=== PATIENT | male | born 1955 | race Hispanic/Latino ===

== ENCOUNTER 2017-09-19 13:52 | Inpatient (IN) | payer BC ==
[2017-09-19 13:52] VITALS: BMI 40.0
--- NOTE | 2017-09-19 14:37 | RAD ---
PROCEDURE: CHEST RADIOGRAPH, 1 VIEW HISTORY: SOB COMPARISON: Chest radiograph dated 10/16/2013. FINDINGS: LUNGS: Clear. PLEURA: No pneumothorax or pleural fluid seen. CARDIOVASCULAR: Normal. OSSEOUS STRUCTURES: Unchanged. VISUALIZED UPPER ABDOMEN: Normal. OTHER FINDINGS: None. IMPRESSION: No active disease.
--- NOTE | 2017-09-19 14:50 | C.PDOC ---
History Of Present Illness 62-year-old male, PMHx includes renal insufficiency, is brought to the emergency department by family with complaints of weakness. Patient was advised by PMD to prepare for dialysis, one year ago but did not follow up. Patient has no knowledge of his renal function, but over the past few months he has been progressively worsening. Patient has loss of appetite, and has only been drinking liquids. Today, patient was found sitting on steps of home, unable to walk without assistance. Additionally, patient has been experiencing several episodes of watery/non-bloody diarrhea over the past few days. He also notes left flank pain, and chest pain with shortness of breath while walking. No other complaints at this time. Time Seen by Provider: 09/19/17 14:06 Chief Complaint (Nursing): Weakness/Neurological Deficit History Per: Patient, Family Onset/Duration Of Symptoms: Days Current Symptoms Are (Timing): Worse Past Medical History Reviewed: Historical Data, Nursing Documentation, Vital Signs Vital Signs: Last Vital Signs Temp 97.7 F 09/19/17 14:40 Pulse 90 09/19/17 14:40 Resp 20 09/19/17 14:40 BP 124/88 09/19/17 14:40 Pulse Ox 99 09/19/17 14:40 - Medical History PMH: Arthritis (hands), HTN, Hypothyroidism, Kidney Stones, Peripheral Edema, End Stage Renal Disease, Chronic Kidney Disease (not on dialysis) Family History: States: No Known Family Hx - Social History Hx Alcohol Use: No Hx Substance Use: No Review Of Systems Constitutional: Positive for: Weakness. Negative for: Fever, Chills Cardiovascular: Positive for: Chest Pain Respiratory: Positive for: SOB with Excertion Gastrointestinal: Positive for: Diarrhea. Negative for: Nausea, Vomiting Musculoskeletal: Positive for: Back Pain Neurological: Negative for: Headache, Dizziness Physical Exam - Physical Exam Appears: Non-toxic, No Acute Distress, Unkempt (sitting in liquid stool) Skin: Warm, Dry, No Rash Head: Normacephalic Eye(s): bilateral: PERRL Nose: Normal Oral Mucosa: Moist Neck: Normal ROM Cardiovascular: Rhythm Regular, No Murmur Respiratory: Normal Breath Sounds, No Accessory Muscle Use Gastrointestinal/Abdominal: Soft, No Tenderness, Distention Extremity: Normal ROM, No Deformity, No Swelling Neurological/Psych: Oriented x3, Normal Speech, Other (No focal deficit) ED Course And Treatment - Laboratory Results Result Diagrams: 09/19/17 14:51 09/19/17 14:51 Lab Interpretation: Abnormal (BUN 107, Cr 8.5, HCO3 11, K+ 4.0) - Radiology CXR: Viewed By Me CXR Interpretation: Yes: No Acute Disease Reevaluation Time: 15:45 Reassessment Condition: Unchanged - Physician Consult Information Time Consulting Physician Contacted: 15:45 Physician Contacted: Jana Stein Outcome Of Conversation: Patient to be admitted for acute renal failure requiring dialysis. Dr Tellez consulted. Disposition - Disposition Disposition: HOSPITALIZED Disposition Time: 15:46 Condition: FAIR - POA Present On Arrival: None - Clinical Impression Clinical Impression: Acute renal failure - Scribe Statement The provider has reviewed the documentation as recorded by the Scribe (Sintia Leong) All medical record entries made by the Scribe were at my direction and personally dictated by me. I have reviewed the chart and agree that the record accurately reflects my personal performance of the history, physical exam, medical decision making, and the department course for this patient. I have also personally directed, reviewed, and agree with the discharge instructions and disposition.
[2017-09-19 15:00] LABS: BASO % 0.3 % (0.0-2.0); EOS % 0.1 % (0.0-4.0); LYMPH # 0.4 K/uL (1.0-4.3); MEAN CORPUSCULAR HEMOGLOBIN 29.6 pg (27.0-31.0); MEAN CORPUSCULAR HGB CONC 34.1 g/dL (33.0-37.0); MONO # 0.3 K/uL (0.0-0.8); MONO % 7.1 % (0.0-10.0); NEUT # 3.5 K/uL (1.8-7.0); NEUT % 83.5 % (50.0-75.0); NRBC % 0.5 % (0.0-2.0); PLATELET COUNT 228 K/uL (130-400); RBC 4.05 Mil/uL (4.40-5.90); RED CELL DISTRIBUTION WIDTH 15.2 % (11.5-14.5); WHITE BLOOD COUNT 4.1 K/uL (4.8-10.8)
[2017-09-19 15:02] LABS: MEAN CELL VOLUME 86.9 fL (80.0-94.0)
[2017-09-19 15:19] LABS: BASOPHIL 4 % (0-2); LYMPHOCYTE 3 % (20-40); MONOCYTE 7 % (0-10); NEUTROPHIL 86 % (50-75); PLATELET ESTIMATE NORMAL (NORMAL); TOTAL CELLS COUNTED 100
[2017-09-19 15:20] LABS: ANISOCYTOSIS SLIGHT; BURR CELLS SLIGHT; POIKILOCYTOSIS SLIGHT
[2017-09-19 15:21] LABS: MICROCYTOSIS SLIGHT; OVALOCYTES SLIGHT
[2017-09-19 15:35] LABS: ALB/GLOB RATIO 0.9 (1.0-2.1); ALBUMIN 3.2 g/dL (3.5-5.0); CALCIUM 7.9 mg/dl (8.6-10.4)
[2017-09-19] MEDS ORDERED: Sodium Chloride 0.9% 1,000 ML IV ONE (16:00)
[2017-09-19] MEDS ORDERED: Sodium Chloride 0.9% 1,000 ML ONE (16:06)
--- NOTE | 2017-09-19 19:02 | CP.PCM.HP ---
Past Patient History - Infectious Disease Hx of Infectious Diseases: None - Past Medical History & Family History Past Medical History?: Yes - Past Social History Smoking Status: Never Smoked - CARDIAC Hx Hypertension: Yes Hx Peripheral Edema: Yes - PULMONARY Other/Comment: sob upon exertion - HEENT Hx HEENT Problems: Yes - RENAL Hx Chronic Kidney Disease: Yes (not on dialysis) Hx Kidney Stones: Yes - ENDOCRINE/METABOLIC Hx Hypothyroidism: Yes - HEMATOLOGICAL/ONCOLOGICAL Hx Blood Disorders: Yes Hx Gum Bleeding: Yes - MUSCULOSKELETAL/RHEUMATOLOGICAL Hx Arthritis: Yes (hands) - GASTROINTESTINAL Hx Gastrointestinal Disorders: Yes Hx Gastroesophageal Reflux: Yes Hx Ulcer: Yes (gastric) - PSYCHIATRIC Hx Substance Use: No - SURGICAL HISTORY Hx Surgeries: Yes Other/Comment: exc benign tumor tight knee 1969 - ANESTHESIA Hx Anesthesia: Yes Hx Anesthesia Reactions: No Hx Malignant Hyperthermia: No Meds Allergies/Adverse Reactions: Allergies Allergy/AdvReac Type Severity Reaction Status Date / Time No Known Allergies Allergy Verified 10/16/13 09:00 Physical Exam - Constitutional Appears: Well - Head Exam Head Exam: ATRAUMATIC, NORMAL INSPECTION, NORMOCEPHALIC - Eye Exam Eye Exam: EOMI, Normal appearance, PERRL Pupil Exam: NORMAL ACCOMODATION, PERRL - ENT Exam ENT Exam: Mucous Membranes Moist, Normal Exam - Neck Exam Neck exam: Positive for: Normal Inspection - Respiratory Exam Respiratory Exam: Decreased Breath Sounds - Cardiovascular Exam Cardiovascular Exam: REGULAR RHYTHM, +S1, +S2 - GI/Abdominal Exam GI & Abdominal Exam: Diminished Bowel Sounds, Soft - Rectal Exam Rectal Exam: Deferred Results - Vital Signs Recent Vital Signs: Last Vital Signs Temp 97.2 F L 09/19/17 18:12 Pulse 87 09/19/17 18:12 Resp 20 09/19/17 18:12 BP 145/91 H 09/19/17 18:12 Pulse Ox 98 09/19/17 18:12 - Labs Result Diagrams: 09/19/17 14:51 09/19/17 14:51 Labs: Laboratory Results - last 24 hr 09/19/17 09/19/17 14:51 14:51 WBC 4.1 L RBC 4.05 L Hgb 12.0 D Hct 35.2 MCV 86.9 D MCH 29.6 MCHC 34.1 RDW 15.2 H Plt Count 228 MPV 8.0 Neut % (Auto) 83.5 H Lymph % (Auto) 9.0 L [place] % (Auto) 7.1 Eos % (Auto) 0.1 Baso % (Auto) 0.3 Neut # (Auto) 3.5 Lymph # (Auto) 0.4 L [place] # (Auto) 0.3 Eos # (Auto) 0.0 Baso # (Auto) 0.0 Neutrophils % (Manual) 86 H Lymphocytes % (Manual) 3 L Monocytes % (Manual) 7 Basophils % (Manual) 4 H Platelet Estimate Normal Poikilocytosis (manual Slight Anisocytosis (manual) Slight Microcytosis (manual) Slight Macrocytosis (manual) Slight Ovalocytes Slight [place] Cells Slight Sodium 135 Potassium 4.0 Chloride 103 Carbon Dioxide 11 L* D Anion Gap 25 H BUN 107 H* D Creatinine 8.5 H* Est GFR ( Amer) 8 Est GFR (Non-Af Amer) 6 Random Glucose 129 H Calcium 7.9 L Magnesium 1.3 L Total Bilirubin 0.9 AST 35 ALT 25 Alkaline Phosphatase 84 Total Protein 6.8 Albumin 3.2 L Globulin 3.6 Albumin/Globulin Ratio 0.9 L
[2017-09-19] MEDS ORDERED: Albuterol-Ipratrop 3 mg / 0.5 (3 ml) UD INH PRN (19:48)
[2017-09-20] MEDS: Levothyroxine 25 MCG TAB PO SCH (06:18)
[2017-09-20 07:37] LABS: BASO % 0.6 % (0.0-2.0); EOS % 0.2 % (0.0-4.0); HEMOGLOBIN 10.9 g/dL (12.0-18.0); LYMPH # 0.6 K/uL (1.0-4.3); LYMPH % 14.3 % (20.0-40.0); MEAN CELL VOLUME 86.2 fL (80.0-94.0); MEAN CORPUSCULAR HEMOGLOBIN 29.8 pg (27.0-31.0); MEAN CORPUSCULAR HGB CONC 34.5 g/dL (33.0-37.0); MEAN PLATELET VOLUME 8.1 fL (7.2-11.7); MONO # 0.3 K/uL (0.0-0.8); MONO % 7.3 % (0.0-10.0); NEUT # 3.1 K/uL (1.8-7.0); NEUT % 77.6 % (50.0-75.0); NRBC % 0.1 % (0.0-2.0); RBC 3.67 Mil/uL (4.40-5.90); RED CELL DISTRIBUTION WIDTH 15.2 % (11.5-14.5)
[2017-09-20 08:15] LABS: CALCIUM 7.4 mg/dl (8.6-10.4)
--- NOTE | 2017-09-20 10:29 | CP.PCM.CON ---
History of Present Illness - History of Present Illness History of Present Illness: 62-year-old male, PMHx includes renal insufficiency, is brought to the emergency department by family with complaints of weakness. Patient was advised by PMD to prepare for dialysis, one year ago but did not follow up. Patient has no knowledge of his renal function, but over the past few months he has been progressively worsening. Patient has loss of appetite, and has only been drinking liquids. Today, patient was found sitting on steps of home, unable to walk without assistance. Additionally, patient has been experiencing several episodes of watery/non-bloody diarrhea over the past few days. He also notes left flank pain, and chest pain with shortness of breath while walking. No other complaints at this time. PMH: CKD 5 HTN SECONDARY HYPERPARATHYROIDISM ATROPHIC LEFT? KIDNEY HYPOTHROIDISM PSH: FATTY TUMOR RESECTION KNEE ON RIGHT Review of Systems - Constitutional Constitutional: Fatigue, Lethargy, Weight Loss, Weakness - EENT Eyes: Blurred Vision Ears: absent: As Per HPI, Decreased Hearing, Ear Discharge, Ear Pain, Tinnitus, Abnormal Hearing, Disequilibrium, Dizziness, Other Nose/Mouth/Throat: absent: As Per HPI, Epistaxis, Nasal Congestion, Nasal Discharge, Nasal Obstruction, Nasal Trauma, Nose Pain, Post Nasal Drip, Sinus Pain, Sinus Pressure, Bleeding Gums, Change in Voice, Dental Pain, Dry Mouth, Dysphagia, Halitosis, Hoarsness, Lip Swelling, Mouth Lesions, Mouth Pain, Odynophagia, Sore Throat, Throat Swelling, Tongue Swelling, Facial Pain, Neck Pain, Neck Mass, Other - Cardiovascular Cardiovascular: Dyspnea on Exertion, Lightheadedness - Respiratory Respiratory: Cough, Dyspnea on Exertion - Gastrointestinal Gastrointestinal: Diarrhea, Nausea - Genitourinary Genitourinary: Dysuria, Voiding Freq/Small Amts - Musculoskeletal Musculoskeletal: Muscle Cramps, Muscle Weakness, Myalgias - Neurological Neurological: Weakness Past Patient History - Infectious Disease Hx of Infectious Diseases: None - Past Medical History & Family History Past Medical History?: Yes Past Family History: Reviewed and not pertinent - Past Social History Smoking Status: Never Smoked Chewing Tobacco Use: No Cigar Use: No Alcohol: Occasional Home Situation {Lives}: With Family Domestic Violence: Negative - CARDIAC Hx Hypertension: Yes Hx Peripheral Edema: Yes - PULMONARY Other/Comment: sob upon exertion - HEENT Hx HEENT Problems: Yes - RENAL Hx Chronic Kidney Disease: Yes (not on dialysis) Hx Kidney Stones: Yes - ENDOCRINE/METABOLIC Hx Hypothyroidism: Yes - HEMATOLOGICAL/ONCOLOGICAL Hx Blood Disorders: Yes Hx Gum Bleeding: Yes - MUSCULOSKELETAL/RHEUMATOLOGICAL Hx Falls: Yes (Last fall 3 months ago) - GASTROINTESTINAL Hx Gastrointestinal Disorders: Yes Hx Gastroesophageal Reflux: Yes Hx Ulcer: Yes (gastric) - PSYCHIATRIC Hx Substance Use: No - SURGICAL HISTORY Hx Surgeries: Yes Other/Comment: exc benign tumor tight knee 1970 - ANESTHESIA Hx Anesthesia: Yes Hx Anesthesia Reactions: No Hx Malignant Hyperthermia: No Meds Allergies/Adverse Reactions: Allergies Allergy/AdvReac Type Severity Reaction Status Date / Time No Known Allergies Allergy Verified 10/16/13 09:00 - Medications Medications: Current Medications Albuterol/Ipratropium (Duoneb 3 Mg/0.5 Mg (3 Ml) Ud) 3 ml INH RQ6 PRN PRN Reason: Wheezing Calcitriol (Rocaltrol) 0.25 mcg PO DAILY [facility] Last Admin: 09/20/17 10:22 Dose: 0.25 mcg Furosemide (Lasix) 40 mg PO DAILY [facility] Last Admin: 09/20/17 10:22 Dose: 40 mg Heparin Sodium (Porcine) (Heparin) 5,000 units SC Q12 [facility] Last Admin: 09/20/17 10:26 Dose: Not Given Levothyroxine Sodium (Synthroid) 25 mcg PO DAILY@0630 [facility] Last Admin: 09/20/17 06:18 Dose: 25 mcg Sodium Bicarbonate (Sodium Bicarbonate Tab) 650 mg PO Q6 [facility] Last Admin: 09/20/17 06:18 Dose: 650 mg Physical Exam - Constitutional Appears: Non-toxic, Chronically Ill - Head Exam Head Exam: ATRAUMATIC, NORMAL INSPECTION - Eye Exam Eye Exam: EOMI, Normal appearance - Neck Exam Neck exam: Positive for: Normal Inspection. Negative for: Tenderness - Respiratory Exam Respiratory Exam: Clear to Auscultation Bilateral, NORMAL BREATHING PATTERN - Cardiovascular Exam Cardiovascular Exam: REGULAR RHYTHM, +S1 - GI/Abdominal Exam GI & Abdominal Exam: Distended, Soft, Tenderness - Extremities Exam Extremities exam: Positive for: normal inspection, tenderness - Neurological Exam Neurological exam: Alert, CN II-XII Intact - Skin Skin Exam: Dry, Warm Results - Vital Signs Recent Vital Signs: Last Vital Signs Temp 97.2 F L 09/20/17 07:10 Pulse 87 09/20/17 07:10 Resp 18 09/20/17 07:10 BP 117/83 09/20/17 10:22 Pulse Ox 96 09/20/17 07:10 - Labs Result Diagrams: 09/20/17 07:15 09/20/17 07:15 Labs: Laboratory Results - last 24 hr 09/19/17 09/19/17 09/20/17 14:51 14:51 07:15 WBC 4.1 L 4.0 L RBC 4.05 L 3.67 L Hgb 12.0 D 10.9 L Hct 35.2 31.6 L MCV 86.9 D 86.2 MCH 29.6 29.8 MCHC 34.1 34.5 RDW 15.2 H 15.2 H Plt Count 228 196 MPV 8.0 8.1 Neut % (Auto) 83.5 H 77.6 H Lymph % (Auto) 9.0 L 14.3 L [place] % (Auto) 7.1 7.3 Eos % (Auto) 0.1 0.2 Baso % (Auto) 0.3 0.6 Neut # (Auto) 3.5 3.1 Lymph # (Auto) 0.4 L 0.6 L [place] # (Auto) 0.3 0.3 Eos # (Auto) 0.0 0.0 Baso # (Auto) 0.0 0.0 Neutrophils % (Manual) 86 H Lymphocytes % (Manual) 3 L Monocytes % (Manual) 7 Basophils % (Manual) 4 H Platelet Estimate Normal Poikilocytosis (manual Slight Anisocytosis (manual) Slight Microcytosis (manual) Slight Macrocytosis (manual) Slight Ovalocytes Slight [place] Cells Slight Sodium 135 Potassium 4.0 Chloride 103 Carbon Dioxide 11 L* D Anion Gap 25 H BUN 107 H* D Creatinine 8.5 H* Est GFR ( Amer) 8 Est GFR (Non-Af Amer) 6 Random Glucose 129 H Calcium 7.9 L Magnesium 1.3 L Total Bilirubin 0.9 AST 35 ALT 25 Alkaline Phosphatase 84 Total Protein 6.8 Albumin 3.2 L Globulin 3.6 Albumin/Globulin Ratio 0.9 L 09/20/17 07:15 WBC RBC Hgb Hct MCV MCH MCHC RDW Plt Count MPV Neut % (Auto) Lymph % (Auto) [place] % (Auto) Eos % (Auto) Baso % (Auto) Neut # (Auto) Lymph # (Auto) [place] # (Auto) Eos # (Auto) Baso # (Auto) Neutrophils % (Manual) Lymphocytes % (Manual) Monocytes % (Manual) Basophils % (Manual) Platelet Estimate Poikilocytosis (manual Anisocytosis (manual) Microcytosis (manual) Macrocytosis (manual) Ovalocytes [place] Cells Sodium 133 Potassium 3.6 Chloride 103 Carbon Dioxide 12 L Anion Gap 22 H BUN 110 H* Creatinine 8.5 H* Est GFR ( Amer) 8 Est GFR (Non-Af Amer) 6 Random Glucose 80 Calcium 7.4 L Magnesium Total Bilirubin AST ALT Alkaline Phosphatase Total Protein Albumin Globulin Albumin/Globulin Ratio Assessment & Plan (1) CKD (chronic kidney disease) stage 5, GFR less than 15 ml/min Status: Acute (2) CKD stage 5 secondary to hypertension Status: Acute (3) Secondary hyperparathyroidism Status: Acute (4) Hypothyroidism Status: Acute (5) Uremia Status: Acute - Assessment and Plan (Free Text) Plan: Will need dialysis Await permcath Renal serologies Monitor BP
--- NOTE | 2017-09-20 10:33 | CP.PCM.CON ---
History of Present Illness - History of Present Illness History of Present Illness: Vascular surgery consult for Dr. Sumi Severino, PGY-1 Pt S & E at bedside. 62M w/PMH sig for ESRD consulted for dialysis access. Per nephrology- pt has been referred to vascular before, without follow up. Pt reports b/l LE weakness , decreased appetite, feels thirsty, dry heaves, cough, wt loss. Denies anuria , CP, SOB, changes in bowel or bladder habits, other complaints. PMH: HTN, ESRD, hypothyroidism, nephrolithiasis, arthritis, peripheral edema, recurrent hyponatremia, hard of hearing PSH: R knee tumor excision - benign All: NDKA SH: Admits to 6-8 beers daily, last drink 3 wks ago, denies tobacco or illicit drug use Nephro: Geoff Past Patient History - Infectious Disease Hx of Infectious Diseases: None - Past Medical History & Family History Past Medical History?: Yes Past Family History: Reviewed and not pertinent - Past Social History Smoking Status: Never Smoked Chewing Tobacco Use: No Cigar Use: No - CARDIAC Hx Hypertension: Yes Hx Peripheral Edema: Yes - PULMONARY Other/Comment: sob upon exertion - HEENT Hx HEENT Problems: Yes - RENAL Hx Chronic Kidney Disease: Yes (not on dialysis) Hx Kidney Stones: Yes - ENDOCRINE/METABOLIC Hx Hypothyroidism: Yes - HEMATOLOGICAL/ONCOLOGICAL Hx Blood Disorders: Yes Hx Gum Bleeding: Yes - MUSCULOSKELETAL/RHEUMATOLOGICAL Hx Falls: Yes (Last fall 3 months ago) - GASTROINTESTINAL Hx Gastrointestinal Disorders: Yes Hx Gastroesophageal Reflux: Yes Hx Ulcer: Yes (gastric) - PSYCHIATRIC Hx Substance Use: No - SURGICAL HISTORY Hx Surgeries: Yes Other/Comment: exc benign tumor tight knee 1970 - ANESTHESIA Hx Anesthesia: Yes Hx Anesthesia Reactions: No Hx Malignant Hyperthermia: No Meds Allergies/Adverse Reactions: Allergies Allergy/AdvReac Type Severity Reaction Status Date / Time No Known Allergies Allergy Verified 10/16/13 09:00 - Medications Medications: Current Medications Albuterol/Ipratropium (Duoneb 3 Mg/0.5 Mg (3 Ml) Ud) 3 ml INH RQ6 PRN PRN Reason: Wheezing Calcitriol (Rocaltrol) 0.25 mcg PO DAILY [facility] Last Admin: 09/20/17 10:22 Dose: 0.25 mcg Furosemide (Lasix) 40 mg PO DAILY [facility] Last Admin: 09/20/17 10:22 Dose: 40 mg Heparin Sodium (Porcine) (Heparin) 5,000 units SC Q12 [facility] Last Admin: 09/20/17 10:26 Dose: Not Given Levothyroxine Sodium (Synthroid) 25 mcg PO DAILY@0630 [facility] Last Admin: 09/20/17 06:18 Dose: 25 mcg Sodium Bicarbonate (Sodium Bicarbonate Tab) 650 mg PO Q6 [facility] Last Admin: 09/20/17 06:18 Dose: 650 mg Results - Vital Signs Recent Vital Signs: Last Vital Signs Temp 97.2 F L 09/20/17 07:10 Pulse 87 09/20/17 07:10 Resp 18 09/20/17 07:10 BP 117/83 09/20/17 10:22 Pulse Ox 96 09/20/17 07:10 - Labs Result Diagrams: 09/20/17 07:15 09/20/17 07:15 Labs: Laboratory Results - last 24 hr 09/19/17 09/19/17 09/20/17 14:51 14:51 07:15 WBC 4.1 L 4.0 L RBC 4.05 L 3.67 L Hgb 12.0 D 10.9 L Hct 35.2 31.6 L MCV 86.9 D 86.2 MCH 29.6 29.8 MCHC 34.1 34.5 RDW 15.2 H 15.2 H Plt Count 228 196 MPV 8.0 8.1 Neut % (Auto) 83.5 H 77.6 H Lymph % (Auto) 9.0 L 14.3 L [place] % (Auto) 7.1 7.3 Eos % (Auto) 0.1 0.2 Baso % (Auto) 0.3 0.6 Neut # (Auto) 3.5 3.1 Lymph # (Auto) 0.4 L 0.6 L [place] # (Auto) 0.3 0.3 Eos # (Auto) 0.0 0.0 Baso # (Auto) 0.0 0.0 Neutrophils % (Manual) 86 H Lymphocytes % (Manual) 3 L Monocytes % (Manual) 7 Basophils % (Manual) 4 H Platelet Estimate Normal Poikilocytosis (manual Slight Anisocytosis (manual) Slight Microcytosis (manual) Slight Macrocytosis (manual) Slight Ovalocytes Slight [place] Cells Slight Sodium 135 Potassium 4.0 Chloride 103 Carbon Dioxide 11 L* D Anion Gap 25 H BUN 107 H* D Creatinine 8.5 H* Est GFR ( Amer) 8 Est GFR (Non-Af Amer) 6 Random Glucose 129 H Calcium 7.9 L Magnesium 1.3 L Total Bilirubin 0.9 AST 35 ALT 25 Alkaline Phosphatase 84 Total Protein 6.8 Albumin 3.2 L Globulin 3.6 Albumin/Globulin Ratio 0.9 L 09/20/17 07:15 WBC RBC Hgb Hct MCV MCH MCHC RDW Plt Count MPV Neut % (Auto) Lymph % (Auto) [place] % (Auto) Eos % (Auto) Baso % (Auto) Neut # (Auto) Lymph # (Auto) [place] # (Auto) Eos # (Auto) Baso # (Auto) Neutrophils % (Manual) Lymphocytes % (Manual) Monocytes % (Manual) Basophils % (Manual) Platelet Estimate Poikilocytosis (manual Anisocytosis (manual) Microcytosis (manual) Macrocytosis (manual) Ovalocytes [place] Cells Sodium 133 Potassium 3.6 Chloride 103 Carbon Dioxide 12 L Anion Gap 22 H BUN 110 H* Creatinine 8.5 H* Est GFR ( Amer) 8 Est GFR (Non-Af Amer) 6 Random Glucose 80 Calcium 7.4 L Magnesium Total Bilirubin AST ALT Alkaline Phosphatase Total Protein Albumin Globulin Albumin/Globulin Ratio Assessment & Plan - Assessment and Plan (Free Text) Assessment: 62M w/PMH sig for ESRD requiring HD Plan: Plan for OR later today HD to follow per nephrology NPO LUE arm precautions FU Vein mapping Further mgmt as per primary and nephrology Will BURTON attending [place], PGY-1 - Date & Time Date: 09/20/17 Time: 10:33
[2017-09-20] MEDS: Magnesium Oxide 400 mg Tab UD PO SCH ×2 (11:36→17:57)
[2017-09-20] MEDS ORDERED: Lidocaine Hydrochloride 20 ML INJ ONE (13:31)
[2017-09-20] MEDS ORDERED: ceFAZolin 1 gm in NS 0 GM/0 ML BAG IVPB ONE (13:31)
[2017-09-20] MEDS ORDERED: HEPARIN-NS 5,000 UNITS/500 ML 5,000 UNIT/500 ML BAG IV ONE (13:31)
[2017-09-20] MEDS ORDERED: ceFAZolin 1 gm in NS 1 GM/100 ML BAG IVPB ONE (13:32)
[2017-09-20] MEDS ORDERED: Midazolam 2 MG/2 ML VIAL ONE (13:38)
[2017-09-20] MEDS ORDERED: Propofol 10 mg/ml Inj (20 ML) ONE (13:38)
[2017-09-20] MEDS ORDERED: Lactated Ringer's 1,000 ML IV ONE (13:50)
[2017-09-20 14:24] LABS: INR 1.4
[2017-09-20 14:26] LABS: PROTHROMBIN TIME 15.4 SECONDS (9.7-12.2)
--- NOTE | 2017-09-20 14:33 | CP.PCM.CON ---
Past Patient History - Infectious Disease Hx of Infectious Diseases: None - Past Medical History & Family History Past Medical History?: Yes Past Family History: Reviewed and not pertinent - Past Social History Smoking Status: Never Smoked Chewing Tobacco Use: No Cigar Use: No Alcohol: Occasional Home Situation {Lives}: With Family Domestic Violence: Negative - CARDIAC Hx Hypertension: Yes Hx Peripheral Edema: Yes - PULMONARY Other/Comment: sob upon exertion - HEENT Hx HEENT Problems: Yes - RENAL Hx Chronic Kidney Disease: Yes (not on dialysis) Hx Kidney Stones: Yes - ENDOCRINE/METABOLIC Hx Hypothyroidism: Yes - HEMATOLOGICAL/ONCOLOGICAL Hx Blood Disorders: Yes Hx Gum Bleeding: Yes - MUSCULOSKELETAL/RHEUMATOLOGICAL Hx Falls: Yes (Last fall 3 months ago) - GASTROINTESTINAL Hx Gastrointestinal Disorders: Yes Hx Gastroesophageal Reflux: Yes Hx Ulcer: Yes (gastric) - PSYCHIATRIC Hx Substance Use: No - SURGICAL HISTORY Hx Surgeries: Yes Other/Comment: exc benign tumor tight knee 1970 - ANESTHESIA Hx Anesthesia: Yes Hx Anesthesia Reactions: No Hx Malignant Hyperthermia: No Meds Allergies/Adverse Reactions: Allergies Allergy/AdvReac Type Severity Reaction Status Date / Time No Known Allergies Allergy Verified 10/16/13 09:00 - Medications Medications: Current Medications Albuterol/Ipratropium (Duoneb 3 Mg/0.5 Mg (3 Ml) Ud) 3 ml INH RQ6 PRN PRN Reason: Wheezing Calcitriol (Rocaltrol) 0.25 mcg PO DAILY [facility] Last Admin: 09/20/17 10:22 Dose: 0.25 mcg Heparin Sodium (Porcine) (Heparin) 5,000 units SC Q12 [facility] Last Admin: 09/20/17 10:26 Dose: Not Given Levothyroxine Sodium (Synthroid) 25 mcg PO DAILY@0630 [facility] Last Admin: 09/20/17 06:18 Dose: 25 mcg Magnesium Oxide (Mag-Ox) 400 mg PO BID [facility] Stop: 09/21/17 12:00 Last Admin: 09/20/17 11:36 Dose: 400 mg Sodium Bicarbonate (Sodium Bicarbonate Tab) 650 mg PO Q6 [facility] Last Admin: 09/20/17 11:37 Dose: 650 mg Results - Vital Signs Recent Vital Signs: Last Vital Signs Temp 97.2 F L 09/20/17 07:10 Pulse 85 09/20/17 13:05 Resp 18 09/20/17 07:10 BP 117/83 04/12/18 10:22 Pulse Ox 96 09/20/17 07:10 - Labs Result Diagrams: 09/20/17 07:15 09/20/17 07:15 Labs: Laboratory Results - last 24 hr 09/19/17 09/19/17 09/20/17 14:51 14:51 07:15 WBC 4.1 L 4.0 L RBC 4.05 L 3.67 L Hgb 12.0 D 10.9 L Hct 35.2 31.6 L MCV 86.9 D 86.2 MCH 29.6 29.8 MCHC 34.1 34.5 RDW 15.2 H 15.2 H Plt Count 228 196 MPV 8.0 8.1 Neut % (Auto) 83.5 H 77.6 H Lymph % (Auto) 9.0 L 14.3 L [place] % (Auto) 7.1 7.3 Eos % (Auto) 0.1 0.2 Baso % (Auto) 0.3 0.6 Neut # (Auto) 3.5 3.1 Lymph # (Auto) 0.4 L 0.6 L [place] # (Auto) 0.3 0.3 Eos # (Auto) 0.0 0.0 Baso # (Auto) 0.0 0.0 Neutrophils % (Manual) 86 H Lymphocytes % (Manual) 3 L Monocytes % (Manual) 7 Basophils % (Manual) 4 H Platelet Estimate Normal Poikilocytosis (manual Slight Anisocytosis (manual) Slight Microcytosis (manual) Slight Macrocytosis (manual) Slight Ovalocytes Slight [place] Cells Slight PT INR APTT Sodium 135 Potassium 4.0 Chloride 103 Carbon Dioxide 11 L* D Anion Gap 25 H BUN 107 H* D Creatinine 8.5 H* Est GFR ( Amer) 8 Est GFR (Non-Af Amer) 6 Random Glucose 129 H Calcium 7.9 L Magnesium 1.3 L Total Bilirubin 0.9 AST 35 ALT 25 Alkaline Phosphatase 84 Total Protein 6.8 Albumin 3.2 L Globulin 3.6 Albumin/Globulin Ratio 0.9 L 09/20/17 09/20/17 07:15 14:06 WBC RBC Hgb Hct MCV MCH MCHC RDW Plt Count MPV Neut % (Auto) Lymph % (Auto) [place] % (Auto) Eos % (Auto) Baso % (Auto) Neut # (Auto) Lymph # (Auto) [place] # (Auto) Eos # (Auto) Baso # (Auto) Neutrophils % (Manual) Lymphocytes % (Manual) Monocytes % (Manual) Basophils % (Manual) Platelet Estimate Poikilocytosis (manual Anisocytosis (manual) Microcytosis (manual) Macrocytosis (manual) Ovalocytes [place] Cells PT 15.4 H INR 1.4 APTT 33 Sodium 133 Potassium 3.6 Chloride 103 Carbon Dioxide 12 L Anion Gap 22 H BUN 110 H* Creatinine 8.5 H* Est GFR ( Amer) 8 Est GFR (Non-Af Amer) 6 Random Glucose 80 Calcium 7.4 L Magnesium Total Bilirubin AST ALT Alkaline Phosphatase Total Protein Albumin Globulin Albumin/Globulin Ratio
[2017-09-20] MEDS ORDERED: Sodium Chloride 0.9% 500 ML IV ONE (14:34)
--- NOTE | 2017-09-20 14:42 | PCM.SURG1 ---
Surgeon's Initial Post Op Note - Surgeon's Notes Surgeon: Gold Houser MD Watch And Clock Repairer: Cassy Severino PGY-1, Yon Hernandez MS-3 Pre-Operative Diagnosis: End Stage Renal Disease Requiring Dialysis Operative Findings: See Op report Post-Operative Diagnosis: End Stage Renal Disease Requiring Dialysis Operation Performed: Right IJ Permacath Placement Specimen/Specimens Removed: none Estimated Blood Loss: EBL {In ML}: 5 Blood Products Given: N/A Drains Used: No Drains Date of Surgery/Procedure: 09/20/17 Time of Surgery/Procedure: 14:42
[2017-09-20 15:20] LABS: HEPATITIS B SURFACE AG Negative (NEGATIVE)
[2017-09-20 15:25] LABS: HEPATITIS B CORE AB NEGATIVE (NEGATIVE)
--- NOTE | 2017-09-20 16:07 | RAD ---
HISTORY: permacath eval in pacu COMPARISON: Portable chest 09/19/2017. FINDINGS: LUNGS: Trace remains rotated toward the right. An interval right center venous dialysis catheters in place by an apparent right internal jugular approach with the tips turning at the right atrium. No definite interval infiltrate bilaterally. PLEURA: No significant pleural effusion identified, no pneumothorax apparent. CARDIOVASCULAR: Normal. OSSEOUS STRUCTURES: No significant abnormalities. VISUALIZED UPPER ABDOMEN: Normal. OTHER FINDINGS: None. IMPRESSION: Interval right center venous catheter deployment as discussed above. No pneumothorax. Examination is otherwise stable in the interval with no acute infiltrate pleural effusion or pulmonary vascular derangement identified grossly.
[2017-09-20 16:16] LABS: HEPATITIS C ANTIBODY NEGATIVE (NEGATIVE)
--- NOTE | 2017-09-20 16:56 | RAD ---
PROCEDURE: HISTORY: As Above COMPARISON: TECHNIQUE: Total fluoroscopic time utilized during the procedure: 7.4 seconds. Total dose 1.42 mGy cm squared FINDINGS: Submitted images from the current procedure: 3 Please refer to the physician's notes performing the procedure. IMPRESSION: Less than 1 hour fluoroscopic time utilized during performance of the procedure
--- NOTE | 2017-09-20 18:38 | CP.PCM.PN ---
Subjective - Date & Time of Evaluation Date of Evaluation: 09/20/17 Time of Evaluation: 10:40 - Subjective Subjective: clinically same Objective - Vital Signs/Intake and Output Vital Signs (last 24 hours): Temp Pulse Resp BP Pulse Ox 97.2 F L 76 20 124/81 95 09/20/17 16:30 09/20/17 18:17 09/20/17 18:17 09/20/17 18:30 09/20/17 16:30 Intake and Output: 09/20/17 09/20/17 06:59 18:59 Intake Total 320 100 Output Total 200 Balance 120 100 - Medications Medications: Current Medications Albuterol/Ipratropium (Duoneb 3 Mg/0.5 Mg (3 Ml) Ud) 3 ml INH RQ6 PRN PRN Reason: Wheezing Calcitriol (Rocaltrol) 0.25 mcg PO DAILY [facility] Last Admin: 09/20/17 10:22 Dose: 0.25 mcg Heparin Sodium (Porcine) (Heparin) 5,000 units SC Q12 [facility] Last Admin: 09/20/17 10:26 Dose: Not Given Levothyroxine Sodium (Synthroid) 25 mcg PO DAILY@0630 [facility] Last Admin: 09/20/17 06:18 Dose: 25 mcg Magnesium Oxide (Mag-Ox) 400 mg PO BID [facility] Stop: 09/21/17 12:00 Last Admin: 09/20/17 17:57 Dose: Not Given Sodium Bicarbonate (Sodium Bicarbonate Tab) 650 mg PO Q6 [facility] Last Admin: 09/20/17 17:58 Dose: Not Given - Labs Labs: 09/20/17 07:15 09/20/17 07:15 PT 15.4 SECONDS (9.7-12.2) H 09/20/17 14:06 INR 1.4 09/20/17 14:06 APTT 33 SECONDS (21-34) 09/20/17 14:06 - Constitutional Appears: Well - Head Exam Head Exam: ATRAUMATIC, NORMAL INSPECTION, NORMOCEPHALIC - Eye Exam Eye Exam: EOMI, Normal appearance, PERRL Pupil Exam: NORMAL ACCOMODATION, PERRL - ENT Exam ENT Exam: Mucous Membranes Moist, Normal Exam - Neck Exam Neck Exam: Full ROM, Normal Inspection. absent: Lymphadenopathy - Respiratory Exam Respiratory Exam: Decreased Breath Sounds - Cardiovascular Exam Cardiovascular Exam: REGULAR RHYTHM, +S1, +S2 - GI/Abdominal Exam GI & Abdominal Exam: Soft, Diminished Bowel Sounds - Rectal Exam Rectal Exam: Deferred
--- NOTE | 2017-09-21 00:36 | OP ---
PROCEDURE DATE: 09/20/2017 PREOPERATIVE DIAGNOSIS: Renal failure. POSTOPERATIVE DIAGNOSIS: Renal failure. PROCEDURE CARRIED OUT: Placement of PermCath, right jugular vein with C-arm fluoroscopy, ultrasound-guided puncture and micropuncture technique. SURGEON: Gold Houser MD BACK SEAM STITCHER: Dr. Rueda. ANESTHESIOLOGIST: Mr. Gibbs. INDICATIONS: A 62-year-old man with renal insufficiency, presented on an emergency basis requiring placement of PermCath. OPERATIVE FINDINGS: Catheter was inserted uneventfully via jugular vein. DESCRIPTION OF PROCEDURE: Using ultrasound guidance and micropuncture technique, the right jugular vein was cannulated. Under fluoroscope control, a guidewire was advanced centrally. A sheath dilator was passed over, this was exchanged for an 0.035 wire. Sheath dilator passed again. Catheter was then positioned in appropriate location, flushed with heparinized saline with good return in both directions. It was secured to the skin with sutures and dressing applied. It was originated on the right chest wall, went to the jugular vein, terminated in the superior vena cava. Blood loss in this procedure was approximately 10 mL. The operation carried out was PermCath, right jugular vein with C-arm fluoroscopy, ultrasound-guided puncture and micropuncture technique. Ultrasound images of the neck showed that the vein was approximately 14 mm in diameter with normal compressibility and no evidence of intraluminal thrombosis. Gold Houser Jr., MD
[2017-09-21] MEDS: Levothyroxine 25 MCG TAB PO SCH (06:17)
[2017-09-21] MEDS: Magnesium Oxide 400 mg Tab UD PO SCH (09:55)
--- NOTE | 2017-09-21 11:03 | CP.PCM.PN ---
Subjective - Date & Time of Evaluation Date of Evaluation: 09/21/17 Time of Evaluation: 10:58 - Subjective Subjective: PGY-1 surgery progress note for Dr Houser. No acute events noted overnight. Patient was seen resting comfortably in bed. Complained of cough and general weakness otherwise denied chest pain, abdominal pain, fever, chills Objective - Vital Signs/Intake and Output Vital Signs (last 24 hours): Temp Pulse Resp BP Pulse Ox 97.6 F 83 20 123/83 97 09/21/17 07:00 09/21/17 08:00 09/21/17 07:00 09/21/17 07:00 09/21/17 07:00 - Medications Medications: Current Medications Albuterol/Ipratropium (Duoneb 3 Mg/0.5 Mg (3 Ml) Ud) 3 ml INH RQ6 PRN PRN Reason: Wheezing Calcitriol (Rocaltrol) 0.25 mcg PO DAILY [facility] Last Admin: 09/21/17 09:55 Dose: 0.25 mcg Heparin Sodium (Porcine) (Heparin) 5,000 units SC Q12 [facility] Last Admin: 09/20/17 10:26 Dose: Not Given Levothyroxine Sodium (Synthroid) 25 mcg PO DAILY@0630 [facility] Last Admin: 09/21/17 06:17 Dose: 25 mcg Magnesium Oxide (Mag-Ox) 400 mg PO BID [facility] Stop: 09/21/17 12:00 Last Admin: 09/21/17 09:55 Dose: 400 mg Ondansetron HCl (Zofran Inj) 4 mg IVP Q6 PRN PRN Reason: Nausea/Vomiting Last Admin: 09/21/17 08:36 Dose: 4 mg Sodium Bicarbonate (Sodium Bicarbonate Tab) 650 mg PO Q6 [facility] Last Admin: 09/21/17 06:17 Dose: 650 mg - Labs Labs: 09/20/17 07:15 09/20/17 07:15 PT 15.4 SECONDS (9.7-12.2) H 09/20/17 14:06 INR 1.4 09/20/17 14:06 APTT 33 SECONDS (21-34) 09/20/17 14:06 - Additional Findings Additional findings: - Constitutional Appears: Non-toxic, Chronically Ill - Head Exam Head Exam: ATRAUMATIC, NORMAL INSPECTION - Eye Exam Eye Exam: EOMI, Normal appearance - Neck Exam Neck exam: Positive for: Normal Inspection. Negative for: Tenderness W/ RT JUGULAR PERMACATH INTACT DRESSING DRY - Respiratory Exam Respiratory Exam: Clear to Auscultation Bilateral, NORMAL BREATHING PATTERN - Cardiovascular Exam Cardiovascular Exam: REGULAR RHYTHM, +S1 - GI/Abdominal Exam GI & Abdominal Exam: Distended, Soft, Tenderness - Extremities Exam Extremities exam: Positive for: normal inspection, tenderness - Neurological Exam Neurological exam: Alert, CN II-XII Intact - Skin Skin Exam: Dry, Warm Assessment and Plan - Assessment and Plan (Free Text) Assessment: 62M w/PMH sig for ESRD requiring HD with Right IJ Permacath Placement POD #1 Plan: HD to follow per nephrology Renal diet LUE arm precautions FU Vein mapping Further mgmt as per primary and nephrology Will DW attending
--- NOTE | 2017-09-21 12:54 | CP.PCM.PN ---
Subjective - Date & Time of Evaluation Date of Evaluation: 09/21/17 Time of Evaluation: 12:51 - Subjective Subjective: s/p first dialysis 09/20 feels better right IJ permcath in place less dyspnea, no CPs, no n,v,fever, chills Objective - Vital Signs/Intake and Output Vital Signs (last 24 hours): Temp Pulse Resp BP Pulse Ox 97.6 F 83 20 123/83 97 09/21/17 07:00 09/21/17 12:36 09/21/17 07:00 09/21/17 07:00 09/21/17 07:00 - Medications Medications: Current Medications Albuterol/Ipratropium (Duoneb 3 Mg/0.5 Mg (3 Ml) Ud) 3 ml INH RQ6 PRN PRN Reason: Wheezing Calcitriol (Rocaltrol) 0.25 mcg PO DAILY [facility] Last Admin: 09/21/17 09:55 Dose: 0.25 mcg Heparin Sodium (Porcine) (Heparin) 5,000 units SC Q12 [facility] Last Admin: 09/20/17 10:26 Dose: Not Given Levothyroxine Sodium (Synthroid) 25 mcg PO DAILY@0630 [facility] Last Admin: 09/21/17 06:17 Dose: 25 mcg Ondansetron HCl (Zofran Inj) 4 mg IVP Q6 PRN PRN Reason: Nausea/Vomiting Last Admin: 09/21/17 08:36 Dose: 4 mg Sodium Bicarbonate (Sodium Bicarbonate Tab) 650 mg PO Q6 [facility] Last Admin: 09/21/17 12:04 Dose: 650 mg - Labs Labs: 09/20/17 07:15 09/20/17 07:15 PT 15.4 SECONDS (9.7-12.2) H 09/20/17 14:06 INR 1.4 09/20/17 14:06 APTT 33 SECONDS (21-34) 09/20/17 14:06 - Constitutional Appears: No Acute Distress, Chronically Ill - Head Exam Head Exam: ATRAUMATIC, NORMAL INSPECTION - Eye Exam Eye Exam: EOMI, Normal appearance - Neck Exam Neck Exam: Normal Inspection. absent: Tenderness - Respiratory Exam Respiratory Exam: Clear to Ausculation Bilateral, NORMAL BREATHING PATTERN - Cardiovascular Exam Cardiovascular Exam: REGULAR RHYTHM, +S1 - GI/Abdominal Exam GI & Abdominal Exam: Soft. absent: Tenderness - Extremities Exam Extremities Exam: Normal Inspection, Tenderness - Neurological Exam Neurological Exam: Awake, CN II-XII Intact - Skin Skin Exam: Dry, Warm Assessment and Plan (1) CKD (chronic kidney disease) stage 5, GFR less than 15 ml/min Status: Acute (2) CKD stage 5 secondary to hypertension Status: Acute (3) Secondary hyperparathyroidism Status: Acute (4) Hypothyroidism Status: Acute (5) Uremia Status: Acute - Assessment and Plan (Free Text) Plan: dialysis TTS increase calcitriol, add phoslo av access next week HD placement
--- NOTE | 2017-09-21 15:29 | CP.PCM.PN ---
Subjective - Date & Time of Evaluation Date of Evaluation: 09/21/17 Time of Evaluation: 15:29 Objective - Vital Signs/Intake and Output Vital Signs (last 24 hours): Temp Pulse Resp BP Pulse Ox 97.6 F 83 20 123/83 97 09/21/17 07:00 09/21/17 12:36 09/21/17 07:00 09/21/17 07:00 09/21/17 07:00 Intake and Output: 09/21/17 09/21/17 06:59 18:59 Intake Total 600 Balance 600 - Medications Medications: Current Medications Albuterol/Ipratropium (Duoneb 3 Mg/0.5 Mg (3 Ml) Ud) 3 ml INH RQ6 PRN PRN Reason: Wheezing Calcitriol (Rocaltrol) 0.5 mcg PO DAILY [facility] Calcium Acetate (Phoslo) 667 mg PO TID [facility] Last Admin: 09/21/17 14:04 Dose: 667 mg Heparin Sodium (Porcine) (Heparin) 5,000 units SC Q12 [facility] Last Admin: 09/20/17 10:26 Dose: Not Given Levothyroxine Sodium (Synthroid) 25 mcg PO DAILY@0630 [facility] Last Admin: 09/21/17 06:17 Dose: 25 mcg Magnesium Oxide (Mag-Ox) 400 mg PO DAILY [facility] Stop: 09/24/17 04:00 Ondansetron HCl (Zofran Inj) 4 mg IVP Q6 PRN PRN Reason: Nausea/Vomiting Last Admin: 09/21/17 08:36 Dose: 4 mg Sodium Bicarbonate (Sodium Bicarbonate Tab) 650 mg PO DAILY [facility] - Labs Labs: 09/20/17 07:15 09/20/17 07:15 PT 15.4 SECONDS (9.7-12.2) H 09/20/17 14:06 INR 1.4 09/20/17 14:06 APTT 33 SECONDS (21-34) 09/20/17 14:06
--- NOTE | 2017-09-21 16:28 | CP.PCM.PN ---
Subjective - Date & Time of Evaluation Date of Evaluation: 09/21/17 Time of Evaluation: 10:40 - Subjective Subjective: clinically same Objective - Vital Signs/Intake and Output Vital Signs (last 24 hours): Temp Pulse Resp BP Pulse Ox 98.5 F 69 20 110/72 98 09/21/17 15:35 09/21/17 15:35 09/21/17 15:35 09/21/17 15:35 09/21/17 15:35 Intake and Output: 09/21/17 09/21/17 06:59 18:59 Intake Total 600 Balance 600 - Medications Medications: Current Medications Albuterol/Ipratropium (Duoneb 3 Mg/0.5 Mg (3 Ml) Ud) 3 ml INH RQ6 PRN PRN Reason: Wheezing Calcitriol (Rocaltrol) 0.5 mcg PO DAILY [facility] Calcium Acetate (Phoslo) 667 mg PO TID [facility] Last Admin: 09/21/17 14:04 Dose: 667 mg Heparin Sodium (Porcine) (Heparin) 5,000 units SC Q12 [facility] Last Admin: 09/20/17 10:26 Dose: Not Given Levothyroxine Sodium (Synthroid) 25 mcg PO DAILY@0630 [facility] Last Admin: 09/21/17 06:17 Dose: 25 mcg Magnesium Oxide (Mag-Ox) 400 mg PO DAILY [facility] Stop: 09/24/17 04:00 Ondansetron HCl (Zofran Inj) 4 mg IVP Q6 PRN PRN Reason: Nausea/Vomiting Last Admin: 09/21/17 08:36 Dose: 4 mg Sodium Bicarbonate (Sodium Bicarbonate Tab) 650 mg PO DAILY [facility] - Labs Labs: 09/20/17 07:15 09/20/17 07:15 PT 15.4 SECONDS (9.7-12.2) H 09/20/17 14:06 INR 1.4 09/20/17 14:06 APTT 33 SECONDS (21-34) 09/20/17 14:06 - Constitutional Appears: Well - Head Exam Head Exam: ATRAUMATIC, NORMAL INSPECTION, NORMOCEPHALIC - Eye Exam Eye Exam: EOMI, Normal appearance, PERRL Pupil Exam: NORMAL ACCOMODATION, PERRL - ENT Exam ENT Exam: Mucous Membranes Moist, Normal Exam - Neck Exam Neck Exam: Full ROM, Normal Inspection. absent: Lymphadenopathy - Respiratory Exam Respiratory Exam: Decreased Breath Sounds - Cardiovascular Exam Cardiovascular Exam: REGULAR RHYTHM, +S1, +S2 - GI/Abdominal Exam GI & Abdominal Exam: Soft, Diminished Bowel Sounds - Rectal Exam Rectal Exam: Deferred
[2017-09-22] MEDS: Levothyroxine 25 MCG TAB PO SCH (06:14)
[2017-09-22 08:13] LABS: CALCIUM 7.2 mg/dl (8.6-10.4)
--- NOTE | 2017-09-22 10:01 | CP.PCM.PN ---
Subjective - Date & Time of Evaluation Date of Evaluation: 09/22/17 Time of Evaluation: 09:59 - Subjective Subjective: seen in dialysis no SOB or chest pain complaints of rash over abdomen - started yesterday burning with rash ROS- as per HPI, other than that 10 point ROS negative Objective - Vital Signs/Intake and Output Vital Signs (last 24 hours): Temp Pulse Resp BP Pulse Ox 97.6 F 88 20 114/73 96 09/22/17 07:15 09/22/17 07:15 09/22/17 07:15 09/22/17 07:15 09/22/17 07:15 Intake and Output: 09/22/17 09/22/17 06:59 18:59 Intake Total 120 Balance 120 - Medications Medications: Current Medications Albuterol/Ipratropium (Duoneb 3 Mg/0.5 Mg (3 Ml) Ud) 3 ml INH RQ6 PRN PRN Reason: Wheezing Calcitriol (Rocaltrol) 0.5 mcg PO DAILY [facility] Calcium Acetate (Phoslo) 667 mg PO TID [facility] Last Admin: 09/21/17 18:19 Dose: 667 mg Heparin Sodium (Porcine) (Heparin) 5,000 units SC Q12 [facility] Last Admin: 09/20/17 10:26 Dose: Not Given Levothyroxine Sodium (Synthroid) 25 mcg PO DAILY@0630 [facility] Last Admin: 09/22/17 06:14 Dose: 25 mcg Magnesium Oxide (Mag-Ox) 400 mg PO DAILY [facility] Stop: 09/24/17 04:00 Ondansetron HCl (Zofran Inj) 4 mg IVP Q6 PRN PRN Reason: Nausea/Vomiting Last Admin: 09/21/17 08:36 Dose: 4 mg Sodium Bicarbonate (Sodium Bicarbonate Tab) 650 mg PO DAILY [facility] - Labs Labs: 09/20/17 07:15 09/22/17 07:16 PT 15.4 SECONDS (9.7-12.2) H 09/20/17 14:06 INR 1.4 09/20/17 14:06 APTT 33 SECONDS (21-34) 09/20/17 14:06 - Constitutional Appears: No Acute Distress, Chronically Ill - Head Exam Head Exam: ATRAUMATIC, NORMOCEPHALIC - Eye Exam Eye Exam: EOMI, PERRL - ENT Exam ENT Exam: Mucous Membranes Moist - Neck Exam Neck Exam: absent: Lymphadenopathy - Respiratory Exam Respiratory Exam: Clear to Ausculation Bilateral. absent: Rhonchi, Wheezes - Cardiovascular Exam Cardiovascular Exam: REGULAR RHYTHM, +S1, +S2 - GI/Abdominal Exam GI & Abdominal Exam: Distended, Soft. absent: Tenderness, Diminished Bowel Sounds Additional comments: macular rash milady umblical area and RLQ - Extremities Exam Extremities Exam: Pedal Edema. absent: Joint Swelling - Neurological Exam Neurological Exam: Alert, Awake, Oriented x3 - Psychiatric Exam Psychiatric exam: Normal Affect, Normal Mood - Skin Skin Exam: Dry, Intact Assessment and Plan (1) ESRD (end stage renal disease) on dialysis Status: Acute (2) Hypothyroidism Status: Acute (3) Secondary hyperparathyroidism Status: Acute (4) Uremia Status: Acute (5) Shortness of breath Status: Acute - Assessment and Plan (Free Text) Plan: HD today for fistula next week rash- ? etiology local steroid cream stop po bicarbonate
[2017-09-22 11:19] LABS: HEMOGLOBIN 9.5 g/dL (12.0-18.0); MEAN CELL VOLUME 85.8 fL (80.0-94.0); MEAN CORPUSCULAR HEMOGLOBIN 29.5 pg (27.0-31.0); MEAN CORPUSCULAR HGB CONC 34.4 g/dL (33.0-37.0); MEAN PLATELET VOLUME 8.6 fL (7.2-11.7); RBC 3.21 Mil/uL (4.40-5.90); RED CELL DISTRIBUTION WIDTH 14.9 % (11.5-14.5); WHITE BLOOD COUNT 5.1 K/uL (4.8-10.8)
--- NOTE | 2017-09-22 12:28 | CP.PCM.PN ---
Subjective - Date & Time of Evaluation Date of Evaluation: 09/22/17 Time of Evaluation: 10:00 - Subjective Subjective: clinically same Objective - Vital Signs/Intake and Output Vital Signs (last 24 hours): Temp Pulse Resp BP Pulse Ox 97.5 F L 70 16 129/87 100 09/22/17 12:25 09/22/17 09:25 09/22/17 12:25 09/22/17 12:25 09/22/17 12:25 Intake and Output: 09/22/17 09/22/17 06:59 18:59 Intake Total 120 Balance 120 - Medications Medications: Current Medications Albuterol/Ipratropium (Duoneb 3 Mg/0.5 Mg (3 Ml) Ud) 3 ml INH RQ6 PRN PRN Reason: Wheezing Calcitriol (Rocaltrol) 0.5 mcg PO DAILY [facility] Calcium Acetate (Phoslo) 667 mg PO TID [facility] Last Admin: 09/21/17 18:19 Dose: 667 mg Heparin Sodium (Porcine) (Heparin) 5,000 units SC Q12 [facility] Last Admin: 09/20/17 10:26 Dose: Not Given Levothyroxine Sodium (Synthroid) 25 mcg PO DAILY@0630 [facility] Last Admin: 09/22/17 06:14 Dose: 25 mcg Magnesium Oxide (Mag-Ox) 400 mg PO DAILY [facility] Stop: 09/24/17 04:00 Ondansetron HCl (Zofran Inj) 4 mg IVP Q6 PRN PRN Reason: Nausea/Vomiting Last Admin: 09/21/17 08:36 Dose: 4 mg - Labs Labs: 09/22/17 11:15 09/22/17 07:16 PT 15.4 SECONDS (9.7-12.2) H 09/20/17 14:06 INR 1.4 09/20/17 14:06 APTT 33 SECONDS (21-34) 09/20/17 14:06 - Constitutional Appears: Well - Head Exam Head Exam: ATRAUMATIC, NORMAL INSPECTION, NORMOCEPHALIC - Eye Exam Eye Exam: EOMI, Normal appearance, PERRL Pupil Exam: NORMAL ACCOMODATION, PERRL - ENT Exam ENT Exam: Mucous Membranes Moist, Normal Exam - Neck Exam Neck Exam: Full ROM, Normal Inspection. absent: Lymphadenopathy - Respiratory Exam Respiratory Exam: Decreased Breath Sounds - Cardiovascular Exam Cardiovascular Exam: REGULAR RHYTHM, +S1, +S2 - GI/Abdominal Exam GI & Abdominal Exam: Soft, Diminished Bowel Sounds - Rectal Exam Rectal Exam: Deferred
[2017-09-22] MEDS ORDERED: Potassium Chloride 20 mEq ER Tab PO ONE (13:41)
[2017-09-22] MEDS: Magnesium Oxide 400 mg Tab UD PO SCH (14:35)
[2017-09-22] MEDS: DiphenhydrAMINE 50 mg/ml Inj IVP SCH (22:04)
[2017-09-23] MEDS: Levothyroxine 25 MCG TAB PO SCH (05:46)
[2017-09-23] MEDS: DiphenhydrAMINE 50 mg/ml Inj IVP SCH ×3 (05:48→21:17)
--- NOTE | 2017-09-23 06:23 | CP.PCM.CON ---
History of Present Illness - History of Present Illness History of Present Illness: Reason For consultation: Pre Op cardiac risk assessment HPI: 62M w/PMH sig for ESRD consulted for dialysis access. Per nephrology- pt has been referred to vascular before, without follow up. Pt reports b/l LE weakness, decreased appetite, feels thirsty, dry heaves, cough, wt loss. Denies anuria, CP, SOB, changes in bowel or bladder habits, other complaints. PMH: HTN, ESRD, hypothyroidism, nephrolithiasis, arthritis, peripheral edema, recurrent hyponatremia, hard of hearing PSH: R knee tumor excision - benign All: NDKA SH: Admits to 6-8 beers daily, last drink 3 wks ago, denies tobacco or illicit drug use Nephro: Geoff Review Of Systems Constitutional: Positive for: Weakness. Negative for: Fever, Chills Cardiovascular: Positive for: Chest Pain Respiratory: Positive for: SOB with Excertion Gastrointestinal: Positive for: Diarrhea. Negative for: Nausea, Vomiting Musculoskeletal: Positive for: Back Pain Neurological: Negative for: Headache, Dizziness Physical Exam - Physical Exam Appears: Non-toxic, No Acute Distress, Unkempt (sitting in liquid stool) Skin: Warm, Dry, No Rash Head: Normacephalic Eye(s): bilateral: PERRL Nose: Normal Oral Mucosa: Moist Neck: Normal ROM Cardiovascular: Rhythm Regular, No Murmur Respiratory: Normal Breath Sounds, No Accessory Muscle Use Gastrointestinal/Abdominal: Soft, No Tenderness, Distention Extremity: Normal ROM, No Deformity, No Swelling Neurological/Psych: Oriented x3, Normal Speech, Other (No focal deficit) Past Patient History - Infectious Disease Hx of Infectious Diseases: None - Past Medical History & Family History Past Medical History?: Yes Past Family History: Reviewed and not pertinent - Past Social History Smoking Status: Never Smoked Chewing Tobacco Use: No Cigar Use: No - CARDIAC Hx Hypertension: Yes Hx Peripheral Edema: Yes - PULMONARY Other/Comment: sob upon exertion - HEENT Hx HEENT Problems: Yes - RENAL Hx Chronic Kidney Disease: Yes (not on dialysis) Hx Kidney Stones: Yes - ENDOCRINE/METABOLIC Hx Hypothyroidism: Yes - HEMATOLOGICAL/ONCOLOGICAL Hx Blood Disorders: Yes Hx Gum Bleeding: Yes - MUSCULOSKELETAL/RHEUMATOLOGICAL Hx Falls: Yes (Last fall 3 months ago) - GASTROINTESTINAL Hx Gastrointestinal Disorders: Yes Hx Gastroesophageal Reflux: Yes Hx Ulcer: Yes (gastric) - PSYCHIATRIC Hx Substance Use: No - SURGICAL HISTORY Hx Surgeries: Yes Other/Comment: exc benign tumor tight knee 1970 - ANESTHESIA Hx Anesthesia: Yes Hx Anesthesia Reactions: No Hx Malignant Hyperthermia: No Meds Allergies/Adverse Reactions: Allergies Allergy/AdvReac Type Severity Reaction Status Date / Time No Known Allergies Allergy Verified 10/16/13 09:00 - Medications Medications: Current Medications Albuterol/Ipratropium (Duoneb 3 Mg/0.5 Mg (3 Ml) Ud) 3 ml INH RQ6 PRN PRN Reason: Wheezing Calcitriol (Rocaltrol) 0.5 mcg PO DAILY [facility] Last Admin: 09/22/17 14:36 Dose: 0.5 mcg Calcium Acetate (Phoslo) 667 mg PO TID [facility] Last Admin: 09/22/17 18:04 Dose: 667 mg Diphenhydramine HCl (Benadryl) 25 mg IVP Q8 [facility] Last Admin: 09/23/17 05:48 Dose: Not Given Heparin Sodium (Porcine) (Heparin) 5,000 units SC Q12 [facility] Last Admin: 09/20/17 10:26 Dose: Not Given Levothyroxine Sodium (Synthroid) 25 mcg PO DAILY@0630 [facility] Last Admin: 09/23/17 05:46 Dose: 25 mcg Magnesium Oxide (Mag-Ox) 400 mg PO DAILY [facility] Stop: 09/24/17 04:00 Last Admin: 09/22/17 14:35 Dose: 400 mg Ondansetron HCl (Zofran Inj) 4 mg IVP Q6 PRN PRN Reason: Nausea/Vomiting Last Admin: 09/21/17 08:36 Dose: 4 mg Results - Vital Signs Recent Vital Signs: Last Vital Signs Temp 98.1 F 09/22/17 23:40 Pulse 90 09/23/17 05:11 Resp 20 09/22/17 23:40 BP 104/66 09/23/17 04:00 Pulse Ox 97 09/22/17 23:40 - Labs Result Diagrams: 09/22/17 11:15 09/22/17 07:16 Labs: Laboratory Results - last 24 hr 09/22/17 09/22/17 07:16 11:15 WBC 5.1 RBC 3.21 L Hgb 9.5 L Hct 27.5 L MCV 85.8 MCH 29.5 MCHC 34.4 RDW 14.9 H Plt Count 147 MPV 8.6 Sodium 133 Potassium 3.2 L Chloride 101 Carbon Dioxide 16 L Anion Gap 20 BUN 76 H Creatinine 6.2 H Est GFR ( Amer) 11 Est GFR (Non-Af Amer) 9 Random Glucose 84 Calcium 7.2 L Assessment & Plan - Assessment and Plan (Free Text) Assessment: 62 M with hx of HTN, CRF on HD and ascites for pre op cardiac risk assessment for Fistula ?Paraxysmal A Fib Check ECHO Stress test Full anicoagulation after the surgery
--- NOTE | 2017-09-23 08:01 | CP.PCM.PN ---
Subjective - Date & Time of Evaluation Date of Evaluation: 09/23/17 Time of Evaluation: 07:58 - Subjective Subjective: Vascular Surgery - Dr. Houser Pt S&E. NAEO. Pt has complaints of mild abdominal pain but states this is unchanged. He is aware of plan for [facility] [place] tomorrow with Dr. Houser. Objective - Vital Signs/Intake and Output Vital Signs (last 24 hours): Temp Pulse Resp BP Pulse Ox 98.1 F 90 20 104/66 97 09/22/17 23:40 09/23/17 05:11 09/22/17 23:40 09/23/17 04:00 09/22/17 23:40 Intake and Output: 09/23/17 09/23/17 06:59 18:59 Intake Total 320 Balance 320 - Medications Medications: Current Medications Albuterol/Ipratropium (Duoneb 3 Mg/0.5 Mg (3 Ml) Ud) 3 ml INH RQ6 PRN PRN Reason: Wheezing Calcitriol (Rocaltrol) 0.5 mcg PO DAILY [facility] Last Admin: 09/22/17 14:36 Dose: 0.5 mcg Calcium Acetate (Phoslo) 667 mg PO TID [facility] Last Admin: 09/22/17 18:04 Dose: 667 mg Diphenhydramine HCl (Benadryl) 25 mg IVP Q8 [facility] Last Admin: 09/23/17 05:48 Dose: Not Given Heparin Sodium (Porcine) (Heparin) 5,000 units SC Q12 [facility] Last Admin: 09/20/17 10:26 Dose: Not Given Levothyroxine Sodium (Synthroid) 25 mcg PO DAILY@0630 [facility] Last Admin: 09/23/17 05:46 Dose: 25 mcg Magnesium Oxide (Mag-Ox) 400 mg PO DAILY [facility] Stop: 09/24/17 04:00 Last Admin: 09/22/17 14:35 Dose: 400 mg Ondansetron HCl (Zofran Inj) 4 mg IVP Q6 PRN PRN Reason: Nausea/Vomiting Last Admin: 09/21/17 08:36 Dose: 4 mg - Labs Labs: 09/22/17 11:15 09/22/17 07:16 PT 15.4 SECONDS (9.7-12.2) H 09/20/17 14:06 INR 1.4 09/20/17 14:06 APTT 33 SECONDS (21-34) 09/20/17 14:06 - Constitutional Appears: No Acute Distress - Head Exam Head Exam: ATRAUMATIC, NORMAL INSPECTION, NORMOCEPHALIC - Eye Exam Eye Exam: Normal appearance - Respiratory Exam Respiratory Exam: NORMAL BREATHING PATTERN. absent: Respiratory Distress - GI/Abdominal Exam GI & Abdominal Exam: Distended, Soft. absent: Guarding, Tenderness - Extremities Exam Additional comments: LUE precautions RUE Permacath - Neurological Exam Neurological Exam: Alert, Oriented x3 - Skin Skin Exam: Dry, Intact Assessment and Plan - Assessment and Plan (Free Text) Assessment: 62M w/ ESRD requiring HD with Right IJ Permacath, for AVF tomorrow Plan: -Plan for Surgery tomorrow for LUE AVF -LUE arm precautions -FU Vein mapping -F/U Cardiac Clearance which was requested yesterday by primary team -NPO after midnight jaya Houser
[2017-09-23] MEDS: Magnesium Oxide 400 mg Tab UD PO SCH (09:40)
--- NOTE | 2017-09-23 16:16 | CP.PCM.CON ---
<Nicole Killian - Last Filed: 09/23/17 16:31> History of Present Illness - History of Present Illness History of Present Illness: GI Fellow PGY4 Consult Note This is a 62-year-old male with pmhx of HTN, ESRD, hypothyroidism, nephrolithiasis, arthritis, peripheral edema, recurrent hyponatremia, hard of hearing presenting to the emergency department by family with complaints of generalized weakness. Pt has been having progressive renal insufficiency over that past few years now requiring HD and is s/p RIJ permacath and plan for AVF by vascular surgery. Gastroenterology was consulted for ascites and noted irregular liver/cirrhosis on [facility] 07/2017. Pt denies any hx of hepatitis or cirrhosis. He does have a hx of alcohol abuse and drinks 6 cans of beer daily for 30+ years, quit 2 weeks ago. Denies any admission in the past for paracentesis, confusion or jaundice. No prior EGD/Colonoscopy, no GI bleed hx. Pt is scheduled for AVF tomorrow. ROS: A 12pt ROS was negative except as above PMH: HTN, ESRD, hypothyroidism, nephrolithiasis, arthritis, peripheral edema, recurrent hyponatremia, hard of hearing PSH: R knee tumor excision - benign SHx: Hx of drinking 6 cans of beer daily for 30+ years, quit 2 weeks ago, hx of cocaine snorting in his teens FHx: denies liver or colon cancer Past Patient History - Infectious Disease Hx of Infectious Diseases: None - Past Medical History & Family History Past Medical History?: Yes Past Family History: Reviewed and not pertinent - Past Social History Smoking Status: Never Smoked Chewing Tobacco Use: No Cigar Use: No - CARDIAC Hx Hypertension: Yes Hx Peripheral Edema: Yes - PULMONARY Other/Comment: sob upon exertion - HEENT Hx HEENT Problems: Yes - RENAL Hx Chronic Kidney Disease: Yes (not on dialysis) Hx Kidney Stones: Yes - ENDOCRINE/METABOLIC Hx Hypothyroidism: Yes - HEMATOLOGICAL/ONCOLOGICAL Hx Blood Disorders: Yes Hx Gum Bleeding: Yes - MUSCULOSKELETAL/RHEUMATOLOGICAL Hx Falls: Yes (Last fall 3 months ago) - GASTROINTESTINAL Hx Gastrointestinal Disorders: Yes Hx Gastroesophageal Reflux: Yes Hx Ulcer: Yes (gastric) - PSYCHIATRIC Hx Substance Use: No - SURGICAL HISTORY Hx Surgeries: Yes Other/Comment: exc benign tumor tight knee 1970 - ANESTHESIA Hx Anesthesia: Yes Hx Anesthesia Reactions: No Hx Malignant Hyperthermia: No Meds Allergies/Adverse Reactions: Allergies Allergy/AdvReac Type Severity Reaction Status Date / Time No Known Allergies Allergy Verified 10/16/13 09:00 - Medications Medications: Current Medications Albuterol/Ipratropium (Duoneb 3 Mg/0.5 Mg (3 Ml) Ud) 3 ml INH RQ6 PRN PRN Reason: Wheezing Calcitriol (Rocaltrol) 0.5 mcg PO DAILY [facility] Last Admin: 09/23/17 09:40 Dose: 0.5 mcg Calcium Acetate (Phoslo) 667 mg PO TID [facility] Last Admin: 09/23/17 13:56 Dose: 667 mg Diphenhydramine HCl (Benadryl) 25 mg IVP Q8 [facility] Last Admin: 09/23/17 13:59 Dose: Not Given Heparin Sodium (Porcine) (Heparin) 5,000 units SC Q12 [facility] Last Admin: 09/20/17 10:26 Dose: Not Given Levothyroxine Sodium (Synthroid) 25 mcg PO DAILY@0630 [facility] Last Admin: 09/23/17 05:46 Dose: 25 mcg Magnesium Oxide (Mag-Ox) 400 mg PO DAILY [facility] Stop: 09/24/17 04:00 Last Admin: 09/23/17 09:40 Dose: 400 mg Ondansetron HCl (Zofran Inj) 4 mg IVP Q6 PRN PRN Reason: Nausea/Vomiting Last Admin: 09/21/17 08:36 Dose: 4 mg Physical Exam - Constitutional Appears: Non-toxic, No Acute Distress, Cachectic, Chronically Ill - Head Exam Head Exam: ATRAUMATIC, NORMAL INSPECTION, NORMOCEPHALIC - Eye Exam Eye Exam: EOMI, Normal appearance, PERRL Pupil Exam: PERRL - ENT Exam ENT Exam: Mucous Membranes Moist, Normal Exam - Neck Exam Neck exam: Positive for: Normal Inspection - Respiratory Exam Respiratory Exam: Decreased Breath Sounds, NORMAL BREATHING PATTERN - Cardiovascular Exam Cardiovascular Exam: Irregular Rhythm, +S1, +S2 - GI/Abdominal Exam GI & Abdominal Exam: Distended, Normal Bowel Sounds. absent: Firm, Guarding, Tenderness Additional comments: ascites, +gas - Rectal Exam Rectal Exam: Deferred - Extremities Exam Extremities exam: Positive for: full ROM, normal inspection - Back Exam Back exam: NORMAL INSPECTION - Neurological Exam Neurological exam: Alert, Oriented x3 - Psychiatric Exam Psychiatric exam: Normal Affect, Normal Mood Results - Vital Signs Recent Vital Signs: Last Vital Signs Temp 98.4 F 09/23/17 08:03 Pulse 114 H 09/23/17 08:03 Resp 20 09/23/17 08:03 BP 97/65 L 09/23/17 08:03 Pulse Ox 98 09/23/17 08:03 - Labs Result Diagrams: 09/22/17 11:15 09/22/17 07:16 Labs: Laboratory Results - last 24 hr 09/23/17 07:32 Blood Type O POSITIVE Antibody Screen Negative Assessment & Plan - Assessment and Plan (Free Text) Assessment: This is a 56yF presenting with back and abdominal pain and distention. 1. Ascites 2. Hx of etoh abuse 3. r/o Cirrhosis 4. ESRD Plan: -Continue supportive care with pain control and anti-emetics -Avoid narcotics with possible cirrhosis -Abd US 07/2017 with possible cirrhosis will order CT A/P w/o contrast -Hepatitis panel negative will order autoimmune serologies -Will order diagnostic and therapeutic paracentesis, peritoneal fluid studies ordered to r/o SBP -Plan for AVF per Surgery -ESRD, HD per nephro -Pt will need outpt EGD/Colonoscopy as an outpt -Will continue to follow closely <Chiki Barajas - Last Filed: 09/23/17 16:47> Meds - Medications Medications: Current Medications Albuterol/Ipratropium (Duoneb 3 Mg/0.5 Mg (3 Ml) Ud) 3 ml INH RQ6 PRN PRN Reason: Wheezing Calcitriol (Rocaltrol) 0.5 mcg PO DAILY [facility] Last Admin: 09/23/17 09:40 Dose: 0.5 mcg Calcium Acetate (Phoslo) 667 mg PO TID [facility] Last Admin: 09/23/17 13:56 Dose: 667 mg Diphenhydramine HCl (Benadryl) 25 mg IVP Q8 [facility] Last Admin: 09/23/17 13:59 Dose: Not Given Heparin Sodium (Porcine) (Heparin) 5,000 units SC Q12 [facility] Last Admin: 09/20/17 10:26 Dose: Not Given Levothyroxine Sodium (Synthroid) 25 mcg PO DAILY@0630 [facility] Last Admin: 09/23/17 05:46 Dose: 25 mcg Magnesium Oxide (Mag-Ox) 400 mg PO DAILY [facility] Stop: 09/24/17 04:00 Last Admin: 09/23/17 09:40 Dose: 400 mg Ondansetron HCl (Zofran Inj) 4 mg IVP Q6 PRN PRN Reason: Nausea/Vomiting Last Admin: 09/21/17 08:36 Dose: 4 mg Results - Vital Signs Recent Vital Signs: Last Vital Signs Temp 98.4 F 09/23/17 08:03 Pulse 114 H 09/23/17 08:03 Resp 20 09/23/17 08:03 BP 97/65 L 09/23/17 08:03 Pulse Ox 98 09/23/17 08:03 - Labs Result Diagrams: 09/22/17 11:15 09/22/17 07:16 Labs: Laboratory Results - last 24 hr 09/23/17 07:32 Blood Type O POSITIVE Antibody Screen Negative Attending/Attestation - Attestation I have personally seen and examined this patient.: Yes I have fully participated in the care of the patient.: Yes I have reviewed all pertinent clinical information: Yes Notes (Text): 09/23/17 16:39 This is a 56 year old F presenting with back and abdominal pain and distention due to ascites with history of alcohol abuse till 2 weeks ago and heroin abuse. No abdominal CT imaging and no biochemical evidence of portal hypertension. Needs CT abdomen and HD and ascitic fluid tap with fluid studies for albumin and total protein to calculate SAAG and know origin of fluid. Low salt diet. Supportive care. Hepatitis panel negative will order autoimmune serologies. He will need outpt EGD/Colonoscopy as an outpatient. Will continue to follow closely
--- NOTE | 2017-09-23 16:34 | CP.PCM.PN ---
Subjective - Date & Time of Evaluation Date of Evaluation: 09/23/17 Time of Evaluation: 09:20 - Subjective Subjective: clinically same Objective - Vital Signs/Intake and Output Vital Signs (last 24 hours): Temp Pulse Resp BP Pulse Ox 98.4 F 114 H 20 97/65 L 98 09/23/17 08:03 09/23/17 08:03 09/23/17 08:03 09/23/17 08:03 09/23/17 08:03 Intake and Output: 09/23/17 09/23/17 06:59 18:59 Intake Total 320 Balance 320 - Medications Medications: Current Medications Albuterol/Ipratropium (Duoneb 3 Mg/0.5 Mg (3 Ml) Ud) 3 ml INH RQ6 PRN PRN Reason: Wheezing Calcitriol (Rocaltrol) 0.5 mcg PO DAILY [facility] Last Admin: 09/23/17 09:40 Dose: 0.5 mcg Calcium Acetate (Phoslo) 667 mg PO TID [facility] Last Admin: 09/23/17 13:56 Dose: 667 mg Diphenhydramine HCl (Benadryl) 25 mg IVP Q8 [facility] Last Admin: 09/23/17 13:59 Dose: Not Given Heparin Sodium (Porcine) (Heparin) 5,000 units SC Q12 [facility] Last Admin: 09/20/17 10:26 Dose: Not Given Levothyroxine Sodium (Synthroid) 25 mcg PO DAILY@0630 [facility] Last Admin: 09/23/17 05:46 Dose: 25 mcg Magnesium Oxide (Mag-Ox) 400 mg PO DAILY [facility] Stop: 09/24/17 04:00 Last Admin: 09/23/17 09:40 Dose: 400 mg Ondansetron HCl (Zofran Inj) 4 mg IVP Q6 PRN PRN Reason: Nausea/Vomiting Last Admin: 09/21/17 08:36 Dose: 4 mg - Labs Labs: 09/22/17 11:15 09/22/17 07:16 PT 15.4 SECONDS (9.7-12.2) H 09/20/17 14:06 INR 1.4 09/20/17 14:06 APTT 33 SECONDS (21-34) 09/20/17 14:06 - Constitutional Appears: Well - Head Exam Head Exam: ATRAUMATIC, NORMAL INSPECTION, NORMOCEPHALIC - Eye Exam Eye Exam: EOMI, Normal appearance, PERRL Pupil Exam: NORMAL ACCOMODATION, PERRL - ENT Exam ENT Exam: Mucous Membranes Moist, Normal Exam - Neck Exam Neck Exam: Full ROM, Normal Inspection. absent: Lymphadenopathy - Respiratory Exam Respiratory Exam: Decreased Breath Sounds - Cardiovascular Exam Cardiovascular Exam: REGULAR RHYTHM, +S1, +S2 - GI/Abdominal Exam GI & Abdominal Exam: Soft, Diminished Bowel Sounds - Rectal Exam Rectal Exam: Deferred
--- NOTE | 2017-09-23 18:09 | CT ---
PROCEDURE: CT Abdomen and Pelvis without intravenous contrast HISTORY: r/o cirrhosis COMPARISON: Comparison is made to the previous ultrasound of the abdomen dated 07/17/2017 TECHNIQUE: Axial and reformatted coronal and sagittal CT images of the abdomen and pelvis were obtained without IV or oral contrast administration.. Contrast Dose: 0 IV contrast Radiation dose: Total exam DLP = Total exam DLP = 1284.64 mGy-cm. This CT exam was performed using one or more of the following dose reduction techniques: Automated exposure control, adjustment of the mA and/or kV according to patient size, and/or use of iterative reconstruction technique. FINDINGS: LOWER THORAX: There are subcentimeter calcified nodule at the lung bases likely represent calcified granuloma. The heart is mildly enlarged. No evidence of pleural effusion or pericardial effusion. LIVER: Cirrhotic manifestation of the liver is noted. The assessment for liver lesion is limited without IV contrast administration. GALLBLADDER AND BILE DUCTS: The gallbladder is contracted. No evidence of acute cholecystitis. PANCREAS: The pancreas is small in size. The main pancreatic duct is not dilated. SPLEEN: The spleen is mildly enlarged measures 13.1 centimeter in the longitudinal diameter ADRENALS: No evidence of mass lesion at the adrenal glands. KIDNEYS AND URETERS: The left kidney is small in size. There are foci of calcification in both kidneys likely represent vascular calcification. Mild dilate a gomez of the right kidney collecting system is noted. VASCULATURE: Foci of atherosclerotic calcification noted. . No aortic aneurysm. BOWEL: Unremarkable. No obstruction. No gross mural thickening. Few scattered colonic diverticulosis noted without evidence of diverticulitis. APPENDIX: There is no evidence of appendicitis. PERITONEUM: There is moderate to large amount of ascites in the abdomen and pelvis. No evidence of free air. LYMPH NODES: No evidence of retroperitoneal lymphadenopathy. BLADDER: The urinary bladder is partially distended. REPRODUCTIVE: Unremarkable. BONES: There are moderate compression deformity at L3 and L5. Mild compression deformity is also noted as L4 and L1. Mild compression deformity also noted at S1. There is a severe narrowing of the disc space at T12-L1. Moderate degenerative changes are noted. There is also mild to moderate compression deformity at T5 vertebral body. OTHER FINDINGS: None. IMPRESSION: Cirrhotic manifestation of the liver noted. If clinically warranted further assessment by ultrasound or MRI may be obtained. Moderate to large ascites. Mild splenomegaly. Small size left kidney likely nonfunctioning. Atherosclerotic calcification. Diffuse osteopenia. Multiple compression deformity in the thoracic and lumbar spine more prominent at L3 and L5.
[2017-09-23 20:28] LABS: IRON < 10 ug/dL (49-181)
[2017-09-23 20:31] LABS: IMMUNOGLOBULIN A 340.4 mg/dL (70.0-400.0); IMMUNOGLOBULIN M 85.2 mg/dL (40.0-230.0)
[2017-09-23 20:35] LABS: TOTAL IRON BINDING CAPACITY 155 ug/dL (250-450)
--- NOTE | 2017-09-23 21:13 | CARD ---
APPROVED REPORT EKG Measurement Heart [id number] <Conclusion> Sinus rhythm with premature supraventricular complexes Left axis deviation Pulmonary disease pattern Inferior infarct, age undetermined Abnormal ECG
--- NOTE | 2017-09-23 22:46 | CP.PCM.PN ---
Subjective - Date & Time of Evaluation Date of Evaluation: 09/23/17 Time of Evaluation: 11:10 - Subjective Subjective: Patient seen and evaluated For stress test and ECHO for pre Op cardiac risk assessment Review Of Systems Constitutional: Positive for: Weakness. Negative for: Fever, Chills Cardiovascular: Positive for: Chest Pain Respiratory: Positive for: SOB with Excertion Gastrointestinal: Positive for: Diarrhea. Negative for: Nausea, Vomiting Musculoskeletal: Positive for: Back Pain Neurological: Negative for: Headache, Dizziness Physical Exam - Physical Exam Appears: Non-toxic, No Acute Distress, Unkempt (sitting in liquid stool) Skin: Warm, Dry, No Rash Head: Normacephalic Eye(s): bilateral: PERRL Nose: Normal Oral Mucosa: Moist Neck: Normal ROM Cardiovascular: Rhythm Regular, No Murmur Respiratory: Normal Breath Sounds, No Accessory Muscle Use Gastrointestinal/Abdominal: Soft, No Tenderness, Distention Extremity: Normal ROM, No Deformity, No Swelling Neurological/Psych: Oriented x3, Normal Speech, Other (No focal deficit) Objective - Vital Signs/Intake and Output Vital Signs (last 24 hours): Temp Pulse Resp BP Pulse Ox 98.6 F 100 H 20 137/83 97 09/23/17 15:00 09/23/17 16:12 09/23/17 15:00 09/23/17 15:00 09/23/17 15:00 - Medications Medications: Current Medications Albuterol/Ipratropium (Duoneb 3 Mg/0.5 Mg (3 Ml) Ud) 3 ml INH RQ6 PRN PRN Reason: Wheezing Calcitriol (Rocaltrol) 0.5 mcg PO DAILY [facility] Last Admin: 09/23/17 09:40 Dose: 0.5 mcg Calcium Acetate (Phoslo) 667 mg PO TID [facility] Last Admin: 09/23/17 17:43 Dose: 667 mg Diphenhydramine HCl (Benadryl) 25 mg IVP Q8 [facility] Last Admin: 09/23/17 21:17 Dose: Not Given Heparin Sodium (Porcine) (Heparin) 5,000 units SC Q12 [facility] Last Admin: 09/20/17 10:26 Dose: Not Given Levothyroxine Sodium (Synthroid) 25 mcg PO DAILY@0630 [facility] Last Admin: 09/23/17 05:46 Dose: 25 mcg Magnesium Oxide (Mag-Ox) 400 mg PO DAILY [facility] Stop: 09/24/17 04:00 Last Admin: 09/23/17 09:40 Dose: 400 mg Ondansetron HCl (Zofran Inj) 4 mg IVP Q6 PRN PRN Reason: Nausea/Vomiting Last Admin: 09/21/17 08:36 Dose: 4 mg - Labs Labs: 09/22/17 11:15 09/22/17 07:16 PT 15.4 SECONDS (9.7-12.2) H 09/20/17 14:06 INR 1.4 09/20/17 14:06 APTT 33 SECONDS (21-34) 09/20/17 14:06 Assessment and Plan - Assessment and Plan (Free Text) Assessment: 62 M with hx of HTN, CRF on HD and ascites for pre op cardiac risk assessment for Fistula ?Paraxysmal A Fib Check ECHO Stress test Full anicoagulation after the surgery
[2017-09-24] MEDS: Levothyroxine 25 MCG TAB PO SCH (06:07)
--- NOTE | 2017-09-24 09:43 | CP.PCM.PN ---
Addendum entered and electronically signed by Caio Najera DO 09/24/17 18:10: Normal stress test Moderate Cardiac risk for AVF formation Original Note: <Caio Najera - Last Filed: 09/24/17 18:10> Subjective - Date & Time of Evaluation Date of Evaluation: 09/24/17 Time of Evaluation: 09:36 - Subjective Subjective: PGY-[address] Duran's cardiology service: Pt seen and examined at bedside. Nursing reports no acute events overnight. Pt NPO for stress test/ECHO this AM. Denies acute chest pain, but admits "belly is large and uncomfortable." Objective - Vital Signs/Intake and Output Vital Signs (last 24 hours): Temp Pulse Resp BP Pulse Ox 97.4 F L 95 H 18 127/84 98 09/24/17 07:15 09/24/17 07:15 09/24/17 07:15 09/24/17 07:15 09/24/17 07:15 Intake and Output: 09/24/17 09/24/17 06:59 18:59 Intake Total 320 Balance 320 - Medications Medications: Current Medications Albuterol/Ipratropium (Duoneb 3 Mg/0.5 Mg (3 Ml) Ud) 3 ml INH RQ6 PRN PRN Reason: Wheezing Calcitriol (Rocaltrol) 0.5 mcg PO DAILY [facility] Last Admin: 09/23/17 09:40 Dose: 0.5 mcg Calcium Acetate (Phoslo) 667 mg PO TID [facility] Last Admin: 09/23/17 17:43 Dose: 667 mg Heparin Sodium (Porcine) (Heparin) 5,000 units SC Q12 [facility] Last Admin: 09/20/17 10:26 Dose: Not Given Hydrocortisone (Cortizone 0.5% Cream) 1 applic TOP BID [facility] Levothyroxine Sodium (Synthroid) 25 mcg PO DAILY@0630 [facility] Last Admin: 09/24/17 06:07 Dose: 25 mcg Ondansetron HCl (Zofran Inj) 4 mg IVP Q6 PRN PRN Reason: Nausea/Vomiting Last Admin: 09/21/17 08:36 Dose: 4 mg - Labs Labs: 09/22/17 11:15 09/22/17 07:16 PT 15.4 SECONDS (9.7-12.2) H 09/20/17 14:06 INR 1.4 09/20/17 14:06 APTT 33 SECONDS (21-34) 09/20/17 14:06 - Additional Findings Additional findings: Constitutional Appears: No Acute Distress - Head Exam Head Exam: ATRAUMATIC, NORMAL INSPECTION, NORMOCEPHALIC - Eye Exam Eye Exam: Normal appearance - Respiratory Exam Respiratory Exam: NORMAL BREATHING PATTERN. absent: Respiratory Distress - GI/Abdominal Exam GI & Abdominal Exam: Distended, Soft. absent: Guarding, Tenderness - Ascites; fluid wave - Extremities Exam Additional comments: RUE Permacath - Neurological Exam Neurological Exam: Alert, Oriented x3 - Skin Skin Exam: Dry, Intact Assessment and Plan - Assessment and Plan (Free Text) Plan: Pre op cardiac risk assessment for AVF f/u ECHO/stress test this AM EKG: NSR w PVCs, Left axis deviation Hx HTN Well controlled No anti-HTN meds necessary at this time ESRD Dr. Tellez's group on board For AVF formation Caio Najera PGY-2 d/w Dr. Duran <Bin Duran - Last Filed: 09/24/17 22:14> Objective - Vital Signs/Intake and Output Vital Signs (last 24 hours): Temp Pulse Resp BP Pulse Ox 97.6 F 96 H 18 145/89 99 09/24/17 15:17 09/24/17 15:17 09/24/17 15:17 09/24/17 15:17 09/24/17 15:17 - Medications Medications: Current Medications Calcitriol (Rocaltrol) 0.5 mcg PO DAILY [facility] Last Admin: 09/24/17 11:10 Dose: Not Given Calcium Acetate (Phoslo) 667 mg PO TID [facility] Last Admin: 09/24/17 17:14 Dose: 667 mg Epoetin Naeem (Procrit) 4,000 unit IV MWF [facility] Heparin Sodium (Porcine) (Heparin) 5,000 units SC Q12 [facility] Last Admin: 09/20/17 10:26 Dose: Not Given Hydrocortisone (Cortizone 0.5% Cream) 1 applic TOP BID [facility] Last Admin: 09/24/17 18:07 Dose: Not Given Levothyroxine Sodium (Synthroid) 25 mcg PO DAILY@0630 [facility] Last Admin: 09/24/17 06:07 Dose: 25 mcg Ondansetron HCl (Zofran Inj) 4 mg IVP Q6 PRN PRN Reason: Nausea/Vomiting Last Admin: 09/21/17 08:36 Dose: 4 mg - Labs Labs: 09/22/17 11:15 09/22/17 07:16 PT 15.4 SECONDS (9.7-12.2) H 09/20/17 14:06 INR 1.4 09/20/17 14:06 APTT 33 SECONDS (21-34) 09/20/17 14:06 Assessment and Plan - Assessment and Plan (Free Text) Plan: Patient seen and evaluated personally by de Plan of care d/w the medical screener and as documented Patient cleared for AVF surgery with moderate cardiac risk
[2017-09-24 11:03] LABS: BODY FLUID TYPE PERITONEAL/ASCITES
--- NOTE | 2017-09-24 11:45 | PCM.SURG1 ---
Surgeon's Initial Post Op Note - Surgeon's Notes Surgeon: Felipe Szymanski MD Casing Material Weigher: NONE Type of Anesthesia: Local Pre-Operative Diagnosis: Ascites Operative Findings: US showed a large amount of ascites Post-Operative Diagnosis: Ascites Operation Performed: US guided paracentesis Specimen/Specimens Removed: 6 liters of straw colored fluid Estimated Blood Loss: EBL {In ML}: 0 Blood Products Given: N/A Drains Used: No Drains Post-Op Condition: Fair Date of Surgery/Procedure: 09/24/17 Time of Surgery/Procedure: 11:40
[2017-09-24 11:57] LABS: BF GROSS APPEARANCE SL CLOUDY (CLEAR); BODY FLUID TOTAL COUNT 100 (0-0)
[2017-09-24 11:58] LABS: BODY FLUID MONO/MACROPHAGE 3 % (0-0)
--- NOTE | 2017-09-24 13:24 | CP.PCM.PN ---
Subjective - Date & Time of Evaluation Date of Evaluation: 09/24/17 Time of Evaluation: 13:21 - Subjective Subjective: s/p paracentesis- 6L has cirrhosis on imaging stable dialysis 09/22 eating better no more n, v, diarrhea, SOB Objective - Vital Signs/Intake and Output Vital Signs (last 24 hours): Temp Pulse Resp BP Pulse Ox 97.4 F L 95 H 18 127/84 98 09/24/17 07:15 09/24/17 07:15 09/24/17 07:15 09/24/17 07:15 09/24/17 07:15 Intake and Output: 09/24/17 09/24/17 06:59 18:59 Intake Total 320 Balance 320 - Medications Medications: Current Medications Albuterol/Ipratropium (Duoneb 3 Mg/0.5 Mg (3 Ml) Ud) 3 ml INH RQ6 PRN PRN Reason: Wheezing Calcitriol (Rocaltrol) 0.5 mcg PO DAILY [facility] Last Admin: 09/24/17 11:10 Dose: Not Given Calcium Acetate (Phoslo) 667 mg PO TID [facility] Last Admin: 09/24/17 13:15 Dose: 667 mg Heparin Sodium (Porcine) (Heparin) 5,000 units SC Q12 [facility] Last Admin: 09/20/17 10:26 Dose: Not Given Hydrocortisone (Cortizone 0.5% Cream) 1 applic TOP BID [facility] Last Admin: 09/24/17 11:10 Dose: Not Given Levothyroxine Sodium (Synthroid) 25 mcg PO DAILY@0630 [facility] Last Admin: 09/24/17 06:07 Dose: 25 mcg Ondansetron HCl (Zofran Inj) 4 mg IVP Q6 PRN PRN Reason: Nausea/Vomiting Last Admin: 09/21/17 08:36 Dose: 4 mg - Labs Labs: 09/22/17 11:15 09/22/17 07:16 PT 15.4 SECONDS (9.7-12.2) H 09/20/17 14:06 INR 1.4 09/20/17 14:06 APTT 33 SECONDS (21-34) 09/20/17 14:06 - Constitutional Appears: No Acute Distress, Chronically Ill - Head Exam Head Exam: ATRAUMATIC, NORMAL INSPECTION - Eye Exam Eye Exam: EOMI, Normal appearance - Neck Exam Neck Exam: Normal Inspection. absent: Tenderness - Respiratory Exam Respiratory Exam: Clear to Ausculation Bilateral, NORMAL BREATHING PATTERN - Cardiovascular Exam Cardiovascular Exam: REGULAR RHYTHM, +S1 - GI/Abdominal Exam GI & Abdominal Exam: Soft. absent: Tenderness - Extremities Exam Extremities Exam: Normal Inspection. absent: Tenderness - Neurological Exam Neurological Exam: Awake, CN II-XII Intact - Skin Skin Exam: Dry, Warm Assessment and Plan (1) CKD (chronic kidney disease) stage 5, GFR less than 15 ml/min Status: Acute (2) CKD stage 5 secondary to hypertension Status: Acute (3) Secondary hyperparathyroidism Status: Acute (4) Hypothyroidism Status: Acute (5) Uremia Status: Acute (6) Cirrhosis Status: Acute (7) ESRD (end stage renal disease) on dialysis Status: Acute - Assessment and Plan (Free Text) Plan: dialysis in AM then MWF needs av access add EPO
--- NOTE | 2017-09-24 14:27 | CP.PCM.PN ---
<MeloniebaltazarrozValdo - Last Filed: 09/24/17 14:24> Subjective - Date & Time of Evaluation Date of Evaluation: 09/24/17 Time of Evaluation: 06:45 - Subjective Subjective: PGY5 GI Fellow Progress Note Patient seen and examined bedside this morning. The patient admits to some abdominal soreness but otherwise has no complaints. He is a bit anxious about paracentesis which is planned for today. No events overnight. 12 system ROS performed and negative except where stated. Objective - Vital Signs/Intake and Output Vital Signs (last 24 hours): Temp Pulse Resp BP Pulse Ox 97.4 F L 95 H 18 127/84 98 09/24/17 07:15 09/24/17 07:15 09/24/17 07:15 09/24/17 07:15 09/24/17 07:15 Intake and Output: 09/24/17 09/24/17 06:59 18:59 Intake Total 320 Balance 320 - Medications Medications: Current Medications Albuterol/Ipratropium (Duoneb 3 Mg/0.5 Mg (3 Ml) Ud) 3 ml INH RQ6 PRN PRN Reason: Wheezing Calcitriol (Rocaltrol) 0.5 mcg PO DAILY [facility] Last Admin: 09/24/17 11:10 Dose: Not Given Calcium Acetate (Phoslo) 667 mg PO TID [facility] Last Admin: 09/24/17 13:15 Dose: 667 mg Epoetin Naeem (Procrit) 4,000 unit IV MWF [facility] Heparin Sodium (Porcine) (Heparin) 5,000 units SC Q12 [facility] Last Admin: 09/20/17 10:26 Dose: Not Given Hydrocortisone (Cortizone 0.5% Cream) 1 applic TOP BID [facility] Last Admin: 09/24/17 11:10 Dose: Not Given Levothyroxine Sodium (Synthroid) 25 mcg PO DAILY@0630 [facility] Last Admin: 09/24/17 06:07 Dose: 25 mcg Ondansetron HCl (Zofran Inj) 4 mg IVP Q6 PRN PRN Reason: Nausea/Vomiting Last Admin: 09/21/17 08:36 Dose: 4 mg - Labs Labs: 09/22/17 11:15 09/22/17 07:16 PT 15.4 SECONDS (9.7-12.2) H 04/12/18 14:06 INR 1.4 09/20/17 14:06 APTT 33 SECONDS (21-34) 09/20/17 14:06 - Constitutional Appears: No Acute Distress, Chronically Ill - Eye Exam Eye Exam: EOMI, PERRL - ENT Exam ENT Exam: Mucous Membranes Moist Additional comments: decreased hearing acuity - Respiratory Exam Respiratory Exam: Clear to Ausculation Bilateral. absent: Rales, Rhonchi, Wheezes - Cardiovascular Exam Cardiovascular Exam: RRR, +S1, +S2 - GI/Abdominal Exam GI & Abdominal Exam: Distended, Soft, Tenderness (RLQ), Normal Bowel Sounds. absent: Firm, Guarding, Rigid, Organomegaly - Extremities Exam Additional comments: 1+ B/L LE edema - Neurological Exam Neurological Exam: Alert, Awake, Oriented x3 - Psychiatric Exam Psychiatric exam: Normal Affect, Normal Mood - Skin Skin Exam: Dry, Warm Assessment and Plan - Assessment and Plan (Free Text) Assessment: Patient is a 56yo male with PMHx significant for decompensated cirrhosis, EtOH abuse, ESRD on HD, HTN, hypothyroidism, nephrolithiasis, osteoarthritis who presented with abdominal pain and distention -Decompensated EtOH cirrhosis with ascites -Large volume ascites -EtOH abuse -ESRD on HD Plan: -CT w/o contrast reviewed -S/P LVP with 6L removed -Awaiting ascitic fluid studies -Cell count is NOT consistent with SBP as only 6% neutrophil predominance noted -Replace albumin at 6g/L removed - 3 bottles of 25% albumin IV Q1H -Hepatitis serologies unremarkable -Autoimmune markers pending -EtOH cessation - patient states he will not stop drinking -Daily MELD labs (CBC, CMP, INR) -Pt will need outpt EGD/Colonoscopy as an outpt *MELD-Na: ~26; need updated labs <Chiki Barajas - Last Filed: 09/24/17 18:21> Objective - Vital Signs/Intake and Output Vital Signs (last 24 hours): Temp Pulse Resp BP Pulse Ox 97.6 F 96 H 18 145/89 99 09/24/17 15:17 09/24/17 15:17 09/24/17 15:17 09/24/17 15:17 09/24/17 15:17 Intake and Output: 09/24/17 09/24/17 06:59 18:59 Intake Total 320 Balance 320 - Medications Medications: Current Medications Albuterol/Ipratropium (Duoneb 3 Mg/0.5 Mg (3 Ml) Ud) 3 ml INH RQ6 PRN PRN Reason: Wheezing Calcitriol (Rocaltrol) 0.5 mcg PO DAILY [facility] Last Admin: 09/24/17 11:10 Dose: Not Given Calcium Acetate (Phoslo) 667 mg PO TID [facility] Last Admin: 09/24/17 17:14 Dose: 667 mg Epoetin Naeem (Procrit) 4,000 unit IV MWF [facility] Heparin Sodium (Porcine) (Heparin) 5,000 units SC Q12 [facility] Last Admin: 09/20/17 10:26 Dose: Not Given Hydrocortisone (Cortizone 0.5% Cream) 1 applic TOP BID [facility] Last Admin: 09/24/17 18:07 Dose: Not Given Levothyroxine Sodium (Synthroid) 25 mcg PO DAILY@0630 [facility] Last Admin: 09/24/17 06:07 Dose: 25 mcg Ondansetron HCl (Zofran Inj) 4 mg IVP Q6 PRN PRN Reason: Nausea/Vomiting Last Admin: 09/21/17 08:36 Dose: 4 mg - Labs Labs: 09/22/17 11:15 09/22/17 07:16 PT 15.4 SECONDS (9.7-12.2) H 09/20/17 14:06 INR 1.4 09/20/17 14:06 APTT 33 SECONDS (21-34) 09/20/17 14:06 Attending/Attestation - Attestation I have personally seen and examined this patient.: Yes I have fully participated in the care of the patient.: Yes I have reviewed all pertinent clinical information, including history, physical exam and plan: Yes Notes (Text): 09/24/17 18:20 This is a 56 year old F presenting with back and abdominal pain and distention due to ascites with history of alcohol abuse till 2 weeks ago and heroin abuse. No abdominal CT imaging and no biochemical evidence of portal hypertension. Needs CT abdomen and HD and ascitic fluid tap with fluid studies for albumin and total protein to calculate SAAG and know origin of fluid. Low salt diet. Supportive care. Hepatitis panel negative will order autoimmune serologies. He will need outpt EGD/Colonoscopy as an outpatient. Will continue to follow closely
[2017-09-24] MEDS ORDERED: Albumin Human 25% (12.5 gm/50 ml) IV SCH (14:30)
--- NOTE | 2017-09-24 14:35 | CP.PCM.PN ---
Subjective - Date & Time of Evaluation Date of Evaluation: 09/24/17 Time of Evaluation: 06:40 - Subjective Subjective: Vascular surgery progress note for Dr. Sumi Severino, PGY-1 Pt S & E at bedside. Pt reports RLQ ab pain s/p paracentesis. No other complaints at this time. Denies N & V, F & C. Objective - Vital Signs/Intake and Output Vital Signs (last 24 hours): Temp Pulse Resp BP Pulse Ox 97.4 F L 95 H 18 127/84 98 09/24/17 07:15 09/24/17 07:15 09/24/17 07:15 09/24/17 07:15 09/24/17 07:15 Intake and Output: 09/24/17 09/24/17 06:59 18:59 Intake Total 320 Balance 320 - Medications Medications: Current Medications Albumin Human (Albumin Human 25% (12.5 Gm/50 Ml)) 12.5 gm IV Q1H [facility] Stop: 09/24/17 16:31 Albuterol/Ipratropium (Duoneb 3 Mg/0.5 Mg (3 Ml) Ud) 3 ml INH RQ6 PRN PRN Reason: Wheezing Calcitriol (Rocaltrol) 0.5 mcg PO DAILY [facility] Last Admin: 09/24/17 11:10 Dose: Not Given Calcium Acetate (Phoslo) 667 mg PO TID [facility] Last Admin: 09/24/17 13:15 Dose: 667 mg Epoetin Naeem (Procrit) 4,000 unit IV MWF [facility] Heparin Sodium (Porcine) (Heparin) 5,000 units SC Q12 [facility] Last Admin: 09/20/17 10:26 Dose: Not Given Hydrocortisone (Cortizone 0.5% Cream) 1 applic TOP BID [facility] Last Admin: 09/24/17 11:10 Dose: Not Given Levothyroxine Sodium (Synthroid) 25 mcg PO DAILY@0630 [facility] Last Admin: 09/24/17 06:07 Dose: 25 mcg Ondansetron HCl (Zofran Inj) 4 mg IVP Q6 PRN PRN Reason: Nausea/Vomiting Last Admin: 09/21/17 08:36 Dose: 4 mg - Labs Labs: 09/22/17 11:15 09/22/17 07:16 PT 15.4 SECONDS (9.7-12.2) H 04/12/18 14:06 INR 1.4 09/20/17 14:06 APTT 33 SECONDS (21-34) 09/20/17 14:06 - Constitutional Appears: Non-toxic, No Acute Distress - Head Exam Head Exam: ATRAUMATIC, NORMAL INSPECTION, NORMOCEPHALIC - Eye Exam Eye Exam: EOMI, Normal appearance - ENT Exam ENT Exam: Mucous Membranes Moist, Normal Exam - Neck Exam Neck Exam: Full ROM, Normal Inspection - Respiratory Exam Respiratory Exam: NORMAL BREATHING PATTERN. absent: Chest Wall Tenderness - Cardiovascular Exam Cardiovascular Exam: REGULAR RHYTHM, +S1, +S2 - GI/Abdominal Exam GI & Abdominal Exam: Soft, Tenderness (over RLQ paracentesis site) - Extremities Exam Extremities Exam: absent: Pedal Edema - Neurological Exam Neurological Exam: Alert, Awake, Oriented x3. absent: CN II-XII Intact (hard of hearing) - Psychiatric Exam Psychiatric exam: Normal Affect, Normal Mood - Skin Skin Exam: Dry, Intact, Warm. absent: Normal Color (slight ecchymosis over RLQ) Assessment and Plan - Assessment and Plan (Free Text) Assessment: 62M w/ESRD requiring HD POD#4 s/p RIJ permacath placement, for AVF creation Plan: Plan for AVF creation when cleared by cardio LUE arm precautions FU vein mapping Further mgmt as per primay team and specialists Will BURTON attending [place], PGY-1
[2017-09-24] MEDS: Albumin Human 25% (12.5 gm/50 ml) IV SCH ×3 (16:15→19:15)
--- NOTE | 2017-09-24 17:18 | CARD ---
APPROVED REPORT Protocol: PHARMACOLOGICAL STRESS Test Type: LEXISCAN Test Indications: PRE OP Medications: LIST SCAN Medical History: ACUTE RENAL FAILURE, PRE OP HTN,CKD Target HR: 156 bpm Resting ECG: NSR W/ LOW VOLTAGE W/ NS ST T CHANGES Resting Heart Rate: 104 bpm Resting Blood Pressure: 130/80mmHg submaximum (85%): 133 bpm TEST SUMMARY [id number]. INFUSIONDOSE 100:[id number]/.0. [id number]/60.0. PROCEDURE Pharmacologic stress testing was performed using 0.4mg per 5ml of regadenoson given intravenously over 7-10 seconds. Reversal agent aminophyline 125 mg, given intravenously for Chest Pain. POST EXERCISE Reason for Termination: Protocol Completed Target HR: No Max HR: 102 bpm 73% of Maximum Predicted HR: 156 bpm Exercise duration: 00:30 min:sec, 0 Stage Exercise capacity: 1.0METs Max Blood Pressure: 130/80mmHg Blood Pressure response to exercise: normal resting BP - appropriate response Heart Rate response to exercise: appropriate Chest Pain: No, none Angina index: 0 Arrhythmia: Yes, APB'S ST Change: No, none Deviation: 0 mm INTERPRETATION Stress EKG Conclusion: NEGATIVE LEXISCAN STRESS TEST NORMAL BP RESPONSE TO LEXISCAN NUCLEAR STUDIES TO BE READ SEPARATELY EXAM: Myocardial Perfusion STRESS/REST Imaging Protocol The imaging protocol used to acquire images was Stress Tc-99m/rest Tc-99m 1 day Rest Spect myocardial perfusion imaging was performed in supine position 45 minutes following the injection of 32.0 mCi of Tc-99 Myoview. Gated Stress Spect was performed 45 minutes after intravenous 13.0 mCi Tc-99 Myoview injection. The images were gated to evaluate regional wall motion and calculate ventricular ejection fraction.Images were reconstructed using backfilter projection method in short horizontal and verticle long axis. Spect slices were generated. RESTING DATA EDV45.14yfUE5.30L/min ESV9.00mlMyocardial Mass89.00g Av. Heart Rate92.00bpm EF80.00% STRESS DATA EDV33.07gwQU3.90L/min ESV6.00mlMyocardial Mass79.00g EF82.00% Regional WT score at stress:1.00 Regional WM score at stress:0.00 Summed WT score at stress:19.00 Av. Heart Tful867.00bpmSummed WM score at stress:0.00 LV Perf. Quant 17 Seg. SSS3.00 17 Seg. SRS9.00 17 Seg. SDS1.00 Stress Defect Extent (% LAD)0.00Rest Defect Extent (% LAD)8.80Rev. Defect Extent (% LAD)0.00 Stress Defect Extent (% LCX)10.00Rest Defect Extent (% LCX)0.00Rev. Defect Extent (% LCX)0.00 Stress Defect Extent (% RCA)3.30Rest Defect Extent (% RCA)28.90Rev. Defect Extent (% RCA)0.00 Stress Defect Extent (% JEN)4.30Rest Defect Extent (% JEN)13.70Rev. Defect Extent (% JEN)0.00 Other Information Quality:Good IMPRESSION Normal Myocardial Perfusion exercise stress study Left Ventricle LV Function:Left ventricle systolic function is normal. The Ejection Fraction is >70%. Conclusion 1. Normal Lexiscan Nuclear stress dwayne. Normal EF.
--- NOTE | 2017-09-24 18:37 | CP.PCM.PN ---
Subjective - Date & Time of Evaluation Date of Evaluation: 09/24/17 Time of Evaluation: 08:30 - Subjective Subjective: clinically same Objective - Vital Signs/Intake and Output Vital Signs (last 24 hours): Temp Pulse Resp BP Pulse Ox 97.6 F 96 H 18 145/89 99 09/24/17 15:17 09/24/17 15:17 09/24/17 15:17 09/24/17 15:17 09/24/17 15:17 Intake and Output: 09/24/17 09/24/17 06:59 18:59 Intake Total 320 Balance 320 - Medications Medications: Current Medications Albuterol/Ipratropium (Duoneb 3 Mg/0.5 Mg (3 Ml) Ud) 3 ml INH RQ6 PRN PRN Reason: Wheezing Calcitriol (Rocaltrol) 0.5 mcg PO DAILY [facility] Last Admin: 09/24/17 11:10 Dose: Not Given Calcium Acetate (Phoslo) 667 mg PO TID [facility] Last Admin: 09/24/17 17:14 Dose: 667 mg Epoetin Naeem (Procrit) 4,000 unit IV MWF [facility] Heparin Sodium (Porcine) (Heparin) 5,000 units SC Q12 [facility] Last Admin: 09/20/17 10:26 Dose: Not Given Hydrocortisone (Cortizone 0.5% Cream) 1 applic TOP BID [facility] Last Admin: 09/24/17 18:07 Dose: Not Given Levothyroxine Sodium (Synthroid) 25 mcg PO DAILY@0630 [facility] Last Admin: 09/24/17 06:07 Dose: 25 mcg Ondansetron HCl (Zofran Inj) 4 mg IVP Q6 PRN PRN Reason: Nausea/Vomiting Last Admin: 09/21/17 08:36 Dose: 4 mg - Labs Labs: 09/22/17 11:15 09/22/17 07:16 PT 15.4 SECONDS (9.7-12.2) H 09/20/17 14:06 INR 1.4 09/20/17 14:06 APTT 33 SECONDS (21-34) 09/20/17 14:06
--- NOTE | 2017-09-24 22:40 | CARD ---
APPROVED REPORT EXAM: Two-dimensional and M-mode echocardiogram with Doppler and color Doppler. Other Information Quality : Technically LimitedRhythm : <Conclusion> Poor technically, due body habitus, not able to comment on LV function,, chambers or valves. No effusion
[2017-09-25 06:04] LABS: CERULOPLASMIN 28 mg/dL (18-36)
[2017-09-25] MEDS: Levothyroxine 25 MCG TAB PO SCH (06:21)
[2017-09-25 07:50] LABS: BASO % 0.3 % (0.0-2.0); EOS % 0.2 % (0.0-4.0); HEMOGLOBIN 10.7 g/dL (12.0-18.0); LYMPH # 0.5 K/uL (1.0-4.3); LYMPH % 6.7 % (20.0-40.0); MEAN CELL VOLUME 86.6 fL (80.0-94.0); MEAN CORPUSCULAR HEMOGLOBIN 29.4 pg (27.0-31.0); MEAN PLATELET VOLUME 7.9 fL (7.2-11.7); MONO # 0.3 K/uL (0.0-0.8); MONO % 4.6 % (0.0-10.0); NEUT # 5.9 K/uL (1.8-7.0); NEUT % 88.2 % (50.0-75.0); NRBC % 0.1 % (0.0-2.0); PLATELET COUNT 146 K/uL (130-400); RBC 3.62 Mil/uL (4.40-5.90); RED CELL DISTRIBUTION WIDTH 14.2 % (11.5-14.5); WHITE BLOOD COUNT 6.7 K/uL (4.8-10.8)
[2017-09-25 07:54] LABS: INR 1.4; PROTHROMBIN TIME 16.5 SECONDS (9.7-12.2)
[2017-09-25 08:17] LABS: ALB/GLOB RATIO 0.9 (1.0-2.1); ALBUMIN 2.7 g/dL (3.5-5.0); CALCIUM 7.7 mg/dl (8.6-10.4)
--- NOTE | 2017-09-25 08:49 | CP.PCM.PN ---
<Valdo Candelaria - Last Filed: 09/25/17 08:46> Subjective - Date & Time of Evaluation Date of Evaluation: 09/25/17 Time of Evaluation: 06:20 - Subjective Subjective: PGY5 GI Fellow Progress Note Patient seen and examined bedside this morning. Admits to improvement in abdominal discomfort and SOB with removal of 6L ascitic fluid yesterday. Some minor discomfort at paracentesis site. No events overnight. 12 system ROS performed and negative except where stated. Objective - Vital Signs/Intake and Output Vital Signs (last 24 hours): Temp Pulse Resp BP Pulse Ox 97.4 F L 98 H 18 113/75 98 09/25/17 07:10 09/25/17 07:10 09/25/17 07:10 09/25/17 07:10 09/25/17 07:10 Intake and Output: 09/25/17 09/25/17 06:59 18:59 Intake Total 560 Balance 560 - Medications Medications: Current Medications Calcitriol (Rocaltrol) 0.5 mcg PO DAILY [facility] Last Admin: 09/24/17 11:10 Dose: Not Given Calcium Acetate (Phoslo) 667 mg PO TID [facility] Last Admin: 09/24/17 17:14 Dose: 667 mg Epoetin Naeem (Procrit) 4,000 unit IV MWF [facility] Heparin Sodium (Porcine) (Heparin) 5,000 units SC Q12 [facility] Last Admin: 09/20/17 10:26 Dose: Not Given Hydrocortisone (Cortizone 0.5% Cream) 1 applic TOP BID [facility] Last Admin: 09/24/17 18:07 Dose: Not Given Levothyroxine Sodium (Synthroid) 25 mcg PO DAILY@0630 [facility] Last Admin: 09/25/17 06:21 Dose: 25 mcg Ondansetron HCl (Zofran Inj) 4 mg IVP Q6 PRN PRN Reason: Nausea/Vomiting Last Admin: 09/21/17 08:36 Dose: 4 mg - Labs Labs: 09/25/17 07:44 09/25/17 07:44 PT 16.5 SECONDS (9.7-12.2) H 09/25/17 07:44 INR 1.4 09/25/17 07:44 APTT 33 SECONDS (21-34) 09/20/17 14:06 - Constitutional Appears: No Acute Distress, Chronically Ill - Eye Exam Eye Exam: EOMI, PERRL - ENT Exam ENT Exam: Mucous Membranes Dry - Respiratory Exam Respiratory Exam: Decreased Breath Sounds. absent: Rales, Rhonchi, Wheezes - Cardiovascular Exam Cardiovascular Exam: RRR, +S1, +S2 - GI/Abdominal Exam GI & Abdominal Exam: Soft, Tenderness (at paracentesis puncture site), Normal Bowel Sounds. absent: Distended, Firm, Guarding, Rigid, Organomegaly - Extremities Exam Extremities Exam: Normal Inspection. absent: Pedal Edema - Neurological Exam Neurological Exam: Alert, Awake, Oriented x3 - Psychiatric Exam Psychiatric exam: Normal Affect, Normal Mood - Skin Skin Exam: Dry, Warm Assessment and Plan - Assessment and Plan (Free Text) Assessment: Patient is a 56yo male with PMHx significant for decompensated cirrhosis, EtOH abuse, ESRD on HD, HTN, hypothyroidism, nephrolithiasis, osteoarthritis who presented with abdominal pain and distention -Decompensated EtOH cirrhosis with ascites -Large volume ascites s/p LVP -EtOH abuse -ESRD on HD Plan: -S/P LVP with 6L removed yesterday -Consider addition of Lasix/Aldactone as patient still produces urine - discuss with nephrology -Encourage EtOH cessation however patient states he will continue drinking -Cell count is not c/w SBP -Awaiting ascitic fluid studies - albumin/total protein -Autoimmune markers pending -Daily MELD labs (CBC, CMP, INR) -Pt will need outpt EGD/Colonoscopy as an outpt *MELD-Na: 29 - patient not a liver transplant candidate as he has ongoing EtOH use <Fox Astorga - Last Filed: 09/25/17 09:06> Objective - Vital Signs/Intake and Output Vital Signs (last 24 hours): Temp Pulse Resp BP Pulse Ox 97.4 F L 98 H 18 113/75 98 09/25/17 07:10 09/25/17 07:10 09/25/17 07:10 09/25/17 07:10 09/25/17 07:10 Intake and Output: 09/25/17 09/25/17 06:59 18:59 Intake Total 560 Balance 560 - Medications Medications: Current Medications Calcitriol (Rocaltrol) 0.5 mcg PO DAILY [facility] Last Admin: 09/24/17 11:10 Dose: Not Given Calcium Acetate (Phoslo) 667 mg PO TID [facility] Last Admin: 09/24/17 17:14 Dose: 667 mg Epoetin Naeem (Procrit) 4,000 unit IV MWF [facility] Heparin Sodium (Porcine) (Heparin) 5,000 units SC Q12 [facility] Last Admin: 09/20/17 10:26 Dose: Not Given Hydrocortisone (Cortizone 0.5% Cream) 1 applic TOP BID [facility] Last Admin: 09/24/17 18:07 Dose: Not Given Levothyroxine Sodium (Synthroid) 25 mcg PO DAILY@0630 [facility] Last Admin: 09/25/17 06:21 Dose: 25 mcg Ondansetron HCl (Zofran Inj) 4 mg IVP Q6 PRN PRN Reason: Nausea/Vomiting Last Admin: 09/21/17 08:36 Dose: 4 mg - Labs Labs: 09/25/17 07:44 09/25/17 07:44 PT 16.5 SECONDS (9.7-12.2) H 09/25/17 07:44 INR 1.4 09/25/17 07:44 APTT 33 SECONDS (21-34) 09/20/17 14:06 Attending/Attestation - Attestation I have personally seen and examined this patient.: Yes I have fully participated in the care of the patient.: Yes I have reviewed all pertinent clinical information, including history, physical exam and plan: Yes Notes (Text): 09/25/17 09:02 I have seen and examined patient with GI fellow. No acute events overnight, he complains of mild abdominal discomfort at paracentesis site. He otherwise denies nausea, vomiting, fever/chills. Tolerating PO diet without difficulty. Review of vitals from today shows tachycardia. Decompensated ETOH cirrhosis ESRD on HD HTN Hypothyroidism Abdominal pain, ascites - s/p large volume paracentesis yesterday - Low sodium renal diet as tolerated - Would initiate diuretic therapy, patient makes urine despite dialysis management - Awaiting additional ascitic fluid studies - Continue to monitor LFTs, awaiting autoimmune studies - Patient counseled regarding importance of ETOH cessation given cirrhosis, though he adamantly refuses to change lifestyle. He understands risks of progression of disease and is willing to accept this. - Patient would benefit from elective outpatient EGD for variceal screening and age appropriate screening colonoscopy - No further planned GI intervention, will sign off case. Please reconsult as necessary, thank you.
[2017-09-25 10:41] LABS: BANDS 3 % (0-2); EOSINOPHIL 1 % (0-4); LYMPHOCYTE 5 % (20-40); MONOCYTE 4 % (0-10); NEUTROPHIL 87 % (50-75); OVALOCYTES SLIGHT; PLATELET ESTIMATE NORMAL (NORMAL); TOTAL CELLS COUNTED 100
--- NOTE | 2017-09-25 10:52 | CP.PCM.PN ---
Subjective - Date & Time of Evaluation Date of Evaluation: 09/25/17 Time of Evaluation: 06:30 - Subjective Subjective: Patient seen and examined at bedside this AM. No adverse events overnight. Objective - Vital Signs/Intake and Output Vital Signs (last 24 hours): Temp Pulse Resp BP Pulse Ox 97.6 F 97 H 18 106/69 100 09/25/17 09:50 09/25/17 10:35 09/25/17 09:50 09/25/17 10:35 09/25/17 09:50 Intake and Output: 09/25/17 09/25/17 06:59 18:59 Intake Total 560 Balance 560 - Medications Medications: Current Medications Calcitriol (Rocaltrol) 0.5 mcg PO DAILY [facility] Last Admin: 09/24/17 11:10 Dose: Not Given Calcium Acetate (Phoslo) 667 mg PO TID [facility] Last Admin: 09/24/17 17:14 Dose: 667 mg Epoetin Naeem (Procrit) 4,000 unit IV MWF [facility] Heparin Sodium (Porcine) (Heparin) 5,000 units SC Q12 [facility] Last Admin: 09/20/17 10:26 Dose: Not Given Hydrocortisone (Cortizone 0.5% Cream) 1 applic TOP BID [facility] Last Admin: 09/24/17 18:07 Dose: Not Given Levothyroxine Sodium (Synthroid) 25 mcg PO DAILY@0630 [facility] Last Admin: 09/25/17 06:21 Dose: 25 mcg Ondansetron HCl (Zofran Inj) 4 mg IVP Q6 PRN PRN Reason: Nausea/Vomiting Last Admin: 09/21/17 08:36 Dose: 4 mg - Labs Labs: 09/25/17 07:44 09/25/17 07:44 PT 16.5 SECONDS (9.7-12.2) H 09/25/17 07:44 INR 1.4 09/25/17 07:44 APTT 33 SECONDS (21-34) 09/20/17 14:06 - Constitutional Appears: Well, Non-toxic, No Acute Distress - Head Exam Head Exam: ATRAUMATIC, NORMOCEPHALIC - Eye Exam Eye Exam: Normal appearance. absent: Conjunctival injection, Scleral icterus - ENT Exam ENT Exam: Mucous Membranes Moist, Normal Oropharynx - Respiratory Exam Respiratory Exam: NORMAL BREATHING PATTERN. absent: Accessory Muscle Use, Respiratory Distress - Neurological Exam Neurological Exam: Alert, Awake, Oriented x3 - Psychiatric Exam Psychiatric exam: Normal Affect, Normal Mood - Skin Skin Exam: Dry, Intact, Normal Color, Warm Assessment and Plan - Assessment and Plan (Free Text) Assessment: 62M with ESRD with need for HD access Plan: -OR 09/26 for AVF -F/U vein mapping -Limb alert on the left arm -NPO after midnight -Medical management per primary Seen and discussed with DR. Corrina Le, PGY2
[2017-09-25] MEDS ORDERED: Albumin Human 25% (12.5 gm/50 ml) IV ONE (11:15)
--- NOTE | 2017-09-25 12:48 | CP.PCM.PN ---
Subjective - Date & Time of Evaluation Date of Evaluation: 09/25/17 Time of Evaluation: 12:47 - Subjective Subjective: seen and examined low bp pt refusing more than 2 hours hd cirrhosis / s/p paracentesis Objective - Vital Signs/Intake and Output Vital Signs (last 24 hours): Temp Pulse Resp BP Pulse Ox 97.6 F 95 H 20 130/80 100 09/25/17 09:50 09/25/17 12:20 09/25/17 12:20 09/25/17 12:20 09/25/17 12:20 Intake and Output: 09/25/17 09/25/17 06:59 18:59 Intake Total 560 Balance 560 - Medications Medications: Current Medications Calcitriol (Rocaltrol) 0.5 mcg PO DAILY [facility] Last Admin: 09/25/17 10:52 Dose: Not Given Calcium Acetate (Phoslo) 667 mg PO TID [facility] Last Admin: 09/25/17 10:52 Dose: Not Given Epoetin Naeem (Procrit) 4,000 unit IV MWF [facility] Ferric Sodium Gluconate Complex (Ferrlecit) 125 mg IVPB TTS [facility] Stop: 10/05/17 10:01 Heparin Sodium (Porcine) (Heparin) 5,000 units SC Q12 [facility] Last Admin: 09/20/17 10:26 Dose: Not Given Hydrocortisone (Cortizone 0.5% Cream) 1 applic TOP BID [facility] Last Admin: 09/25/17 10:51 Dose: Not Given Levothyroxine Sodium (Synthroid) 25 mcg PO DAILY@0630 [facility] Last Admin: 09/25/17 06:21 Dose: 25 mcg Ondansetron HCl (Zofran Inj) 4 mg IVP Q6 PRN PRN Reason: Nausea/Vomiting Last Admin: 09/21/17 08:36 Dose: 4 mg - Labs Labs: 09/25/17 07:44 09/25/17 07:44 PT 16.5 SECONDS (9.7-12.2) H 09/25/17 07:44 INR 1.4 09/25/17 07:44 APTT 33 SECONDS (21-34) 09/20/17 14:06 - Constitutional Appears: No Acute Distress, Older Than Stated Age, Cachectic, Chronically Ill - Head Exam Head Exam: NORMAL INSPECTION, NORMOCEPHALIC - Eye Exam Eye Exam: Normal appearance, Scleral icterus - ENT Exam ENT Exam: Mucous Membranes Moist, Normal Exam - Neck Exam Neck Exam: Full ROM, Normal Inspection - Respiratory Exam Respiratory Exam: Decreased Breath Sounds, NORMAL BREATHING PATTERN - Cardiovascular Exam Cardiovascular Exam: REGULAR RHYTHM, RRR - GI/Abdominal Exam GI & Abdominal Exam: Distended, Soft, Hypoactive Bowel Sounds - Extremities Exam Extremities Exam: Normal Inspection (rt chest permcath) - Neurological Exam Neurological Exam: Alert, Awake, Oriented x3 - Psychiatric Exam Psychiatric exam: Normal Affect, Normal Mood - Skin Skin Exam: Dry, Intact, Warm Assessment and Plan (1) Anemia Status: Acute (2) Cirrhosis Status: Acute (3) ESRD (end stage renal disease) on dialysis Status: Acute (4) Secondary hyperparathyroidism Status: Acute - Assessment and Plan (Free Text) Assessment: maintain hd tts add midodrine for bp support iv iron x 5 doses improving hgb needs av acess outpt placement
--- NOTE | 2017-09-25 17:09 | CP.PCM.PN ---
Subjective - Date & Time of Evaluation Date of Evaluation: 09/25/17 Time of Evaluation: 08:40 - Subjective Subjective: clinically same Objective - Vital Signs/Intake and Output Vital Signs (last 24 hours): Temp Pulse Resp BP Pulse Ox 98.0 F 98 H 20 107/79 96 09/25/17 15:00 09/25/17 16:00 09/25/17 15:00 09/25/17 15:00 09/25/17 15:00 Intake and Output: 09/25/17 09/25/17 06:59 18:59 Intake Total 560 240 Balance 560 240 - Medications Medications: Current Medications Calcitriol (Rocaltrol) 0.5 mcg PO DAILY [facility] Last Admin: 09/25/17 10:52 Dose: Not Given Calcium Acetate (Phoslo) 667 mg PO TID [facility] Last Admin: 09/25/17 13:28 Dose: 667 mg Epoetin Naeem (Procrit) 4,000 unit IV MWF [facility] Ferric Sodium Gluconate Complex (Ferrlecit) 125 mg IVPB TTS [facility] Stop: 10/05/17 10:01 Heparin Sodium (Porcine) (Heparin) 5,000 units SC Q12 [facility] Last Admin: 09/20/17 10:26 Dose: Not Given Hydrocortisone (Cortizone 0.5% Cream) 1 applic TOP BID [facility] Last Admin: 09/25/17 10:51 Dose: Not Given Levothyroxine Sodium (Synthroid) 25 mcg PO DAILY@0630 [facility] Last Admin: 09/25/17 06:21 Dose: 25 mcg Midodrine (Proamatine) 5 mg PO TID [facility] Ondansetron HCl (Zofran Inj) 4 mg IVP Q6 PRN PRN Reason: Nausea/Vomiting Last Admin: 09/21/17 08:36 Dose: 4 mg - Labs Labs: 09/25/17 07:44 09/25/17 07:44 PT 16.5 SECONDS (9.7-12.2) H 09/25/17 07:44 INR 1.4 09/25/17 07:44 APTT 33 SECONDS (21-34) 09/20/17 14:06 - Constitutional Appears: Well - Head Exam Head Exam: ATRAUMATIC, NORMAL INSPECTION, NORMOCEPHALIC - Eye Exam Eye Exam: EOMI, Normal appearance, PERRL Pupil Exam: NORMAL ACCOMODATION, PERRL - ENT Exam ENT Exam: Mucous Membranes Moist, Normal Exam - Neck Exam Neck Exam: Full ROM, Normal Inspection. absent: Lymphadenopathy - Respiratory Exam Respiratory Exam: Decreased Breath Sounds - Cardiovascular Exam Cardiovascular Exam: REGULAR RHYTHM, +S1, +S2 - GI/Abdominal Exam GI & Abdominal Exam: Soft, Diminished Bowel Sounds - Rectal Exam Rectal Exam: Deferred
[2017-09-26] MEDS: Levothyroxine 25 MCG TAB PO SCH (06:35)
[2017-09-26 07:30] LABS: BASO % 0.4 % (0.0-2.0); EOS % 0.3 % (0.0-4.0); HEMOGLOBIN 9.6 g/dL (12.0-18.0); LYMPH # 0.5 K/uL (1.0-4.3); LYMPH % 9.1 % (20.0-40.0); MEAN CELL VOLUME 86.5 fL (80.0-94.0); MEAN CORPUSCULAR HGB CONC 33.5 g/dL (33.0-37.0); MEAN PLATELET VOLUME 8.2 fL (7.2-11.7); MONO # 0.4 K/uL (0.0-0.8); MONO % 6.3 % (0.0-10.0); NEUT # 4.9 K/uL (1.8-7.0); NEUT % 83.9 % (50.0-75.0); PLATELET COUNT 139 K/uL (130-400); RED CELL DISTRIBUTION WIDTH 14.6 % (11.5-14.5); WHITE BLOOD COUNT 5.8 K/uL (4.8-10.8)
[2017-09-26 07:35] LABS: INR 1.4; PROTHROMBIN TIME 16.3 SECONDS (9.7-12.2)
[2017-09-26 07:50] LABS: ALB/GLOB RATIO 0.9 (1.0-2.1); ALBUMIN 2.5 g/dL (3.5-5.0); CALCIUM 7.4 mg/dl (8.6-10.4)
[2017-09-26 08:38] LABS: ANISOCYTOSIS SLIGHT; HYPOCHROMIC SLIGHT; LYMPHOCYTE 9 % (20-40); MONOCYTE 7 % (0-10); NEUTROPHIL 84 % (50-75); PLATELET ESTIMATE NORMAL (NORMAL); POIKILOCYTOSIS SLIGHT; TOTAL CELLS COUNTED 100
[2017-09-26 08:39] LABS: BURR CELLS SLIGHT; GIANT PLATELETS PRESENT; LARGE PLATELETS PRESENT; OVALOCYTES SLIGHT
[2017-09-26] MEDS ORDERED: EPOETIN ALFA 4,000 UNIT/ML ML Dialysis IV SCH (09:00)
[2017-09-26] MEDS ORDERED: Lidocaine Hydrochloride 0 ML INJ ONE (14:20)
[2017-09-26] MEDS ORDERED: HEPARIN-NS 5,000 UNITS/500 ML 5,000 UNIT/500 ML BAG IV ONE (14:20)
[2017-09-26] MEDS ORDERED: Propofol 10 mg/ml Inj (20 ML) ONE (14:35)
[2017-09-26] MEDS ORDERED: Succinylcholine Chloride 20 mg/ml Syr (5 ml) IV ONE (14:48)
[2017-09-26] MEDS ORDERED: Etomidate 20 mg/10ml Inj IV ONE (14:54)
--- NOTE | 2017-09-26 14:59 | VASCLAB ---
PROCEDURE: Upper Extremity Venous Duplex Exam HISTORY: Renal failure PRIORS: None. TECHNIQUE: Bilateral upper extremity, internal jugular, subclavian, axillary, brachial, ulnar, radial, basilic and upper cephalic veins were evaluated. Flow was assessed with color Doppler, compressibility, assessment of phasic flow and augmentation response. Report prepared by Maikol Vick, ABIGAIL, RVT FINDINGS: RIGHT: 1. Internal Jugular Vein: Compressibility - Fully compressible: Thrombus - None : Flow - Phasic 2. Subclavian Vein:Compressibility - Fully compressible: Thrombus - None : Flow - Phasic 3. Axillary Vein: Compressibility - Fully compressible: Thrombus - None 4. Brachial Vein: Compressibility - Fully compressible: Thrombus - None 5. Ulnar Vein:Compressibility - Fully compressible: Thrombus - None 6. Radial Vein:Compressibility - Fully compressible: Thrombus - None 7. Cephalic Vein: Compressibility - Fully compressible: thrombus - None 7.1. Upper Arm: Proximal Diameter: 0.35cm. Mid Diameter: 0.28cm. Distal Diameter: 0.32cm. Antecubital Fossa Diameter: 0.43cm. 7.2. Forearm: Proximal Diameter: 0.34cm. Mid Diameter:0.23cm. Distal Diameter: 0.16cm 8. Basilic Vein:Compressibility - Fully compressible: thrombus - None 8.1. Upper Arm:Proximal Diameter: 0.30cm. Mid Diameter: 0.23cm. Distal Diameter: 0.27cm. Antecubital Fossa Diameter: 0.35cm. 8.2. Forearm: Proximal Diameter: 0.18cm. Mid Diameter:0.18cm. Distal Diameter: 0.21cm. LEFT: 1. Internal Jugular Vein: Compressibility - Fully compressible: Thrombus - None : Flow - Phasic 2. Subclavian Vein:Compressibility - Fully compressible: Thrombus - None : Flow - Phasic 3. Axillary Vein: Compressibility - Fully compressible: Thrombus - None 4. Brachial Vein: Compressibility - Fully compressible: Thrombus - None 5. Ulnar Vein:Compressibility - Fully compressible: Thrombus - None 6. Radial Vein:Compressibility - Fully compressible: Thrombus - None 7. Cephalic Vein: Compressibility - Fully compressible: thrombus - None 7.1. Upper Arm: Proximal Diameter: 0.34cm. Mid Diameter: 0.29cm. Distal Diameter: 0.35cm. Antecubital Fossa Diameter: 0.43cm. 7.2. Forearm: Proximal Diameter: 0.25cm. Mid Diameter:0.20cm. Distal Diameter: 0.21cm 8. Basilic Vein:Compressibility - Fully compressible: thrombus - None 8.1. Upper Arm:Proximal Diameter: 0.37cm. Mid Diameter: 0.30cm. Distal Diameter: 0.33cm. Antecubital Fossa Diameter: 0.30cm. 8.2. Forearm: Proximal Diameter: 0.24cm. Mid Diameter:0.14cm. Distal Diameter: 0.15cm. OTHER FINDINGS: Right: None. Left: None. IMPRESSION: Right: Diameter measurements of the right cephalic vein is measured between 0.16 cm and 0.43 cm and basilic vein is measured between 0.18 cm and 0.35 cm. Left: Diameter measurements of the left cephalic vein is measured between 0.20 cm and 0.43 cm and basilic vein is measured between 0.14cm and 0.37cm.
[2017-09-26] MEDS: ceFAZolin 1 gm in NS 2 GM/200 ML BAG IVPB ONE ×2 (15:05→15:26)
--- NOTE | 2017-09-26 15:51 | US ---
Date of Procedure: 09/24/2017 PROCEDURE: Ultrasound-guided paracentesis, CPT 99872 Medications: 7 cc 1% Lidocaine HISTORY: Ascites, abdominal pain TECHNIQUE: Following informed consent , the patient was placed supine on the stretcher and the site was marked. A limited abdominal ultrasound was performed that showed a large amount of intra-abdominal fluid. Procedural time out was called and the Pt's abdomen was marked and prepped and draped in the usual sterile fashion. Ultrasound-guided large volume paracentesis performed. A total of 6 liters of straw colored fluid was removed without complication. IMPRESSION: Ultrasound-guided large volume paracentesis.
--- NOTE | 2017-09-26 16:23 | CP.PCM.PN ---
Subjective - Date & Time of Evaluation Date of Evaluation: 09/26/17 Time of Evaluation: 08:45 - Subjective Subjective: clinically same Objective - Vital Signs/Intake and Output Vital Signs (last 24 hours): Temp Pulse Resp BP Pulse Ox 98.0 F 88 18 110/75 97 09/26/17 07:05 09/26/17 08:00 09/26/17 07:05 09/26/17 07:05 09/26/17 07:05 Intake and Output: 09/26/17 09/26/17 06:59 18:59 Intake Total 370 320 Balance 370 320 - Medications Medications: Current Medications Calcitriol (Rocaltrol) 0.5 mcg PO DAILY [facility] Last Admin: 09/26/17 11:15 Dose: 0.5 mcg Calcium Acetate (Phoslo) 667 mg PO TID [facility] Last Admin: 09/26/17 11:15 Dose: Not Given Epoetin Naeem (Procrit) 4,000 unit IV MWF [facility] Ferric Sodium Gluconate Complex (Ferrlecit) 125 mg IVPB TTS [facility] Stop: 10/05/17 10:01 Heparin Sodium (Porcine) (Heparin) 5,000 units SC Q12 [facility] Last Admin: 09/20/17 10:26 Dose: Not Given Hydrocortisone (Cortizone 0.5% Cream) 1 applic TOP BID [facility] Last Admin: 09/26/17 11:15 Dose: 1 applic Levothyroxine Sodium (Synthroid) 25 mcg PO DAILY@0630 [facility] Last Admin: 09/26/17 06:35 Dose: 25 mcg Midodrine (Proamatine) 5 mg PO TID [facility] Last Admin: 09/26/17 13:36 Dose: 5 mg Ondansetron HCl (Zofran Inj) 4 mg IVP Q6 PRN PRN Reason: Nausea/Vomiting Last Admin: 09/21/17 08:36 Dose: 4 mg - Labs Labs: 09/26/17 07:16 09/26/17 07:16 PT 16.3 SECONDS (9.7-12.2) H 09/26/17 07:16 INR 1.4 09/26/17 07:16 APTT 35 SECONDS (21-34) H 09/26/17 07:16 - Constitutional Appears: Well - Head Exam Head Exam: ATRAUMATIC, NORMAL INSPECTION, NORMOCEPHALIC - Eye Exam Eye Exam: EOMI, Normal appearance, PERRL Pupil Exam: NORMAL ACCOMODATION, PERRL - ENT Exam ENT Exam: Mucous Membranes Moist, Normal Exam - Neck Exam Neck Exam: Full ROM, Normal Inspection. absent: Lymphadenopathy - Respiratory Exam Respiratory Exam: Decreased Breath Sounds - Cardiovascular Exam Cardiovascular Exam: REGULAR RHYTHM, +S1, +S2 - GI/Abdominal Exam GI & Abdominal Exam: Soft, Diminished Bowel Sounds - Rectal Exam Rectal Exam: Deferred
--- NOTE | 2017-09-26 16:45 | PCM.SURG1 ---
Surgeon's Initial Post Op Note - Surgeon's Notes Surgeon: Dr. Breaux Wood Window And Door Craftsman: Cassy Severino PGY-1, Lawrence Alcantar OMS-3 Pre-Operative Diagnosis: ESRD Requiring HD Operative Findings: SEE OP REPORT Post-Operative Diagnosis: ESRD Requiring HD Operation Performed: Brachio-brachial AVF Creation Specimen/Specimens Removed: NONE Estimated Blood Loss: EBL {In ML}: 25 Blood Products Given: N/A Drains Used: No Drains Post-Op Condition: Good Date of Surgery/Procedure: 09/26/17 Time of Surgery/Procedure: 16:44
[2017-09-26] MEDS ORDERED: Morphine 4 MG/ML VIAL IVP PRN (16:47)
--- NOTE | 2017-09-26 18:55 | CP.PCM.PN ---
Subjective - Date & Time of Evaluation Date of Evaluation: 09/26/17 Time of Evaluation: 18:55 Objective - Vital Signs/Intake and Output Vital Signs (last 24 hours): Temp Pulse Resp BP Pulse Ox 97.5 F L 89 20 101/69 98 09/26/17 18:45 09/26/17 18:45 09/26/17 18:45 09/26/17 18:45 09/26/17 18:45 Intake and Output: 09/26/17 09/26/17 06:59 18:59 Intake Total 370 670 Balance 370 670 - Medications Medications: Current Medications Acetaminophen (Tylenol 325mg Tab) 650 mg PO Q6 PRN PRN Reason: Pain, moderate (4-7) Calcitriol (Rocaltrol) 0.5 mcg PO DAILY [facility] Last Admin: 09/26/17 11:15 Dose: 0.5 mcg Calcium Acetate (Phoslo) 667 mg PO TID [facility] Last Admin: 09/26/17 18:38 Dose: 667 mg Epoetin Naeem (Procrit) 4,000 unit IV MWF [facility] Ferric Sodium Gluconate Complex (Ferrlecit) 125 mg IVPB TTS [facility] Stop: 10/05/17 10:01 Heparin Sodium (Porcine) (Heparin) 5,000 units SC Q12 [facility] Last Admin: 09/20/17 10:26 Dose: Not Given Hydrocortisone (Cortizone 0.5% Cream) 1 applic TOP BID [facility] Last Admin: 09/26/17 18:37 Dose: 1 applic Levothyroxine Sodium (Synthroid) 25 mcg PO DAILY@0630 [facility] Last Admin: 09/26/17 06:35 Dose: 25 mcg Midodrine (Proamatine) 5 mg PO TID [facility] Last Admin: 09/26/17 18:37 Dose: 5 mg Ondansetron HCl (Zofran Inj) 4 mg IVP Q6 PRN PRN Reason: Nausea/Vomiting Last Admin: 09/21/17 08:36 Dose: 4 mg - Labs Labs: 09/26/17 07:16 09/26/17 07:16 PT 16.3 SECONDS (9.7-12.2) H 09/26/17 07:16 INR 1.4 09/26/17 07:16 APTT 35 SECONDS (21-34) H 09/26/17 07:16
[2017-09-27 00:12] LABS: LDH PERITONEAL FLUID 107 U/L (<63)
[2017-09-27 03:00] LABS: AMYLASE PERITONEAL FLUID <10 U/L
--- NOTE | 2017-09-27 04:10 | OP ---
PROCEDURE DATE: 09/26/2017 PREOPERATIVE DIAGNOSIS: Renal failure. POSTOPERATIVE DIAGNOSIS: Renal failure. PROCEDURE CARRIED OUT: Brachio-brachial fistula, left elbow. SURGEON: Gold Houser MD LANGUAGE INSTRUCTOR: Dr. Severino. ANESTHESIOLOGIST: Mr. Wheeler. INDICATIONS: The patient is a 62-year-old man with renal insufficiency, who now requires dialysis, temporary dialysis by means of a catheter. OPERATING FINDINGS: The cephalic vein was of descent size, but from intravenous use. The basilic vein had segments. On the right lower arm, we also looked, and there was not a good vein to use. Because of this, we carried out brachio-brachial fistula with the expectation that some of the veins would mature and would provide better access in the future. The fistula was created using loupe magnification, heparin anticoagulation. At the end of the procedure, there were excellent Doppler signals at the wrist and there was good flow through the fistula. Wound was closed with subcuticular closure and 5-0 nylon sutures. Blood loss was 25 mL. Operation carried out, brachio-brachial fistula, left elbow. Gold Houser Jr., MD cc: Dr. Emil Tellez MD
[2017-09-27] MEDS: Levothyroxine 25 MCG TAB PO SCH (06:12)
[2017-09-27 07:32] LABS: BASO % 0.4 % (0.0-2.0); EOS % 0.5 % (0.0-4.0); HEMOGLOBIN 9.8 g/dL (12.0-18.0); LYMPH # 0.7 K/uL (1.0-4.3); LYMPH % 9.7 % (20.0-40.0); MEAN CELL VOLUME 86.3 fL (80.0-94.0); MEAN CORPUSCULAR HEMOGLOBIN 29.3 pg (27.0-31.0); MEAN PLATELET VOLUME 8.1 fL (7.2-11.7); MONO # 0.4 K/uL (0.0-0.8); MONO % 5.8 % (0.0-10.0); NEUT # 6.3 K/uL (1.8-7.0); NEUT % 83.6 % (50.0-75.0); NRBC % 0.1 % (0.0-2.0); PLATELET COUNT 145 K/uL (130-400); RBC 3.33 Mil/uL (4.40-5.90); RED CELL DISTRIBUTION WIDTH 14.5 % (11.5-14.5); WHITE BLOOD COUNT 7.5 K/uL (4.8-10.8)
[2017-09-27 07:33] LABS: INR 1.4; PROTHROMBIN TIME 15.6 SECONDS (9.7-12.2)
[2017-09-27 07:51] LABS: ALB/GLOB RATIO 0.8 (1.0-2.1); ALBUMIN 2.4 g/dL (3.5-5.0); CALCIUM 7.2 mg/dl (8.6-10.4)
[2017-09-27 08:43] LABS: BANDS 1 % (0-2); LYMPHOCYTE 10 % (20-40); MONOCYTE 5 % (0-10); NEUTROPHIL 83 % (50-75); PLATELET ESTIMATE NORMAL (NORMAL); REACTIVE LYMPHOCYTES 1 % (0-0); TOTAL CELLS COUNTED 100
[2017-09-27 08:44] LABS: ANISOCYTOSIS SLIGHT; HYPOCHROMIC SLIGHT; OVALOCYTES SLIGHT; POIKILOCYTOSIS SLIGHT
[2017-09-27] MEDS ORDERED: Albumin Human 25% (12.5 gm/50 ml) IV ONE (10:30)
--- NOTE | 2017-09-27 10:32 | CP.PCM.PN ---
Subjective - Date & Time of Evaluation Date of Evaluation: 09/27/17 Time of Evaluation: 10:30 - Subjective Subjective: seen and examined in hd refusing more than 2 hours, wants to get HD mwf only pt belligerent and refusing to answer further questions, ros couldnt be obtained Objective - Vital Signs/Intake and Output Vital Signs (last 24 hours): Temp Pulse Resp BP Pulse Ox 97.3 F L 95 H 20 84/56 L 95 09/27/17 09:15 09/27/17 09:15 09/27/17 09:15 09/27/17 09:50 09/27/17 07:15 Intake and Output: 09/27/17 09/27/17 06:59 18:59 Intake Total 300 Balance 300 - Medications Medications: Current Medications Acetaminophen (Tylenol 325mg Tab) 650 mg PO Q6 PRN PRN Reason: Pain, moderate (4-7) Albumin Human (Albumin Human 25% (12.5 Gm/50 Ml)) 12.5 gm IV ONCE ONE Stop: 09/27/17 10:31 Calcitriol (Rocaltrol) 0.5 mcg PO DAILY [facility] Last Admin: 09/26/17 11:15 Dose: 0.5 mcg Calcium Acetate (Phoslo) 667 mg PO TID [facility] Last Admin: 09/26/17 18:38 Dose: 667 mg Epoetin Naeem (Procrit) 4,000 unit IV MWF [facility] Ferric Sodium Gluconate Complex (Ferrlecit) 125 mg IVPB TTS [facility] Stop: 10/05/17 10:01 Heparin Sodium (Porcine) (Heparin) 5,000 units SC Q12 [facility] Last Admin: 09/20/17 10:26 Dose: Not Given Hydrocortisone (Cortizone 0.5% Cream) 1 applic TOP BID [facility] Last Admin: 09/26/17 18:37 Dose: 1 applic Levothyroxine Sodium (Synthroid) 25 mcg PO DAILY@0630 [facility] Last Admin: 09/27/17 06:12 Dose: 25 mcg Midodrine (Proamatine) 5 mg PO TID [facility] Last Admin: 09/27/17 10:27 Dose: 5 mg Ondansetron HCl (Zofran Inj) 4 mg IVP Q6 PRN PRN Reason: Nausea/Vomiting Last Admin: 09/21/17 08:36 Dose: 4 mg - Labs Labs: 09/27/17 07:08 09/27/17 07:08 PT 15.6 SECONDS (9.7-12.2) H 09/27/17 07:20 INR 1.4 09/27/17 07:20 APTT 35 SECONDS (21-34) H 09/26/17 07:16 - Constitutional Appears: No Acute Distress, Older Than Stated Age, Cachectic, Chronically Ill - Head Exam Head Exam: NORMAL INSPECTION - Eye Exam Eye Exam: Normal appearance, PERRL, Scleral icterus - ENT Exam ENT Exam: Mucous Membranes Moist, Normal Exam - Neck Exam Neck Exam: Full ROM, Normal Inspection - Respiratory Exam Respiratory Exam: Decreased Breath Sounds, NORMAL BREATHING PATTERN - Cardiovascular Exam Cardiovascular Exam: REGULAR RHYTHM, RRR - GI/Abdominal Exam GI & Abdominal Exam: Distended, Soft, Diminished Bowel Sounds - Extremities Exam Extremities Exam: Normal Inspection - Neurological Exam Neurological Exam: Alert, Awake, Oriented x3 - Psychiatric Exam Psychiatric exam: Agitated - Skin Skin Exam: Normal Color, Warm Assessment and Plan (1) Anemia Status: Acute (2) Cirrhosis Status: Acute (3) ESRD (end stage renal disease) on dialysis Status: Acute (4) Secondary hyperparathyroidism Status: Acute - Assessment and Plan (Free Text) Assessment: maintain hd await outpt hd placement magdalena iv iron midodrine and albumin for bp support poor prognosis
--- NOTE | 2017-09-27 10:36 | CP.PCM.PN ---
Subjective - Date & Time of Evaluation Date of Evaluation: 09/27/17 Time of Evaluation: 07:00 - Subjective Subjective: Vascular surgery progress note for Dr. Sumi Severino, PGY-1 Pt S & E at bedside. Pt c/o how many times he's being dialyzed, demanding to be on a MWF schedule. Denies N & V, F & C, numbness or tingling of hands/fingers, other complaints. Objective - Vital Signs/Intake and Output Vital Signs (last 24 hours): Temp Pulse Resp BP Pulse Ox 97.3 F L 95 H 20 84/56 L 95 09/27/17 09:15 09/27/17 09:15 09/27/17 09:15 09/27/17 09:50 09/27/17 07:15 Intake and Output: 09/27/17 09/27/17 06:59 18:59 Intake Total 300 Balance 300 - Medications Medications: Current Medications Acetaminophen (Tylenol 325mg Tab) 650 mg PO Q6 PRN PRN Reason: Pain, moderate (4-7) Calcitriol (Rocaltrol) 0.5 mcg PO DAILY [facility] Last Admin: 09/26/17 11:15 Dose: 0.5 mcg Calcium Acetate (Phoslo) 667 mg PO TID [facility] Last Admin: 09/26/17 18:38 Dose: 667 mg Epoetin Naeem (Procrit) 4,000 unit IV MWF [facility] Ferric Sodium Gluconate Complex (Ferrlecit) 125 mg IVPB TTS [facility] Stop: 10/05/17 10:01 Heparin Sodium (Porcine) (Heparin) 5,000 units SC Q12 [facility] Last Admin: 09/20/17 10:26 Dose: Not Given Hydrocortisone (Cortizone 0.5% Cream) 1 applic TOP BID [facility] Last Admin: 09/26/17 18:37 Dose: 1 applic Levothyroxine Sodium (Synthroid) 25 mcg PO DAILY@0630 [facility] Last Admin: 09/27/17 06:12 Dose: 25 mcg Midodrine (Proamatine) 5 mg PO TID [facility] Last Admin: 09/27/17 10:27 Dose: 5 mg Ondansetron HCl (Zofran Inj) 4 mg IVP Q6 PRN PRN Reason: Nausea/Vomiting Last Admin: 09/21/17 08:36 Dose: 4 mg - Labs Labs: 09/27/17 07:08 09/27/17 07:08 PT 15.6 SECONDS (9.7-12.2) H 09/27/17 07:20 INR 1.4 09/27/17 07:20 APTT 35 SECONDS (21-34) H 09/26/17 07:16 - Constitutional Appears: Non-toxic, No Acute Distress - Head Exam Head Exam: ATRAUMATIC, NORMAL INSPECTION, NORMOCEPHALIC - Eye Exam Eye Exam: EOMI, Normal appearance - ENT Exam ENT Exam: Mucous Membranes Moist, Normal Exam - Neck Exam Neck Exam: Full ROM, Normal Inspection - Respiratory Exam Respiratory Exam: NORMAL BREATHING PATTERN. absent: Chest Wall Tenderness Additional comments: RIJ permacath in place, dressing in place, dried sanguinous output at insertion site. No erythema or drainage - Cardiovascular Exam Cardiovascular Exam: REGULAR RHYTHM, +S1, +S2 - GI/Abdominal Exam GI & Abdominal Exam: Distended (positive fluid wave), Soft. absent: Firm, Guarding, Rigid, Tenderness - Extremities Exam Extremities Exam: Tenderness (slight, LUE over AVF site, dressing in place- clean/dry/intact) Additional comments: palpable LUE radial pulse - Neurological Exam Neurological Exam: Alert, Awake, CN II-XII Intact, Oriented x3 - Psychiatric Exam Psychiatric exam: Normal Affect, Normal Mood - Skin Skin Exam: Dry, Intact, Normal Color, Warm Assessment and Plan - Assessment and Plan (Free Text) Assessment: 62M POD#1 s/p brachio-brachial AVF creation Plan: Cont HD as per nephro via permacath Keep dressing in place Pain control PRN FU with Dr. Houser in 1-2 weeks Further mgmt as per primary and nephrology No further surgical intervention at this time DW attending [facility], PGY-1
[2017-09-27] MEDS: Ferric Sodium Gluconat Complex 62.5 mg/5 ml Vial IVPB SCH (11:59)
--- NOTE | 2017-09-27 16:39 | CP.PCM.PN ---
Subjective - Date & Time of Evaluation Date of Evaluation: 09/27/17 Time of Evaluation: 10:00 - Subjective Subjective: clinically same Objective - Vital Signs/Intake and Output Vital Signs (last 24 hours): Temp Pulse Resp BP Pulse Ox 97.5 F L 94 H 20 95/61 L 95 09/27/17 15:54 09/27/17 15:59 09/27/17 15:54 09/27/17 15:54 09/27/17 15:54 Intake and Output: 09/27/17 09/27/17 06:59 18:59 Intake Total 300 600 Balance 300 600 - Medications Medications: Current Medications Acetaminophen (Tylenol 325mg Tab) 650 mg PO Q6 PRN PRN Reason: Pain, moderate (4-7) Calcitriol (Rocaltrol) 0.5 mcg PO DAILY [facility] Last Admin: 09/27/17 13:37 Dose: 0.5 mcg Calcium Acetate (Phoslo) 667 mg PO TID [facility] Last Admin: 09/27/17 13:36 Dose: 667 mg Epoetin Naeem (Procrit) 4,000 unit IV MWF [facility] Ferric Sodium Gluconate Complex (Ferrlecit) 125 mg IVPB TTS [facility] Stop: 10/05/17 10:01 Last Admin: 09/27/17 11:59 Dose: 125 mg Heparin Sodium (Porcine) (Heparin) 5,000 units SC Q12 [facility] Last Admin: 09/20/17 10:26 Dose: Not Given Hydrocortisone (Cortizone 0.5% Cream) 1 applic TOP BID [facility] Last Admin: 09/27/17 13:37 Dose: 1 applic Levothyroxine Sodium (Synthroid) 25 mcg PO DAILY@0630 [facility] Last Admin: 09/27/17 06:12 Dose: 25 mcg Midodrine (Proamatine) 5 mg PO TID [facility] Last Admin: 09/27/17 13:35 Dose: 5 mg Ondansetron HCl (Zofran Inj) 4 mg IVP Q6 PRN PRN Reason: Nausea/Vomiting Last Admin: 09/21/17 08:36 Dose: 4 mg - Labs Labs: 09/27/17 07:08 09/27/17 07:08 PT 15.6 SECONDS (9.7-12.2) H 09/27/17 07:20 INR 1.4 04/19/18 07:20 APTT 35 SECONDS (21-34) H 09/26/17 07:16 - Constitutional Appears: Well - Head Exam Head Exam: ATRAUMATIC, NORMAL INSPECTION, NORMOCEPHALIC - Eye Exam Eye Exam: EOMI, Normal appearance, PERRL Pupil Exam: NORMAL ACCOMODATION, PERRL - ENT Exam ENT Exam: Mucous Membranes Moist, Normal Exam - Neck Exam Neck Exam: Full ROM, Normal Inspection. absent: Lymphadenopathy - Respiratory Exam Respiratory Exam: Decreased Breath Sounds - Cardiovascular Exam Cardiovascular Exam: REGULAR RHYTHM, +S1, +S2 - GI/Abdominal Exam GI & Abdominal Exam: Soft, Diminished Bowel Sounds - Rectal Exam Rectal Exam: Deferred
--- NOTE | 2017-09-27 19:39 | CP.PCM.PN ---
Subjective - Date & Time of Evaluation Date of Evaluation: 09/27/17 Time of Evaluation: 19:39 Objective - Vital Signs/Intake and Output Vital Signs (last 24 hours): Temp Pulse Resp BP Pulse Ox 97.5 F L 94 H 20 95/61 L 95 09/27/17 15:54 09/27/17 15:59 09/27/17 15:54 09/27/17 15:54 09/27/17 15:54 Intake and Output: 09/27/17 09/28/17 18:59 06:59 Intake Total 600 Balance 600 - Medications Medications: Current Medications Acetaminophen (Tylenol 325mg Tab) 650 mg PO Q6 PRN PRN Reason: Pain, moderate (4-7) Calcitriol (Rocaltrol) 0.5 mcg PO DAILY [facility] Last Admin: 09/27/17 13:37 Dose: 0.5 mcg Calcium Acetate (Phoslo) 667 mg PO TID [facility] Last Admin: 09/27/17 18:36 Dose: 667 mg Epoetin Naeem (Procrit) 4,000 unit IV MWF [facility] Ferric Sodium Gluconate Complex (Ferrlecit) 125 mg IVPB TTS [facility] Stop: 10/05/17 10:01 Last Admin: 09/27/17 11:59 Dose: 125 mg Heparin Sodium (Porcine) (Heparin) 5,000 units SC Q12 [facility] Last Admin: 09/20/17 10:26 Dose: Not Given Hydrocortisone (Cortizone 0.5% Cream) 1 applic TOP BID [facility] Last Admin: 09/27/17 18:37 Dose: 1 applic Levothyroxine Sodium (Synthroid) 25 mcg PO DAILY@0630 [facility] Last Admin: 09/27/17 06:12 Dose: 25 mcg Midodrine (Proamatine) 5 mg PO TID [facility] Last Admin: 09/27/17 18:35 Dose: 5 mg Ondansetron HCl (Zofran Inj) 4 mg IVP Q6 PRN PRN Reason: Nausea/Vomiting Last Admin: 09/21/17 08:36 Dose: 4 mg - Labs Labs: 09/27/17 07:08 09/27/17 07:08 PT 15.6 SECONDS (9.7-12.2) H 09/27/17 07:20 INR 1.4 09/27/17 07:20 APTT 35 SECONDS (21-34) H 09/26/17 07:16
[2017-09-28] MEDS: Levothyroxine 25 MCG TAB PO SCH (05:38)
[2017-09-28 07:17] LABS: BASO % 0.6 % (0.0-2.0); EOS % 0.3 % (0.0-4.0); HEMOGLOBIN 8.8 g/dL (12.0-18.0); LYMPH # 0.6 K/uL (1.0-4.3); MEAN CELL VOLUME 87.6 fL (80.0-94.0); MEAN CORPUSCULAR HEMOGLOBIN 29.1 pg (27.0-31.0); MEAN CORPUSCULAR HGB CONC 33.3 g/dL (33.0-37.0); MEAN PLATELET VOLUME 7.9 fL (7.2-11.7); MONO # 0.4 K/uL (0.0-0.8); MONO % 6.8 % (0.0-10.0); NEUT # 4.8 K/uL (1.8-7.0); NEUT % 82.3 % (50.0-75.0); RBC 3.03 Mil/uL (4.40-5.90); RED CELL DISTRIBUTION WIDTH 14.6 % (11.5-14.5); WHITE BLOOD COUNT 5.9 K/uL (4.8-10.8)
[2017-09-28 07:20] LABS: INR 1.5; PROTHROMBIN TIME 17.3 SECONDS (9.7-12.2)
[2017-09-28 07:39] LABS: ALB/GLOB RATIO 0.8 (1.0-2.1); ALBUMIN 2.2 g/dL (3.5-5.0); CALCIUM 7.1 mg/dl (8.6-10.4)
--- NOTE | 2017-09-28 10:21 | CP.PCM.PN ---
Subjective - Date & Time of Evaluation Date of Evaluation: 09/28/17 Time of Evaluation: 10:19 - Subjective Subjective: seen and examined pt upset about hd schedule being tts, wants mwf doesnt want to answer questions, ros couldnt be obtained no events labs noted Objective - Vital Signs/Intake and Output Vital Signs (last 24 hours): Temp Pulse Resp BP Pulse Ox 97.7 F 83 18 107/74 98 09/28/17 07:15 09/28/17 07:15 09/28/17 07:15 09/28/17 07:15 09/28/17 07:15 - Medications Medications: Current Medications Acetaminophen (Tylenol 325mg Tab) 650 mg PO Q6 PRN PRN Reason: Pain, moderate (4-7) Calcitriol (Rocaltrol) 0.5 mcg PO DAILY [facility] Last Admin: 09/27/17 13:37 Dose: 0.5 mcg Calcium Acetate (Phoslo) 667 mg PO TID [facility] Last Admin: 09/27/17 18:36 Dose: 667 mg Epoetin Naeem (Procrit) 4,000 unit IV MWF [facility] Ferric Sodium Gluconate Complex (Ferrlecit) 125 mg IVPB TTS [facility] Stop: 10/05/17 10:01 Last Admin: 09/27/17 11:59 Dose: 125 mg Heparin Sodium (Porcine) (Heparin) 5,000 units SC Q12 [facility] Last Admin: 09/20/17 10:26 Dose: Not Given Hydrocortisone (Cortizone 0.5% Cream) 1 applic TOP BID [facility] Last Admin: 09/27/17 18:37 Dose: 1 applic Levothyroxine Sodium (Synthroid) 25 mcg PO DAILY@0630 [facility] Last Admin: 09/28/17 05:38 Dose: 25 mcg Midodrine (Proamatine) 5 mg PO TID [facility] Last Admin: 09/27/17 18:35 Dose: 5 mg Ondansetron HCl (Zofran Inj) 4 mg IVP Q6 PRN PRN Reason: Nausea/Vomiting Last Admin: 09/21/17 08:36 Dose: 4 mg - Labs Labs: 09/28/17 06:59 09/28/17 06:59 PT 17.3 SECONDS (9.7-12.2) H 09/28/17 06:59 INR 1.5 09/28/17 06:59 APTT 35 SECONDS (21-34) H 09/26/17 07:16 - Constitutional Appears: No Acute Distress, Unkempt, Chronically Ill - Head Exam Head Exam: NORMAL INSPECTION - Eye Exam Eye Exam: Normal appearance, Scleral icterus Pupil Exam: PERRL - ENT Exam ENT Exam: Mucous Membranes Moist, Normal Exam - Neck Exam Neck Exam: Full ROM, Normal Inspection - Respiratory Exam Respiratory Exam: Decreased Breath Sounds (bases), NORMAL BREATHING PATTERN - Cardiovascular Exam Cardiovascular Exam: REGULAR RHYTHM, RRR - GI/Abdominal Exam GI & Abdominal Exam: Distended, Soft, Hypoactive Bowel Sounds - Extremities Exam Extremities Exam: Normal Inspection (lue avf w/ dressing), Pedal Edema - Neurological Exam Neurological Exam: Alert, Awake - Psychiatric Exam Psychiatric exam: Agitated - Skin Skin Exam: Dry, Intact Assessment and Plan (1) Anemia Status: Acute (2) Cirrhosis Status: Acute (3) ESRD (end stage renal disease) on dialysis Status: Acute (4) Secondary hyperparathyroidism Status: Acute - Assessment and Plan (Free Text) Assessment: maintain hd tts, outpt schedule is tts [facility] iv iron midodrine and albumin for bp support f/u w/ vascular for avf stable for dc from renal standpoint poor prognosis
--- NOTE | 2017-09-28 15:13 | CP.PCM.PN ---
Subjective - Date & Time of Evaluation Date of Evaluation: 09/28/17 Time of Evaluation: 15:13 Objective - Vital Signs/Intake and Output Vital Signs (last 24 hours): Temp Pulse Resp BP Pulse Ox 97.7 F 83 18 107/74 98 09/28/17 07:15 09/28/17 07:15 09/28/17 07:15 09/28/17 07:15 09/28/17 07:15 Intake and Output: 09/28/17 09/28/17 06:59 18:59 Intake Total 680 Balance 680 - Medications Medications: Current Medications Acetaminophen (Tylenol 325mg Tab) 650 mg PO Q6 PRN PRN Reason: Pain, moderate (4-7) Calcitriol (Rocaltrol) 0.5 mcg PO DAILY [facility] Last Admin: 09/28/17 10:19 Dose: 0.5 mcg Calcium Acetate (Phoslo) 667 mg PO TID [facility] Last Admin: 09/28/17 13:43 Dose: 667 mg Epoetin Naeem (Procrit) 4,000 unit IV MWF [facility] Ferric Sodium Gluconate Complex (Ferrlecit) 125 mg IVPB TTS [facility] Stop: 10/05/17 10:01 Last Admin: 09/27/17 11:59 Dose: 125 mg Heparin Sodium (Porcine) (Heparin) 5,000 units SC Q12 [facility] Last Admin: 09/20/17 10:26 Dose: Not Given Hydrocortisone (Cortizone 0.5% Cream) 1 applic TOP BID [facility] Last Admin: 09/28/17 10:21 Dose: 1 applic Levothyroxine Sodium (Synthroid) 25 mcg PO DAILY@0630 [facility] Last Admin: 09/28/17 05:38 Dose: 25 mcg Midodrine (Proamatine) 5 mg PO TID [facility] Last Admin: 09/28/17 13:38 Dose: 5 mg Ondansetron HCl (Zofran Inj) 4 mg IVP Q6 PRN PRN Reason: Nausea/Vomiting Last Admin: 09/21/17 08:36 Dose: 4 mg - Labs Labs: 09/28/17 06:59 09/28/17 06:59 PT 17.3 SECONDS (9.7-12.2) H 09/28/17 06:59 INR 1.5 09/28/17 06:59 APTT 35 SECONDS (21-34) H 09/26/17 07:16
--- NOTE | 2017-09-28 15:42 | CP.PCM.PN ---
Subjective - Date & Time of Evaluation Date of Evaluation: 09/28/17 Time of Evaluation: 11:20 - Subjective Subjective: clinically same Objective - Vital Signs/Intake and Output Vital Signs (last 24 hours): Temp Pulse Resp BP Pulse Ox 97.7 F 83 18 107/74 98 09/28/17 07:15 09/28/17 07:15 09/28/17 07:15 09/28/17 07:15 09/28/17 07:15 Intake and Output: 09/28/17 09/28/17 06:59 18:59 Intake Total 680 Balance 680 - Medications Medications: Current Medications Acetaminophen (Tylenol 325mg Tab) 650 mg PO Q6 PRN PRN Reason: Pain, moderate (4-7) Calcitriol (Rocaltrol) 0.5 mcg PO DAILY [facility] Last Admin: 09/28/17 10:19 Dose: 0.5 mcg Calcium Acetate (Phoslo) 667 mg PO TID [facility] Last Admin: 09/28/17 13:43 Dose: 667 mg Epoetin Naeem (Procrit) 4,000 unit IV MWF [facility] Ferric Sodium Gluconate Complex (Ferrlecit) 125 mg IVPB TTS [facility] Stop: 10/05/17 10:01 Last Admin: 09/27/17 11:59 Dose: 125 mg Heparin Sodium (Porcine) (Heparin) 5,000 units SC Q12 [facility] Last Admin: 09/20/17 10:26 Dose: Not Given Hydrocortisone (Cortizone 0.5% Cream) 1 applic TOP BID [facility] Last Admin: 09/28/17 10:21 Dose: 1 applic Levothyroxine Sodium (Synthroid) 25 mcg PO DAILY@0630 [facility] Last Admin: 09/28/17 05:38 Dose: 25 mcg Midodrine (Proamatine) 5 mg PO TID [facility] Last Admin: 09/28/17 13:38 Dose: 5 mg Ondansetron HCl (Zofran Inj) 4 mg IVP Q6 PRN PRN Reason: Nausea/Vomiting Last Admin: 09/21/17 08:36 Dose: 4 mg - Labs Labs: 09/28/17 06:59 09/28/17 06:59 PT 17.3 SECONDS (9.7-12.2) H 09/28/17 06:59 INR 1.5 09/28/17 06:59 APTT 35 SECONDS (21-34) H 09/26/17 07:16 - Constitutional Appears: Well - Head Exam Head Exam: ATRAUMATIC, NORMAL INSPECTION, NORMOCEPHALIC - Eye Exam Eye Exam: EOMI, Normal appearance, PERRL Pupil Exam: NORMAL ACCOMODATION, PERRL - ENT Exam ENT Exam: Mucous Membranes Moist, Normal Exam - Neck Exam Neck Exam: Full ROM, Normal Inspection. absent: Lymphadenopathy - Respiratory Exam Respiratory Exam: Decreased Breath Sounds - Cardiovascular Exam Cardiovascular Exam: REGULAR RHYTHM, +S1, +S2 - GI/Abdominal Exam GI & Abdominal Exam: Soft, Diminished Bowel Sounds - Rectal Exam Rectal Exam: Deferred
[2017-09-29] MEDS: Levothyroxine 25 MCG TAB PO SCH (06:16)
--- NOTE | 2017-09-29 09:00 | CP.PCM.PN ---
Subjective - Date & Time of Evaluation Date of Evaluation: 09/29/17 Time of Evaluation: 09:00 - Subjective Subjective: afebrile no recorded urine output awake alert comfortable ate some breakfast ROS No sob no chest pain or abdomenal pain states abd feels softer no nausea or or diarrhea Objective - Vital Signs/Intake and Output Vital Signs (last 24 hours): Temp Pulse Resp BP Pulse Ox 98.2 F 83 18 107/72 98 09/29/17 07:00 09/29/17 07:00 09/29/17 07:00 09/29/17 07:00 09/29/17 07:00 Intake and Output: 09/29/17 09/29/17 06:59 18:59 Intake Total 360 Balance 360 - Medications Medications: Current Medications Acetaminophen (Tylenol 325mg Tab) 650 mg PO Q6 PRN PRN Reason: Pain, moderate (4-7) Calcitriol (Rocaltrol) 0.5 mcg PO DAILY [facility] Last Admin: 09/28/17 10:19 Dose: 0.5 mcg Calcium Acetate (Phoslo) 667 mg PO TID [facility] Last Admin: 09/28/17 18:44 Dose: 667 mg Epoetin Naeem (Procrit) 4,000 unit IV MWF [facility] Ferric Sodium Gluconate Complex (Ferrlecit) 125 mg IVPB TTS [facility] Stop: 10/05/17 10:01 Last Admin: 09/27/17 11:59 Dose: 125 mg Heparin Sodium (Porcine) (Heparin) 5,000 units SC Q12 [facility] Last Admin: 09/20/17 10:26 Dose: Not Given Hydrocortisone (Cortizone 0.5% Cream) 1 applic TOP BID [facility] Last Admin: 09/28/17 18:44 Dose: 1 applic Levothyroxine Sodium (Synthroid) 25 mcg PO DAILY@0630 [facility] Last Admin: 09/29/17 06:16 Dose: 25 mcg Midodrine (Proamatine) 5 mg PO TID [facility] Last Admin: 09/28/17 18:44 Dose: 5 mg Ondansetron HCl (Zofran Inj) 4 mg IVP Q6 PRN PRN Reason: Nausea/Vomiting Last Admin: 09/21/17 08:36 Dose: 4 mg - Labs Labs: 09/28/17 06:59 09/28/17 06:59 PT 17.3 SECONDS (9.7-12.2) H 09/28/17 06:59 INR 1.5 09/28/17 06:59 APTT 35 SECONDS (21-34) H 09/26/17 07:16 - Constitutional Appears: No Acute Distress - Eye Exam Eye Exam: absent: Conjunctival injection - ENT Exam ENT Exam: Mucous Membranes Moist - Cardiovascular Exam Cardiovascular Exam: REGULAR RHYTHM - GI/Abdominal Exam GI & Abdominal Exam: Distended, Soft. absent: Tenderness - Extremities Exam Extremities Exam: Pedal Edema. absent: Calf Tenderness - Back Exam Back Exam: absent: CVA tenderness (L), CVA tenderness (R) - Neurological Exam Neurological Exam: Alert Assessment and Plan (1) Acute renal failure Status: Acute (2) CKD (chronic kidney disease) stage 5, GFR less than 15 ml/min Status: Acute (3) Uremia Status: Acute - Assessment and Plan (Free Text) Plan: schedule dialysis today
[2017-09-29] MEDS: EPOETIN ALFA 4,000 UNIT/ML ML Dialysis IV SCH (10:44)
[2017-09-29] MEDS: Ferric Sodium Gluconat Complex 62.5 mg/5 ml Vial IVPB SCH (10:45)
--- NOTE | 2017-09-29 15:16 | CP.PCM.PN ---
Subjective - Date & Time of Evaluation Date of Evaluation: 09/29/17 Time of Evaluation: 09:20 - Subjective Subjective: clinically same Objective - Vital Signs/Intake and Output Vital Signs (last 24 hours): Temp Pulse Resp BP Pulse Ox 97.6 F 86 18 103/68 95 09/29/17 10:14 09/29/17 14:17 09/29/17 10:14 09/29/17 14:17 09/29/17 14:17 Intake and Output: 09/29/17 09/29/17 06:59 18:59 Intake Total 360 540 Balance 360 540 - Medications Medications: Current Medications Acetaminophen (Tylenol 325mg Tab) 650 mg PO Q6 PRN PRN Reason: Pain, moderate (4-7) Calcitriol (Rocaltrol) 0.5 mcg PO DAILY [facility] Last Admin: 09/29/17 09:03 Dose: 0.5 mcg Calcium Acetate (Phoslo) 667 mg PO TID [facility] Last Admin: 09/29/17 14:12 Dose: 667 mg Epoetin Naeem (Procrit) 4,000 unit IV TTS [facility] Last Admin: 09/29/17 10:44 Dose: 4,000 unit Ferric Sodium Gluconate Complex (Ferrlecit) 125 mg IVPB TTS [facility] Stop: 10/05/17 10:01 Last Admin: 09/29/17 10:45 Dose: 125 mg Heparin Sodium (Porcine) (Heparin) 5,000 units SC Q12 [facility] Last Admin: 09/20/17 10:26 Dose: Not Given Hydrocortisone (Cortizone 0.5% Cream) 1 applic TOP BID [facility] Last Admin: 09/29/17 09:05 Dose: 1 applic Levothyroxine Sodium (Synthroid) 25 mcg PO DAILY@0630 [facility] Last Admin: 09/29/17 06:16 Dose: 25 mcg Midodrine (Proamatine) 5 mg PO TID [facility] Last Admin: 09/29/17 14:12 Dose: 5 mg Ondansetron HCl (Zofran Inj) 4 mg IVP Q6 PRN PRN Reason: Nausea/Vomiting Last Admin: 09/21/17 08:36 Dose: 4 mg - Labs Labs: 09/28/17 06:59 09/28/17 06:59 PT 17.3 SECONDS (9.7-12.2) H 09/28/17 06:59 INR 1.5 04/20/18 06:59 APTT 35 SECONDS (21-34) H 09/26/17 07:16
--- NOTE | 2017-09-29 19:17 | CP.PCM.PN ---
Subjective - Date & Time of Evaluation Date of Evaluation: 09/29/17 Time of Evaluation: 19:17 Objective - Vital Signs/Intake and Output Vital Signs (last 24 hours): Temp Pulse Resp BP Pulse Ox 97.2 F L 98 H 20 116/72 100 09/29/17 15:05 09/29/17 17:09 09/29/17 15:15 09/29/17 15:15 09/29/17 15:15 Intake and Output: 09/29/17 09/30/17 18:59 06:59 Intake Total 540 Balance 540 - Medications Medications: Current Medications Acetaminophen (Tylenol 325mg Tab) 650 mg PO Q6 PRN PRN Reason: Pain, moderate (4-7) Calcitriol (Rocaltrol) 0.5 mcg PO DAILY [facility] Last Admin: 09/29/17 09:03 Dose: 0.5 mcg Calcium Acetate (Phoslo) 667 mg PO TID [facility] Last Admin: 09/29/17 17:26 Dose: 667 mg Epoetin Naeem (Procrit) 4,000 unit IV TTS [facility] Last Admin: 09/29/17 10:44 Dose: 4,000 unit Ferric Sodium Gluconate Complex (Ferrlecit) 125 mg IVPB TTS [facility] Stop: 10/05/17 10:01 Last Admin: 09/29/17 10:45 Dose: 125 mg Heparin Sodium (Porcine) (Heparin) 5,000 units SC Q12 [facility] Last Admin: 09/20/17 10:26 Dose: Not Given Hydrocortisone (Cortizone 0.5% Cream) 1 applic TOP BID [facility] Last Admin: 09/29/17 17:26 Dose: 1 applic Levothyroxine Sodium (Synthroid) 25 mcg PO DAILY@0630 [facility] Last Admin: 09/29/17 06:16 Dose: 25 mcg Midodrine (Proamatine) 5 mg PO TID [facility] Last Admin: 09/29/17 17:25 Dose: 5 mg Ondansetron HCl (Zofran Inj) 4 mg IVP Q6 PRN PRN Reason: Nausea/Vomiting Last Admin: 09/21/17 08:36 Dose: 4 mg - Labs Labs: 09/28/17 06:59 09/28/17 06:59 PT 17.3 SECONDS (9.7-12.2) H 09/28/17 06:59 INR 1.5 09/28/17 06:59 APTT 35 SECONDS (21-34) H 09/26/17 07:16
[2017-09-30] MEDS: Levothyroxine 25 MCG TAB PO SCH (05:41)
--- NOTE | 2017-09-30 13:34 | CP.PCM.PN ---
Subjective - Date & Time of Evaluation Date of Evaluation: 09/30/17 Time of Evaluation: 13:34 Objective - Vital Signs/Intake and Output Vital Signs (last 24 hours): Temp Pulse Resp BP Pulse Ox 97.7 F 101 H 20 93/59 L 97 09/30/17 07:00 09/30/17 13:18 09/30/17 07:00 09/30/17 07:00 09/30/17 07:00 Intake and Output: 09/30/17 09/30/17 06:59 18:59 Intake Total 240 Balance 240 - Medications Medications: Current Medications Acetaminophen (Tylenol 325mg Tab) 650 mg PO Q6 PRN PRN Reason: Pain, moderate (4-7) Calcitriol (Rocaltrol) 0.5 mcg PO DAILY [facility] Last Admin: 09/30/17 10:16 Dose: 0.5 mcg Calcium Acetate (Phoslo) 667 mg PO TID [facility] Last Admin: 09/30/17 10:16 Dose: 667 mg Epoetin Naeem (Procrit) 4,000 unit IV TTS [facility] Last Admin: 09/29/17 10:44 Dose: 4,000 unit Ferric Sodium Gluconate Complex (Ferrlecit) 125 mg IVPB TTS [facility] Stop: 10/05/17 10:01 Last Admin: 09/29/17 10:45 Dose: 125 mg Heparin Sodium (Porcine) (Heparin) 5,000 units SC Q12 [facility] Last Admin: 09/20/17 10:26 Dose: Not Given Hydrocortisone (Cortizone 0.5% Cream) 1 applic TOP BID [facility] Last Admin: 09/30/17 10:19 Dose: 1 applic Levothyroxine Sodium (Synthroid) 25 mcg PO DAILY@0630 [facility] Last Admin: 09/30/17 05:41 Dose: 25 mcg Midodrine (Proamatine) 5 mg PO TID [facility] Last Admin: 09/30/17 10:16 Dose: 5 mg Ondansetron HCl (Zofran Inj) 4 mg IVP Q6 PRN PRN Reason: Nausea/Vomiting Last Admin: 09/21/17 08:36 Dose: 4 mg - Labs Labs: 09/28/17 06:59 09/28/17 06:59 PT 17.3 SECONDS (9.7-12.2) H 09/28/17 06:59 INR 1.5 09/28/17 06:59 APTT 35 SECONDS (21-34) H 09/26/17 07:16
--- NOTE | 2017-09-30 13:55 | CP.PCM.PN ---
Subjective - Date & Time of Evaluation Date of Evaluation: 09/30/17 Time of Evaluation: 10:00 - Subjective Subjective: clinically same Objective - Vital Signs/Intake and Output Vital Signs (last 24 hours): Temp Pulse Resp BP Pulse Ox 97.7 F 101 H 20 93/59 L 97 09/30/17 07:00 09/30/17 13:18 09/30/17 07:00 09/30/17 07:00 09/30/17 07:00 Intake and Output: 09/30/17 09/30/17 06:59 18:59 Intake Total 240 Balance 240 - Medications Medications: Current Medications Acetaminophen (Tylenol 325mg Tab) 650 mg PO Q6 PRN PRN Reason: Pain, moderate (4-7) Calcitriol (Rocaltrol) 0.5 mcg PO DAILY [facility] Last Admin: 09/30/17 10:16 Dose: 0.5 mcg Calcium Acetate (Phoslo) 667 mg PO TID [facility] Last Admin: 09/30/17 10:16 Dose: 667 mg Epoetin Naeem (Procrit) 4,000 unit IV TTS [facility] Last Admin: 09/29/17 10:44 Dose: 4,000 unit Ferric Sodium Gluconate Complex (Ferrlecit) 125 mg IVPB TTS [facility] Stop: 10/05/17 10:01 Last Admin: 09/29/17 10:45 Dose: 125 mg Heparin Sodium (Porcine) (Heparin) 5,000 units SC Q12 [facility] Last Admin: 09/20/17 10:26 Dose: Not Given Hydrocortisone (Cortizone 0.5% Cream) 1 applic TOP BID [facility] Last Admin: 09/30/17 10:19 Dose: 1 applic Levothyroxine Sodium (Synthroid) 25 mcg PO DAILY@0630 [facility] Last Admin: 09/30/17 05:41 Dose: 25 mcg Midodrine (Proamatine) 5 mg PO TID [facility] Last Admin: 09/30/17 10:16 Dose: 5 mg Ondansetron HCl (Zofran Inj) 4 mg IVP Q6 PRN PRN Reason: Nausea/Vomiting Last Admin: 09/21/17 08:36 Dose: 4 mg - Labs Labs: 09/28/17 06:59 09/28/17 06:59 PT 17.3 SECONDS (9.7-12.2) H 09/28/17 06:59 INR 1.5 04/20/18 06:59 APTT 35 SECONDS (21-34) H 09/26/17 07:16 - Constitutional Appears: Well - Head Exam Head Exam: ATRAUMATIC, NORMAL INSPECTION, NORMOCEPHALIC - Eye Exam Eye Exam: EOMI, Normal appearance, PERRL Pupil Exam: NORMAL ACCOMODATION, PERRL - ENT Exam ENT Exam: Mucous Membranes Moist, Normal Exam - Neck Exam Neck Exam: Full ROM, Normal Inspection. absent: Lymphadenopathy - Respiratory Exam Respiratory Exam: Decreased Breath Sounds - Cardiovascular Exam Cardiovascular Exam: REGULAR RHYTHM, +S1, +S2 - GI/Abdominal Exam GI & Abdominal Exam: Soft, Diminished Bowel Sounds - Rectal Exam Rectal Exam: Deferred
[2017-10-01] MEDS: Levothyroxine 25 MCG TAB PO SCH (06:15)
--- NOTE | 2017-10-01 11:12 | CP.PCM.PN ---
Subjective - Date & Time of Evaluation Date of Evaluation: 10/01/17 Time of Evaluation: 11:11 - Subjective Subjective: seen and examined comfortable no complaints no n/v/d/sob/dizziness/cp/rash/dysuria hematuria Objective - Vital Signs/Intake and Output Vital Signs (last 24 hours): Temp Pulse Resp BP Pulse Ox 97.6 F 92 H 18 90/61 L 98 10/01/17 07:15 10/01/17 07:15 10/01/17 07:15 10/01/17 07:15 10/01/17 07:15 - Medications Medications: Current Medications Acetaminophen (Tylenol 325mg Tab) 650 mg PO Q6 PRN PRN Reason: Pain, moderate (4-7) Calcitriol (Rocaltrol) 0.5 mcg PO DAILY [facility] Last Admin: 10/01/17 10:12 Dose: 0.5 mcg Calcium Acetate (Phoslo) 667 mg PO TID [facility] Last Admin: 10/01/17 10:12 Dose: 667 mg Epoetin Naeem (Procrit) 4,000 unit IV TTS [facility] Last Admin: 09/29/17 10:44 Dose: 4,000 unit Ferric Sodium Gluconate Complex (Ferrlecit) 125 mg IVPB TTS [facility] Stop: 10/05/17 10:01 Last Admin: 09/29/17 10:45 Dose: 125 mg Heparin Sodium (Porcine) (Heparin) 5,000 units SC Q12 [facility] Last Admin: 09/20/17 10:26 Dose: Not Given Hydrocortisone (Cortizone 0.5% Cream) 1 applic TOP BID [facility] Last Admin: 09/30/17 18:06 Dose: 1 applic Levothyroxine Sodium (Synthroid) 25 mcg PO DAILY@0630 [facility] Last Admin: 10/01/17 06:15 Dose: 25 mcg Midodrine (Proamatine) 5 mg PO TID [facility] Last Admin: 10/01/17 10:12 Dose: 5 mg Ondansetron HCl (Zofran Inj) 4 mg IVP Q6 PRN PRN Reason: Nausea/Vomiting Last Admin: 09/30/17 14:05 Dose: 4 mg - Labs Labs: 09/28/17 06:59 09/28/17 06:59 PT 17.3 SECONDS (9.7-12.2) H 09/28/17 06:59 INR 1.5 09/28/17 06:59 APTT 35 SECONDS (21-34) H 09/26/17 07:16 - Constitutional Appears: No Acute Distress, Older Than Stated Age, Cachectic, Chronically Ill - Head Exam Head Exam: NORMAL INSPECTION - Eye Exam Eye Exam: Normal appearance, PERRL Pupil Exam: PERRL - ENT Exam ENT Exam: Mucous Membranes Moist, Normal Exam - Neck Exam Neck Exam: Full ROM, Normal Inspection - Respiratory Exam Respiratory Exam: Clear to Ausculation Bilateral, NORMAL BREATHING PATTERN - Cardiovascular Exam Cardiovascular Exam: REGULAR RHYTHM, RRR - GI/Abdominal Exam GI & Abdominal Exam: Distended, Soft, Diminished Bowel Sounds - Extremities Exam Extremities Exam: Normal Inspection - Neurological Exam Neurological Exam: Alert, Awake - Psychiatric Exam Psychiatric exam: Agitated - Skin Skin Exam: Normal Color, Warm Assessment and Plan (1) Anemia Status: Acute (2) Cirrhosis Status: Acute (3) ESRD (end stage renal disease) on dialysis Status: Acute (4) Secondary hyperparathyroidism Status: Acute - Assessment and Plan (Free Text) Assessment: maintain hd tts, midodrine for bp support pt/ot rehab
--- NOTE | 2017-10-01 18:36 | CP.PCM.PN ---
Subjective - Date & Time of Evaluation Date of Evaluation: 10/01/17 Time of Evaluation: 18:36 Objective - Vital Signs/Intake and Output Vital Signs (last 24 hours): Temp Pulse Resp BP Pulse Ox 97.6 F 93 H 18 90/61 L 98 10/01/17 07:15 10/01/17 16:17 10/01/17 07:15 10/01/17 07:15 10/01/17 07:15 Intake and Output: 10/01/17 10/01/17 06:59 18:59 Intake Total 100 Balance 100 - Medications Medications: Current Medications Acetaminophen (Tylenol 325mg Tab) 650 mg PO Q6 PRN PRN Reason: Pain, moderate (4-7) Calcitriol (Rocaltrol) 0.5 mcg PO DAILY [facility] Last Admin: 10/01/17 10:12 Dose: 0.5 mcg Calcium Acetate (Phoslo) 667 mg PO TID [facility] Last Admin: 10/01/17 18:23 Dose: 667 mg Epoetin Naeem (Procrit) 4,000 unit IV TTS [facility] Last Admin: 09/29/17 10:44 Dose: 4,000 unit Ferric Sodium Gluconate Complex (Ferrlecit) 125 mg IVPB TTS [facility] Stop: 10/05/17 10:01 Last Admin: 09/29/17 10:45 Dose: 125 mg Heparin Sodium (Porcine) (Heparin) 5,000 units SC Q12 [facility] Last Admin: 09/20/17 10:26 Dose: Not Given Hydrocortisone (Cortizone 0.5% Cream) 1 applic TOP BID [facility] Last Admin: 10/01/17 18:24 Dose: 1 applic Levothyroxine Sodium (Synthroid) 25 mcg PO DAILY@0630 [facility] Last Admin: 10/01/17 06:15 Dose: 25 mcg Midodrine (Proamatine) 5 mg PO TID [facility] Last Admin: 10/01/17 18:23 Dose: 5 mg Ondansetron HCl (Zofran Inj) 4 mg IVP Q6 PRN PRN Reason: Nausea/Vomiting Last Admin: 09/30/17 14:05 Dose: 4 mg - Labs Labs: 09/28/17 06:59 09/28/17 06:59 PT 17.3 SECONDS (9.7-12.2) H 09/28/17 06:59 INR 1.5 09/28/17 06:59 APTT 35 SECONDS (21-34) H 09/26/17 07:16
--- NOTE | 2017-10-01 18:42 | CP.PCM.PN ---
Subjective - Date & Time of Evaluation Date of Evaluation: 10/01/17 Time of Evaluation: 09:20 - Subjective Subjective: clinically same Objective - Vital Signs/Intake and Output Vital Signs (last 24 hours): Temp Pulse Resp BP Pulse Ox 97.3 F L 91 H 20 94/64 L 98 10/01/17 18:00 10/01/17 18:00 10/01/17 18:00 10/01/17 18:00 10/01/17 18:00 Intake and Output: 10/01/17 10/01/17 06:59 18:59 Intake Total 100 Balance 100 - Medications Medications: Current Medications Acetaminophen (Tylenol 325mg Tab) 650 mg PO Q6 PRN PRN Reason: Pain, moderate (4-7) Calcitriol (Rocaltrol) 0.5 mcg PO DAILY [facility] Last Admin: 10/01/17 10:12 Dose: 0.5 mcg Calcium Acetate (Phoslo) 667 mg PO TID [facility] Last Admin: 10/01/17 18:23 Dose: 667 mg Epoetin Naeem (Procrit) 4,000 unit IV TTS [facility] Last Admin: 09/29/17 10:44 Dose: 4,000 unit Ferric Sodium Gluconate Complex (Ferrlecit) 125 mg IVPB TTS [facility] Stop: 10/05/17 10:01 Last Admin: 09/29/17 10:45 Dose: 125 mg Heparin Sodium (Porcine) (Heparin) 5,000 units SC Q12 [facility] Last Admin: 09/20/17 10:26 Dose: Not Given Hydrocortisone (Cortizone 0.5% Cream) 1 applic TOP BID [facility] Last Admin: 10/01/17 18:24 Dose: 1 applic Levothyroxine Sodium (Synthroid) 25 mcg PO DAILY@0630 [facility] Last Admin: 10/01/17 06:15 Dose: 25 mcg Midodrine (Proamatine) 5 mg PO TID [facility] Last Admin: 10/01/17 18:23 Dose: 5 mg Ondansetron HCl (Zofran Inj) 4 mg IVP Q6 PRN PRN Reason: Nausea/Vomiting Last Admin: 09/30/17 14:05 Dose: 4 mg - Labs Labs: 09/28/17 06:59 09/28/17 06:59 PT 17.3 SECONDS (9.7-12.2) H 09/28/17 06:59 INR 1.5 09/28/17 06:59 APTT 35 SECONDS (21-34) H 09/26/17 07:16 - Constitutional Appears: Well - Head Exam Head Exam: ATRAUMATIC, NORMAL INSPECTION, NORMOCEPHALIC - Eye Exam Eye Exam: EOMI, Normal appearance, PERRL Pupil Exam: NORMAL ACCOMODATION, PERRL - ENT Exam ENT Exam: Mucous Membranes Moist, Normal Exam - Neck Exam Neck Exam: Full ROM, Normal Inspection. absent: Lymphadenopathy - Respiratory Exam Respiratory Exam: Decreased Breath Sounds - Cardiovascular Exam Cardiovascular Exam: REGULAR RHYTHM, +S1, +S2 - GI/Abdominal Exam GI & Abdominal Exam: Soft, Diminished Bowel Sounds - Rectal Exam Rectal Exam: Deferred
--- NOTE | 2017-10-02 03:45 | CP.PCM.PN ---
Subjective - Date & Time of Evaluation Date of Evaluation: 10/02/17 Time of Evaluation: 03:43 - Subjective Subjective: Responding to page for 6 beats of sustained Vtach Patient is refusing examination at this time; it was explained that he could possibly from this irregular heart beat if not examined properly with proper lab tests "Just let me F&38ing sleep. Get out of my room" Patient is AN0x3, and is agitated grabbing at the nurse as she is trying to attach external defibrillator to patient Vital Signs: BP 75/45, HR 95, RR 16, O2 98% on RA Patient will not allow me to examine him further for PE patient is morbidly obese, extremely distended abdomen/panus taking up majority of bed multiple attempts made by myself and nurse to speak to patient about the acuity of his condition patient wishes to be left alone or he will "get up and fall on purpose" Will order KENDY and EKG will continue to monitor Objective - Vital Signs/Intake and Output Vital Signs (last 24 hours): Temp Pulse Resp BP Pulse Ox 98.0 F 111 H 20 164/76 H 95 10/01/17 23:40 10/01/17 23:40 10/01/17 23:40 10/01/17 23:40 10/01/17 23:40 Intake and Output: 10/01/17 10/02/17 18:59 06:59 Intake Total 100 Balance 100 - Medications Medications: Current Medications Acetaminophen (Tylenol 325mg Tab) 650 mg PO Q6 PRN PRN Reason: Pain, moderate (4-7) Calcitriol (Rocaltrol) 0.5 mcg PO DAILY [facility] Last Admin: 10/01/17 10:12 Dose: 0.5 mcg Calcium Acetate (Phoslo) 667 mg PO TID [facility] Last Admin: 10/01/17 18:23 Dose: 667 mg Epoetin Naeem (Procrit) 4,000 unit IV TTS [facility] Last Admin: 09/29/17 10:44 Dose: 4,000 unit Ferric Sodium Gluconate Complex (Ferrlecit) 125 mg IVPB TTS [facility] Stop: 10/05/17 10:01 Last Admin: 09/29/17 10:45 Dose: 125 mg Heparin Sodium (Porcine) (Heparin) 5,000 units SC Q12 [facility] Last Admin: 09/20/17 10:26 Dose: Not Given Hydrocortisone (Cortizone 0.5% Cream) 1 applic TOP BID [facility] Last Admin: 10/01/17 18:24 Dose: 1 applic Levothyroxine Sodium (Synthroid) 25 mcg PO DAILY@0630 [facility] Last Admin: 10/01/17 06:15 Dose: 25 mcg Midodrine (Proamatine) 5 mg PO TID [facility] Last Admin: 10/01/17 18:23 Dose: 5 mg Ondansetron HCl (Zofran Inj) 4 mg IVP Q6 PRN PRN Reason: Nausea/Vomiting Last Admin: 09/30/17 14:05 Dose: 4 mg - Labs Labs: 09/28/17 06:59 09/28/17 06:59 PT 17.3 SECONDS (9.7-12.2) H 09/28/17 06:59 INR 1.5 09/28/17 06:59 APTT 35 SECONDS (21-34) H 09/26/17 07:16
[2017-10-02 04:11] LABS: BASO # 0.1 K/uL (0.0-0.2); EOS % 0.4 % (0.0-4.0); HEMOGLOBIN 8.5 g/dL (12.0-18.0); LYMPH % 18.4 % (20.0-40.0); MEAN CELL VOLUME 87.1 fL (80.0-94.0); MEAN CORPUSCULAR HEMOGLOBIN 28.4 pg (27.0-31.0); MEAN CORPUSCULAR HGB CONC 32.6 g/dL (33.0-37.0); MONO # 0.4 K/uL (0.0-0.8); MONO % 6.8 % (0.0-10.0); NEUT # 4.2 K/uL (1.8-7.0); NEUT % 73.4 % (50.0-75.0); NRBC % 0.1 % (0.0-2.0); RED CELL DISTRIBUTION WIDTH 14.5 % (11.5-14.5); WHITE BLOOD COUNT 5.7 K/uL (4.8-10.8)
[2017-10-02] MEDS ORDERED: Sodium Chloride 0.9% 1,000 ML IV ONE (04:16)
[2017-10-02 04:20] LABS: INR 1.5
[2017-10-02 04:22] LABS: ALB/GLOB RATIO 0.8 (1.0-2.1); ALBUMIN 2.2 g/dL (3.5-5.0); CALCIUM 7.7 mg/dl (8.6-10.4)
[2017-10-02 04:34] LABS: CK-MB 1.16 ng/mL (0.0-3.38); TROPONIN I 0.058 ng/mL (0.00-0.120)
[2017-10-02] MEDS: Levothyroxine 25 MCG TAB PO SCH (05:35)
--- NOTE | 2017-10-02 10:08 | CP.PCM.PN ---
Subjective - Date & Time of Evaluation Date of Evaluation: 10/02/17 Time of Evaluation: 10:06 - Subjective Subjective: seen and examined on hd events noted, episode of v tach bp low in dialysis, chronic pt awake and alert. denies any cp/palpitations/dizziness/sob/cough/f/c/n/v/d still weak, cannot walk. wants to go home today Objective - Vital Signs/Intake and Output Vital Signs (last 24 hours): Temp Pulse Resp BP Pulse Ox 97.5 F L 89 20 84/49 L 99 10/02/17 09:25 10/02/17 09:40 10/02/17 09:25 10/02/17 09:40 10/02/17 07:15 Intake and Output: 10/02/17 10/02/17 06:59 18:59 Intake Total 1240 Balance 1240 - Medications Medications: Current Medications Acetaminophen (Tylenol 325mg Tab) 650 mg PO Q6 PRN PRN Reason: Pain, moderate (4-7) Calcitriol (Rocaltrol) 0.5 mcg PO DAILY [facility] Last Admin: 10/01/17 10:12 Dose: 0.5 mcg Calcium Acetate (Phoslo) 667 mg PO TID [facility] Last Admin: 10/01/17 18:23 Dose: 667 mg Epoetin Naeem (Procrit) 4,000 unit IV TTS [facility] Last Admin: 09/29/17 10:44 Dose: 4,000 unit Ferric Sodium Gluconate Complex (Ferrlecit) 125 mg IVPB TTS [facility] Stop: 10/05/17 10:01 Last Admin: 09/29/17 10:45 Dose: 125 mg Heparin Sodium (Porcine) (Heparin) 5,000 units SC Q12 [facility] Last Admin: 09/20/17 10:26 Dose: Not Given Hydrocortisone (Cortizone 0.5% Cream) 1 applic TOP BID [facility] Last Admin: 10/01/17 18:24 Dose: 1 applic Levothyroxine Sodium (Synthroid) 25 mcg PO DAILY@0630 [facility] Last Admin: 10/02/17 05:35 Dose: 25 mcg Midodrine (Proamatine) 5 mg PO TID [facility] Last Admin: 10/02/17 09:00 Dose: 5 mg Ondansetron HCl (Zofran Inj) 4 mg IVP Q6 PRN PRN Reason: Nausea/Vomiting Last Admin: 09/30/17 14:05 Dose: 4 mg - Labs Labs: 10/02/17 04:07 10/02/17 04:07 PT 17.0 SECONDS (9.7-12.2) H 10/02/17 04:07 INR 1.5 10/02/17 04:07 APTT 35 SECONDS (21-34) H 10/02/17 04:07 - Constitutional Appears: No Acute Distress, Unkempt, Older Than Stated Age, Chronically Ill - Head Exam Head Exam: NORMAL INSPECTION, NORMOCEPHALIC - Eye Exam Eye Exam: Normal appearance, PERRL - ENT Exam ENT Exam: Mucous Membranes Moist, Normal Exam - Neck Exam Neck Exam: Full ROM, Normal Inspection - Respiratory Exam Respiratory Exam: Clear to Ausculation Bilateral, NORMAL BREATHING PATTERN - Cardiovascular Exam Cardiovascular Exam: REGULAR RHYTHM, RRR - GI/Abdominal Exam GI & Abdominal Exam: Distended, Soft, Diminished Bowel Sounds - Extremities Exam Extremities Exam: Normal Inspection, Pedal Edema - Neurological Exam Neurological Exam: Alert, Awake, Oriented x3 - Psychiatric Exam Psychiatric exam: Normal Affect, Normal Mood - Skin Skin Exam: Dry, Warm Assessment and Plan (1) Anemia Status: Acute (2) Cirrhosis Status: Acute (3) ESRD (end stage renal disease) on dialysis Status: Acute (4) Secondary hyperparathyroidism Status: Acute - Assessment and Plan (Free Text) Assessment: maintain hd tts await rehab placement pt/ot
[2017-10-02] MEDS ORDERED: Albumin Human 25% (12.5 gm/50 ml) IV ONE (10:13)
[2017-10-02] MEDS: EPOETIN ALFA 4,000 UNIT/ML ML Dialysis IV SCH (10:32)
[2017-10-02] MEDS: Ferric Sodium Gluconat Complex 62.5 mg/5 ml Vial IVPB SCH (10:49)
--- NOTE | 2017-10-02 13:11 | CP.PCM.PN ---
Subjective - Date & Time of Evaluation Date of Evaluation: 10/02/17 Time of Evaluation: 09:00 - Subjective Subjective: clinically same Objective - Vital Signs/Intake and Output Vital Signs (last 24 hours): Temp Pulse Resp BP Pulse Ox 97.5 F L 92 H 20 93/56 L 99 10/02/17 09:25 10/02/17 12:30 10/02/17 12:30 10/02/17 12:30 10/02/17 07:15 Intake and Output: 10/02/17 10/02/17 06:59 18:59 Intake Total 1240 Balance 1240 - Medications Medications: Current Medications Acetaminophen (Tylenol 325mg Tab) 650 mg PO Q6 PRN PRN Reason: Pain, moderate (4-7) Calcitriol (Rocaltrol) 0.5 mcg PO DAILY [facility] Last Admin: 10/01/17 10:12 Dose: 0.5 mcg Calcium Acetate (Phoslo) 667 mg PO TID [facility] Last Admin: 10/02/17 09:30 Dose: Not Given Epoetin Naeem (Procrit) 4,000 unit IV TTS [facility] Last Admin: 10/02/17 10:32 Dose: 4,000 unit Ferric Sodium Gluconate Complex (Ferrlecit) 125 mg IVPB TTS [facility] Stop: 10/05/17 10:01 Last Admin: 10/02/17 10:49 Dose: 125 mg Heparin Sodium (Porcine) (Heparin) 5,000 units SC Q12 [facility] Last Admin: 09/20/17 10:26 Dose: Not Given Hydrocortisone (Cortizone 0.5% Cream) 1 applic TOP BID [facility] Last Admin: 10/01/17 18:24 Dose: 1 applic Levothyroxine Sodium (Synthroid) 25 mcg PO DAILY@0630 [facility] Last Admin: 10/02/17 05:35 Dose: 25 mcg Midodrine (Proamatine) 5 mg PO TID [facility] Last Admin: 10/02/17 09:00 Dose: 5 mg Ondansetron HCl (Zofran Inj) 4 mg IVP Q6 PRN PRN Reason: Nausea/Vomiting Last Admin: 09/30/17 14:05 Dose: 4 mg - Labs Labs: 10/02/17 04:07 10/02/17 04:07 PT 17.0 SECONDS (9.7-12.2) H 10/02/17 04:07 INR 1.5 10/02/17 04:07 APTT 35 SECONDS (21-34) H 10/02/17 04:07 - Constitutional Appears: Well - Head Exam Head Exam: ATRAUMATIC, NORMAL INSPECTION, NORMOCEPHALIC - Eye Exam Eye Exam: EOMI, Normal appearance, PERRL Pupil Exam: NORMAL ACCOMODATION, PERRL - ENT Exam ENT Exam: Mucous Membranes Moist, Normal Exam - Neck Exam Neck Exam: Full ROM, Normal Inspection. absent: Lymphadenopathy - Respiratory Exam Respiratory Exam: Decreased Breath Sounds - Cardiovascular Exam Cardiovascular Exam: REGULAR RHYTHM, +S1, +S2 - GI/Abdominal Exam GI & Abdominal Exam: Soft, Diminished Bowel Sounds - Rectal Exam Rectal Exam: Deferred
--- NOTE | 2017-10-02 20:27 | CP.PCM.PN ---
Subjective - Date & Time of Evaluation Date of Evaluation: 10/02/17 Time of Evaluation: 20:27 Objective - Vital Signs/Intake and Output Vital Signs (last 24 hours): Temp Pulse Resp BP Pulse Ox 97.9 F 90 20 94/64 L 98 10/02/17 15:00 10/02/17 16:00 10/02/17 15:00 10/02/17 15:00 10/02/17 15:00 - Medications Medications: Current Medications Acetaminophen (Tylenol 325mg Tab) 650 mg PO Q6 PRN PRN Reason: Pain, moderate (4-7) Calcitriol (Rocaltrol) 0.5 mcg PO DAILY [facility] Last Admin: 10/02/17 12:00 Dose: 0.5 mcg Calcium Acetate (Phoslo) 667 mg PO TID [facility] Last Admin: 10/02/17 18:11 Dose: 667 mg Epoetin Naeem (Procrit) 4,000 unit IV TTS [facility] Last Admin: 10/02/17 10:32 Dose: 4,000 unit Ferric Sodium Gluconate Complex (Ferrlecit) 125 mg IVPB TTS [facility] Stop: 10/05/17 10:01 Last Admin: 10/02/17 10:49 Dose: 125 mg Heparin Sodium (Porcine) (Heparin) 5,000 units SC Q12 [facility] Last Admin: 09/20/17 10:26 Dose: Not Given Hydrocortisone (Cortizone 0.5% Cream) 1 applic TOP BID [facility] Last Admin: 10/02/17 18:13 Dose: 1 applic Levothyroxine Sodium (Synthroid) 25 mcg PO DAILY@0630 [facility] Last Admin: 10/02/17 05:35 Dose: 25 mcg Midodrine (Proamatine) 5 mg PO TID [facility] Last Admin: 10/02/17 18:11 Dose: 5 mg Ondansetron HCl (Zofran Inj) 4 mg IVP Q6 PRN PRN Reason: Nausea/Vomiting Last Admin: 09/30/17 14:05 Dose: 4 mg - Labs Labs: 10/02/17 04:07 10/02/17 04:07 PT 17.0 SECONDS (9.7-12.2) H 10/02/17 04:07 INR 1.5 10/02/17 04:07 APTT 35 SECONDS (21-34) H 10/02/17 04:07
[2017-10-03] MEDS: Bacitracin Ointment 30 GM TUBE TOP SCH ×3 (03:34→17:23)
[2017-10-03] MEDS: Levothyroxine 25 MCG TAB PO SCH (06:42)
--- NOTE | 2017-10-03 10:59 | CP.PCM.PN ---
Subjective - Date & Time of Evaluation Date of Evaluation: 10/03/17 Time of Evaluation: 10:57 - Subjective Subjective: seen and examined no events s/p hd yesterday no f/c/sob/cp/n/v/d/dizziness/headache/dysuria chronic b/l leg weakness labs noted Objective - Vital Signs/Intake and Output Vital Signs (last 24 hours): Temp Pulse Resp BP Pulse Ox 97.4 F L 90 20 90/64 L 95 10/03/17 08:01 10/03/17 08:01 10/03/17 08:01 10/03/17 08:01 10/03/17 08:01 Intake and Output: 10/03/17 10/03/17 06:59 18:59 Intake Total 680 Output Total 0 Balance 680 - Medications Medications: Current Medications Acetaminophen (Tylenol 325mg Tab) 650 mg PO Q6 PRN PRN Reason: Pain, moderate (4-7) Bacitracin (Bacitracin) 1 gm TOP BID [facility] Last Admin: 10/03/17 10:38 Dose: Not Given Calcitriol (Rocaltrol) 0.5 mcg PO DAILY [facility] Last Admin: 10/03/17 10:41 Dose: 0.5 mcg Calcium Acetate (Phoslo) 667 mg PO TID [facility] Last Admin: 10/03/17 10:40 Dose: 667 mg Epoetin Naeem (Procrit) 4,000 unit IV TTS [facility] Last Admin: 10/02/17 10:32 Dose: 4,000 unit Ferric Sodium Gluconate Complex (Ferrlecit) 125 mg IVPB TTS [facility] Stop: 10/05/17 10:01 Last Admin: 10/02/17 10:49 Dose: 125 mg Heparin Sodium (Porcine) (Heparin) 5,000 units SC Q12 [facility] Last Admin: 09/20/17 10:26 Dose: Not Given Hydrocortisone (Cortizone 0.5% Cream) 1 applic TOP BID [facility] Last Admin: 10/03/17 10:40 Dose: 1 applic Levothyroxine Sodium (Synthroid) 25 mcg PO DAILY@0630 [facility] Last Admin: 10/03/17 06:42 Dose: 25 mcg Midodrine (Proamatine) 5 mg PO TID [facility] Last Admin: 10/03/17 10:40 Dose: 5 mg Ondansetron HCl (Zofran Inj) 4 mg IVP Q6 PRN PRN Reason: Nausea/Vomiting Last Admin: 09/30/17 14:05 Dose: 4 mg - Labs Labs: 10/02/17 04:07 10/02/17 04:07 PT 17.0 SECONDS (9.7-12.2) H 10/02/17 04:07 INR 1.5 10/02/17 04:07 APTT 35 SECONDS (21-34) H 10/02/17 04:07 - Constitutional Appears: No Acute Distress, Older Than Stated Age, Chronically Ill - Head Exam Head Exam: NORMAL INSPECTION, NORMOCEPHALIC - Eye Exam Eye Exam: Normal appearance Pupil Exam: PERRL - ENT Exam ENT Exam: Mucous Membranes Moist, Normal Exam - Neck Exam Neck Exam: Normal Inspection - Respiratory Exam Respiratory Exam: Decreased Breath Sounds, NORMAL BREATHING PATTERN - Cardiovascular Exam Cardiovascular Exam: REGULAR RHYTHM, RRR - GI/Abdominal Exam GI & Abdominal Exam: Distended, Soft, Hypoactive Bowel Sounds - Extremities Exam Extremities Exam: Normal Inspection - Neurological Exam Neurological Exam: Alert, Awake, Oriented x3 - Psychiatric Exam Psychiatric exam: Flat Affect - Skin Skin Exam: Dry, Warm Assessment and Plan (1) Anemia Status: Acute (2) Cirrhosis Status: Acute (3) ESRD (end stage renal disease) on dialysis Status: Acute (4) Secondary hyperparathyroidism Status: Acute - Assessment and Plan (Free Text) Assessment: maintain hd tts magdalena w/ hd midodrine check magnesium level. recommend liberalize potassium in diet.
[2017-10-03] MEDS ORDERED: Vancomycin 1 GM in Sodium Chloride 0.9% 200 ML IVPB SCH (14:00)
--- NOTE | 2017-10-03 17:22 | CP.PCM.PN ---
Subjective - Date & Time of Evaluation Date of Evaluation: 10/03/17 Time of Evaluation: 09:40 - Subjective Subjective: clinically same Objective - Vital Signs/Intake and Output Vital Signs (last 24 hours): Temp Pulse Resp BP Pulse Ox 98.1 F 87 20 107/72 98 10/03/17 15:00 10/03/17 15:00 10/03/17 15:00 10/03/17 15:00 10/03/17 15:00 Intake and Output: 10/03/17 10/03/17 06:59 18:59 Intake Total 680 250 Output Total 0 Balance 680 250 - Medications Medications: Current Medications Acetaminophen (Tylenol 325mg Tab) 650 mg PO Q6 PRN PRN Reason: Pain, moderate (4-7) Bacitracin (Bacitracin) 1 gm TOP BID [facility] Last Admin: 10/03/17 10:38 Dose: Not Given Calcitriol (Rocaltrol) 0.5 mcg PO DAILY [facility] Last Admin: 10/03/17 10:41 Dose: 0.5 mcg Calcium Acetate (Phoslo) 667 mg PO TID [facility] Last Admin: 10/03/17 17:17 Dose: 667 mg Epoetin Naeem (Procrit) 4,000 unit IV TTS [facility] Last Admin: 10/02/17 10:32 Dose: 4,000 unit Ferric Sodium Gluconate Complex (Ferrlecit) 125 mg IVPB TTS [facility] Stop: 10/05/17 10:01 Last Admin: 10/02/17 10:49 Dose: 125 mg Heparin Sodium (Porcine) (Heparin) 5,000 units SC Q12 [facility] Last Admin: 09/20/17 10:26 Dose: Not Given Hydrocortisone (Cortizone 0.5% Cream) 1 applic TOP BID [facility] Last Admin: 10/03/17 17:17 Dose: 1 applic Vancomycin/Sodium Chloride (Vancomycin 1 Gm/Ns 200 Ml) 1 gm in 200 mls @ 133.333 mls/hr IVPB TuThSa [facility] PRN Reason: Protocol Stop: 10/09/17 14:01 Levothyroxine Sodium (Synthroid) 25 mcg PO DAILY@0630 [facility] Last Admin: 10/03/17 06:42 Dose: 25 mcg Midodrine (Proamatine) 5 mg PO TID [facility] Last Admin: 10/03/17 17:17 Dose: 5 mg Ondansetron HCl (Zofran Inj) 4 mg IVP Q6 PRN PRN Reason: Nausea/Vomiting Last Admin: 10/03/17 13:32 Dose: 4 mg - Labs Labs: 10/02/17 04:07 10/02/17 04:07 PT 17.0 SECONDS (9.7-12.2) H 10/02/17 04:07 INR 1.5 10/02/17 04:07 APTT 35 SECONDS (21-34) H 10/02/17 04:07 - Constitutional Appears: Well - Head Exam Head Exam: ATRAUMATIC, NORMAL INSPECTION, NORMOCEPHALIC - Eye Exam Eye Exam: EOMI, Normal appearance, PERRL Pupil Exam: NORMAL ACCOMODATION, PERRL - ENT Exam ENT Exam: Mucous Membranes Moist, Normal Exam - Neck Exam Neck Exam: Full ROM, Normal Inspection. absent: Lymphadenopathy - Respiratory Exam Respiratory Exam: Decreased Breath Sounds - Cardiovascular Exam Cardiovascular Exam: REGULAR RHYTHM, +S1, +S2 - GI/Abdominal Exam GI & Abdominal Exam: Soft, Diminished Bowel Sounds - Rectal Exam Rectal Exam: Deferred
--- NOTE | 2017-10-03 17:52 | CP.PCM.PN ---
Subjective - Date & Time of Evaluation Date of Evaluation: 10/03/17 Time of Evaluation: 17:52 Objective - Vital Signs/Intake and Output Vital Signs (last 24 hours): Temp Pulse Resp BP Pulse Ox 98.1 F 87 20 107/72 98 10/03/17 15:00 10/03/17 15:00 10/03/17 15:00 10/03/17 15:00 10/03/17 15:00 Intake and Output: 10/03/17 10/03/17 06:59 18:59 Intake Total 680 250 Output Total 0 Balance 680 250 - Medications Medications: Current Medications Acetaminophen (Tylenol 325mg Tab) 650 mg PO Q6 PRN PRN Reason: Pain, moderate (4-7) Bacitracin (Bacitracin) 1 gm TOP BID [facility] Last Admin: 10/03/17 17:23 Dose: Not Given Calcitriol (Rocaltrol) 0.5 mcg PO DAILY [facility] Last Admin: 10/03/17 10:41 Dose: 0.5 mcg Calcium Acetate (Phoslo) 667 mg PO TID [facility] Last Admin: 10/03/17 17:17 Dose: 667 mg Epoetin Naeem (Procrit) 4,000 unit IV TTS [facility] Last Admin: 10/02/17 10:32 Dose: 4,000 unit Ferric Sodium Gluconate Complex (Ferrlecit) 125 mg IVPB TTS [facility] Stop: 10/05/17 10:01 Last Admin: 10/02/17 10:49 Dose: 125 mg Heparin Sodium (Porcine) (Heparin) 5,000 units SC Q12 [facility] Last Admin: 09/20/17 10:26 Dose: Not Given Hydrocortisone (Cortizone 0.5% Cream) 1 applic TOP BID [facility] Last Admin: 10/03/17 17:17 Dose: 1 applic Vancomycin/Sodium Chloride (Vancomycin 1 Gm/Ns 200 Ml) 1 gm in 200 mls @ 133.333 mls/hr IVPB TuThSa [facility] PRN Reason: Protocol Stop: 10/09/17 14:01 Levothyroxine Sodium (Synthroid) 25 mcg PO DAILY@0630 [facility] Last Admin: 10/03/17 06:42 Dose: 25 mcg Midodrine (Proamatine) 5 mg PO TID [facility] Last Admin: 10/03/17 17:17 Dose: 5 mg Ondansetron HCl (Zofran Inj) 4 mg IVP Q6 PRN PRN Reason: Nausea/Vomiting Last Admin: 10/03/17 13:32 Dose: 4 mg - Labs Labs: 10/02/17 04:07 10/02/17 04:07 PT 17.0 SECONDS (9.7-12.2) H 10/02/17 04:07 INR 1.5 10/02/17 04:07 APTT 35 SECONDS (21-34) H 10/02/17 04:07 - Head Exam Head Exam: NORMAL INSPECTION - Eye Exam Eye Exam: Normal appearance - ENT Exam ENT Exam: Mucous Membranes Moist - Respiratory Exam Respiratory Exam: Decreased Breath Sounds - Cardiovascular Exam Cardiovascular Exam: REGULAR RHYTHM, +S1, +S2 - GI/Abdominal Exam GI & Abdominal Exam: Soft, Normal Bowel Sounds - Extremities Exam Extremities Exam: Pedal Edema - Neurological Exam Neurological Exam: Alert, Oriented x3
--- NOTE | 2017-10-03 23:55 | CARD ---
APPROVED REPORT EKG Measurement Heart [id number] <Conclusion> Normal sinus rhythm Left axis deviation Low voltage QRS Inferior infarct, age undetermined Abnormal ECG
--- NOTE | 2017-10-04 00:19 | CP.PCM.PN ---
Subjective - Date & Time of Evaluation Date of Evaluation: 10/04/17 Time of Evaluation: 00:10 - Subjective Subjective: Was on the 6th floor evaluating a different patient with nurse Nathaly Christie when I was called to Mr. Hanley's room by the charge nurse because his permacatheter had been pulled out. found the patient agitated, with blood on his surrounding pillows, but no active bleeding or sign of hematoma at the permacath site or the site of the RIJ. Permacath was lying in the bed at the patient's side, was inspected and found to be completely intact. Applied clean dressing over the site and obtained a CXR that did not show any pneumothorax. Objective - Vital Signs/Intake and Output Vital Signs (last 24 hours): Temp Pulse Resp BP Pulse Ox 98.1 F 87 20 107/72 98 10/03/17 15:00 10/03/17 15:00 10/03/17 15:00 10/03/17 15:00 10/03/17 15:00 Intake and Output: 10/03/17 10/04/17 18:59 06:59 Intake Total 250 Balance 250 - Medications Medications: Current Medications Acetaminophen (Tylenol 325mg Tab) 650 mg PO Q6 PRN PRN Reason: Pain, moderate (4-7) Bacitracin (Bacitracin) 1 gm TOP BID REPLACED BY [facility] Last Admin: 10/03/17 17:23 Dose: Not Given Calcitriol (Rocaltrol) 0.5 mcg PO DAILY REPLACED BY [facility] Last Admin: 10/03/17 10:41 Dose: 0.5 mcg Calcium Acetate (Phoslo) 667 mg PO TID REPLACED BY [facility] Last Admin: 10/03/17 17:17 Dose: 667 mg Epoetin Naeem (Procrit) 4,000 unit IV TTS REPLACED BY [facility] Last Admin: 10/02/17 10:32 Dose: 4,000 unit Ferric Sodium Gluconate Complex (Ferrlecit) 125 mg IVPB TTS REPLACED BY [facility] Stop: 10/05/17 10:01 Last Admin: 10/02/17 10:49 Dose: 125 mg Heparin Sodium (Porcine) (Heparin) 5,000 units SC Q12 REPLACED BY [facility] Last Admin: 09/20/17 10:26 Dose: Not Given Hydrocortisone (Cortizone 0.5% Cream) 1 applic TOP BID REPLACED BY [facility] Last Admin: 10/03/17 17:17 Dose: 1 applic Vancomycin/Sodium Chloride (Vancomycin 1 Gm/Ns 200 Ml) 1 gm in 200 mls @ 133.333 mls/hr IVPB [facility] PRN Reason: Protocol Stop: 10/09/17 14:01 Levothyroxine Sodium (Synthroid) 25 mcg PO DAILY@0630 REPLACED BY [facility] Last Admin: 10/03/17 06:42 Dose: 25 mcg Midodrine (Proamatine) 5 mg PO TID REPLACED BY [facility] Last Admin: 10/03/17 17:17 Dose: 5 mg Ondansetron HCl (Zofran Inj) 4 mg IVP Q6 PRN PRN Reason: Nausea/Vomiting Last Admin: 10/03/17 13:32 Dose: 4 mg - Labs Labs: 10/02/17 04:07 10/02/17 04:07 PT 17.0 SECONDS (9.7-12.2) H 10/02/17 04:07 INR 1.5 10/02/17 04:07 APTT 35 SECONDS (21-34) H 10/02/17 04:07 - Constitutional Appears: Well, Non-toxic, In Acute Distress - Head Exam Head Exam: ATRAUMATIC, NORMOCEPHALIC - Eye Exam Eye Exam: Normal appearance - ENT Exam ENT Exam: Mucous Membranes Moist, Normal Oropharynx - Neck Exam Additional comments: permacath site on the right chest with no active bleeding, no sign of hematoma at the neck, trachea midline - Respiratory Exam Respiratory Exam: NORMAL BREATHING PATTERN. absent: Accessory Muscle Use, Respiratory Distress Assessment and Plan - Assessment and Plan (Free Text) Assessment: 62M with ESRD with recent permacath insertion by Dr. Houser with the permacath pulled out Plan: F/U official CXR report Patient will need a new permacath inserted, keep patient NPO in preparation for possible OR later today Monitor site for bleeding and or hematoma Dr. Houser notified, further recs per him Jennifer Le, PGY2
[2017-10-04] MEDS: Levothyroxine 25 MCG TAB PO SCH (07:05)
--- NOTE | 2017-10-04 07:28 | RAD ---
Chest x-ray single frontal view History: Pulled out PermCath. Comparison: 09/20/2017 Findings: Interval removal of a right-sided PermCath. No evidence of gross pneumothorax in the right abe thorax. Bilateral hilar prominence. Consolidative changes in the infrahilar regions bilaterally. Enlarged ectatic aorta. Cardiomegaly. Biapical pleural thickening. Degenerative changes in the spine and shoulders. Impression: Interval removal of a right-sided PermCath. No evidence of gross pneumothorax in the right abe thorax. Bilateral hilar prominence. Consolidative changes in the infrahilar regions bilaterally. Enlarged ectatic aorta. Cardiomegaly. Biapical pleural thickening.
--- NOTE | 2017-10-04 08:11 | CP.PCM.PN ---
Subjective - Date & Time of Evaluation Date of Evaluation: 10/04/17 Time of Evaluation: 08:09 - Subjective Subjective: pulled out permcath yesterday, for OR today stable for hd today no headache/sob/dizziness/cp/cough/n/v/d/f/c/dysuria/hematuria. weakness of both legs. wants walker to walk around in hallway Objective - Vital Signs/Intake and Output Vital Signs (last 24 hours): Temp Pulse Resp BP Pulse Ox 97.7 F 85 20 94/56 L 97 10/04/17 04:59 10/04/17 04:59 10/04/17 04:59 10/04/17 04:59 10/03/17 23:40 - Medications Medications: Current Medications Acetaminophen (Tylenol 325mg Tab) 650 mg PO Q6 PRN PRN Reason: Pain, moderate (4-7) Bacitracin (Bacitracin) 1 gm TOP BID [facility] Last Admin: 10/03/17 17:23 Dose: Not Given Calcitriol (Rocaltrol) 0.5 mcg PO DAILY [facility] Last Admin: 10/03/17 10:41 Dose: 0.5 mcg Calcium Acetate (Phoslo) 667 mg PO TID [facility] Last Admin: 10/03/17 17:17 Dose: 667 mg Epoetin Naeem (Procrit) 4,000 unit IV TTS [facility] Last Admin: 10/02/17 10:32 Dose: 4,000 unit Ferric Sodium Gluconate Complex (Ferrlecit) 125 mg IVPB TTS [facility] Stop: 10/05/17 10:01 Last Admin: 10/02/17 10:49 Dose: 125 mg Heparin Sodium (Porcine) (Heparin) 5,000 units SC Q12 [facility] Last Admin: 09/20/17 10:26 Dose: Not Given Hydrocortisone (Cortizone 0.5% Cream) 1 applic TOP BID [facility] Last Admin: 10/03/17 17:17 Dose: 1 applic Vancomycin/Sodium Chloride (Vancomycin 1 Gm/Ns 200 Ml) 1 gm in 200 mls @ 133.333 mls/hr IVPB TuThSa [facility] PRN Reason: Protocol Stop: 10/09/17 14:01 Levothyroxine Sodium (Synthroid) 25 mcg PO DAILY@0630 [facility] Last Admin: 10/04/17 07:05 Dose: 25 mcg Midodrine (Proamatine) 5 mg PO TID [facility] Last Admin: 10/03/17 17:17 Dose: 5 mg Ondansetron HCl (Zofran Inj) 4 mg IVP Q6 PRN PRN Reason: Nausea/Vomiting Last Admin: 10/03/17 13:32 Dose: 4 mg - Labs Labs: 10/02/17 04:07 10/02/17 04:07 PT 17.0 SECONDS (9.7-12.2) H 10/02/17 04:07 INR 1.5 10/02/17 04:07 APTT 35 SECONDS (21-34) H 10/02/17 04:07 - Constitutional Appears: No Acute Distress, Unkempt, Older Than Stated Age - Head Exam Head Exam: NORMAL INSPECTION, NORMOCEPHALIC - Eye Exam Eye Exam: Normal appearance Pupil Exam: PERRL - ENT Exam ENT Exam: Mucous Membranes Moist, Normal Exam - Neck Exam Neck Exam: Full ROM, Normal Inspection - Respiratory Exam Respiratory Exam: Clear to Ausculation Bilateral, NORMAL BREATHING PATTERN - Cardiovascular Exam Cardiovascular Exam: REGULAR RHYTHM, RRR - GI/Abdominal Exam GI & Abdominal Exam: Distended, Soft, Hypoactive Bowel Sounds - Extremities Exam Extremities Exam: Normal Inspection - Neurological Exam Neurological Exam: Alert, Awake, Oriented x3 - Psychiatric Exam Psychiatric exam: Normal Affect, Normal Mood - Skin Skin Exam: Intact, Normal Color Assessment and Plan (1) Anemia Status: Acute (2) Cirrhosis Status: Acute (3) ESRD (end stage renal disease) on dialysis Status: Acute (4) Secondary hyperparathyroidism Status: Acute - Assessment and Plan (Free Text) Assessment: maintain hd tts. hd after permcath replacement today pt/rehab f/u with vascular for avf magdalena w/ hd
[2017-10-04 09:24] LABS: BASO # 0.1 K/uL (0.0-0.2); BASO % 1.3 % (0.0-2.0); EOS % 0.3 % (0.0-4.0); HEMOGLOBIN 10.2 g/dL (12.0-18.0); LYMPH # 1.8 K/uL (1.0-4.3); LYMPH % 22.5 % (20.0-40.0); MEAN CORPUSCULAR HEMOGLOBIN 29.8 pg (27.0-31.0); MEAN CORPUSCULAR HGB CONC 33.5 g/dL (33.0-37.0); MEAN PLATELET VOLUME 8.5 fL (7.2-11.7); MONO # 0.5 K/uL (0.0-0.8); MONO % 5.9 % (0.0-10.0); NEUT # 5.4 K/uL (1.8-7.0); RBC 3.41 Mil/uL (4.40-5.90); RED CELL DISTRIBUTION WIDTH 14.9 % (11.5-14.5); WHITE BLOOD COUNT 7.8 K/uL (4.8-10.8)
[2017-10-04 09:29] LABS: INR 1.4; PROTHROMBIN TIME 15.9 SECONDS (9.7-12.2)
[2017-10-04] MEDS: Bacitracin Ointment 30 GM TUBE TOP SCH ×2 (10:16→19:13)
[2017-10-04] MEDS ORDERED: Iohexol 240 (50 ml) ONE ×2 (14:03→15:46)
[2017-10-04] MEDS ORDERED: HEPARIN-NS 5,000 UNITS/500 ML 5,000 UNIT/500 ML BAG IV ONE (14:03)
[2017-10-04] MEDS: Vancomycin 1 gm/NS 200 ml 1 GM/200 ML BAG IVPB SCH (14:42)
[2017-10-04] MEDS ORDERED: Lidocaine Hydrochloride 10 ML INJ ONE (15:46)
[2017-10-04] MEDS ORDERED: Midazolam 2 MG/2 ML VIAL ONE (15:47)
[2017-10-04] MEDS ORDERED: Propofol 10 mg/ml Inj (20 ML) ONE (15:47)
[2017-10-04] MEDS: Vancomycin 1 gm/D5W 200 ml 1 GM/200 ML BAG IVPB ONE ×2 (16:00→16:02)
[2017-10-04] MEDS ORDERED: ceFAZolin 2 GM in Sodium Chloride 0.9% 100 ML IVPB ONE (16:00)
[2017-10-04] MEDS ORDERED: Phenylephrine 10 mg/ml Inj ONE (16:02)
[2017-10-04] MEDS ORDERED: Sodium Chloride 0.9% 500 ML IV ONE (16:28)
[2017-10-04] MEDS ORDERED: HYDROmorphone 0.5 mg/0.5 ml ISec IVP PRN (16:30)
--- NOTE | 2017-10-04 16:33 | PCM.SURG1 ---
Surgeon's Initial Post Op Note - Surgeon's Notes Surgeon: Dr. Houser Marketing Recruiter: Cassy Severino, PGY-1 Pre-Operative Diagnosis: ESRD requiring HD, post RIJ removal Operative Findings: see op report Post-Operative Diagnosis: ESRD requiring HD, post RIJ removal Operation Performed: RIJ permacath insertion Specimen/Specimens Removed: None Estimated Blood Loss: EBL {In ML}: 10 Blood Products Given: N/A Drains Used: No Drains Post-Op Condition: Good Date of Surgery/Procedure: 10/04/17 Time of Surgery/Procedure: 16:32
--- NOTE | 2017-10-04 16:46 | CP.PCM.PN ---
Subjective - Date & Time of Evaluation Date of Evaluation: 10/04/17 Time of Evaluation: 16:46 Objective - Vital Signs/Intake and Output Vital Signs (last 24 hours): Temp Pulse Resp BP Pulse Ox 97.6 F 86 20 90/63 L 99 10/04/17 14:40 10/04/17 14:40 10/04/17 14:40 10/04/17 14:40 10/04/17 14:40 Intake and Output: 10/04/17 10/04/17 06:59 18:59 Intake Total 120 Balance 120 - Medications Medications: Current Medications Acetaminophen (Tylenol 325mg Tab) 650 mg PO Q6 PRN PRN Reason: Pain, moderate (4-7) Bacitracin (Bacitracin) 1 gm TOP BID [facility] Last Admin: 10/04/17 10:16 Dose: Not Given Calcitriol (Rocaltrol) 0.5 mcg PO DAILY [facility] Last Admin: 10/04/17 10:19 Dose: 0.5 mcg Calcium Acetate (Phoslo) 667 mg PO TID [facility] Last Admin: 10/04/17 14:41 Dose: Not Given Epoetin Naeem (Procrit) 4,000 unit IV TTS [facility] Last Admin: 10/02/17 10:32 Dose: 4,000 unit Ferric Sodium Gluconate Complex (Ferrlecit) 125 mg IVPB TTS [facility] Stop: 10/05/17 10:01 Last Admin: 10/02/17 10:49 Dose: 125 mg Heparin Sodium (Porcine) (Heparin) 5,000 units SC Q12 [facility] Last Admin: 09/20/17 10:26 Dose: Not Given Hydrocortisone (Cortizone 0.5% Cream) 1 applic TOP BID [facility] Last Admin: 10/04/17 10:20 Dose: 1 applic Hydromorphone HCl (Dilaudid) 0.5 mg IVP Q10M PRN PRN Reason: Pain, severe (8-10) Stop: 10/04/17 18:30 Vancomycin/Sodium Chloride (Vancomycin 1 Gm/Ns 200 Ml) 1 gm in 200 mls @ 133.333 mls/hr IVPB TuThSa [facility] PRN Reason: Protocol Stop: 10/09/17 14:01 Last Admin: 10/04/17 14:42 Dose: Not Given Vancomycin/Sodium Chloride (Vancomycin 1 Gm/Ns 200 Ml) 1 gm in 200 mls @ 166.7 mls/hr IVPB ONCE ONE PRN Reason: Protocol Stop: 10/05/17 09:11 Levothyroxine Sodium (Synthroid) 25 mcg PO DAILY@0630 [facility] Last Admin: 10/04/17 07:05 Dose: 25 mcg Midodrine (Proamatine) 5 mg PO TID [facility] Last Admin: 10/04/17 14:41 Dose: 5 mg Ondansetron HCl (Zofran Inj) 4 mg IVP Q6 PRN PRN Reason: Nausea/Vomiting Last Admin: 10/03/17 13:32 Dose: 4 mg Ondansetron HCl (Zofran Inj) 4 mg IVP ONCE PRN PRN Reason: Nausea/Vomiting Stop: 10/04/17 18:31 - Labs Labs: 10/04/17 09:30 10/04/17 07:52 PT 15.9 SECONDS (9.7-12.2) H 10/04/17 09:29 INR 1.4 10/04/17 09:29 APTT 42 SECONDS (21-34) H D 10/04/17 09:29
--- NOTE | 2017-10-04 16:48 | CP.PCM.PN ---
Subjective - Date & Time of Evaluation Date of Evaluation: 10/04/17 Time of Evaluation: 09:20 - Subjective Subjective: clinically same Objective - Vital Signs/Intake and Output Vital Signs (last 24 hours): Temp Pulse Resp BP Pulse Ox 97.6 F 86 20 90/63 L 99 10/04/17 14:40 10/04/17 14:40 10/04/17 14:40 10/04/17 14:40 10/04/17 14:40 Intake and Output: 10/04/17 10/04/17 06:59 18:59 Intake Total 120 Balance 120 - Medications Medications: Current Medications Acetaminophen (Tylenol 325mg Tab) 650 mg PO Q6 PRN PRN Reason: Pain, moderate (4-7) Bacitracin (Bacitracin) 1 gm TOP BID [facility] Last Admin: 10/04/17 10:16 Dose: Not Given Calcitriol (Rocaltrol) 0.5 mcg PO DAILY [facility] Last Admin: 10/04/17 10:19 Dose: 0.5 mcg Calcium Acetate (Phoslo) 667 mg PO TID [facility] Last Admin: 10/04/17 14:41 Dose: Not Given Epoetin Naeem (Procrit) 4,000 unit IV TTS [facility] Last Admin: 10/02/17 10:32 Dose: 4,000 unit Ferric Sodium Gluconate Complex (Ferrlecit) 125 mg IVPB TTS [facility] Stop: 10/05/17 10:01 Last Admin: 10/02/17 10:49 Dose: 125 mg Heparin Sodium (Porcine) (Heparin) 5,000 units SC Q12 [facility] Last Admin: 09/20/17 10:26 Dose: Not Given Hydrocortisone (Cortizone 0.5% Cream) 1 applic TOP BID [facility] Last Admin: 10/04/17 10:20 Dose: 1 applic Hydromorphone HCl (Dilaudid) 0.5 mg IVP Q10M PRN PRN Reason: Pain, severe (8-10) Stop: 10/04/17 18:30 Vancomycin/Sodium Chloride (Vancomycin 1 Gm/Ns 200 Ml) 1 gm in 200 mls @ 133.333 mls/hr IVPB TuThSa [facility] PRN Reason: Protocol Stop: 10/09/17 14:01 Last Admin: 10/04/17 14:42 Dose: Not Given Vancomycin/Sodium Chloride (Vancomycin 1 Gm/Ns 200 Ml) 1 gm in 200 mls @ 166.7 mls/hr IVPB ONCE ONE PRN Reason: Protocol Stop: 10/05/17 09:11 Levothyroxine Sodium (Synthroid) 25 mcg PO DAILY@0630 [facility] Last Admin: 10/04/17 07:05 Dose: 25 mcg Midodrine (Proamatine) 5 mg PO TID [facility] Last Admin: 10/04/17 14:41 Dose: 5 mg Ondansetron HCl (Zofran Inj) 4 mg IVP Q6 PRN PRN Reason: Nausea/Vomiting Last Admin: 10/03/17 13:32 Dose: 4 mg Ondansetron HCl (Zofran Inj) 4 mg IVP ONCE PRN PRN Reason: Nausea/Vomiting Stop: 10/04/17 18:31 - Labs Labs: 10/04/17 09:30 10/04/17 07:52 PT 15.9 SECONDS (9.7-12.2) H 10/04/17 09:29 INR 1.4 10/04/17 09:29 APTT 42 SECONDS (21-34) H D 10/04/17 09:29 - Constitutional Appears: Well - Head Exam Head Exam: ATRAUMATIC, NORMAL INSPECTION, NORMOCEPHALIC - Eye Exam Eye Exam: EOMI, Normal appearance, PERRL Pupil Exam: NORMAL ACCOMODATION, PERRL - ENT Exam ENT Exam: Mucous Membranes Moist, Normal Exam - Neck Exam Neck Exam: Full ROM, Normal Inspection. absent: Lymphadenopathy - Respiratory Exam Respiratory Exam: Decreased Breath Sounds - Cardiovascular Exam Cardiovascular Exam: REGULAR RHYTHM, +S1, +S2 - GI/Abdominal Exam GI & Abdominal Exam: Soft, Diminished Bowel Sounds - Rectal Exam Rectal Exam: Deferred
--- NOTE | 2017-10-04 18:02 | RAD ---
HISTORY: post RIJ permacath insertion COMPARISON: October 04, 2017. Time of the most recent examination: 00:23 FINDINGS: LUNGS: No active pulmonary disease. PLEURA: No significant pleural effusion identified, no pneumothorax apparent. CARDIOVASCULAR: Cardiomegaly. No evidence of acute, significant cardiovascular disease. Venous access catheter in satisfactory position. OSSEOUS STRUCTURES: No significant abnormalities. VISUALIZED UPPER ABDOMEN: Normal. OTHER FINDINGS: None. IMPRESSION: No adverse findings common no pneumothorax identified following PermCath placement via right IJ approach. Otherwise no interval change
--- NOTE | 2017-10-05 00:58 | OP ---
PROCEDURE DATE: 10/04/2017. PREOPERATIVE DIAGNOSIS: Renal failure. POSTOPERATIVE DIAGNOSIS: Renal failure. PROCEDURE: Placement of Perm-A-Cath right jugular vein with C-arm fluoroscopy, ultrasound-guided puncture and micropuncture technique. SURGEON: Gold Houser MD TANK WASHER: Dr. Severino. ANESTHESIOLOGIST: Mr. Wheeler. 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 OPERATIVE FINDINGS: We were able to reaccess the right jugular vein. DESCRIPTION OF PROCEDURE: The patient was given local anesthesia. Using ultrasound guidance and micropuncture technique, the right jugular vein was cannulated. Under fluoroscopic control, the guidewire was advanced centrally. Sheath dilator was passed over this, and the catheter was positioned with the tip in the superior vena cava. It was flushed with heparinized saline with good return and good flow. Procedure was then terminated. Catheter was secured to the skin. It originated on the right chest wall went to the jugular vein and terminated at the superior vena cava. Gold Houser Jr., MD
[2017-10-05] MEDS: Levothyroxine 25 MCG TAB PO SCH (06:05)
[2017-10-05] MEDS ORDERED: Vancomycin 1 gm/NS 200 ml 1 GM/200 ML BAG IVPB ONE (08:00)
--- NOTE | 2017-10-05 08:58 | CP.PCM.PN ---
Subjective - Date & Time of Evaluation Date of Evaluation: 10/05/17 Time of Evaluation: 07:00 - Subjective Subjective: Vascular surgery progress note for Dr. Sumi Severino, PGY-1 Pt S & E at bedside. Pt w/o complaints overnight, no problems. Resting comfortably in bed. Objective - Vital Signs/Intake and Output Vital Signs (last 24 hours): Temp Pulse Resp BP Pulse Ox 97.8 F 91 H 20 90/65 L 92 L 10/05/17 08:15 10/05/17 08:15 10/05/17 08:15 10/05/17 08:40 10/05/17 08:15 Intake and Output: 10/05/17 10/05/17 06:59 18:59 Intake Total 30 Balance 30 - Medications Medications: Current Medications Acetaminophen (Tylenol 325mg Tab) 650 mg PO Q6 PRN PRN Reason: Pain, moderate (4-7) Bacitracin (Bacitracin) 1 gm TOP BID [facility] Last Admin: 10/04/17 19:13 Dose: Not Given Calcitriol (Rocaltrol) 0.5 mcg PO DAILY [facility] Last Admin: 10/04/17 10:19 Dose: 0.5 mcg Calcium Acetate (Phoslo) 667 mg PO TID [facility] Last Admin: 10/04/17 19:12 Dose: 667 mg Epoetin Naeem (Procrit) 4,000 unit IV TTS [facility] Last Admin: 10/02/17 10:32 Dose: 4,000 unit Ferric Sodium Gluconate Complex (Ferrlecit) 125 mg IVPB TTS [facility] Stop: 10/05/17 10:01 Last Admin: 10/02/17 10:49 Dose: 125 mg Heparin Sodium (Porcine) (Heparin) 5,000 units SC Q12 [facility] Last Admin: 09/20/17 10:26 Dose: Not Given Hydrocortisone (Cortizone 0.5% Cream) 1 applic TOP BID [facility] Last Admin: 10/04/17 19:15 Dose: 1 applic Vancomycin/Sodium Chloride (Vancomycin 1 Gm/Ns 200 Ml) 1 gm in 200 mls @ 133.333 mls/hr IVPB TuThSa [facility] PRN Reason: Protocol Stop: 10/09/17 14:01 Last Admin: 10/04/17 14:42 Dose: Not Given Vancomycin/Sodium Chloride (Vancomycin 1 Gm/Ns 200 Ml) 1 gm in 200 mls @ 166.7 mls/hr IVPB ONCE ONE PRN Reason: Protocol Stop: 10/05/17 09:11 Midodrine (Proamatine) 5 mg PO TID [facility] Last Admin: 10/05/17 08:44 Dose: 5 mg Ondansetron HCl (Zofran Inj) 4 mg IVP Q6 PRN PRN Reason: Nausea/Vomiting Last Admin: 10/03/17 13:32 Dose: 4 mg - Labs Labs: 10/04/17 09:30 10/04/17 07:52 PT 15.9 SECONDS (9.7-12.2) H 10/04/17 09:29 INR 1.4 10/04/17 09:29 APTT 42 SECONDS (21-34) H D 10/04/17 09:29 - Constitutional Appears: Non-toxic, No Acute Distress - Head Exam Head Exam: ATRAUMATIC, NORMAL INSPECTION, NORMOCEPHALIC - Eye Exam Eye Exam: EOMI, Normal appearance - ENT Exam ENT Exam: Mucous Membranes Moist, Normal Exam (poor dentition) - Neck Exam Additional comments: ecchymoses over right neck, dressing in place -clean/dry/intact - Respiratory Exam Respiratory Exam: Chest Wall Tenderness (over RIJ permacath insertion site), NORMAL BREATHING PATTERN - Cardiovascular Exam Cardiovascular Exam: REGULAR RHYTHM, +S1, +S2 - GI/Abdominal Exam GI & Abdominal Exam: Distended, Soft. absent: Firm, Guarding, Tenderness - Extremities Exam Extremities Exam: Pedal Edema (bilaterally) - Neurological Exam Neurological Exam: Alert, Awake, CN II-XII Intact, Oriented x3 - Psychiatric Exam Psychiatric exam: Normal Affect, Normal Mood - Skin Skin Exam: Dry, Intact, Warm. absent: Normal Color (right neck with few superficial ecchymoses ) Assessment and Plan - Assessment and Plan (Free Text) Assessment: POD #1 s/p RIJ permacath replacement after initial one was moved Plan: Ok to use permacath for HD Pt to follow up with Dr. Houser in the office for monitoring the LUE AVF for maturation No further surgical intervention at this time Further mgmt as per primary team Will DW attending Mere, PGY-1
[2017-10-05] MEDS: Bacitracin Ointment 30 GM TUBE TOP SCH ×2 (09:01→17:21)
[2017-10-05] MEDS: EPOETIN ALFA 4,000 UNIT/ML ML Dialysis IV SCH (09:25)
--- NOTE | 2017-10-05 10:21 | RAD ---
PROCEDURE: Intraoperative Fluoroscopy. HISTORY: Renal failure FINDINGS: Fluoroscopic assistance was provided. 63.6 seconds fluoroscopy time utilized during this procedure. Radiation dose = 9.4 mGy. Please refer to the operative report from ROOSEVELT Castillo.
[2017-10-05] MEDS: Ferric Sodium Gluconat Complex 62.5 mg/5 ml Vial IVPB SCH (11:13)
--- NOTE | 2017-10-05 13:20 | CP.PCM.PN ---
Subjective - Date & Time of Evaluation Date of Evaluation: 10/05/17 Time of Evaluation: 13:18 - Subjective Subjective: seen and examined s/p permcath placement s/p hd today for dc to rehab pt denies any f/c/sob/n/v/d/cp/dizziness/rash/headache Objective - Vital Signs/Intake and Output Vital Signs (last 24 hours): Temp Pulse Resp BP Pulse Ox 97.3 F L 92 H 20 74/52 L 99 10/05/17 12:15 10/05/17 12:15 10/05/17 12:15 10/05/17 12:15 10/05/17 12:15 Intake and Output: 10/05/17 10/05/17 06:59 18:59 Intake Total 30 Balance 30 - Medications Medications: Current Medications Acetaminophen (Tylenol 325mg Tab) 650 mg PO Q6 PRN PRN Reason: Pain, moderate (4-7) Bacitracin (Bacitracin) 1 gm TOP BID [facility] Last Admin: 10/05/17 09:01 Dose: Not Given Calcitriol (Rocaltrol) 0.5 mcg PO DAILY [facility] Last Admin: 10/04/17 10:19 Dose: 0.5 mcg Calcium Acetate (Phoslo) 667 mg PO TID [facility] Last Admin: 10/04/17 19:12 Dose: 667 mg Epoetin Naeem (Procrit) 4,000 unit IV TTS [facility] Last Admin: 10/05/17 09:25 Dose: 4,000 unit Heparin Sodium (Porcine) (Heparin) 5,000 units SC Q12 [facility] Last Admin: 09/20/17 10:26 Dose: Not Given Hydrocortisone (Cortizone 0.5% Cream) 1 applic TOP BID [facility] Last Admin: 10/05/17 09:02 Dose: Not Given Vancomycin/Sodium Chloride (Vancomycin 1 Gm/Ns 200 Ml) 1 gm in 200 mls @ 133.333 mls/hr IVPB TuThSa [facility] PRN Reason: Protocol Stop: 10/09/17 14:01 Last Admin: 10/04/17 14:42 Dose: Not Given Midodrine (Proamatine) 5 mg PO TID [facility] Last Admin: 10/05/17 08:44 Dose: 5 mg Ondansetron HCl (Zofran Inj) 4 mg IVP Q6 PRN PRN Reason: Nausea/Vomiting Last Admin: 10/03/17 13:32 Dose: 4 mg - Labs Labs: 10/04/17 09:30 10/04/17 07:52 PT 15.9 SECONDS (9.7-12.2) H 10/04/17 09:29 INR 1.4 10/04/17 09:29 APTT 42 SECONDS (21-34) H D 10/04/17 09:29 - Constitutional Appears: No Acute Distress, Older Than Stated Age, Chronically Ill - Head Exam Head Exam: NORMAL INSPECTION, NORMOCEPHALIC - Eye Exam Eye Exam: Normal appearance, PERRL Pupil Exam: PERRL - ENT Exam ENT Exam: Mucous Membranes Moist, Normal Exam - Neck Exam Neck Exam: Full ROM (rt chest permcath), Normal Inspection - Respiratory Exam Respiratory Exam: Clear to Ausculation Bilateral, NORMAL BREATHING PATTERN - Cardiovascular Exam Cardiovascular Exam: REGULAR RHYTHM, RRR - GI/Abdominal Exam GI & Abdominal Exam: Distended, Soft - Extremities Exam Extremities Exam: Normal Inspection (lue avf ) Assessment and Plan (1) Anemia Status: Acute (2) Cirrhosis Status: Acute (3) ESRD (end stage renal disease) on dialysis Status: Acute (4) Secondary hyperparathyroidism Status: Acute - Assessment and Plan (Free Text) Assessment: maintain hd, tts schedule. next hd tomorrow pt/ot/rehab
--- NOTE | 2017-10-05 17:38 | CP.PCM.PN ---
Subjective - Date & Time of Evaluation Date of Evaluation: 10/05/17 Time of Evaluation: 08:40 - Subjective Subjective: clinically same Objective - Vital Signs/Intake and Output Vital Signs (last 24 hours): Temp Pulse Resp BP Pulse Ox 97.5 F L 90 20 95/62 L 94 L 10/05/17 15:01 10/05/17 15:01 10/05/17 15:01 10/05/17 15:01 10/05/17 15:01 Intake and Output: 10/05/17 10/05/17 06:59 18:59 Intake Total 30 Balance 30 - Medications Medications: Current Medications Acetaminophen (Tylenol 325mg Tab) 650 mg PO Q6 PRN PRN Reason: Pain, moderate (4-7) Bacitracin (Bacitracin) 1 gm TOP BID [facility] Last Admin: 10/05/17 17:21 Dose: Not Given Calcitriol (Rocaltrol) 0.5 mcg PO DAILY [facility] Last Admin: 10/05/17 13:22 Dose: 0.5 mcg Calcium Acetate (Phoslo) 667 mg PO TID [facility] Last Admin: 10/05/17 17:22 Dose: 667 mg Epoetin Naeem (Procrit) 4,000 unit IV TTS [facility] Last Admin: 10/05/17 09:25 Dose: 4,000 unit Heparin Sodium (Porcine) (Heparin) 5,000 units SC Q12 [facility] Last Admin: 09/20/17 10:26 Dose: Not Given Hydrocortisone (Cortizone 0.5% Cream) 1 applic TOP BID [facility] Last Admin: 10/05/17 17:22 Dose: 1 applic Vancomycin/Sodium Chloride (Vancomycin 1 Gm/Ns 200 Ml) 1 gm in 200 mls @ 133.333 mls/hr IVPB TuThSa [facility] PRN Reason: Protocol Stop: 10/09/17 14:01 Last Admin: 10/04/17 14:42 Dose: Not Given Midodrine (Proamatine) 5 mg PO TID [facility] Last Admin: 10/05/17 17:22 Dose: 5 mg Ondansetron HCl (Zofran Inj) 4 mg IVP Q6 PRN PRN Reason: Nausea/Vomiting Last Admin: 10/03/17 13:32 Dose: 4 mg - Labs Labs: 10/04/17 09:30 10/04/17 07:52 PT 15.9 SECONDS (9.7-12.2) H 10/04/17 09:29 INR 1.4 10/04/17 09:29 APTT 42 SECONDS (21-34) H D 10/04/17 09:29 - Constitutional Appears: Well - Head Exam Head Exam: ATRAUMATIC, NORMAL INSPECTION, NORMOCEPHALIC - Eye Exam Eye Exam: EOMI, Normal appearance, PERRL Pupil Exam: NORMAL ACCOMODATION, PERRL - ENT Exam ENT Exam: Mucous Membranes Moist, Normal Exam - Neck Exam Neck Exam: Full ROM, Normal Inspection. absent: Lymphadenopathy - Respiratory Exam Respiratory Exam: Decreased Breath Sounds - Cardiovascular Exam Cardiovascular Exam: REGULAR RHYTHM, +S1, +S2 - GI/Abdominal Exam GI & Abdominal Exam: Soft, Diminished Bowel Sounds - Rectal Exam Rectal Exam: Deferred
--- NOTE | 2017-10-05 19:34 | CP.PCM.PN ---
Subjective - Date & Time of Evaluation Date of Evaluation: 10/05/17 Time of Evaluation: 16:15 Objective - Vital Signs/Intake and Output Vital Signs (last 24 hours): Temp Pulse Resp BP Pulse Ox 97.5 F L 90 20 95/62 L 94 L 10/05/17 15:01 10/05/17 15:01 10/05/17 15:01 10/05/17 15:01 10/05/17 15:01 - Medications Medications: Current Medications Acetaminophen (Tylenol 325mg Tab) 650 mg PO Q6 PRN PRN Reason: Pain, moderate (4-7) Bacitracin (Bacitracin) 1 gm TOP BID [facility] Last Admin: 10/05/17 17:21 Dose: Not Given Calcitriol (Rocaltrol) 0.5 mcg PO DAILY [facility] Last Admin: 10/05/17 13:22 Dose: 0.5 mcg Calcium Acetate (Phoslo) 667 mg PO TID [facility] Last Admin: 10/05/17 17:22 Dose: 667 mg Epoetin Naeem (Procrit) 4,000 unit IV TTS [facility] Last Admin: 10/05/17 09:25 Dose: 4,000 unit Heparin Sodium (Porcine) (Heparin) 5,000 units SC Q12 [facility] Last Admin: 09/20/17 10:26 Dose: Not Given Hydrocortisone (Cortizone 0.5% Cream) 1 applic TOP BID [facility] Last Admin: 10/05/17 17:22 Dose: 1 applic Vancomycin/Sodium Chloride (Vancomycin 1 Gm/Ns 200 Ml) 1 gm in 200 mls @ 133.333 mls/hr IVPB TuThSa [facility] PRN Reason: Protocol Stop: 10/09/17 14:01 Last Admin: 10/04/17 14:42 Dose: Not Given Midodrine (Proamatine) 5 mg PO TID [facility] Last Admin: 10/05/17 17:22 Dose: 5 mg Ondansetron HCl (Zofran Inj) 4 mg IVP Q6 PRN PRN Reason: Nausea/Vomiting Last Admin: 10/03/17 13:32 Dose: 4 mg - Labs Labs: 10/04/17 09:30 10/04/17 07:52 PT 15.9 SECONDS (9.7-12.2) H 10/04/17 09:29 INR 1.4 10/04/17 09:29 APTT 42 SECONDS (21-34) H D 10/04/17 09:29
[2017-10-06] MEDS: Bacitracin Ointment 30 GM TUBE TOP SCH ×2 (09:30→18:33)
[2017-10-06] MEDS ORDERED: Sodium Chloride 0.9% 250 ML IV ONE (10:15)
--- NOTE | 2017-10-06 10:32 | PCM.RRT ---
<OrenharriettNicole - Last Filed: 10/06/17 13:02> [employer] Nurses Assessment - Situation Date: 10/06/17 Time [employer] was called: 10:07 [employer] Location:: T Med/Surg [employer] Reason for Call: Change in Mental Status [employer] Called By: RN New IV Insertion Tolerance: Excellent - Constitutional Appears: Non-toxic, No Acute Distress - Head Head Exam: ATRAUMATIC - Eyes Eye Exam: EOMI - Respiratory Exam Respiratory Exam: Clear to Ausculation Bilateral. absent: Accessory Muscle Use , Rales, Rhonchi, Wheezes, Respiratory Distress - Cardiovascular Exam Cardiovascular Exam: Tachycardia, REGULAR RHYTHM, +S1, +S2 - GI/Abdominal Exam GI & Abdominal Exam: Soft, Normal Bowel Sounds. absent: Distended, Firm, Guarding, Rigid, Tenderness - Neurological Exam Neurological Exam: Alert, Awake, Oriented x3 - Extremities Exam Extremities Exam: absent: Pedal Edema Plan - Assessment of Findings&Treatment Plan 62year old male with past medical history of ESRD on HD T// as new dialysis pt has [employer] called for AMS called by nurse. patient was sitting in chair when he became unresponsive. Patient was transferred to bed with help of nurse and aid without difficulty. Within a few minutes, patient was responsive and following command. Vital signs were checked and are as follows: BP 86/55, HR 140, blood sugar of 85. Patient was given 250 cc of NS. Placed on non- rebreather mask at [address] scan of head without contrast is ordered. Stat portable CXR, CBC, CMP, VBG ordered. Patient's HR improved to 100s. Mental status returned to baseline within a few minutes. Brother was at bedside and was made aware of pts condition. Patient PMD, Dr. Wanda Stein notified. <Rohan Long - Last Filed: 10/06/17 14:08> Attending/Attestation - Attestation I have personally seen and examined this patient.: Yes I have fully participated in the care of the patient.: Yes I have reviewed all pertinent clinical information, including history, physical exam and plan: Yes Notes (Text): 10/06/17 14:06 Medical Hospitalist: Patient was seen and examined, intially was AMS however after he was aroused and oxygen placed on face he became awake and discussing with us. We will need to check basic lab work. Also he is pending HD today Rohan Long
--- NOTE | 2017-10-06 11:23 | CP.PCM.PN ---
Subjective - Date & Time of Evaluation Date of Evaluation: 10/06/17 Time of Evaluation: 11:20 - Subjective Subjective: [employer] called earlier for several seconds of unresponsivenesss bp found to be in 80's pt was sitting in a chair now at baseline, hard of hearing brother at bedside for head ct Hd later Objective - Vital Signs/Intake and Output Vital Signs (last 24 hours): Temp Pulse Resp BP Pulse Ox 97.6 F 92 H 20 90/57 L 96 10/06/17 08:31 10/06/17 08:31 10/06/17 08:31 10/06/17 08:31 10/06/17 08:31 Intake and Output: 10/06/17 10/06/17 06:59 18:59 Intake Total 118 Balance 118 - Medications Medications: Current Medications Acetaminophen (Tylenol 325mg Tab) 650 mg PO Q6 PRN PRN Reason: Pain, moderate (4-7) Bacitracin (Bacitracin) 1 gm TOP BID [facility] Last Admin: 10/06/17 09:30 Dose: 1 applic Calcitriol (Rocaltrol) 0.5 mcg PO DAILY [facility] Last Admin: 10/06/17 09:30 Dose: 0.5 mcg Calcium Acetate (Phoslo) 667 mg PO TID [facility] Last Admin: 10/06/17 09:30 Dose: 667 mg Epoetin Naeem (Procrit) 4,000 unit IV TTS [facility] Last Admin: 10/05/17 09:25 Dose: 4,000 unit Heparin Sodium (Porcine) (Heparin) 5,000 units SC Q12 [facility] Last Admin: 09/20/17 10:26 Dose: Not Given Hydrocortisone (Cortizone 0.5% Cream) 1 applic TOP BID [facility] Last Admin: 10/06/17 09:30 Dose: 1 applic Vancomycin/Sodium Chloride (Vancomycin 1 Gm/Ns 200 Ml) 1 gm in 200 mls @ 133.333 mls/hr IVPB TuThSa [facility] PRN Reason: Protocol Stop: 10/09/17 14:01 Last Admin: 10/04/17 14:42 Dose: Not Given Midodrine (Proamatine) 5 mg PO TID [facility] Last Admin: 10/06/17 09:30 Dose: 5 mg - Labs Labs: 10/04/17 09:30 10/04/17 07:52 PT 15.9 SECONDS (9.7-12.2) H 10/04/17 09:29 INR 1.4 10/04/17 09:29 APTT 42 SECONDS (21-34) H D 10/04/17 09:29 - Constitutional Appears: Confused, Chronically Ill - Head Exam Head Exam: ATRAUMATIC, NORMAL INSPECTION - Eye Exam Eye Exam: EOMI - ENT Exam ENT Exam: Mucous Membranes Moist - Neck Exam Neck Exam: Full ROM. absent: Lymphadenopathy - Respiratory Exam Respiratory Exam: Decreased Breath Sounds. absent: Rhonchi - Cardiovascular Exam Cardiovascular Exam: REGULAR RHYTHM. absent: Rubs - GI/Abdominal Exam GI & Abdominal Exam: Distended Additional comments: ascites - Extremities Exam Extremities Exam: Pedal Edema Additional comments: venous stasis Assessment and Plan - Assessment and Plan (Free Text) Assessment: esrd,permcath cirrhosis chronic hypotension albumin with HD today keep temp cool follow up head ct
[2017-10-06] MEDS ORDERED: Albumin Human 25% (12.5 gm/50 ml) IV ONE (11:24)
--- NOTE | 2017-10-06 11:32 | CT ---
PROCEDURE: CT HEAD WITHOUT CONTRAST. HISTORY: Altered mental status change COMPARISON: None available. TECHNIQUE: Axial computed tomography images were obtained through the head/brain without intravenous contrast. Radiation dose: Total exam DLP = 950.24 mGy-cm. This CT exam was performed using one or more of the following dose reduction techniques: Automated exposure control, adjustment of the mA and/or kV according to patient size, and/or use of iterative reconstruction technique. FINDINGS: HEMORRHAGE: No acute parenchymal, subarachnoid or extra-axial hemorrhage BRAIN: Moderate chronic periventricular white matter ischemic changes seen extending peripherally into the deep and subcortical white matter both cerebral hemispheres. . Dense calcifications along tentorial incisura felt to represent dural based calcification VENTRICLES: No obstructive hydrocephalus. CALVARIUM: No acute calvarial fracture seen. There is flattening of the right occiput which may be due to premature closure of the right lambdoid suture. . The th inner table of the calvarium is mottled in appearance; rule out renal osteodystrophy again the patient's history of renal failure the PARANASAL SINUSES: Unremarkable as visualized. No significant inflammatory changes. MASTOID AIR CELLS: The left mastoid air complex is sclerotic and underpneumatized with partial opacification of residual mastoid air cells. The there is a elliptical shaped soft tissue density within the left external auditory canal that demonstrates peripheral calcifications of uncertain etiology. Clinical correlation recommended OTHER FINDINGS: None. IMPRESSION: No acute intracranial hemorrhage or large acute infarct. Moderate chronic white matter ischemic changes. Moderate to fairly significant generalized volume loss. . See above discussion for additional details and findings.
[2017-10-06 11:53] LABS: VENOUS BLOOD GAS BASE EXCESS 0.5 mmol/L (0.0-2.0); VENOUS BLOOD GAS PCO2 37 mmHg (40-60); VENOUS BLOOD GAS PO2 39 mm/Hg (30-55); VENOUS BLOOD PH 7.43 (7.32-7.43)
--- NOTE | 2017-10-06 12:21 | CT ---
PROCEDURE: CT Chest without contrast HISTORY: Shortness of breath COMPARISON: Comparison made with chest radiograph obtained earlier same day. . Correlation also made with CT scan of the abdomen pelvis 09/23/2017 which imaged both lung bases. TECHNIQUE: Contiguous axial images were obtained through the chest without intravenous contrast enhancement. Sagittal and coronal reconstructions were performed. Radiation dose (DLP): 790.73 mGy-cm. This CT exam was performed using one or more of the following dose reduction techniques: Automated exposure control, adjustment of the mA and/or kV according to patient size, and/or use of iterative reconstruction technique. FINDINGS: LUNGS: There is a small right-sided effusion. There may be some minimal associated subsegmental atelectasis in the adjacent right lung base. . Minor linear scarring seen in the right anterior upper lobe extending to the pleural surface. . There are multiple small calcified granulomata scattered throughout both lung ahmadi. MEDIASTINUM: In situ right IJ dialysis catheter with tip in the IVC Heart appears enlarged. No significant pericardial effusion. Ascending thoracic aorta mildly dilated measuring approximately 4.0 cm. Descending thoracic aorta measures approximately 3.1 cm. Pulmonary trunk measures approximately 3.2 cm. . There are a few small nonspecific mediastinal lymph nodes. Evaluation for hilar adenopathy limited due to the lack of circulating intravenous contrast material. Central airways are midline and patent. No large central endoluminal lesions. Tiny hiatal hernia. PLEURA: As above. No pneumothorax. BONES: At least 2 old healed right posterior rib fracture deformities. Multilevel degenerative spondylosis of the thoracic and visualized upper lumbar spine Chronic endplate deformities -Schmorl's nodes with chronic anterior wedge compression fracture of the L1 segment. UPPER ABDOMEN: Large amount of abdominal ascites. . Liver exhibits somewhat nodular surface contour that most likely represent sequela of cirrhosis however clinical correlation recommended. The the OTHER FINDINGS: None. IMPRESSION: No acute infiltrates. Small right-sided effusion with suspected minimal adjacent subsegmental atelectasis. Scattered bilateral calcified granulomata. Findings consistent with prior exposure to granulomatous disease process. Cardiomegaly. Massive amount of abdominal ascites with suggesting consistent with underlying cirrhosis. See above discussion for additional details and findings. . Also, referral to prior CT scan abdomen pelvis and corresponding report 09/23/2017 suggested for additional details regarding abdomen if necessary.
[2017-10-06 12:27] LABS: BASO % 0.5 % (0.0-2.0); EOS % 0.2 % (0.0-4.0); HEMOGLOBIN 9.1 g/dL (12.0-18.0); LYMPH # 0.6 K/uL (1.0-4.3); LYMPH % 10.2 % (20.0-40.0); MEAN CELL VOLUME 89.1 fL (80.0-94.0); MEAN CORPUSCULAR HEMOGLOBIN 29.4 pg (27.0-31.0); MEAN PLATELET VOLUME 8.1 fL (7.2-11.7); MONO # 0.3 K/uL (0.0-0.8); MONO % 5.5 % (0.0-10.0); NEUT # 5.3 K/uL (1.8-7.0); NEUT % 83.6 % (50.0-75.0); NRBC % 0.1 % (0.0-2.0); RBC 3.09 Mil/uL (4.40-5.90); RED CELL DISTRIBUTION WIDTH 15.3 % (11.5-14.5); WHITE BLOOD COUNT 6.3 K/uL (4.8-10.8)
[2017-10-06] MEDS: EPOETIN ALFA 4,000 UNIT/ML ML Dialysis IV SCH (12:32)
[2017-10-06 12:43] LABS: ALB/GLOB RATIO 0.7 (1.0-2.1); ALBUMIN 2.3 g/dL (3.5-5.0); CALCIUM 7.6 mg/dl (8.6-10.4)
[2017-10-06] MEDS: Vancomycin 1 gm/NS 200 ml 1 GM/200 ML BAG IVPB SCH (13:30)
--- NOTE | 2017-10-06 16:29 | RAD ---
HISTORY: AMS COMPARISON: Comparison made with chest radiograph 10/04/2017 FINDINGS: In situ right IJ dialysis catheter with the tips in the RA and or inferior SVC/ superior IVC. LUNGS: Suspect minor bibasilar atelectasis. The PLEURA: No significant pleural effusion identified, no pneumothorax apparent. CARDIOVASCULAR: Normal. OSSEOUS STRUCTURES: No significant abnormalities. VISUALIZED UPPER ABDOMEN: Normal. OTHER FINDINGS: None. IMPRESSION: Suspect minor bibasilar atelectasis.
--- NOTE | 2017-10-06 18:08 | CP.PCM.PN ---
Subjective - Date & Time of Evaluation Date of Evaluation: 10/06/17 Time of Evaluation: 08:40 - Subjective Subjective: clinically same Objective - Vital Signs/Intake and Output Vital Signs (last 24 hours): Temp Pulse Resp BP Pulse Ox 97.2 F L 88 18 94/49 L 96 10/06/17 13:36 10/06/17 16:00 10/06/17 13:36 10/06/17 13:36 10/06/17 13:36 Intake and Output: 10/06/17 10/06/17 06:59 18:59 Intake Total 118 Balance 118 - Medications Medications: Current Medications Acetaminophen (Tylenol 325mg Tab) 650 mg PO Q6 PRN PRN Reason: Pain, moderate (4-7) Bacitracin (Bacitracin) 1 gm TOP BID [facility] Last Admin: 10/06/17 09:30 Dose: 1 applic Epoetin Naeem (Procrit) 4,000 unit IV TTS [facility] Last Admin: 10/06/17 12:32 Dose: 4,000 unit Heparin Sodium (Porcine) (Heparin) 5,000 units SC Q12 [facility] Last Admin: 09/20/17 10:26 Dose: Not Given Hydrocortisone (Cortizone 0.5% Cream) 1 applic TOP BID [facility] Last Admin: 10/06/17 09:30 Dose: 1 applic Vancomycin/Sodium Chloride (Vancomycin 1 Gm/Ns 200 Ml) 1 gm in 200 mls @ 133.333 mls/hr IVPB TuThSa [facility] PRN Reason: Protocol Stop: 10/09/17 14:01 Last Admin: 10/06/17 13:30 Dose: 133.333 mls/hr Midodrine (Proamatine) 5 mg PO TID [facility] Last Admin: 10/06/17 14:26 Dose: 5 mg - Labs Labs: 10/06/17 12:12 10/06/17 12:12 PT 15.9 SECONDS (9.7-12.2) H 10/04/17 09:29 INR 1.4 10/04/17 09:29 APTT 42 SECONDS (21-34) H D 10/04/17 09:29 - Constitutional Appears: Well - Head Exam Head Exam: ATRAUMATIC, NORMAL INSPECTION, NORMOCEPHALIC - Eye Exam Eye Exam: EOMI, Normal appearance, PERRL Pupil Exam: NORMAL ACCOMODATION, PERRL - ENT Exam ENT Exam: Mucous Membranes Moist, Normal Exam - Neck Exam Neck Exam: Full ROM, Normal Inspection. absent: Lymphadenopathy - Respiratory Exam Respiratory Exam: Decreased Breath Sounds - Cardiovascular Exam Cardiovascular Exam: REGULAR RHYTHM, +S1, +S2 - GI/Abdominal Exam GI & Abdominal Exam: Soft, Diminished Bowel Sounds - Rectal Exam Rectal Exam: Deferred
--- NOTE | 2017-10-06 18:14 | CP.PCM.PN ---
Subjective - Date & Time of Evaluation Date of Evaluation: 10/06/17 Time of Evaluation: 18:14 Objective - Vital Signs/Intake and Output Vital Signs (last 24 hours): Temp Pulse Resp BP Pulse Ox 97.2 F L 88 18 94/49 L 96 10/06/17 13:36 10/06/17 16:00 10/06/17 13:36 10/06/17 13:36 10/06/17 13:36 Intake and Output: 10/06/17 10/06/17 06:59 18:59 Intake Total 118 Balance 118 - Medications Medications: Current Medications Acetaminophen (Tylenol 325mg Tab) 650 mg PO Q6 PRN PRN Reason: Pain, moderate (4-7) Bacitracin (Bacitracin) 1 gm TOP BID [facility] Last Admin: 10/06/17 09:30 Dose: 1 applic Epoetin Naeem (Procrit) 4,000 unit IV TTS [facility] Last Admin: 10/06/17 12:32 Dose: 4,000 unit Heparin Sodium (Porcine) (Heparin) 5,000 units SC Q12 [facility] Last Admin: 09/20/17 10:26 Dose: Not Given Hydrocortisone (Cortizone 0.5% Cream) 1 applic TOP BID [facility] Last Admin: 10/06/17 09:30 Dose: 1 applic Vancomycin/Sodium Chloride (Vancomycin 1 Gm/Ns 200 Ml) 1 gm in 200 mls @ 133.333 mls/hr IVPB TuThSa [facility] PRN Reason: Protocol Stop: 10/09/17 14:01 Last Admin: 10/06/17 13:30 Dose: 133.333 mls/hr Midodrine (Proamatine) 5 mg PO TID [facility] Last Admin: 10/06/17 14:26 Dose: 5 mg - Labs Labs: 10/06/17 12:12 10/06/17 12:12 PT 15.9 SECONDS (9.7-12.2) H 10/04/17 09:29 INR 1.4 10/04/17 09:29 APTT 42 SECONDS (21-34) H D 10/04/17 09:29
[2017-10-07] MEDS: Bacitracin Ointment 30 GM TUBE TOP SCH ×2 (12:07→17:28)
--- NOTE | 2017-10-07 15:18 | CP.PCM.PN ---
Subjective - Date & Time of Evaluation Date of Evaluation: 10/07/17 Time of Evaluation: 09:00 - Subjective Subjective: clinically same Objective - Vital Signs/Intake and Output Vital Signs (last 24 hours): Temp Pulse Resp BP Pulse Ox 97.9 F 96 H 20 85/57 L 97 10/07/17 09:23 10/07/17 09:23 10/07/17 09:23 10/07/17 10:30 10/07/17 09:23 Intake and Output: 10/07/17 10/07/17 06:59 18:59 Intake Total 0 240 Balance 0 240 - Medications Medications: Current Medications Acetaminophen (Tylenol 325mg Tab) 650 mg PO Q6 PRN PRN Reason: Pain, moderate (4-7) Bacitracin (Bacitracin) 1 gm TOP BID [facility] Last Admin: 10/07/17 12:07 Dose: 1 applic Epoetin Naeem (Procrit) 4,000 unit IV TTS [facility] Last Admin: 10/06/17 12:32 Dose: 4,000 unit Heparin Sodium (Porcine) (Heparin) 5,000 units SC Q12 [facility] Last Admin: 09/20/17 10:26 Dose: Not Given Hydrocortisone (Cortizone 0.5% Cream) 1 applic TOP BID [facility] Last Admin: 10/07/17 12:07 Dose: 1 applic Linezolid (Zyvox 600mg/300ml D5w) 600 mg in 300 mls @ 200 mls/hr IVPB Q12H [facility] PRN Reason: Protocol Midodrine (Proamatine) 5 mg PO TID [facility] Last Admin: 10/07/17 13:15 Dose: 5 mg - Labs Labs: 10/06/17 12:12 10/06/17 12:12 PT 15.9 SECONDS (9.7-12.2) H 10/04/17 09:29 INR 1.4 10/04/17 09:29 APTT 42 SECONDS (21-34) H D 10/04/17 09:29 - Constitutional Appears: Well - Head Exam Head Exam: ATRAUMATIC, NORMAL INSPECTION, NORMOCEPHALIC - Eye Exam Eye Exam: EOMI, Normal appearance, PERRL Pupil Exam: NORMAL ACCOMODATION, PERRL - ENT Exam ENT Exam: Mucous Membranes Moist, Normal Exam - Neck Exam Neck Exam: Full ROM, Normal Inspection. absent: Lymphadenopathy - Respiratory Exam Respiratory Exam: Decreased Breath Sounds - Cardiovascular Exam Cardiovascular Exam: REGULAR RHYTHM, +S1, +S2 - GI/Abdominal Exam GI & Abdominal Exam: Soft, Diminished Bowel Sounds - Rectal Exam Rectal Exam: Deferred
[2017-10-07] MEDS ORDERED: Linezolid 600 mg in D5W 300 ml 600 MG/300 ML BAG IVPB SCH (16:00)
[2017-10-08] MEDS: Bacitracin Ointment 30 GM TUBE TOP SCH ×2 (10:29→15:48)
--- NOTE | 2017-10-08 11:21 | CP.PCM.PN ---
Subjective - Date & Time of Evaluation Date of Evaluation: 10/08/17 Time of Evaluation: 11:17 - Subjective Subjective: Confused; family at bedside BP remains low s/p dialysis 10/06- UF minimal as BP low discussed with family- pt might need LTC facility appetite poor Objective - Vital Signs/Intake and Output Vital Signs (last 24 hours): Temp Pulse Resp BP Pulse Ox 97.7 F 99 H 20 96/64 L 97 10/08/17 07:10 10/08/17 08:00 10/08/17 07:10 10/08/17 07:10 10/08/17 07:10 Intake and Output: 10/08/17 10/08/17 06:59 18:59 Intake Total 0 Balance 0 - Medications Medications: Current Medications Acetaminophen (Tylenol 325mg Tab) 650 mg PO Q6 PRN PRN Reason: Pain, moderate (4-7) Bacitracin (Bacitracin) 1 gm TOP BID [facility] Last Admin: 10/08/17 10:29 Dose: 1 applic Epoetin Naeem (Procrit) 4,000 unit IV TTS [facility] Last Admin: 10/06/17 12:32 Dose: 4,000 unit Heparin Sodium (Porcine) (Heparin) 5,000 units SC Q12 [facility] Last Admin: 09/20/17 10:26 Dose: Not Given Hydrocortisone (Cortizone 0.5% Cream) 1 applic TOP BID [facility] Last Admin: 10/08/17 10:29 Dose: 1 applic Tigecycline 50 mg/ Sodium (Chloride) 100 mls @ 100 mls/hr IVPB Q12H [facility] PRN Reason: Protocol Last Admin: 10/08/17 10:27 Dose: 100 mls/hr Midodrine (Proamatine) 5 mg PO TID [facility] Last Admin: 10/08/17 10:28 Dose: 5 mg - Labs Labs: 10/06/17 12:12 10/06/17 12:12 PT 15.9 SECONDS (9.7-12.2) H 10/04/17 09:29 INR 1.4 10/04/17 09:29 APTT 42 SECONDS (21-34) H D 10/04/17 09:29 - Constitutional Appears: In Acute Distress, Chronically Ill - Head Exam Head Exam: ATRAUMATIC, NORMAL INSPECTION - Eye Exam Eye Exam: EOMI, Normal appearance - Neck Exam Neck Exam: Normal Inspection. absent: Tenderness - Respiratory Exam Respiratory Exam: Clear to Ausculation Bilateral, NORMAL BREATHING PATTERN - Cardiovascular Exam Cardiovascular Exam: REGULAR RHYTHM, +S1 - GI/Abdominal Exam GI & Abdominal Exam: Distended, Soft. absent: Tenderness - Extremities Exam Extremities Exam: Normal Inspection. absent: Tenderness - Neurological Exam Neurological Exam: Alert, CN II-XII Intact - Skin Skin Exam: Dry, Warm Assessment and Plan (1) CKD stage 5 secondary to hypertension Status: Acute (2) Secondary hyperparathyroidism Status: Acute (3) Hypothyroidism Status: Acute (4) Uremia Status: Acute (5) Cirrhosis Status: Acute (6) ESRD (end stage renal disease) on dialysis Status: Acute - Assessment and Plan (Free Text) Plan: increase midodrine dose dialysis TTS- minimal UF might need repeat paracentesis AV access maturing discuss placement with social service
--- NOTE | 2017-10-08 13:20 | CP.PCM.PN ---
Objective - Vital Signs/Intake and Output Vital Signs (last 24 hours): Temp Pulse Resp BP Pulse Ox 97.7 F 99 H 20 96/64 L 97 10/08/17 07:10 10/08/17 08:00 10/08/17 07:10 10/08/17 07:10 10/08/17 07:10 Intake and Output: 10/08/17 10/08/17 06:59 18:59 Intake Total 0 Balance 0 - Medications Medications: Current Medications Acetaminophen (Tylenol 325mg Tab) 650 mg PO Q6 PRN PRN Reason: Pain, moderate (4-7) Bacitracin (Bacitracin) 1 gm TOP BID [facility] Last Admin: 10/08/17 10:29 Dose: 1 applic Epoetin Naeem (Procrit) 10,000 unit IV TTS [facility] Heparin Sodium (Porcine) (Heparin) 5,000 units SC Q12 [facility] Last Admin: 09/20/17 10:26 Dose: Not Given Hydrocortisone (Cortizone 0.5% Cream) 1 applic TOP BID [facility] Last Admin: 10/08/17 10:29 Dose: 1 applic Tigecycline 50 mg/ Sodium (Chloride) 100 mls @ 100 mls/hr IVPB Q12H [facility] PRN Reason: Protocol Last Admin: 10/08/17 10:27 Dose: 100 mls/hr Midodrine (Proamatine) 10 mg PO TID [facility] - Labs Labs: 10/06/17 12:12 10/06/17 12:12 PT 15.9 SECONDS (9.7-12.2) H 10/04/17 09:29 INR 1.4 10/04/17 09:29 APTT 42 SECONDS (21-34) H D 10/04/17 09:29
--- NOTE | 2017-10-08 14:56 | CP.PCM.CON ---
History of Present Illness - History of Present Illness History of Present Illness: dictated Past Patient History - Infectious Disease Hx of Infectious Diseases: None - Past Medical History & Family History Past Medical History?: Yes Past Family History: Reviewed and not pertinent - Past Social History Smoking Status: Never Smoked Chewing Tobacco Use: No Cigar Use: No - CARDIAC Hx Hypertension: Yes - PULMONARY Other/Comment: sob upon exertion - HEENT Hx HEENT Problems: Yes - RENAL Hx Renal Failure: Yes (ESRD) - ENDOCRINE/METABOLIC Hx Hypothyroidism: Yes - HEMATOLOGICAL/ONCOLOGICAL Hx Blood Disorders: Yes Hx Gum Bleeding: Yes - MUSCULOSKELETAL/RHEUMATOLOGICAL Hx Arthritis: Yes - GASTROINTESTINAL Hx Gastrointestinal Disorders: Yes Hx Gastroesophageal Reflux: Yes Hx Ulcer: Yes (gastric) - PSYCHIATRIC Hx Substance Use: No - SURGICAL HISTORY Hx Surgeries: Yes Other/Comment: exc benign tumor tight knee 1969 - ANESTHESIA Hx Anesthesia: Yes Hx Anesthesia Reactions: No Hx Malignant Hyperthermia: No Meds Allergies/Adverse Reactions: Allergies Allergy/AdvReac Type Severity Reaction Status Date / Time No Known Allergies Allergy Verified 10/16/13 09:00 - Medications Medications: Current Medications Acetaminophen (Tylenol 325mg Tab) 650 mg PO Q6 PRN PRN Reason: Pain, moderate (4-7) Bacitracin (Bacitracin) 1 gm TOP BID [facility] Last Admin: 10/08/17 10:29 Dose: 1 applic Epoetin Naeem (Procrit) 10,000 unit IV TTS [facility] Heparin Sodium (Porcine) (Heparin) 5,000 units SC Q12 [facility] Last Admin: 09/20/17 10:26 Dose: Not Given Hydrocortisone (Cortizone 0.5% Cream) 1 applic TOP BID [facility] Last Admin: 10/08/17 10:29 Dose: 1 applic Tigecycline 50 mg/ Sodium (Chloride) 100 mls @ 100 mls/hr IVPB Q12H [facility] PRN Reason: Protocol Last Admin: 10/08/17 10:27 Dose: 100 mls/hr Midodrine (Proamatine) 10 mg PO TID [facility] Last Admin: 10/08/17 13:58 Dose: 10 mg Results - Vital Signs Recent Vital Signs: Last Vital Signs Temp 97.7 F 10/08/17 07:10 Pulse 89 10/08/17 13:57 Resp 20 10/08/17 07:10 BP 109/73 10/08/17 13:57 Pulse Ox 97 10/08/17 07:10 - Labs Result Diagrams: 10/06/17 12:12 10/06/17 12:12 Labs: Laboratory Results - last 24 hr 10/08/17 10/08/17 06:13 11:29 POC Glucose (mg/dL) 83 84
--- NOTE | 2017-10-08 17:38 | CP.PCM.PN ---
Subjective - Date & Time of Evaluation Date of Evaluation: 10/08/17 Time of Evaluation: 08:40 - Subjective Subjective: clinically same Objective - Vital Signs/Intake and Output Vital Signs (last 24 hours): Temp Pulse Resp BP Pulse Ox 97.6 F 91 H 20 94/63 L 97 10/08/17 15:42 10/08/17 15:42 10/08/17 15:42 10/08/17 15:42 10/08/17 15:42 Intake and Output: 10/08/17 10/08/17 06:59 18:59 Intake Total 0 600 Balance 0 600 - Medications Medications: Current Medications Acetaminophen (Tylenol 325mg Tab) 650 mg PO Q6 PRN PRN Reason: Pain, moderate (4-7) Epoetin Naeem (Procrit) 10,000 unit IV TTS [facility] Heparin Sodium (Porcine) (Heparin) 5,000 units SC Q12 [facility] Last Admin: 09/20/17 10:26 Dose: Not Given Hydrocortisone (Cortizone 0.5% Cream) 1 applic TOP BID [facility] Last Admin: 10/08/17 10:29 Dose: 1 applic Tigecycline 50 mg/ Sodium (Chloride) 100 mls @ 100 mls/hr IVPB Q12H [facility] PRN Reason: Protocol Last Admin: 10/08/17 10:27 Dose: 100 mls/hr Midodrine (Proamatine) 10 mg PO TID [facility] Last Admin: 10/08/17 13:58 Dose: 10 mg - Labs Labs: 10/06/17 12:12 10/06/17 12:12 PT 15.9 SECONDS (9.7-12.2) H 10/04/17 09:29 INR 1.4 10/04/17 09:29 APTT 42 SECONDS (21-34) H D 10/04/17 09:29 - Constitutional Appears: Well - Head Exam Head Exam: ATRAUMATIC, NORMAL INSPECTION, NORMOCEPHALIC - Eye Exam Eye Exam: EOMI, Normal appearance, PERRL Pupil Exam: NORMAL ACCOMODATION, PERRL - ENT Exam ENT Exam: Mucous Membranes Moist, Normal Exam - Neck Exam Neck Exam: Full ROM, Normal Inspection. absent: Lymphadenopathy - Respiratory Exam Respiratory Exam: Decreased Breath Sounds - Cardiovascular Exam Cardiovascular Exam: REGULAR RHYTHM, +S1, +S2 - Rectal Exam Rectal Exam: Deferred
--- NOTE | 2017-10-09 05:56 | CON ---
DATE: INFECTIOUS DISEASE CONSULTATION REQUESTING PHYSICIAN: Dr. Kobe Stein. HISTORY OF PRESENT ILLNESS: This patient is a 62-year-old male. He has end-stage renal disease. 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 Hence I am asked to evaluate him. He was admitted on 09/20/2017 through the emergency room, and he was brought up in with generalized weakness by his family, and the patient was advised to have dialysis, but he did not followup, and now, he came in with renal failure. On this admission, he has had fistula placed, fistula removed, and he has a catheter in his right IJ right now. He also has cirrhosis of the liver. He was also having nonbloody diarrhea when he came in on 09/20/2017, now it is 10/08/2017. He has been here almost 18 days, and he has had peritoneal tap. In the meanwhile, he has had other issues dealt with, and he has been followed by multiple consultants. I looked up his VRE, and I found that it was more sensitive to Tygacil than to Zyvox, and hence I have changed it to Tygacil. PAST MEDICAL HISTORY: Significant for hypertension secondary to hyperparathyroidism. He has a possible atrophic left kidney, hypertension, cirrhosis of liver, hypothyroidism, and at this time, he is awake and alert, but his blood pressure was low. He did come in with blurred vision. He still is in isolation because of this. He does have dyspnea on exertion. He still has some cough. He denies any diarrhea or nausea at this time. He did say they removed fluid. He is feeling slightly cold. There are no urinary symptoms at this time, but he has come in with generalized weakness, myalgias. SOCIAL HISTORY: He never smoked. No chewing gum. No cigars. He used to take alcohol occasionally. REVIEW OF SYSTEMS: He has cardiac issues of hypertension and bilateral leg edema. Pulmonary: He had shortness of breath. He has had eye problems, chronic renal disease, kidney stones, hypothyroidism and history of fall, last fall was three months ago, and he has bleeding problems from the gums, blood disorder. GI: He has gastroesophageal reflux disease, gastric ulcer. Psychiatric: He has no substance abuse, and he has had previous surgery which was a benign tumor removed from his knee in 1969. ALLERGIES: HE IS NOT ALLERGIC TO ANY MEDICINES. MEDICATIONS: At the present time, he is on Tylenol p.r.n. He is on Epogen, heparin subcu 5000, hydrocortisone cream topically. He is getting Midodrine 10 mg p.o. three times daily, and he is on Tygacil 50 mg two times daily, and I do not see any other medications at this time. PHYSICAL EXAMINATION: VITAL SIGNS: On examination now, I find his T-max was 97.6, pulse 91, blood pressure is on the low side 94/63, respirations are 20. HEENT: Head is atraumatic and normocephalic. He is awake. Pupils are reacting to light. Tongue is moist. NECK: Supple. JVP is flat. LUNGS: Decreased breath sounds bilaterally. HEART: S1, S2 is present. ABDOMEN: Distended with ascites, probably has a periumbilical hernia. EXTREMITIES: Remain with edema. LABORATORY DATA: Labs are noted. Last from 10/06/2017, which was 6.3, hemoglobin 9.1, hematocrit 27.5, platelet count is 185. BUN is 21, creatinine is 4.1, calcium was low at 7.6 at bedtime. The labs which came back was left arm, wound culture was done which was probably removed, and that was VRE, vancomycin resistant Enterococcus, and coagulase negative Staph, and both should be sensitive to Tygacil. Otherwise, he had peritoneal tap on 09/24/2017. Culture is negative. Blood culture x2 are negative from 10/06/2017, and labs are already read. Chest x-ray: Imaging was done. Head CT, which was done on 10/06/2017 showed no acute intracranial , moderate chronic white matter ischemic changes, moderate to fairly significant generalized volume loss, so he probably has some dementia. His chest CT shows no acute infiltrates, small right-sided effusion with suspected minimal adhesions, subsegmental atelectasis, scattered bilateral calcified granuloma. Findings consistent with prior exposure to granulomatous disease. So at this time, I left him on Tygacil. 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 We will follow, and we will continue Tygacil for now and if he loses his IV we will probably have to put him on Zyvox p.o. to complete total two weeks of treatment. We will follow. Melina Barajas MD
[2017-10-09 09:01] LABS: HEMOGLOBIN 10.4 g/dL (12.0-18.0); MEAN CELL VOLUME 90.3 fL (80.0-94.0); MEAN CORPUSCULAR HEMOGLOBIN 29.8 pg (27.0-31.0); MEAN CORPUSCULAR HGB CONC 33.1 g/dL (33.0-37.0); MEAN PLATELET VOLUME 7.7 fL (7.2-11.7); RBC 3.48 Mil/uL (4.40-5.90); RED CELL DISTRIBUTION WIDTH 16.1 % (11.5-14.5); WHITE BLOOD COUNT 7.9 K/uL (4.8-10.8)
[2017-10-09 09:25] LABS: ALB/GLOB RATIO 0.7 (1.0-2.1); ALBUMIN 2.3 g/dL (3.5-5.0); CALCIUM 7.5 mg/dl (8.6-10.4)
--- NOTE | 2017-10-09 10:48 | CP.PCM.PN ---
Subjective - Date & Time of Evaluation Date of Evaluation: 10/09/17 Time of Evaluation: 10:46 - Subjective Subjective: seen and examined on antibiotics for vre + culture from left arm fistula? ID on case estimated uf 1L pt awake and alert, no complaints wants to go home Objective - Vital Signs/Intake and Output Vital Signs (last 24 hours): Temp Pulse Resp BP Pulse Ox 97.4 F L 81 16 99/61 L 100 10/09/17 10:25 10/09/17 10:25 10/09/17 10:25 10/09/17 10:25 10/09/17 10:25 - Medications Medications: Current Medications Acetaminophen (Tylenol 325mg Tab) 650 mg PO Q6 PRN PRN Reason: Pain, moderate (4-7) Epoetin Naeem (Procrit) 10,000 unit IV TTS [facility] Heparin Sodium (Porcine) (Heparin) 5,000 units SC Q12 [facility] Last Admin: 09/20/17 10:26 Dose: Not Given Tigecycline 50 mg/ Sodium (Chloride) 100 mls @ 100 mls/hr IVPB Q12H [facility] PRN Reason: Protocol Last Admin: 10/08/17 21:19 Dose: 100 mls/hr Midodrine (Proamatine) 10 mg PO TID [facility] Last Admin: 10/09/17 10:12 Dose: 10 mg - Labs Labs: 10/09/17 08:50 10/09/17 08:50 PT 15.9 SECONDS (9.7-12.2) H 10/04/17 09:29 INR 1.4 10/04/17 09:29 APTT 42 SECONDS (21-34) H D 10/04/17 09:29 - Constitutional Appears: No Acute Distress, Older Than Stated Age, Chronically Ill - Head Exam Head Exam: NORMAL INSPECTION, NORMOCEPHALIC - Eye Exam Eye Exam: Normal appearance, PERRL - ENT Exam ENT Exam: Mucous Membranes Moist, Normal Exam - Respiratory Exam Respiratory Exam: Clear to Ausculation Bilateral, NORMAL BREATHING PATTERN - Cardiovascular Exam Cardiovascular Exam: REGULAR RHYTHM, RRR - GI/Abdominal Exam GI & Abdominal Exam: Distended (fluid thrill), Soft - Back Exam Back Exam: NORMAL INSPECTION Additional comments: lue avf rt chest permcath - Neurological Exam Neurological Exam: Alert, Awake - Psychiatric Exam Psychiatric exam: Normal Affect - Skin Skin Exam: Intact Assessment and Plan (1) Anemia Status: Acute (2) Cirrhosis Status: Acute (3) ESRD (end stage renal disease) on dialysis Status: Acute (4) Secondary hyperparathyroidism Status: Acute - Assessment and Plan (Free Text) Assessment: antibiotics per ID for arm cellulitis blood cultures negative maintain hd tts placement
[2017-10-09] MEDS ORDERED: Albumin Human 25% (12.5 gm/50 ml) IV ONE ×2 (10:50→11:15)
[2017-10-09] MEDS: Epoetin Alfa 10,000 unit/ml Dialysis IV SCH (11:47)
--- NOTE | 2017-10-09 12:29 | CARD ---
APPROVED REPORT EKG Measurement Heart [id number] <Conclusion> Atrial fibrillation with rapid ventricular response Left axis deviation Low voltage QRS Abnormal ECG
--- NOTE | 2017-10-09 15:28 | CP.PCM.PN ---
Subjective - Date & Time of Evaluation Date of Evaluation: 10/09/17 Time of Evaluation: 08:20 - Subjective Subjective: clinically same Objective - Vital Signs/Intake and Output Vital Signs (last 24 hours): Temp Pulse Resp BP Pulse Ox 97.2 F L 60 24 70/56 L 97 10/09/17 13:25 10/09/17 13:25 10/09/17 13:25 10/09/17 13:25 10/09/17 13:25 - Medications Medications: Current Medications Acetaminophen (Tylenol 325mg Tab) 650 mg PO Q6 PRN PRN Reason: Pain, moderate (4-7) Epoetin Naeem (Procrit) 10,000 unit IV TTS [facility] Last Admin: 10/09/17 11:47 Dose: 10,000 unit Heparin Sodium (Porcine) (Heparin) 5,000 units SC Q12 [facility] Last Admin: 09/20/17 10:26 Dose: Not Given Tigecycline 50 mg/ Sodium (Chloride) 100 mls @ 100 mls/hr IVPB Q12H [facility] PRN Reason: Protocol Last Admin: 10/09/17 14:25 Dose: 100 mls/hr Midodrine (Proamatine) 10 mg PO TID [facility] Last Admin: 10/09/17 14:25 Dose: 10 mg - Labs Labs: 10/09/17 08:50 10/09/17 08:50 PT 15.9 SECONDS (9.7-12.2) H 10/04/17 09:29 INR 1.4 10/04/17 09:29 APTT 42 SECONDS (21-34) H D 10/04/17 09:29 - Constitutional Appears: Well - Head Exam Head Exam: ATRAUMATIC, NORMAL INSPECTION, NORMOCEPHALIC - Eye Exam Eye Exam: EOMI, Normal appearance, PERRL Pupil Exam: NORMAL ACCOMODATION, PERRL - ENT Exam ENT Exam: Mucous Membranes Moist, Normal Exam - Neck Exam Neck Exam: Full ROM, Normal Inspection. absent: Lymphadenopathy - Respiratory Exam Respiratory Exam: Decreased Breath Sounds - Cardiovascular Exam Cardiovascular Exam: REGULAR RHYTHM, +S1, +S2 - GI/Abdominal Exam GI & Abdominal Exam: Soft, Diminished Bowel Sounds - Rectal Exam Rectal Exam: Deferred
--- NOTE | 2017-10-09 16:43 | CP.PCM.PN ---
Subjective - Date & Time of Evaluation Date of Evaluation: 10/09/17 Time of Evaluation: 16:43 Objective - Vital Signs/Intake and Output Vital Signs (last 24 hours): Temp Pulse Resp BP Pulse Ox 97.2 F L 60 24 70/56 L 97 10/09/17 13:25 10/09/17 13:25 10/09/17 13:25 10/09/17 13:25 10/09/17 13:25 Intake and Output: 10/09/17 10/09/17 06:59 18:59 Intake Total 200 Balance 200 - Medications Medications: Current Medications Acetaminophen (Tylenol 325mg Tab) 650 mg PO Q6 PRN PRN Reason: Pain, moderate (4-7) Epoetin Naeem (Procrit) 10,000 unit IV TTS [facility] Last Admin: 10/09/17 11:47 Dose: 10,000 unit Heparin Sodium (Porcine) (Heparin) 5,000 units SC Q12 [facility] Last Admin: 09/20/17 10:26 Dose: Not Given Tigecycline 50 mg/ Sodium (Chloride) 100 mls @ 100 mls/hr IVPB Q12H [facility] PRN Reason: Protocol Last Admin: 10/09/17 14:25 Dose: 100 mls/hr Midodrine (Proamatine) 10 mg PO TID [facility] Last Admin: 10/09/17 14:25 Dose: 10 mg - Labs Labs: 10/09/17 08:50 10/09/17 08:50 PT 15.9 SECONDS (9.7-12.2) H 10/04/17 09:29 INR 1.4 10/04/17 09:29 APTT 42 SECONDS (21-34) H D 10/04/17 09:29
--- NOTE | 2017-10-09 21:14 | CP.PCM.PN ---
Subjective - Date & Time of Evaluation Date of Evaluation: 10/09/17 Time of Evaluation: 03:00 - Subjective Subjective: dictated Objective - Vital Signs/Intake and Output Vital Signs (last 24 hours): Temp Pulse Resp BP Pulse Ox 97.3 F L 93 H 18 97/69 L 95 10/09/17 15:00 10/09/17 16:00 10/09/17 15:00 10/09/17 15:00 10/09/17 15:00 Intake and Output: 10/09/17 10/10/17 18:59 06:59 Intake Total 200 Balance 200 - Medications Medications: Current Medications Acetaminophen (Tylenol 325mg Tab) 650 mg PO Q6 PRN PRN Reason: Pain, moderate (4-7) Epoetin Naeem (Procrit) 10,000 unit IV TTS [facility] Last Admin: 10/09/17 11:47 Dose: 10,000 unit Heparin Sodium (Porcine) (Heparin) 5,000 units SC Q12 [facility] Last Admin: 09/20/17 10:26 Dose: Not Given Tigecycline 50 mg/ Sodium (Chloride) 100 mls @ 100 mls/hr IVPB Q12H [facility] PRN Reason: Protocol Last Admin: 10/09/17 14:25 Dose: 100 mls/hr Midodrine (Proamatine) 10 mg PO TID [facility] Last Admin: 10/09/17 18:07 Dose: 10 mg - Labs Labs: 10/09/17 08:50 10/09/17 08:50 PT 15.9 SECONDS (9.7-12.2) H 10/04/17 09:29 INR 1.4 10/04/17 09:29 APTT 42 SECONDS (21-34) H D 10/04/17 09:29
--- NOTE | 2017-10-10 02:24 | PN ---
DATE: 10/09/2017 SUBJECTIVE: The patient was seen today again. He had come after the dialysis, and he had no new complaints, and he was like, "how is my heart doing" and I said, it is fine. PHYSICAL EXAMINATION: VITAL SIGNS/GENERAL: T-max is 97.3, pulse 82, blood pressure is 97/69, later on low, but he was alert, awake, in no acute respiratory distress. NECK: Supple. JVP is flat. LUNGS: Clear. No crackles or rales present. HEART: S1 and S2 is regular. ABDOMEN: He is distended. He has ascites. EXTREMITIES: There is no edema. LABORATORY DATA: Show white count is 7.9, hemoglobin is 10.4, hematocrit 31.4, platelet count is 189, sodium 133, potassium 3.8, chloride is 95, CO2 is 26, BUN is 17, creatinine is 4.8. The patient's wound was noticed on the left side. He has a deep wound, and he is on Tygacil at this time covering for VRE and coagulase-negative Staph to organisms, and he had a dressing there, but it was coming off, and the nurse said that he was told that only Dr. Houser will be doing the dressing. So, we will wait for the vascular followup, and I would continue the antibiotics. Today is day 2 of Tygacil. He has ascites, end stage renal disease, cirrhosis of liver, secondary hyperparathyroidism, and a wound infection and he has a new catheter for dialysis in the right IJ. Melina Barajas MD
[2017-10-10] MEDS ORDERED: Glucagon Recombinant 1 mg Inj IM PRN (06:30)
[2017-10-10] MEDS: Dextrose 50% SYRINGE Inj (50 ml) IV PRN (06:45)
--- NOTE | 2017-10-10 14:29 | CP.PCM.PN ---
Subjective - Date & Time of Evaluation Date of Evaluation: 10/10/17 Time of Evaluation: 14:27 - Subjective Subjective: sleepy now has been tolerating dialysis TTS on IV ABs for wound infection might need repeat paracentesis will need placement Objective - Vital Signs/Intake and Output Vital Signs (last 24 hours): Temp Pulse Resp BP Pulse Ox 97.2 F L 67 20 96/68 L 94 L 10/10/17 08:40 10/10/17 08:40 10/10/17 08:40 10/10/17 08:40 10/10/17 08:40 Intake and Output: 10/10/17 10/10/17 06:59 18:59 Intake Total 340 Balance 340 - Medications Medications: Current Medications Acetaminophen (Tylenol 325mg Tab) 650 mg PO Q6 PRN PRN Reason: Pain, moderate (4-7) Dextrose (Dextrose 50% Inj) 0 ml IV STAT PRN; Protocol PRN Reason: Hypoglycemia Protocol Last Admin: 10/10/17 06:45 Dose: 50 ml Dextrose (Glutose 15) 0 gm PO ONCE PRN; Protocol PRN Reason: Hypoglycemia Protocol Epoetin Naeem (Procrit) 10,000 unit IV TTS [facility] Last Admin: 10/09/17 11:47 Dose: 10,000 unit Glucagon (Glucagen Diagnostic Kit) 0 mg IM STAT PRN; Protocol PRN Reason: Hypoglycemia Protocol Heparin Sodium (Porcine) (Heparin) 5,000 units SC Q12 [facility] Last Admin: 09/20/17 10:26 Dose: Not Given Tigecycline 50 mg/ Sodium (Chloride) 100 mls @ 100 mls/hr IVPB Q12H [facility] PRN Reason: Protocol Last Admin: 10/10/17 09:49 Dose: 100 mls/hr Dextrose (Dextrose 5% In Water 1000 Ml) 1,000 mls @ 0 mls/hr IV .Q0M PRN; Protocol; Per Protocol PRN Reason: Hypoglycemia Protocol Midodrine (Proamatine) 10 mg PO TID [facility] Last Admin: 10/10/17 09:49 Dose: 10 mg Ondansetron HCl (Zofran Inj) 4 mg IVP Q6 PRN PRN Reason: Nausea/Vomiting Last Admin: 10/10/17 08:47 Dose: 4 mg - Labs Labs: 10/09/17 08:50 10/09/17 08:50 PT 15.9 SECONDS (9.7-12.2) H 10/04/17 09:29 INR 1.4 10/04/17 09:29 APTT 42 SECONDS (21-34) H D 10/04/17 09:29 - Constitutional Appears: No Acute Distress, Chronically Ill - Head Exam Head Exam: ATRAUMATIC, NORMAL INSPECTION - Eye Exam Eye Exam: EOMI, Normal appearance - Neck Exam Neck Exam: Normal Inspection. absent: Full ROM - Respiratory Exam Respiratory Exam: Clear to Ausculation Bilateral, NORMAL BREATHING PATTERN - Cardiovascular Exam Cardiovascular Exam: REGULAR RHYTHM, +S1 - GI/Abdominal Exam GI & Abdominal Exam: Distended, Soft - Extremities Exam Extremities Exam: Normal Inspection. absent: Tenderness - Neurological Exam Neurological Exam: Alert, CN II-XII Intact - Skin Skin Exam: Dry, Warm Assessment and Plan (1) CKD stage 5 secondary to hypertension Status: Acute (2) Secondary hyperparathyroidism Status: Acute (3) Hypothyroidism Status: Acute (4) Uremia Status: Acute (5) Cirrhosis Status: Acute (6) ESRD (end stage renal disease) on dialysis Status: Acute - Assessment and Plan (Free Text) Plan: dialysis TTS same meds needs placement- LTC, ? NH IV ABs
--- NOTE | 2017-10-10 15:17 | CP.PCM.PN ---
Subjective - Date & Time of Evaluation Date of Evaluation: 10/10/17 Time of Evaluation: 09:00 - Subjective Subjective: clinical Objective - Vital Signs/Intake and Output Vital Signs (last 24 hours): Temp Pulse Resp BP Pulse Ox 97.2 F L 67 20 96/68 L 94 L 10/10/17 08:40 10/10/17 08:40 10/10/17 08:40 10/10/17 08:40 10/10/17 08:40 Intake and Output: 10/10/17 10/10/17 06:59 18:59 Intake Total 340 Balance 340 - Medications Medications: Current Medications Acetaminophen (Tylenol 325mg Tab) 650 mg PO Q6 PRN PRN Reason: Pain, moderate (4-7) Dextrose (Dextrose 50% Inj) 0 ml IV STAT PRN; Protocol PRN Reason: Hypoglycemia Protocol Last Admin: 10/10/17 06:45 Dose: 50 ml Dextrose (Glutose 15) 0 gm PO ONCE PRN; Protocol PRN Reason: Hypoglycemia Protocol Epoetin Naeem (Procrit) 10,000 unit IV TTS [facility] Last Admin: 10/09/17 11:47 Dose: 10,000 unit Glucagon (Glucagen Diagnostic Kit) 0 mg IM STAT PRN; Protocol PRN Reason: Hypoglycemia Protocol Heparin Sodium (Porcine) (Heparin) 5,000 units SC Q12 [facility] Last Admin: 09/20/17 10:26 Dose: Not Given Tigecycline 50 mg/ Sodium (Chloride) 100 mls @ 100 mls/hr IVPB Q12H [facility] PRN Reason: Protocol Last Admin: 10/10/17 09:49 Dose: 100 mls/hr Dextrose (Dextrose 5% In Water 1000 Ml) 1,000 mls @ 0 mls/hr IV .Q0M PRN; Protocol; Per Protocol PRN Reason: Hypoglycemia Protocol Midodrine (Proamatine) 10 mg PO TID [facility] Last Admin: 10/10/17 14:31 Dose: 10 mg Ondansetron HCl (Zofran Inj) 4 mg IVP Q6 PRN PRN Reason: Nausea/Vomiting Last Admin: 10/10/17 08:47 Dose: 4 mg - Labs Labs: 10/09/17 08:50 10/09/17 08:50 PT 15.9 SECONDS (9.7-12.2) H 10/04/17 09:29 INR 1.4 10/04/17 09:29 APTT 42 SECONDS (21-34) H D 10/04/17 09:29
--- NOTE | 2017-10-10 18:36 | CP.PCM.PN ---
Subjective - Date & Time of Evaluation Date of Evaluation: 10/10/17 Time of Evaluation: 18:36 Objective - Vital Signs/Intake and Output Vital Signs (last 24 hours): Temp Pulse Resp BP Pulse Ox 97.3 F L 88 20 95/62 L 95 10/10/17 15:45 10/10/17 15:45 10/10/17 15:45 10/10/17 15:45 10/10/17 15:45 Intake and Output: 10/10/17 10/10/17 06:59 18:59 Intake Total 340 180 Balance 340 180 - Medications Medications: Current Medications Acetaminophen (Tylenol 325mg Tab) 650 mg PO Q6 PRN PRN Reason: Pain, moderate (4-7) Dextrose (Dextrose 50% Inj) 0 ml IV STAT PRN; Protocol PRN Reason: Hypoglycemia Protocol Last Admin: 10/10/17 06:45 Dose: 50 ml Dextrose (Glutose 15) 0 gm PO ONCE PRN; Protocol PRN Reason: Hypoglycemia Protocol Epoetin Naeem (Procrit) 10,000 unit IV TTS [facility] Last Admin: 10/09/17 11:47 Dose: 10,000 unit Glucagon (Glucagen Diagnostic Kit) 0 mg IM STAT PRN; Protocol PRN Reason: Hypoglycemia Protocol Heparin Sodium (Porcine) (Heparin) 5,000 units SC Q12 [facility] Last Admin: 09/20/17 10:26 Dose: Not Given Tigecycline 50 mg/ Sodium (Chloride) 100 mls @ 100 mls/hr IVPB Q12H [facility] PRN Reason: Protocol Last Admin: 10/10/17 09:49 Dose: 100 mls/hr Dextrose (Dextrose 5% In Water 1000 Ml) 1,000 mls @ 0 mls/hr IV .Q0M PRN; Protocol; Per Protocol PRN Reason: Hypoglycemia Protocol Midodrine (Proamatine) 10 mg PO TID [facility] Last Admin: 10/10/17 14:31 Dose: 10 mg Ondansetron HCl (Zofran Inj) 4 mg IVP Q6 PRN PRN Reason: Nausea/Vomiting Last Admin: 10/10/17 08:47 Dose: 4 mg - Labs Labs: 10/09/17 08:50 10/09/17 08:50 PT 15.9 SECONDS (9.7-12.2) H 10/04/17 09:29 INR 1.4 10/04/17 09:29 APTT 42 SECONDS (21-34) H D 10/04/17 09:29
--- NOTE | 2017-10-10 20:50 | CP.PCM.PN ---
Subjective - Date & Time of Evaluation Date of Evaluation: 10/10/17 Time of Evaluation: 01:00 - Subjective Subjective: dictated Objective - Vital Signs/Intake and Output Vital Signs (last 24 hours): Temp Pulse Resp BP Pulse Ox 97.3 F L 91 H 20 95/62 L 95 10/10/17 15:45 10/10/17 16:00 10/10/17 15:45 10/10/17 15:45 10/10/17 15:45 Intake and Output: 10/10/17 10/11/17 18:59 06:59 Intake Total 180 Balance 180 - Medications Medications: Current Medications Acetaminophen (Tylenol 325mg Tab) 650 mg PO Q6 PRN PRN Reason: Pain, moderate (4-7) Dextrose (Dextrose 50% Inj) 0 ml IV STAT PRN; Protocol PRN Reason: Hypoglycemia Protocol Last Admin: 10/10/17 06:45 Dose: 50 ml Dextrose (Glutose 15) 0 gm PO ONCE PRN; Protocol PRN Reason: Hypoglycemia Protocol Epoetin Naeem (Procrit) 10,000 unit IV TTS [facility] Last Admin: 10/09/17 11:47 Dose: 10,000 unit Glucagon (Glucagen Diagnostic Kit) 0 mg IM STAT PRN; Protocol PRN Reason: Hypoglycemia Protocol Heparin Sodium (Porcine) (Heparin) 5,000 units SC Q12 [facility] Last Admin: 09/20/17 10:26 Dose: Not Given Tigecycline 50 mg/ Sodium (Chloride) 100 mls @ 100 mls/hr IVPB Q12H [facility] PRN Reason: Protocol Last Admin: 10/10/17 09:49 Dose: 100 mls/hr Dextrose (Dextrose 5% In Water 1000 Ml) 1,000 mls @ 0 mls/hr IV .Q0M PRN; Protocol; Per Protocol PRN Reason: Hypoglycemia Protocol Midodrine (Proamatine) 10 mg PO TID [facility] Last Admin: 10/10/17 14:31 Dose: 10 mg Ondansetron HCl (Zofran Inj) 4 mg IVP Q6 PRN PRN Reason: Nausea/Vomiting Last Admin: 10/10/17 08:47 Dose: 4 mg - Labs Labs: 10/09/17 08:50 10/09/17 08:50 PT 15.9 SECONDS (9.7-12.2) H 10/04/17 09:29 INR 1.4 10/04/17 09:29 APTT 42 SECONDS (21-34) H D 10/04/17 09:29
--- NOTE | 2017-10-11 06:55 | PN ---
DATE: 10/10/2017 INFECTIOUS DISEASE FOLLOWUP SUBJECTIVE: Patient was seen today and patient had no new complaints. He was awake. He had dialysis yesterday and he said he was going to get some special phone calls. OBJECTIVE: VITAL SIGNS: T-max was 97.3, pulse is 88, blood pressure was 95/62, respirations are 20. HEENT: He is hard of hearing. Head is atraumatic, normocephalic. NECK: Supple. LUNGS: Had decreased breath sounds bilaterally. HEART: S1, S2 is regular. ABDOMEN: Distended. He has ascites and a huge belly. EXTREMITIES: Have bilateral edema. ASSESSMENT AND PLAN: He has a dialysis catheter on the left side. He has a fistula which was removed and has a dressing, right side. Also he has a dressing on another wound and he had looks like interventional procedure on 10/04/2017, intraoperative fluoroscopy procedure. 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 He is getting Tygacil for that and at this time, he runs low blood pressure looks like. We will add colistin for next three doses so that this wound heals well and we will follow. He is end-stage renal disease, liver cirrhosis. He is now with vancomycin-resistant enterococcus, wound infection and staphylococcus epidermidis and is hard of hearing. Melina Barajas MD
[2017-10-11] MEDS ORDERED: Albumin Human 25% (12.5 gm/50 ml) IV ONE ×2 (09:30→10:17)
--- NOTE | 2017-10-11 10:02 | CP.PCM.PN ---
Subjective - Date & Time of Evaluation Date of Evaluation: 10/11/17 Time of Evaluation: 09:59 - Subjective Subjective: Seen at dialysis BP low- limiting UF; on midodrine still nauseated, very weak poor appetite ascites worse Objective - Vital Signs/Intake and Output Vital Signs (last 24 hours): Temp Pulse Resp BP Pulse Ox 97.3 F L 95 H 16 77/57 L 96 10/11/17 09:30 10/11/17 09:30 10/11/17 09:30 10/11/17 09:45 10/11/17 08:37 Intake and Output: 10/11/17 10/11/17 06:59 18:59 Intake Total 340 Balance 340 - Medications Medications: Current Medications Acetaminophen (Tylenol 325mg Tab) 650 mg PO Q6 PRN PRN Reason: Pain, moderate (4-7) Dextrose (Dextrose 50% Inj) 0 ml IV STAT PRN; Protocol PRN Reason: Hypoglycemia Protocol Last Admin: 10/10/17 06:45 Dose: 50 ml Dextrose (Glutose 15) 0 gm PO ONCE PRN; Protocol PRN Reason: Hypoglycemia Protocol Epoetin Naeem (Procrit) 10,000 unit IV TTS [facility] Last Admin: 10/09/17 11:47 Dose: 10,000 unit Glucagon (Glucagen Diagnostic Kit) 0 mg IM STAT PRN; Protocol PRN Reason: Hypoglycemia Protocol Heparin Sodium (Porcine) (Heparin) 5,000 units SC Q12 [facility] Last Admin: 09/20/17 10:26 Dose: Not Given Tigecycline 50 mg/ Sodium (Chloride) 100 mls @ 100 mls/hr IVPB Q12H [facility] PRN Reason: Protocol Last Admin: 10/10/17 21:34 Dose: 100 mls/hr Dextrose (Dextrose 5% In Water 1000 Ml) 1,000 mls @ 0 mls/hr IV .Q0M PRN; Protocol; Per Protocol PRN Reason: Hypoglycemia Protocol Colistimethate Sodium 80 mg/ (Sodium Chloride) 100 mls @ 200 mls/hr IV TTS [facility] PRN Reason: Protocol Midodrine (Proamatine) 10 mg PO TID [facility] Last Admin: 10/11/17 08:18 Dose: 10 mg Ondansetron HCl (Zofran Inj) 4 mg IVP Q6 PRN PRN Reason: Nausea/Vomiting Last Admin: 10/10/17 08:47 Dose: 4 mg - Labs Labs: 10/09/17 08:50 10/09/17 08:50 PT 15.9 SECONDS (9.7-12.2) H 10/04/17 09:29 INR 1.4 10/04/17 09:29 APTT 42 SECONDS (21-34) H D 10/04/17 09:29 - Constitutional Appears: No Acute Distress, Cachectic, Chronically Ill - Head Exam Head Exam: ATRAUMATIC, NORMAL INSPECTION - Eye Exam Eye Exam: EOMI, Normal appearance - Neck Exam Neck Exam: Normal Inspection. absent: Tenderness - Respiratory Exam Respiratory Exam: Clear to Ausculation Bilateral, NORMAL BREATHING PATTERN - Cardiovascular Exam Cardiovascular Exam: REGULAR RHYTHM, +S1 - GI/Abdominal Exam GI & Abdominal Exam: Distended, Soft. absent: Tenderness - Extremities Exam Extremities Exam: Normal Inspection. absent: Tenderness - Neurological Exam Neurological Exam: Awake, CN II-XII Intact - Skin Skin Exam: Dry, Warm Assessment and Plan (1) CKD stage 5 secondary to hypertension Status: Acute (2) Secondary hyperparathyroidism Status: Acute (3) Hypothyroidism Status: Acute (4) Uremia Status: Acute (5) Cirrhosis Status: Acute (6) ESRD (end stage renal disease) on dialysis Status: Acute - Assessment and Plan (Free Text) Plan: on IV ABs for wound infection Iv albumin to maintain BP with HD consider repeat paracentesis - might stabilize hemodynamics likely would need prison care placement
[2017-10-11] MEDS: Epoetin Alfa 10,000 unit/ml Dialysis IV SCH (12:05)
[2017-10-11] MEDS ORDERED: Sodium Chloride 0.9% 250 ML IV ONE (15:12)
--- NOTE | 2017-10-11 19:12 | CP.PCM.PN ---
Subjective - Date & Time of Evaluation Date of Evaluation: 10/11/17 Time of Evaluation: 09:40 - Subjective Subjective: clinically same Objective - Vital Signs/Intake and Output Vital Signs (last 24 hours): Temp Pulse Resp BP Pulse Ox 97.1 F L 70 18 95/60 L 96 10/11/17 15:00 10/11/17 16:39 10/11/17 15:00 10/11/17 16:39 10/11/17 08:37 Intake and Output: 10/11/17 10/12/17 18:59 06:59 Intake Total 220 Balance 220 - Medications Medications: Current Medications Dextrose (Dextrose 50% Inj) 0 ml IV STAT PRN; Protocol PRN Reason: Hypoglycemia Protocol Last Admin: 10/10/17 06:45 Dose: 50 ml Dextrose (Glutose 15) 0 gm PO ONCE PRN; Protocol PRN Reason: Hypoglycemia Protocol Epoetin Naeem (Procrit) 10,000 unit IV TTS [facility] Last Admin: 10/11/17 12:05 Dose: 10,000 unit Glucagon (Glucagen Diagnostic Kit) 0 mg IM STAT PRN; Protocol PRN Reason: Hypoglycemia Protocol Heparin Sodium (Porcine) (Heparin) 5,000 units SC Q12 [facility] Last Admin: 09/20/17 10:26 Dose: Not Given Tigecycline 50 mg/ Sodium (Chloride) 100 mls @ 100 mls/hr IVPB Q12H [facility] PRN Reason: Protocol Last Admin: 10/11/17 11:22 Dose: Not Given Dextrose (Dextrose 5% In Water 1000 Ml) 1,000 mls @ 0 mls/hr IV .Q0M PRN; Protocol; Per Protocol PRN Reason: Hypoglycemia Protocol Colistimethate Sodium 80 mg/ (Sodium Chloride) 100 mls @ 200 mls/hr IV TTS [facility] PRN Reason: Protocol Last Admin: 10/11/17 13:11 Dose: 200 mls/hr Midodrine (Proamatine) 10 mg PO TID [facility] Last Admin: 10/11/17 13:11 Dose: 10 mg Ondansetron HCl (Zofran Inj) 4 mg IVP Q6 PRN PRN Reason: Nausea/Vomiting Last Admin: 10/10/17 08:47 Dose: 4 mg - Labs Labs: 10/09/17 08:50 10/09/17 08:50 PT 15.9 SECONDS (9.7-12.2) H 10/04/17 09:29 INR 1.4 10/04/17 09:29 APTT 42 SECONDS (21-34) H D 10/04/17 09:29 - Constitutional Appears: Well - Head Exam Head Exam: ATRAUMATIC, NORMAL INSPECTION, NORMOCEPHALIC - Eye Exam Eye Exam: EOMI, Normal appearance, PERRL Pupil Exam: NORMAL ACCOMODATION, PERRL - ENT Exam ENT Exam: Mucous Membranes Moist, Normal Exam - Neck Exam Neck Exam: Full ROM, Normal Inspection. absent: Lymphadenopathy - Respiratory Exam Respiratory Exam: Decreased Breath Sounds - Cardiovascular Exam Cardiovascular Exam: REGULAR RHYTHM, +S1, +S2 - GI/Abdominal Exam GI & Abdominal Exam: Soft, Diminished Bowel Sounds - Rectal Exam Rectal Exam: Deferred
[2017-10-12] MEDS ORDERED: Dextrose 50% SYRINGE Inj (50 ml) IV STA (07:08)
--- NOTE | 2017-10-12 13:42 | CP.PCM.PN ---
Subjective - Date & Time of Evaluation Date of Evaluation: 10/12/17 Time of Evaluation: 13:39 - Subjective Subjective: s/p PICC On IV ABs for wound infection AV access with bruit ascites worse BP better- was lower at dialysis 5/3 still with n, weakness, poor appetite Objective - Vital Signs/Intake and Output Vital Signs (last 24 hours): Temp Pulse Resp BP Pulse Ox 97.3 F L 92 H 18 132/73 100 10/12/17 07:00 10/12/17 07:00 10/12/17 07:00 10/12/17 07:00 10/12/17 07:00 Intake and Output: 10/12/17 10/12/17 06:59 18:59 Intake Total 340 Balance 340 - Medications Medications: Current Medications Dextrose (Dextrose 50% Inj) 0 ml IV STAT PRN; Protocol PRN Reason: Hypoglycemia Protocol Last Admin: 10/10/17 06:45 Dose: 50 ml Dextrose (Glutose 15) 0 gm PO ONCE PRN; Protocol PRN Reason: Hypoglycemia Protocol Epoetin Naeem (Procrit) 10,000 unit IV TTS [facility] Last Admin: 10/11/17 12:05 Dose: 10,000 unit Glucagon (Glucagen Diagnostic Kit) 0 mg IM STAT PRN; Protocol PRN Reason: Hypoglycemia Protocol Heparin Sodium (Porcine) (Heparin) 5,000 units SC Q12 [facility] Last Admin: 09/20/17 10:26 Dose: Not Given Tigecycline 50 mg/ Sodium (Chloride) 100 mls @ 100 mls/hr IVPB Q12H [facility] PRN Reason: Protocol Last Admin: 10/12/17 10:47 Dose: 100 mls/hr Dextrose (Dextrose 5% In Water 1000 Ml) 1,000 mls @ 0 mls/hr IV .Q0M PRN; Protocol; Per Protocol PRN Reason: Hypoglycemia Protocol Colistimethate Sodium 80 mg/ (Sodium Chloride) 100 mls @ 200 mls/hr IV TTS [facility] PRN Reason: Protocol Last Admin: 10/11/17 13:11 Dose: 200 mls/hr Midodrine (Proamatine) 10 mg PO TID [facility] Last Admin: 10/12/17 10:48 Dose: 10 mg Ondansetron HCl (Zofran Inj) 4 mg IVP Q6 PRN PRN Reason: Nausea/Vomiting Last Admin: 10/10/17 08:47 Dose: 4 mg - Labs Labs: 10/09/17 08:50 10/09/17 08:50 PT 15.9 SECONDS (9.7-12.2) H 10/04/17 09:29 INR 1.4 10/04/17 09:29 APTT 42 SECONDS (21-34) H D 10/04/17 09:29 - Constitutional Appears: No Acute Distress, Chronically Ill - Head Exam Head Exam: ATRAUMATIC, NORMAL INSPECTION - Eye Exam Eye Exam: EOMI, Normal appearance - Neck Exam Neck Exam: Normal Inspection. absent: Tenderness - Respiratory Exam Respiratory Exam: Clear to Ausculation Bilateral, NORMAL BREATHING PATTERN - Cardiovascular Exam Cardiovascular Exam: REGULAR RHYTHM, +S1 - GI/Abdominal Exam GI & Abdominal Exam: Soft. absent: Tenderness - Extremities Exam Extremities Exam: Normal Inspection. absent: Tenderness - Neurological Exam Neurological Exam: Awake, CN II-XII Intact - Skin Skin Exam: Dry, Warm Assessment and Plan (1) CKD stage 5 secondary to hypertension Status: Acute (2) Secondary hyperparathyroidism Status: Acute (3) Hypothyroidism Status: Acute (4) Uremia Status: Acute (5) Cirrhosis Status: Acute (6) ESRD (end stage renal disease) on dialysis Status: Acute - Assessment and Plan (Free Text) Plan: Dialysis TTS Lower UF goal as BP low Midodrine increased IV ABs Would consider repeat paracentesis
--- NOTE | 2017-10-12 14:25 | CP.PCM.PN ---
Subjective - Date & Time of Evaluation Date of Evaluation: 10/12/17 Time of Evaluation: 14:25 Objective - Vital Signs/Intake and Output Vital Signs (last 24 hours): Temp Pulse Resp BP Pulse Ox 97.3 F L 67 18 132/73 100 10/12/17 07:00 10/12/17 10:00 10/12/17 07:00 10/12/17 07:00 10/12/17 07:00 Intake and Output: 10/12/17 10/12/17 06:59 18:59 Intake Total 340 Balance 340 - Medications Medications: Current Medications Dextrose (Dextrose 50% Inj) 0 ml IV STAT PRN; Protocol PRN Reason: Hypoglycemia Protocol Last Admin: 10/10/17 06:45 Dose: 50 ml Dextrose (Glutose 15) 0 gm PO ONCE PRN; Protocol PRN Reason: Hypoglycemia Protocol Epoetin Naeem (Procrit) 10,000 unit IV TTS [facility] Last Admin: 10/11/17 12:05 Dose: 10,000 unit Glucagon (Glucagen Diagnostic Kit) 0 mg IM STAT PRN; Protocol PRN Reason: Hypoglycemia Protocol Heparin Sodium (Porcine) (Heparin) 5,000 units SC Q12 [facility] Last Admin: 09/20/17 10:26 Dose: Not Given Tigecycline 50 mg/ Sodium (Chloride) 100 mls @ 100 mls/hr IVPB Q12H [facility] PRN Reason: Protocol Last Admin: 10/12/17 10:47 Dose: 100 mls/hr Dextrose (Dextrose 5% In Water 1000 Ml) 1,000 mls @ 0 mls/hr IV .Q0M PRN; Protocol; Per Protocol PRN Reason: Hypoglycemia Protocol Colistimethate Sodium 80 mg/ (Sodium Chloride) 100 mls @ 200 mls/hr IV TTS [facility] PRN Reason: Protocol Last Admin: 10/11/17 13:11 Dose: 200 mls/hr Midodrine (Proamatine) 10 mg PO TID [facility] Last Admin: 10/12/17 14:02 Dose: 10 mg Ondansetron HCl (Zofran Inj) 4 mg IVP Q6 PRN PRN Reason: Nausea/Vomiting Last Admin: 10/10/17 08:47 Dose: 4 mg - Labs Labs: 10/09/17 08:50 10/09/17 08:50 PT 15.9 SECONDS (9.7-12.2) H 04/26/18 09:29 INR 1.4 10/04/17 09:29 APTT 42 SECONDS (21-34) H D 10/04/17 09:29
--- NOTE | 2017-10-12 19:30 | CP.PCM.PN ---
Subjective - Date & Time of Evaluation Date of Evaluation: 10/12/17 Time of Evaluation: 09:20 - Subjective Subjective: clinically same Objective - Vital Signs/Intake and Output Vital Signs (last 24 hours): Temp Pulse Resp BP Pulse Ox 97.2 F L 85 20 93/57 L 96 10/12/17 15:40 10/12/17 15:40 10/12/17 15:40 10/12/17 15:40 10/12/17 15:40 - Medications Medications: Current Medications Dextrose (Dextrose 50% Inj) 0 ml IV STAT PRN; Protocol PRN Reason: Hypoglycemia Protocol Last Admin: 10/10/17 06:45 Dose: 50 ml Dextrose (Glutose 15) 0 gm PO ONCE PRN; Protocol PRN Reason: Hypoglycemia Protocol Epoetin Naeem (Procrit) 10,000 unit IV TTS [facility] Last Admin: 10/11/17 12:05 Dose: 10,000 unit Glucagon (Glucagen Diagnostic Kit) 0 mg IM STAT PRN; Protocol PRN Reason: Hypoglycemia Protocol Heparin Sodium (Porcine) (Heparin) 5,000 units SC Q12 [facility] Last Admin: 09/20/17 10:26 Dose: Not Given Tigecycline 50 mg/ Sodium (Chloride) 100 mls @ 100 mls/hr IVPB Q12H [facility] PRN Reason: Protocol Last Admin: 10/12/17 10:47 Dose: 100 mls/hr Dextrose (Dextrose 5% In Water 1000 Ml) 1,000 mls @ 0 mls/hr IV .Q0M PRN; Protocol; Per Protocol PRN Reason: Hypoglycemia Protocol Colistimethate Sodium 80 mg/ (Sodium Chloride) 100 mls @ 200 mls/hr IV TTS [facility] PRN Reason: Protocol Last Admin: 10/11/17 13:11 Dose: 200 mls/hr Midodrine (Proamatine) 10 mg PO TID [facility] Last Admin: 10/12/17 14:02 Dose: 10 mg Ondansetron HCl (Zofran Inj) 4 mg IVP Q6 PRN PRN Reason: Nausea/Vomiting Last Admin: 10/10/17 08:47 Dose: 4 mg - Labs Labs: 10/09/17 08:50 10/09/17 08:50 PT 15.9 SECONDS (9.7-12.2) H 10/04/17 09:29 INR 1.4 10/04/17 09:29 APTT 42 SECONDS (21-34) H D 10/04/17 09:29 - Constitutional Appears: Well - Head Exam Head Exam: ATRAUMATIC, NORMAL INSPECTION, NORMOCEPHALIC - Eye Exam Eye Exam: EOMI, Normal appearance, PERRL Pupil Exam: NORMAL ACCOMODATION, PERRL - ENT Exam ENT Exam: Mucous Membranes Moist, Normal Exam - Neck Exam Neck Exam: Full ROM, Normal Inspection. absent: Lymphadenopathy - Respiratory Exam Respiratory Exam: Decreased Breath Sounds - Cardiovascular Exam Cardiovascular Exam: REGULAR RHYTHM, +S1, +S2 - GI/Abdominal Exam GI & Abdominal Exam: Soft, Diminished Bowel Sounds - Rectal Exam Rectal Exam: Deferred
[2017-10-13] MEDS ORDERED: Dextrose 50% SYRINGE Inj (50 ml) IV STA (08:42)
--- NOTE | 2017-10-13 10:03 | CP.PCM.PN ---
Subjective - Date & Time of Evaluation Date of Evaluation: 10/13/17 Time of Evaluation: 10:01 - Subjective Subjective: Notes reviewed Remains in bed Slow to respond to questions Discussed care with nurse at bedside Paracentesis could not be done due to ? staffing issue No distress in bed Receiving dextrose due to fs 70's Preparing for hd today No cp or palp. no sob or cough at rest, no n/v/d, abdominal distention as previous, no fever or chills, weakness as previous ROS 10 point as above otherwise negative Objective - Vital Signs/Intake and Output Vital Signs (last 24 hours): Temp Pulse Resp BP Pulse Ox 97.8 F 88 20 90/60 L 99 10/13/17 01:13 10/13/17 04:57 10/13/17 01:13 10/13/17 01:13 10/13/17 01:13 Intake and Output: 10/13/17 10/13/17 06:59 18:59 Intake Total 300 Balance 300 - Medications Medications: Current Medications Dextrose (Dextrose 50% Inj) 0 ml IV STAT PRN; Protocol PRN Reason: Hypoglycemia Protocol Last Admin: 10/10/17 06:45 Dose: 50 ml Dextrose (Glutose 15) 0 gm PO ONCE PRN; Protocol PRN Reason: Hypoglycemia Protocol Epoetin Naeem (Procrit) 10,000 unit IV TTS [facility] Last Admin: 10/11/17 12:05 Dose: 10,000 unit Glucagon (Glucagen Diagnostic Kit) 0 mg IM STAT PRN; Protocol PRN Reason: Hypoglycemia Protocol Heparin Sodium (Porcine) (Heparin) 5,000 units SC Q12 [facility] Last Admin: 09/20/17 10:26 Dose: Not Given Tigecycline 50 mg/ Sodium (Chloride) 100 mls @ 100 mls/hr IVPB Q12H [facility] PRN Reason: Protocol Last Admin: 10/12/17 21:35 Dose: 100 mls/hr Colistimethate Sodium 80 mg/ (Sodium Chloride) 100 mls @ 200 mls/hr IV TTS [facility] PRN Reason: Protocol Last Admin: 10/11/17 13:11 Dose: 200 mls/hr Midodrine (Proamatine) 10 mg PO TID [facility] Last Admin: 10/13/17 09:03 Dose: 10 mg Ondansetron HCl (Zofran Inj) 4 mg IVP Q6 PRN PRN Reason: Nausea/Vomiting Last Admin: 10/10/17 08:47 Dose: 4 mg - Labs Labs: 10/09/17 08:50 10/09/17 08:50 PT 15.9 SECONDS (9.7-12.2) H 10/04/17 09:29 INR 1.4 10/04/17 09:29 APTT 42 SECONDS (21-34) H D 10/04/17 09:29 - Constitutional Appears: Non-toxic, Chronically Ill - Head Exam Head Exam: ATRAUMATIC, NORMAL INSPECTION - Eye Exam Eye Exam: EOMI, Normal appearance - ENT Exam ENT Exam: Mucous Membranes Moist, Normal Oropharynx - Neck Exam Neck Exam: absent: Lymphadenopathy, Thyromegaly - Respiratory Exam Respiratory Exam: Rales, Rhonchi - Cardiovascular Exam Cardiovascular Exam: +S1, +S2. absent: Rubs - GI/Abdominal Exam GI & Abdominal Exam: Distended, Normal Bowel Sounds Additional comments: ascites - Neurological Exam Neurological Exam: Altered, Awake - Skin Skin Exam: Dry, Intact Assessment and Plan (1) Ascites Status: Acute (2) Anemia Status: Acute (3) Cirrhosis Status: Acute (4) ESRD (end stage renal disease) on dialysis Status: Acute (5) Hypothyroidism Status: Acute (6) Secondary hyperparathyroidism Status: Acute - Assessment and Plan (Free Text) Plan: dialysis today Uf as tolerated Mididrine for hypotension as ordered Continue supportive care
[2017-10-13] MEDS: Epoetin Alfa 10,000 unit/ml Dialysis IV SCH (12:09)
[2017-10-13] MEDS: Dextrose 50% SYRINGE Inj (50 ml) IV PRN (16:45)
[2017-10-13] MEDS ORDERED: Dextrose 50% SYRINGE Inj (50 ml) ONE ×2 (16:45→17:02)
--- NOTE | 2017-10-13 19:22 | CP.PCM.PN ---
Subjective - Date & Time of Evaluation Date of Evaluation: 10/13/17 Time of Evaluation: 08:40 - Subjective Subjective: clinically same Objective - Vital Signs/Intake and Output Vital Signs (last 24 hours): Temp Pulse Resp BP Pulse Ox 97.3 F L 96 H 20 93/62 L 100 10/13/17 15:35 10/13/17 16:08 10/13/17 15:35 10/13/17 15:35 10/13/17 15:35 Intake and Output: 10/13/17 10/14/17 18:59 06:59 Intake Total 200 Output Total 0 Balance 200 - Medications Medications: Current Medications Dextrose (Dextrose 50% Inj) 0 ml IV STAT PRN; Protocol PRN Reason: Hypoglycemia Protocol Last Admin: 10/10/17 06:45 Dose: 50 ml Dextrose (Glutose 15) 0 gm PO ONCE PRN; Protocol PRN Reason: Hypoglycemia Protocol Epoetin Naeem (Procrit) 10,000 unit IV TTS [facility] Last Admin: 10/13/17 12:09 Dose: 10,000 unit Glucagon (Glucagen Diagnostic Kit) 0 mg IM STAT PRN; Protocol PRN Reason: Hypoglycemia Protocol Heparin Sodium (Porcine) (Heparin) 5,000 units SC Q12 [facility] Last Admin: 09/20/17 10:26 Dose: Not Given Tigecycline 50 mg/ Sodium (Chloride) 100 mls @ 100 mls/hr IVPB Q12H [facility] PRN Reason: Protocol Last Admin: 10/12/17 21:35 Dose: 100 mls/hr Colistimethate Sodium 80 mg/ (Sodium Chloride) 100 mls @ 200 mls/hr IV TTS [facility] PRN Reason: Protocol Last Admin: 10/13/17 13:33 Dose: 200 mls/hr Dextrose (Dextrose 10% In Water) 1,000 mls @ 20 mls/hr IV .Q24H [facility] Last Admin: 10/13/17 18:11 Dose: 20 mls/hr Midodrine (Proamatine) 10 mg PO TID [facility] Last Admin: 10/13/17 13:52 Dose: 10 mg Ondansetron HCl (Zofran Inj) 4 mg IVP Q6 PRN PRN Reason: Nausea/Vomiting Last Admin: 10/13/17 11:56 Dose: 4 mg - Labs Labs: 10/09/17 08:50 10/09/17 08:50 PT 15.9 SECONDS (9.7-12.2) H 10/04/17 09:29 INR 1.4 10/04/17 09:29 APTT 42 SECONDS (21-34) H D 10/04/17 09:29 - Constitutional Appears: Well - Head Exam Head Exam: ATRAUMATIC, NORMAL INSPECTION, NORMOCEPHALIC - Eye Exam Eye Exam: EOMI, Normal appearance, PERRL Pupil Exam: NORMAL ACCOMODATION, PERRL - ENT Exam ENT Exam: Mucous Membranes Moist, Normal Exam - Neck Exam Neck Exam: Full ROM, Normal Inspection. absent: Lymphadenopathy - Respiratory Exam Respiratory Exam: Decreased Breath Sounds - Cardiovascular Exam Cardiovascular Exam: REGULAR RHYTHM, +S1, +S2 - GI/Abdominal Exam GI & Abdominal Exam: Soft, Diminished Bowel Sounds - Rectal Exam Rectal Exam: Deferred
[2017-10-14] MEDS ORDERED: Dextrose 50% SYRINGE Inj (50 ml) ONE (13:18)
--- NOTE | 2017-10-14 16:28 | CP.PCM.PN ---
Subjective - Date & Time of Evaluation Date of Evaluation: 10/14/17 Time of Evaluation: 08:40 - Subjective Subjective: clinically same Objective - Vital Signs/Intake and Output Vital Signs (last 24 hours): Temp Pulse Resp BP Pulse Ox 98.1 F 91 H 20 92/62 L 99 10/14/17 09:11 10/14/17 09:11 10/14/17 09:11 10/14/17 09:11 10/14/17 09:11 Intake and Output: 10/14/17 10/14/17 06:59 18:59 Intake Total 200 260 Output Total 50 0 Balance 150 260 - Medications Medications: Current Medications Dextrose (Dextrose 50% Inj) 0 ml IV STAT PRN; Protocol PRN Reason: Hypoglycemia Protocol Last Admin: 10/10/17 06:45 Dose: 50 ml Dextrose (Glutose 15) 0 gm PO ONCE PRN; Protocol PRN Reason: Hypoglycemia Protocol Epoetin Naeem (Procrit) 10,000 unit IV TTS [facility] Last Admin: 10/13/17 12:09 Dose: 10,000 unit Glucagon (Glucagen Diagnostic Kit) 0 mg IM STAT PRN; Protocol PRN Reason: Hypoglycemia Protocol Heparin Sodium (Porcine) (Heparin) 5,000 units SC Q12 [facility] Last Admin: 09/20/17 10:26 Dose: Not Given Tigecycline 50 mg/ Sodium (Chloride) 100 mls @ 100 mls/hr IVPB Q12H [facility] PRN Reason: Protocol Last Admin: 10/14/17 10:22 Dose: 100 mls/hr Colistimethate Sodium 80 mg/ (Sodium Chloride) 100 mls @ 200 mls/hr IV TTS [facility] PRN Reason: Protocol Last Admin: 10/13/17 13:33 Dose: 200 mls/hr Dextrose (Dextrose 10% In Water) 1,000 mls @ 20 mls/hr IV .Q24H [facility] Last Admin: 10/13/17 18:11 Dose: 20 mls/hr Midodrine (Proamatine) 10 mg PO TID [facility] Last Admin: 10/14/17 14:39 Dose: 10 mg Ondansetron HCl (Zofran Inj) 4 mg IVP Q6 PRN PRN Reason: Nausea/Vomiting Last Admin: 10/14/17 10:22 Dose: 4 mg - Labs Labs: 10/09/17 08:50 10/09/17 08:50 PT 15.9 SECONDS (9.7-12.2) H 10/04/17 09:29 INR 1.4 10/04/17 09:29 APTT 42 SECONDS (21-34) H D 10/04/17 09:29 - Constitutional Appears: Well - Head Exam Head Exam: ATRAUMATIC, NORMAL INSPECTION, NORMOCEPHALIC - Eye Exam Eye Exam: EOMI, Normal appearance, PERRL Pupil Exam: NORMAL ACCOMODATION, PERRL - ENT Exam ENT Exam: Mucous Membranes Moist, Normal Exam - Neck Exam Neck Exam: Full ROM, Normal Inspection. absent: Lymphadenopathy - Respiratory Exam Respiratory Exam: Decreased Breath Sounds - Cardiovascular Exam Cardiovascular Exam: REGULAR RHYTHM, +S1, +S2 - GI/Abdominal Exam GI & Abdominal Exam: Soft, Diminished Bowel Sounds - Rectal Exam Rectal Exam: Deferred
[2017-10-14] MEDS ORDERED: Ipratropium 17 mcg/puff-200 puff/12.5 gm HFA Inh IH STA (18:52)
[2017-10-14] MEDS ORDERED: Ipratropium 0.02% Inhal Soln (0.5 mg/2.5 ml) UD IH PRN (18:55)
[2017-10-14] MEDS ORDERED: Ipratropium 0.02% Inhal Soln (0.5 mg/2.5 ml) UD IH STA (18:56)
[2017-10-14] MEDS ORDERED: Ipratropium 17 mcg/puff-200 puff/12.5 gm HFA Inh IH SCH ×2 (19:00→20:00)
[2017-10-14] MEDS ORDERED: Ipratropium 0.02% Inhal Soln (0.5 mg/2.5 ml) UD IH ONE (19:01)
[2017-10-14 19:12] LABS: ABG ALLEN TEST POS; ARTERIAL BLOOD GAS HCO3 21.1 mmol/L (21-28); ARTERIAL BLOOD GAS O2 SAT 100.9 % (95-98); ARTERIAL BLOOD GAS PCO2 28 mm/Hg (35-45); ARTERIAL BLOOD GAS PH 7.43 (7.35-7.45); ARTERIAL BLOOD GAS PO2 260 mm/Hg (80-100); ARTERIAL BLOOD GAS TCO2 19.5 mmol/L (22-28)
[2017-10-14 19:21] LABS: CALCIUM 7.6 mg/dl (8.6-10.4)
--- NOTE | 2017-10-14 20:18 | PCM.RRT ---
LOTTERY SALES CLERK Nurses Assessment - Situation Date: 10/14/17 Time LOTTERY SALES CLERK was called: 18:41 LOTTERY SALES CLERK Responder Arrival Time:: 18:42 LOTTERY SALES CLERK Location:: Med/Surg Room Number: 667B [employer] SALES CLERK Reason for Call: Respiratory Distress LOTTERY SALES CLERK Called By: RN - IV IV Inserted during LOTTERY SALES CLERK?: No New IV Insertion Tolerance: Good - Respiratory LOTTERY SALES CLERK Delivery Method: Nasal Cannula @L/min Oxygen Flow Rate: 5 Received Nebulizer Treatments: Yes (Atrovent) Was the Patient Ventilated with Bag/Mask 100% O2?: No Secretions Suctioned?: No Was the Patient Intubated?: No Was the Patient Placed on a Ventilator?: No - Diagnostic Test Ordered EKG: Yes CT Scan: No - Stat Labs Ordered LOTTERY SALES CLERK Stat Labs Ordered: BMP, ABG - Vital Signs Vital Signs: Rapid Response Vital Sign Blood Pressure 120/72 Pulse Rate 82 Respiratory Rate 24 - Time LOTTERY SALES CLERK Ended Time LOTTERY SALES CLERK Ended: 19:35 - Recommendations Notifications: Attending Physician I.Reason for LOTTERY SALES CLERK - A) Acute Change in Patient: (Select all that apply): Staff member or family is worried about patient ( patient was reporting Dyspnea - could not catch his breath) Subjective: LOTTERY SALES CLERK called at 18:42 on 10/14/17 2/2 Respiratory distress. The patient was gasping for air, stating that he could not catch his breath. Vitals revealed BP 124/84; RR 16; without accessory muscle use, and O2 Sat could not be obtained at multiple sites. EKG showed Afib with variable heart rate fluctuating upto the 130's. Patient's abdomen was mildly distended and US displayed moderate fluid collection in R abdomen. Patient was tapped on 09/24/17 removing roughly 6L of ascitic fluid. ABG revealed good oxygenation. Patient was placed on BiPAP which stabilized his breathing. Dr. Gomez from ICU evaluated the patient, and he was transferred to the ICU. He was deemed stable there, an immediate paracentesis of his abdomen was not recommended by the overnight ICU physician. Plan portable CXR STAT Ipratropium Q6H and STAT BiPAP 12/6, FiO2 40%, RR12 ABG BMP Possible Paracentesis upon further evaluation of ICU attending and primary team - Neurological Status (Select all that apply): Responsive - Respiratory Oxygen Delivery Method: Nasal Cannula @L/min Oxygen Flow Rate: 5 - Constitutional Appears: Toxic, In Acute Distress - Head Head Exam: ATRAUMATIC - Eyes Eye Exam: EOMI, Normal appearance - Respiratory Exam Respiratory Exam: Decreased Breath Sounds, NORMAL BREATHING PATTERN. absent: Rhonchi, Wheezes - Cardiovascular Exam Cardiovascular Exam: Tachycardia, Irregular Rhythm, +S1, +S2 - GI/Abdominal Exam GI & Abdominal Exam: Distended (mild-moderate R sided ascites), Soft, Hypoactive Bowel Sounds. absent: Tenderness - Neurological Exam Neurological Exam: Alert, Awake. absent: Oriented x3 - Extremities Exam Extremities Exam: absent: Pedal Edema, Tenderness
--- NOTE | 2017-10-14 20:50 | CP.PCM.CON ---
History of Present Illness - History of Present Illness History of Present Illness: 62year old male with past medical history of ESRD on HD started in september 2017, Cirrhosis,ascites with paracentesis of 6L of fluid on 09/24/17 ,anemia, hypothyroidism.[employer] called today for Respiratory distress. EKG showed Afib with variable heart rate fluctuating upto the 130's. Patient's abdomen was mildly distended and US displayed moderate fluid collection in R abdomen. Patient was placed on BiPAP which improved symptoms. apetite poor on IV tigecycline and Colymycin for and coagulase staph from wound Review of Systems - Review of Systems Systems not reviewed;Unavailable: Respiratory Distress Review of Systems: Feels much better now (off BIPAP),patient not wanting to keep BIPAP - Constitutional Constitutional: Anorexia, Fatigue - EENT Eyes: absent: Change in Vision, Pain Ears: absent: Dizziness Nose/Mouth/Throat: absent: Nasal Congestion, Sore Throat - Cardiovascular Cardiovascular: Dyspnea, Edema. absent: Chest Pain - Respiratory Respiratory: Dyspnea. absent: Cough - Gastrointestinal Gastrointestinal: Nausea, Vomiting. absent: Change in Bowel Habits Additional comments: one episode of vomiting watery liquid pior to coming to ICU - Genitourinary Additional comments: on hemodialysis - Musculoskeletal Musculoskeletal: absent: Numbness - Integumentary Integumentary: Dry Skin, Unusual Bruising - Neurological Neurological: Weakness. absent: Headaches - Endocrine Endocrine: Polydipsia, Polyphagia - Hematologic/Lymphatic Hematologic: Easy Bruising Past Patient History - Infectious Disease Hx of Infectious Diseases: None - Past Medical History & Family History Past Medical History?: Yes Past Family History: Reviewed and not pertinent - Past Social History Smoking Status: Never Smoked Chewing Tobacco Use: No Cigar Use: No - CARDIAC Hx Hypertension: Yes - PULMONARY Other/Comment: sob upon exertion - HEENT Hx HEENT Problems: Yes - RENAL Hx Renal Failure: Yes (ESRD) - ENDOCRINE/METABOLIC Hx Hypothyroidism: Yes - HEMATOLOGICAL/ONCOLOGICAL Hx Blood Disorders: Yes Hx Gum Bleeding: Yes - MUSCULOSKELETAL/RHEUMATOLOGICAL Hx Arthritis: Yes - GASTROINTESTINAL Hx Gastrointestinal Disorders: Yes Hx Gastroesophageal Reflux: Yes Hx Ulcer: Yes (gastric) - PSYCHIATRIC Hx Substance Use: No - SURGICAL HISTORY Hx Surgeries: Yes Other/Comment: exc benign tumor tight knee 1970 - ANESTHESIA Hx Anesthesia: Yes Hx Anesthesia Reactions: No Hx Malignant Hyperthermia: No Meds Allergies/Adverse Reactions: Allergies Allergy/AdvReac Type Severity Reaction Status Date / Time No Known Allergies Allergy Verified 10/16/13 09:00 - Medications Medications: Current Medications Dextrose (Dextrose 50% Inj) 0 ml IV STAT PRN; Protocol PRN Reason: Hypoglycemia Protocol Last Admin: 10/10/17 06:45 Dose: 50 ml Dextrose (Glutose 15) 0 gm PO ONCE PRN; Protocol PRN Reason: Hypoglycemia Protocol Epoetin Naeem (Procrit) 10,000 unit IV TTS [facility] Last Admin: 10/13/17 12:09 Dose: 10,000 unit Glucagon (Glucagen Diagnostic Kit) 0 mg IM STAT PRN; Protocol PRN Reason: Hypoglycemia Protocol Heparin Sodium (Porcine) (Heparin) 5,000 units SC Q12 [facility] Last Admin: 09/20/17 10:26 Dose: Not Given Tigecycline 50 mg/ Sodium (Chloride) 100 mls @ 100 mls/hr IVPB Q12H [facility] PRN Reason: Protocol Last Admin: 10/14/17 10:22 Dose: 100 mls/hr Colistimethate Sodium 80 mg/ (Sodium Chloride) 100 mls @ 200 mls/hr IV TTS [facility] PRN Reason: Protocol Last Admin: 10/13/17 13:33 Dose: 200 mls/hr Dextrose (Dextrose 10% In Water) 1,000 mls @ 20 mls/hr IV .Q24H [facility] Last Admin: 10/14/17 18:06 Dose: 20 mls/hr Ipratropium [place] (Atrovent) 0.5 mg IH Q4H PRN PRN Reason: Shortness of Breath Midodrine (Proamatine) 10 mg PO TID [facility] Last Admin: 10/14/17 18:05 Dose: 10 mg Ondansetron HCl (Zofran Inj) 4 mg IVP Q6 PRN PRN Reason: Nausea/Vomiting Last Admin: 10/14/17 18:05 Dose: 4 mg Physical Exam - Constitutional Appears: No Acute Distress, Chronically Ill Additional comments: Right IJ permacath,PICC line right arm - Head Exam Head Exam: ATRAUMATIC, NORMAL INSPECTION, NORMOCEPHALIC - Eye Exam Eye Exam: EOMI Pupil Exam: NORMAL ACCOMODATION, PERRL - ENT Exam ENT Exam: Mucous Membranes Dry - Neck Exam Neck exam: Positive for: Normal Inspection - Respiratory Exam Respiratory Exam: Clear to Auscultation Bilateral. absent: Respiratory Distress Additional comments: decreased airentry in bases - Cardiovascular Exam Cardiovascular Exam: REGULAR RHYTHM. absent: JVD - GI/Abdominal Exam GI & Abdominal Exam: Distended, Normal Bowel Sounds, Soft Additional comments: abdominal distension in right upper quadrant - Extremities Exam Extremities exam: Positive for: pedal edema. Negative for: tenderness - Back Exam Back exam: NORMAL INSPECTION - Neurological Exam Neurological exam: Alert, Oriented x3 - Skin Skin Exam: Erythema, Warm Additional comments: multiple areas of ecchymosis Results - Vital Signs Recent Vital Signs: Last Vital Signs Temp 97.5 F L 10/14/17 15:00 Pulse 116 H 10/14/17 20:21 Resp 20 10/14/17 09:11 BP 92/62 L 10/14/17 09:11 Pulse Ox 99 10/14/17 09:11 - Labs Result Diagrams: 10/09/17 08:50 10/14/17 19:07 Labs: Laboratory Results - last 24 hr 10/13/17 10/14/17 10/14/17 21:29 07:07 11:44 Puncture Site pCO2 pO2 HCO3 ABG pH ABG Total CO2 ABG O2 Saturation ABG Base Excess ABG Hemoglobin ABG Carboxyhemoglobin POC ABG HHb (Measured) ABG Methemoglobin José Test Hgb O2 Saturation Sodium Potassium Chloride Carbon Dioxide Anion Gap BUN Creatinine Est GFR ( Amer) Est GFR (Non-Af Amer) POC Glucose (mg/dL) 76 73 < 20 L* Random Glucose Calcium 10/14/17 10/14/17 10/14/17 11:58 12:53 13:12 Puncture Site pCO2 pO2 HCO3 ABG pH ABG Total CO2 ABG O2 Saturation ABG Base Excess ABG Hemoglobin ABG Carboxyhemoglobin POC ABG HHb (Measured) ABG Methemoglobin José Test Hgb O2 Saturation Sodium Potassium Chloride Carbon Dioxide Anion Gap BUN Creatinine Est GFR ( Amer) Est GFR (Non-Af Amer) POC Glucose (mg/dL) < 20 L* 32 L* 22 L* Random Glucose Calcium 10/14/17 10/14/17 10/14/17 13:43 16:52 19:07 Puncture Site Rba pCO2 28 L pO2 260 H HCO3 21.1 ABG pH 7.43 ABG Total CO2 19.5 L ABG O2 Saturation 100.9 H ABG Base Excess -4.9 L ABG Hemoglobin 9.0 L ABG Carboxyhemoglobin 2.3 H POC ABG HHb (Measured) -0.9 L ABG Methemoglobin 1.1 José Test Pos Hgb O2 Saturation 97.6 Sodium Potassium Chloride Carbon Dioxide Anion Gap BUN Creatinine Est GFR ( Amer) Est GFR (Non-Af Amer) POC Glucose (mg/dL) 97 120 H Random Glucose Calcium 10/14/17 19:07 Puncture Site pCO2 pO2 HCO3 ABG pH ABG Total CO2 ABG O2 Saturation ABG Base Excess ABG Hemoglobin ABG Carboxyhemoglobin POC ABG HHb (Measured) ABG Methemoglobin José Test Hgb O2 Saturation Sodium 136 Potassium 3.3 L Chloride 97 L Carbon Dioxide 23 Anion Gap 18 BUN 24 H Creatinine 4.2 H Est GFR ( Amer) 17 Est GFR (Non-Af Amer) 14 POC Glucose (mg/dL) Random Glucose 99 Calcium 7.6 L - EKG Data EKG Interpreted by: Myself - Imaging and Cardiology Chest x-ray Status: Image reviewed by me Assessment & Plan - Assessment and Plan (Free Text) Assessment: 1.Dyspnea-secondary to ascites paracentesis done 09/24.RN from endorsed that patient is scheduled for paracentesis tomorrow 2.ESRD on HD 3.Anemia 4.Hypokalemia-replace potassium 5.Cirrhosis/Aschites 6.Wound infection on Colymycin and tigecycline by ID
[2017-10-15 06:09] LABS: HEMOGLOBIN 9.5 g/dL (12.0-18.0); MEAN CELL VOLUME 92.8 fL (80.0-94.0); MEAN CORPUSCULAR HEMOGLOBIN 30.2 pg (27.0-31.0); MEAN CORPUSCULAR HGB CONC 32.6 g/dL (33.0-37.0); MEAN PLATELET VOLUME 8.8 fL (7.2-11.7); RBC 3.14 Mil/uL (4.40-5.90); RED CELL DISTRIBUTION WIDTH 17.6 % (11.5-14.5); WHITE BLOOD COUNT 10.7 K/uL (4.8-10.8)
[2017-10-15 06:17] LABS: INR 2.4; PROTHROMBIN TIME 26.8 SECONDS (9.7-12.2)
[2017-10-15 06:52] LABS: ALB/GLOB RATIO 0.7 (1.0-2.1); ALBUMIN 2.1 g/dL (3.5-5.0); CALCIUM 7.7 mg/dl (8.6-10.4)
--- NOTE | 2017-10-15 08:53 | RAD ---
Chest x-ray single frontal view History: Dyspnea. Comparison: 10/06/2017 Findings: Right central venous catheter with tip extending into the right atrium. Moderate venous congestion. Patchy bibasilar airspace opacities with small right pleural effusion. More superimposed consolidative changes in the right suprahilar region. Cardiomegaly with enlarged ectatic aorta. Degenerative changes in the spine. Impression: Right central venous catheter with tip extending into the right atrium. Moderate venous congestion. Patchy bibasilar airspace opacities with small right pleural effusion. More superimposed consolidative changes in the right suprahilar region. Cardiomegaly with enlarged ectatic aorta. Degenerative changes in the spine.
--- NOTE | 2017-10-15 10:48 | CP.PCM.PN ---
Subjective - Date & Time of Evaluation Date of Evaluation: 10/15/17 Time of Evaluation: 10:45 - Subjective Subjective: transferred ti ICU for SOB, hypoglycemia on D10W fluids SOB better now last HD 10/13 awaiting paracentesis - would help dyspnea K being repleted otherwise same lethargy Objective - Vital Signs/Intake and Output Vital Signs (last 24 hours): Temp Pulse Resp BP Pulse Ox 97.4 F L 98 H 19 119/92 H 86 L 10/15/17 08:00 10/15/17 10:31 10/15/17 10:31 10/15/17 10:31 10/15/17 10:31 Intake and Output: 10/15/17 10/15/17 06:59 18:59 Intake Total 400 260 Balance 400 260 - Medications Medications: Current Medications Dextrose (Dextrose 50% Inj) 0 ml IV STAT PRN; Protocol PRN Reason: Hypoglycemia Protocol Last Admin: 10/10/17 06:45 Dose: 50 ml Dextrose (Glutose 15) 0 gm PO ONCE PRN; Protocol PRN Reason: Hypoglycemia Protocol Epoetin Naeem (Procrit) 10,000 unit IV TTS [facility] Last Admin: 10/13/17 12:09 Dose: 10,000 unit Glucagon (Glucagen Diagnostic Kit) 0 mg IM STAT PRN; Protocol PRN Reason: Hypoglycemia Protocol Heparin Sodium (Porcine) (Heparin) 5,000 units SC Q12 [facility] Last Admin: 09/20/17 10:26 Dose: Not Given Tigecycline 50 mg/ Sodium (Chloride) 100 mls @ 100 mls/hr IVPB Q12H [facility] PRN Reason: Protocol Last Admin: 10/15/17 10:21 Dose: 100 mls/hr Colistimethate Sodium 80 mg/ (Sodium Chloride) 100 mls @ 200 mls/hr IV TTS [facility] PRN Reason: Protocol Last Admin: 10/13/17 13:33 Dose: 200 mls/hr Dextrose (Dextrose 10% In Water) 1,000 mls @ 20 mls/hr IV .Q24H [facility] Last Admin: 10/14/17 18:06 Dose: 20 mls/hr Potassium Chloride (Potassium Chloride 20 Meq/100 Ml) 20 meq in 100 mls @ 50 mls/hr IVPB ONCE ONE Stop: 10/15/17 11:54 Last Admin: 10/15/17 10:21 Dose: 50 mls/hr Ipratropium [place] (Atrovent) 0.5 mg IH Q4H PRN PRN Reason: Shortness of Breath Midodrine (Proamatine) 10 mg PO TID [facility] Last Admin: 10/15/17 10:21 Dose: 10 mg Nystatin (Nystop Topical Powder) 1 applic TOP TID [facility] Last Admin: 10/15/17 10:30 Dose: 1 applic Ondansetron HCl (Zofran Inj) 4 mg IVP Q6 PRN PRN Reason: Nausea/Vomiting Last Admin: 10/15/17 00:21 Dose: 4 mg - Labs Labs: 10/15/17 05:59 10/15/17 05:59 PT 26.8 SECONDS (9.7-12.2) H 10/15/17 05:59 INR 2.4 10/15/17 05:59 APTT 50 SECONDS (21-34) H 10/15/17 05:59 - Constitutional Appears: Non-toxic, Chronically Ill - Head Exam Head Exam: ATRAUMATIC, NORMAL INSPECTION - Eye Exam Eye Exam: EOMI, Normal appearance - Neck Exam Neck Exam: Normal Inspection. absent: Tenderness - Respiratory Exam Respiratory Exam: Clear to Ausculation Bilateral, NORMAL BREATHING PATTERN - Cardiovascular Exam Cardiovascular Exam: REGULAR RHYTHM, +S1 - GI/Abdominal Exam GI & Abdominal Exam: Distended, Soft - Extremities Exam Extremities Exam: Normal Inspection. absent: Tenderness - Neurological Exam Neurological Exam: Awake, CN II-XII Intact - Skin Skin Exam: Dry, Warm Assessment and Plan (1) CKD stage 5 secondary to hypertension Status: Acute (2) Secondary hyperparathyroidism Status: Acute (3) Hypothyroidism Status: Acute (4) Uremia Status: Acute (5) Cirrhosis Status: Acute (6) ESRD (end stage renal disease) on dialysis Status: Acute - Assessment and Plan (Free Text) Plan: same dialysis TTS await paracentesis monitor BP- maintained on midodrine will need usp placement
--- NOTE | 2017-10-15 14:17 | CP.PCM.CON ---
History of Present Illness - History of Present Illness History of Present Illness: Palliative consult requested by Doctor Liriano for goals of care discussion Patient is a 62 yo male admitted from home on 09/20/17 with decreased appetite, weakness and watery diarrhea. After multiple diagnostic studies, patient was diagnosed with liver cirrhosis. Much earlier before this sick episode, patient was recommended HD for ESRD and he did not comply with it. Over time his kidney functions declined and this time patient agreed with HD which begun last Sunday. Patient poor appetite persists due to ascites and requires frequent paracentesis. PMH: HTN, ESRD Soc. hx: single, lives with mother, no children Fam. Hx: one brother, healthy Review of Systems - Review of Systems All systems: reviewed and no additional remarkable complaints except Review of Systems: ROS obtained from nursing due to patient's lethargy. Per nursing patient has been weak. Past Patient History - Infectious Disease Hx of Infectious Diseases: None - Past Medical History & Family History Past Medical History?: Yes Past Family History: Reviewed and not pertinent - Past Social History Smoking Status: Never Smoked Chewing Tobacco Use: No Cigar Use: No - CARDIAC Hx Hypertension: Yes - PULMONARY Other/Comment: sob upon exertion - HEENT Hx HEENT Problems: Yes - RENAL Hx Renal Failure: Yes (ESRD) - ENDOCRINE/METABOLIC Hx Hypothyroidism: Yes - HEMATOLOGICAL/ONCOLOGICAL Hx Blood Disorders: Yes Hx Gum Bleeding: Yes - MUSCULOSKELETAL/RHEUMATOLOGICAL Hx Arthritis: Yes - GASTROINTESTINAL Hx Gastrointestinal Disorders: Yes Hx Gastroesophageal Reflux: Yes Hx Ulcer: Yes (gastric) - PSYCHIATRIC Hx Substance Use: No - SURGICAL HISTORY Hx Surgeries: Yes Other/Comment: exc benign tumor tight knee 1970 - ANESTHESIA Hx Anesthesia: Yes Hx Anesthesia Reactions: No Hx Malignant Hyperthermia: No Meds Allergies/Adverse Reactions: Allergies Allergy/AdvReac Type Severity Reaction Status Date / Time No Known Allergies Allergy Verified 10/16/13 09:00 - Medications Medications: Current Medications Dextrose (Dextrose 50% Inj) 0 ml IV STAT PRN; Protocol PRN Reason: Hypoglycemia Protocol Last Admin: 10/10/17 06:45 Dose: 50 ml Dextrose (Glutose 15) 0 gm PO ONCE PRN; Protocol PRN Reason: Hypoglycemia Protocol Epoetin Naeem (Procrit) 10,000 unit IV TTS [facility] Last Admin: 10/13/17 12:09 Dose: 10,000 unit Glucagon (Glucagen Diagnostic Kit) 0 mg IM STAT PRN; Protocol PRN Reason: Hypoglycemia Protocol Heparin Sodium (Porcine) (Heparin) 5,000 units SC Q12 [facility] Last Admin: 09/20/17 10:26 Dose: Not Given Tigecycline 50 mg/ Sodium (Chloride) 100 mls @ 100 mls/hr IVPB Q12H [facility] PRN Reason: Protocol Last Admin: 10/15/17 10:21 Dose: 100 mls/hr Colistimethate Sodium 80 mg/ (Sodium Chloride) 100 mls @ 200 mls/hr IV TTS [facility] PRN Reason: Protocol Last Admin: 10/13/17 13:33 Dose: 200 mls/hr Dextrose (Dextrose 10% In Water) 1,000 mls @ 20 mls/hr IV .Q24H [facility] Last Admin: 10/14/17 18:06 Dose: 20 mls/hr Ipratropium [place] (Atrovent) 0.5 mg IH Q4H PRN PRN Reason: Shortness of Breath Midodrine (Proamatine) 10 mg PO TID [facility] Last Admin: 10/15/17 10:21 Dose: 10 mg Nystatin (Nystop Topical Powder) 1 applic TOP TID [facility] Last Admin: 10/15/17 10:30 Dose: 1 applic Ondansetron HCl (Zofran Inj) 4 mg IVP Q6 PRN PRN Reason: Nausea/Vomiting Last Admin: 10/15/17 00:21 Dose: 4 mg Physical Exam - Constitutional Appears: In Acute Distress, Chronically Ill - Head Exam Head Exam: ATRAUMATIC, NORMAL INSPECTION, NORMOCEPHALIC - Eye Exam Eye Exam: EOMI, Normal appearance, PERRL Pupil Exam: NORMAL ACCOMODATION, PERRL - ENT Exam ENT Exam: Mucous Membranes Dry - Neck Exam Neck exam: Positive for: Normal Inspection - Respiratory Exam Respiratory Exam: Decreased Breath Sounds - Cardiovascular Exam Cardiovascular Exam: Tachycardia, REGULAR RHYTHM - GI/Abdominal Exam GI & Abdominal Exam: Distended, Firm, Guarding - Rectal Exam Rectal Exam: Deferred - Exam Additional comments: On HD - Extremities Exam Extremities exam: Positive for: normal inspection - Back Exam Back exam: NORMAL INSPECTION - Neurological Exam Neurological exam: Alert - Psychiatric Exam Psychiatric exam: Flat Affect - Skin Skin Exam: Pallor Results - Vital Signs Recent Vital Signs: Last Vital Signs Temp 97.4 F L 10/15/17 08:00 Pulse 82 10/15/17 11:47 Resp 17 10/15/17 11:47 BP 102/77 10/15/17 11:47 Pulse Ox 86 L 10/15/17 10:31 - Labs Result Diagrams: 10/15/17 05:59 10/15/17 05:59 Labs: Laboratory Results - last 24 hr 10/14/17 10/14/17 10/14/17 16:52 19:07 19:07 WBC RBC Hgb Hct MCV MCH MCHC RDW Plt Count MPV PT INR APTT Puncture Site Rba pCO2 28 L pO2 260 H HCO3 21.1 ABG pH 7.43 ABG Total CO2 19.5 L ABG O2 Saturation 100.9 H ABG Base Excess -4.9 L ABG Hemoglobin 9.0 L ABG Carboxyhemoglobin 2.3 H POC ABG HHb (Measured) -0.9 L ABG Methemoglobin 1.1 José Test Pos Hgb O2 Saturation 97.6 Sodium 136 Potassium 3.3 L Chloride 97 L Carbon Dioxide 23 Anion Gap 18 BUN 24 H Creatinine 4.2 H Est GFR ( Amer) 17 Est GFR (Non-Af Amer) 14 POC Glucose (mg/dL) 120 H Random Glucose 99 Calcium 7.6 L Phosphorus Magnesium Total Bilirubin AST ALT Alkaline Phosphatase Total Protein Albumin Globulin Albumin/Globulin Ratio 10/14/17 10/15/17 10/15/17 21:21 05:59 05:59 WBC 10.7 RBC 3.14 L Hgb 9.5 L Hct 29.2 L MCV 92.8 D MCH 30.2 MCHC 32.6 L RDW 17.6 H Plt Count 79 L D MPV 8.8 PT INR APTT Puncture Site pCO2 pO2 HCO3 ABG pH ABG Total CO2 ABG O2 Saturation ABG Base Excess ABG Hemoglobin ABG Carboxyhemoglobin POC ABG HHb (Measured) ABG Methemoglobin José Test Hgb O2 Saturation Sodium 135 Potassium 3.3 L Chloride 97 L Carbon Dioxide 24 Anion Gap 18 BUN 25 H Creatinine 4.6 H Est GFR ( Amer) 16 Est GFR (Non-Af Amer) 13 POC Glucose (mg/dL) 93 Random Glucose 80 Calcium 7.7 L Phosphorus 3.0 Magnesium 1.7 Total Bilirubin 1.4 H AST 67 H D ALT 19 L D Alkaline Phosphatase 117 Total Protein 4.9 L Albumin 2.1 L Globulin 2.8 Albumin/Globulin Ratio 0.7 L 10/15/17 05:59 WBC RBC Hgb Hct MCV MCH MCHC RDW Plt Count MPV PT 26.8 H INR 2.4 APTT 50 H Puncture Site pCO2 pO2 HCO3 ABG pH ABG Total CO2 ABG O2 Saturation ABG Base Excess ABG Hemoglobin ABG Carboxyhemoglobin POC ABG HHb (Measured) ABG Methemoglobin José Test Hgb O2 Saturation Sodium Potassium Chloride Carbon Dioxide Anion Gap BUN Creatinine Est GFR ( Amer) Est GFR (Non-Af Amer) POC Glucose (mg/dL) Random Glucose Calcium Phosphorus Magnesium Total Bilirubin AST ALT Alkaline Phosphatase Total Protein Albumin Globulin Albumin/Globulin Ratio Assessment & Plan - Assessment and Plan (Free Text) Assessment: Palliative consult Full Code, there is no Advance directive on chart, PPS 10% I reviewed medical records, all diagnostic studies, examined patient in the bed. Patient is lethargic, sleeping most of the time, reacts to voice and touch but does not fallow commends. Decreased breath sounds. O2Sat 86 %. Abdomen very distended due to acites what makes breathing worse. Patient could not go for paracentesis today due to low platelets of 79. Per nursing, patient has no appetite. IVF on board. Right AV shunt infected. Patient on Tygacil IV and contact isolation . Patient's brother Bárbara came in for family meeting. Goals of care discussed. I reviewed patient's clinical presentation and related symptoms to the diagnosis of liver cirrhosis. Bárbara stated understanding . He claims that patient has been drinking beer for a long time and was nt compliant with proposed medical care. I offered more information about liver cirrhosis and expected path of progress. We discussed option of Pleurex catheter insertion and brother agreed. Patient's brother Bárbara was concerned with patient's placement post discharge. Discharge home is not an option as patient's mother is 87 yo and unable to provide needed care to a patient, plus , he will need his HD X 3 a week. We discussed [facility] placennt for a [facility] placement and bárbara, the brother agreed that it would be the best solution. Impression * Chronically ill man with acute symptoms of liver cirrhosis * ESRD on HD * ascites * Lethargy * Inability to participate in goals of care discussion * Risk for malnutrition Suggestion * Symptoms control * Continue HD * Would consider Pleurex for easy removal of ascites * IV hydration for now * Offer food by mouth when more alert * Patient's brother Bárbara [phone] prefers to be called with any questions Advance planing time 45 min.
--- NOTE | 2017-10-15 15:23 | CP.CCUPN ---
"CCU Subjective - Physician Review Subjective (Free Text): Patient seen and examined at bedside. No overnight events reported. ROS could not be obtained because patient states he wanted to be left alone. He did deny any pain and complained of nausea. He denies vomiting. CCU Objective - Vital Signs / Intake & Output Vital Signs (Last 4 hours): Vital Signs Temp Pulse Resp BP Pulse Ox 10/15/17 14:22 92 H 17 113/84 10/15/17 14:19 126 H 10/15/17 13:22 126 H 13 123/81 10/15/17 13:00 97.4 F L 10/15/17 12:23 84 17 110/84 98 10/15/17 11:47 82 17 102/77 Intake and Output (Last 8hrs): Intake & Output 10/15/17 10/15/17 10/15/17 06:59 14:59 22:59 Intake Total 160 440 Balance 160 440 Weight 224 lb 13.944 oz Intake: Intake, IV Amount 160 440 Right upper arm - Distal 200 Port right upper arm 160 240 Other: # Voids Urine, Voided 0 # Bowel Movements 0 - Physical Exam Narrative Physical Exam (Free Text): Right IJ permacath,PICC line right arm Physical Exam Limitations: Positive for: Uncooperative Head: Positive for: Atraumatic, Normocephalic Pupils: Positive for: PERRL Extroacular Muscles: Positive for: EOMI Conjunctiva: Positive for: Normal Mouth: Positive for: Moist Mucous Membranes Respiratory/Chest: Positive for: Clear to Auscultation. Negative for: Wheezes, Rales, Rhonchi Cardiovascular: Positive for: Regular Rate and Rhythm Abdomen: Positive for: Distention, Normal Bowel Sounds. Negative for: Tenderness (Asciites with fluid wave shift), Rebound, Guarding Upper Extremity: Negative for: Edema Lower Extremity: Positive for: Edema Neurological: Positive for: GCS=15 Skin: Positive for: Erythematous (Left arm wound) Psychiatric: Positive for: Alert, Oriented x 3 - Medications Active Medications: Active Medications Generic Name Dose Route Start Last Admin Trade Name Freq PRN Reason Stop Dose Admin Dextrose 0 ml 10/10/17 06:30 10/10/17 06:45 Dextrose 50% Inj IV 50 ml STAT PRN Administration Hypoglycemia Protocol Protocol Dextrose 0 gm 10/10/17 06:30 Glutose 15 PO ONCE PRN Hypoglycemia Protocol Protocol Epoetin Naeem 10,000 unit 10/08/17 11:22 10/13/17 12:09 Procrit IV 10,000 unit TTS [facility] Administration Glucagon 0 mg 10/10/17 06:30 Glucagen Diagnostic Kit IM STAT PRN Hypoglycemia Protocol Protocol Heparin Sodium (Porcine) 5,000 units 09/19/17 22:00 09/20/17 10:26 Heparin SC Not Given Q12 [facility] Tigecycline 50 mg/ Sodium 100 mls @ 100 mls/hr 10/08/17 10:00 10/15/17 10:21 Chloride IVPB 100 mls/hr Q12H [facility] Administration Protocol Colistimethate Sodium 80 mg/ 100 mls @ 200 mls/hr 10/11/17 10:00 10/13/17 13: 33 Sodium Chloride IV 200 mls/hr TTS [facility] Administration Protocol Dextrose 1,000 mls @ 20 mls/hr 10/13/17 18:00 10/14/17 18:06 Dextrose 10% In Water IV 20 mls/hr .Q24H [facility] Administration Ipratropium [place] 0.5 mg 10/14/17 18:55 Atrovent IH Q4H PRN Shortness of Breath Midodrine 10 mg 10/08/17 11:22 10/15/17 14:21 Proamatine PO 10 mg TID [facility] Administration Nystatin 1 applic 10/15/17 10:00 10/15/17 14:21 Nystop Topical Powder TOP 1 applic TID [facility] Administration Ondansetron HCl 4 mg 10/10/17 08:11 10/15/17 00:21 Zofran Inj IVP 4 mg Q6 PRN Administration Nausea/Vomiting - Patient Studies Lab Studies: Lab Studies 10/15/17 10/15/17 10/15/17 Range/Units 05:59 05:59 05:59 WBC 10.7 (4.8-10.8) K/uL RBC 3.14 L (4.40-5.90) Mil/uL Hgb 9.5 L (12.0-18.0) g/dL Hct 29.2 L (35.0-51.0) % MCV 92.8 D (80.0-94.0) fL MCH 30.2 (27.0-31.0) pg MCHC 32.6 L (33.0-37.0) g/dL RDW 17.6 H (11.5-14.5) % Plt Count 79 L D (130-400) K/uL MPV 8.8 (7.2-11.7) fL PT 26.8 H (9.7-12.2) SECONDS INR 2.4 APTT 50 H (21-34) SECONDS Puncture Site pCO2 (35-45) mm/Hg pO2 (80-100) mm/Hg HCO3 (21-28) mmol/L ABG pH (7.35-7.45) ABG Total CO2 (22-28) mmol/L ABG O2 Saturation (95-98) % ABG Base Excess (-2.0-3.0) mmol/L ABG Hemoglobin (11.7-17.4) g/dL ABG Carboxyhemoglobin (0.5-1.5) % POC ABG HHb (Measured) (0.0-5.0) % ABG Methemoglobin (0.0-3.0) % José Test Hgb O2 Saturation (95.0-98.0) % Sodium 135 (132-148) mmol/L Potassium 3.3 L (3.6-5.2) mmol/L Chloride 97 L (98-107) mmol/L Carbon Dioxide 24 (22-30) mmol/L Anion Gap 18 (10-20) BUN 25 H (9-20) mg/dL Creatinine 4.6 H (0.8-1.5) mg/dL Est GFR ( Amer) 16 Est GFR (Non-Af Amer) 13 POC Glucose (mg/dL) (65-110) mg/dL Random Glucose 80 (75-110) mg/dL Calcium 7.7 L (8.6-10.4) mg/dl Phosphorus 3.0 (2.5-4.5) mg/dL Magnesium 1.7 (1.6-2.3) mg/dL Total Bilirubin 1.4 H (0.2-1.3) mg/dL AST 67 H D (17-59) U/L ALT 19 L D (21-72) U/L Alkaline Phosphatase 117 (38-126) U/L Total Protein 4.9 L (6.3-8.3) g/dL Albumin 2.1 L (3.5-5.0) g/dL Globulin 2.8 (2.2-3.9) gm/dL Albumin/Globulin Ratio 0.7 L (1.0-2.1) 10/14/17 10/14/17 10/14/17 Range/Units 21:21 19:07 19:07 WBC (4.8-10.8) K/uL RBC (4.40-5.90) Mil/uL Hgb (12.0-18.0) g/dL Hct (35.0-51.0) % MCV (80.0-94.0) fL MCH (27.0-31.0) pg MCHC (33.0-37.0) g/dL RDW (11.5-14.5) % Plt Count (130-400) K/uL MPV (7.2-11.7) fL PT (9.7-12.2) SECONDS INR APTT (21-34) SECONDS Puncture Site Rba pCO2 28 L (35-45) mm/Hg pO2 260 H (80-100) mm/Hg HCO3 21.1 (21-28) mmol/L ABG pH 7.43 (7.35-7.45) ABG Total CO2 19.5 L (22-28) mmol/L ABG O2 Saturation 100.9 H (95-98) % ABG Base Excess -4.9 L (-2.0-3.0) mmol/L ABG Hemoglobin 9.0 L (11.7-17.4) g/dL ABG Carboxyhemoglobin 2.3 H (0.5-1.5) % POC ABG HHb (Measured) -0.9 L (0.0-5.0) % ABG Methemoglobin 1.1 (0.0-3.0) % José Test Pos Hgb O2 Saturation 97.6 (95.0-98.0) % Sodium 136 (132-148) mmol/L Potassium 3.3 L (3.6-5.2) mmol/L Chloride 97 L (98-107) mmol/L Carbon Dioxide 23 (22-30) mmol/L Anion Gap 18 (10-20) BUN 24 H (9-20) mg/dL Creatinine 4.2 H (0.8-1.5) mg/dL Est GFR ( Amer) 17 Est GFR (Non-Af Amer) 14 POC Glucose (mg/dL) 93 (65-110) mg/dL Random Glucose 99 (75-110) mg/dL Calcium 7.6 L (8.6-10.4) mg/dl Phosphorus (2.5-4.5) mg/dL Magnesium (1.6-2.3) mg/dL Total Bilirubin (0.2-1.3) mg/dL AST (17-59) U/L ALT (21-72) U/L Alkaline Phosphatase (38-126) U/L Total Protein (6.3-8.3) g/dL Albumin (3.5-5.0) g/dL Globulin (2.2-3.9) gm/dL Albumin/Globulin Ratio (1.0-2.1) 10/14/17 Range/Units 16:52 WBC (4.8-10.8) K/uL RBC (4.40-5.90) Mil/uL Hgb (12.0-18.0) g/dL Hct (35.0-51.0) % MCV (80.0-94.0) fL MCH (27.0-31.0) pg MCHC (33.0-37.0) g/dL RDW (11.5-14.5) % Plt Count (130-400) K/uL MPV (7.2-11.7) fL PT (9.7-12.2) SECONDS INR APTT (21-34) SECONDS Puncture Site pCO2 (35-45) mm/Hg pO2 (80-100) mm/Hg HCO3 (21-28) mmol/L ABG pH (7.35-7.45) ABG Total CO2 (22-28) mmol/L ABG O2 Saturation (95-98) % ABG Base Excess (-2.0-3.0) mmol/L ABG Hemoglobin (11.7-17.4) g/dL ABG Carboxyhemoglobin (0.5-1.5) % POC ABG HHb (Measured) (0.0-5.0) % ABG Methemoglobin (0.0-3.0) % José Test Hgb O2 Saturation (95.0-98.0) % Sodium (132-148) mmol/L Potassium (3.6-5.2) mmol/L Chloride (98-107) mmol/L Carbon Dioxide (22-30) mmol/L Anion Gap (10-20) BUN (9-20) mg/dL Creatinine (0.8-1.5) mg/dL Est GFR ( Amer) Est GFR (Non-Af Amer) POC Glucose (mg/dL) 120 H (65-110) mg/dL Random Glucose (75-110) mg/dL Calcium (8.6-10.4) mg/dl Phosphorus (2.5-4.5) mg/dL Magnesium (1.6-2.3) mg/dL Total Bilirubin (0.2-1.3) mg/dL AST (17-59) U/L ALT (21-72) U/L Alkaline Phosphatase (38-126) U/L Total Protein (6.3-8.3) g/dL Albumin (3.5-5.0) g/dL Globulin (2.2-3.9) gm/dL Albumin/Globulin Ratio (1.0-2.1) Laboratory Results - last 24 hr 10/14/17 10/14/17 10/14/17 16:52 19:07 19:07 WBC RBC Hgb Hct MCV MCH MCHC RDW Plt Count MPV PT INR APTT Puncture Site Rba pCO2 28 L pO2 260 H HCO3 21.1 ABG pH 7.43 ABG Total CO2 19.5 L ABG O2 Saturation 100.9 H ABG Base Excess -4.9 L ABG Hemoglobin 9.0 L ABG Carboxyhemoglobin 2.3 H POC ABG HHb (Measured) -0.9 L ABG Methemoglobin 1.1 José Test Pos Hgb O2 Saturation 97.6 Sodium 136 Potassium 3.3 L Chloride 97 L Carbon Dioxide 23 Anion Gap 18 BUN 24 H Creatinine 4.2 H Est GFR ( Amer) 17 Est GFR (Non-Af Amer) 14 POC Glucose (mg/dL) 120 H Random Glucose 99 Calcium 7.6 L Phosphorus Magnesium Total Bilirubin AST ALT Alkaline Phosphatase Total Protein Albumin Globulin Albumin/Globulin Ratio 10/14/17 10/15/17 10/15/17 21:21 05:59 05:59 WBC 10.7 RBC 3.14 L Hgb 9.5 L Hct 29.2 L MCV 92.8 D MCH 30.2 MCHC 32.6 L RDW 17.6 H Plt Count 79 L D MPV 8.8 PT INR APTT Puncture Site pCO2 pO2 HCO3 ABG pH ABG Total CO2 ABG O2 Saturation ABG Base Excess ABG Hemoglobin ABG Carboxyhemoglobin POC ABG HHb (Measured) ABG Methemoglobin José Test Hgb O2 Saturation Sodium 135 Potassium 3.3 L Chloride 97 L Carbon Dioxide 24 Anion Gap 18 BUN 25 H Creatinine 4.6 H Est GFR ( Amer) 16 Est GFR (Non-Af Amer) 13 POC Glucose (mg/dL) 93 Random Glucose 80 Calcium 7.7 L Phosphorus 3.0 Magnesium 1.7 Total Bilirubin 1.4 H AST 67 H D ALT 19 L D Alkaline Phosphatase 117 Total Protein 4.9 L Albumin 2.1 L Globulin 2.8 Albumin/Globulin Ratio 0.7 L 10/15/17 05:59 WBC RBC Hgb Hct MCV MCH MCHC RDW Plt Count MPV PT 26.8 H INR 2.4 APTT 50 H Puncture Site pCO2 pO2 HCO3 ABG pH ABG Total CO2 ABG O2 Saturation ABG Base Excess ABG Hemoglobin ABG Carboxyhemoglobin POC ABG HHb (Measured) ABG Methemoglobin José Test Hgb O2 Saturation Sodium Potassium Chloride Carbon Dioxide Anion Gap BUN Creatinine Est GFR ( Amer) Est GFR (Non-Af Amer) POC Glucose (mg/dL) Random Glucose Calcium Phosphorus Magnesium Total Bilirubin AST ALT Alkaline Phosphatase Total Protein Albumin Globulin Albumin/Globulin Ratio EKG/Cardiology Studies: Cardiology / EKG Studies 10/14/17 18:53 EKG [ELECTROCARDIOGRAM] Stat Comment: Mode Of Transportation: Reason For Exam: Dyspnea, hx afib Isolation: Contact 10/15/17 08:00 ELECTROCARDIOGRAM Routine Comment: Mode Of Transportation: PORTABLE Reason For Exam: f/u a fib Isolation: Contact Fingerstick Blood Sugar Results: 82 Review of Systems - Review of Systems Systems not reviewed;Unavailable: Uncooperative Critical Care Progress Note - Nutrition Nutrition: Nutrition Category Date Time Status Renal Diet [DIET] Diets 10/04/17 Dinner Active Assessment/Plan - Assessment and Plan (Free Text) Plan: 62year old male with past medical history of ESRD on HD T// started in september 2017, Cirrhosis,ascites with paracentesis of 6L of fluid on 4/16/18 ,anemia, hypothyroidism admitted to ICU due dyspnea 2/2 to Ascites. Neuro: Head CT (Admission): No Acute Findings. Sedation: N/A Cardio A: A-fib w/ Variable Rate| Hypotension Midodrine 10 TID Cardiology Consulted (Dr. Duran, Recs Appreciated) EKG (10/15): Shows 1st degree block. Pulm A: dyspnea 2/2 to Ascities vs Afib CXR (10/14): Right central venous catheter with tip extending into the right atrium. Moderate venous congestion. Patchy bibasilar airspace opacities with small right pleural effusion. More superimposed consolidative changes in the right suprahilar region. Cardiomegaly with enlarged ectatic aorta. Degenerative changes in the spine. Atrovent 0.5mg IH Q4H PRN GI A: Cirrhosis, Asicites likley 2/2 EtOH abuse. LFT's Elevated Hepatitis Panel - NEGATIVE GI Consulted, Recs Appreciated Plan for parcentesis Zofran PRN for Nausea Monitor LFT's Endo A: Hypothyrodism Hypoglycemia Treatment Protocol Patient on Levothyroxine but does not know the dose. TSH and Free T4 Ordered Will need to find dose and start on medication. Nephro/electrolytes A: ESRD (T, TH, S) Potassium Replenished ProCrit ID Wound Culture POSITIVE for VRE/Coagulase Negative Staph on left Arm Wound ID Consulted (Dr. Barajas) Recs, Appreciated Cont. Colistimethate /Tigecycline Heme/Onc A: Anemia likely 2/2 to ESRD HgB 9.5 Today. Cont. to Monitor. On ProCrit MSK Physical Therapy Prophylaxis Heparin Q12H (Held) Dispo: Palliative Care consulted. Discussed with brother regarding NH vs LTC. Goals of care could not be discussed at the time. Likely can be transferred to Telemetry post parecentesis. Patient discussed with ICU Attending Ayala Liirano, PGY-1"
--- NOTE | 2017-10-15 15:44 | CP.PCM.PN ---
Subjective - Date & Time of Evaluation Date of Evaluation: 10/15/17 Time of Evaluation: 15:44 Objective - Vital Signs/Intake and Output Vital Signs (last 24 hours): Temp Pulse Resp BP Pulse Ox 97.4 F L 92 H 17 113/84 98 10/15/17 13:00 10/15/17 14:22 10/15/17 14:22 10/15/17 14:22 10/15/17 12:23 Intake and Output: 10/15/17 10/15/17 06:59 18:59 Intake Total 400 440 Balance 400 440 - Medications Medications: Current Medications Dextrose (Dextrose 50% Inj) 0 ml IV STAT PRN; Protocol PRN Reason: Hypoglycemia Protocol Last Admin: 10/10/17 06:45 Dose: 50 ml Dextrose (Glutose 15) 0 gm PO ONCE PRN; Protocol PRN Reason: Hypoglycemia Protocol Epoetin Naeem (Procrit) 10,000 unit IV TTS [facility] Last Admin: 10/13/17 12:09 Dose: 10,000 unit Glucagon (Glucagen Diagnostic Kit) 0 mg IM STAT PRN; Protocol PRN Reason: Hypoglycemia Protocol Heparin Sodium (Porcine) (Heparin) 5,000 units SC Q12 [facility] Last Admin: 09/20/17 10:26 Dose: Not Given Tigecycline 50 mg/ Sodium (Chloride) 100 mls @ 100 mls/hr IVPB Q12H [facility] PRN Reason: Protocol Last Admin: 10/15/17 10:21 Dose: 100 mls/hr Colistimethate Sodium 80 mg/ (Sodium Chloride) 100 mls @ 200 mls/hr IV TTS ARYA PRN Reason: Protocol Last Admin: 10/13/17 13:33 Dose: 200 mls/hr Dextrose (Dextrose 10% In Water) 1,000 mls @ 20 mls/hr IV .Q24H [facility] Last Admin: 10/14/17 18:06 Dose: 20 mls/hr Ipratropium [place] (Atrovent) 0.5 mg IH Q4H PRN PRN Reason: Shortness of Breath Midodrine (Proamatine) 10 mg PO TID [facility] Last Admin: 10/15/17 14:21 Dose: 10 mg Nystatin (Nystop Topical Powder) 1 applic TOP TID [facility] Last Admin: 10/15/17 14:21 Dose: 1 applic Ondansetron HCl (Zofran Inj) 4 mg IVP Q6 PRN PRN Reason: Nausea/Vomiting Last Admin: 10/15/17 00:21 Dose: 4 mg - Labs Labs: 10/15/17 05:59 10/15/17 05:59 PT 26.8 SECONDS (9.7-12.2) H 10/15/17 05:59 INR 2.4 10/15/17 05:59 APTT 50 SECONDS (21-34) H 10/15/17 05:59
--- NOTE | 2017-10-15 16:08 | CARD ---
APPROVED REPORT EKG Measurement Heart [id number] <Conclusion> Sinus rhythm with 1st degree AV block with premature atrial complexes Left axis deviation Low voltage QRS Abnormal ECG
[2017-10-15] MEDS ORDERED: Dextrose 50% SYRINGE Inj (50 ml) ONE ×2 (19:43→20:09)
[2017-10-15] MEDS: Dextrose 50% SYRINGE Inj (50 ml) IV PRN (19:48)
[2017-10-15] MEDS ORDERED: Dextrose 50% SYRINGE Inj (50 ml) IV STA (20:10)
--- NOTE | 2017-10-15 21:39 | CP.PCM.PN ---
Subjective - Date & Time of Evaluation Date of Evaluation: 10/15/17 Time of Evaluation: 12:00 - Subjective Subjective: clinically same Objective - Vital Signs/Intake and Output Vital Signs (last 24 hours): Temp Pulse Resp BP Pulse Ox 97.3 F L 91 H 22 119/96 H 81 L 10/15/17 20:00 10/15/17 20:23 10/15/17 20:23 10/15/17 20:23 10/15/17 20:00 Intake and Output: 10/15/17 10/16/17 18:59 06:59 Intake Total 520 180 Balance 520 180 - Medications Medications: Current Medications Dextrose (Dextrose 50% Inj) 0 ml IV STAT PRN; Protocol PRN Reason: Hypoglycemia Protocol Last Admin: 10/15/17 19:48 Dose: 50 ml Dextrose (Glutose 15) 0 gm PO ONCE PRN; Protocol PRN Reason: Hypoglycemia Protocol Epoetin Naeem (Procrit) 10,000 unit IV TTS [facility] Last Admin: 10/13/17 12:09 Dose: 10,000 unit Glucagon (Glucagen Diagnostic Kit) 0 mg IM STAT PRN; Protocol PRN Reason: Hypoglycemia Protocol Heparin Sodium (Porcine) (Heparin) 5,000 units SC Q12 [facility] Last Admin: 09/20/17 10:26 Dose: Not Given Tigecycline 50 mg/ Sodium (Chloride) 100 mls @ 100 mls/hr IVPB Q12H [facility] PRN Reason: Protocol Last Admin: 10/15/17 21:31 Dose: 100 mls/hr Colistimethate Sodium 80 mg/ (Sodium Chloride) 100 mls @ 200 mls/hr IV TTS [facility] PRN Reason: Protocol Last Admin: 10/13/17 13:33 Dose: 200 mls/hr Dextrose (Dextrose 10% In Water) 1,000 mls @ 40 mls/hr IV .Q24H [facility] Ipratropium [place] (Atrovent) 0.5 mg IH Q4H PRN PRN Reason: Shortness of Breath Midodrine (Proamatine) 10 mg PO TID [facility] Last Admin: 10/15/17 17:37 Dose: 10 mg Nystatin (Nystop Topical Powder) 1 applic TOP TID [facility] Last Admin: 10/15/17 17:45 Dose: 1 applic Ondansetron HCl (Zofran Inj) 4 mg IVP Q6 PRN PRN Reason: Nausea/Vomiting Last Admin: 10/15/17 00:21 Dose: 4 mg - Labs Labs: 10/15/17 05:59 10/15/17 05:59 PT 26.8 SECONDS (9.7-12.2) H 10/15/17 05:59 INR 2.4 10/15/17 05:59 APTT 50 SECONDS (21-34) H 10/15/17 05:59 - Constitutional Appears: Well - Head Exam Head Exam: ATRAUMATIC, NORMAL INSPECTION, NORMOCEPHALIC - Eye Exam Eye Exam: EOMI, Normal appearance, PERRL Pupil Exam: NORMAL ACCOMODATION, PERRL - ENT Exam ENT Exam: Mucous Membranes Moist, Normal Exam - Neck Exam Neck Exam: Full ROM, Normal Inspection. absent: Lymphadenopathy - Respiratory Exam Respiratory Exam: Decreased Breath Sounds - Cardiovascular Exam Cardiovascular Exam: REGULAR RHYTHM, +S1, +S2 - GI/Abdominal Exam GI & Abdominal Exam: Soft, Diminished Bowel Sounds - Rectal Exam Rectal Exam: Deferred
--- NOTE | 2017-10-15 21:41 | CARD ---
APPROVED REPORT EKG Measurement Heart [id number] <Conclusion> Accelerated Junctional rhythm Left axis deviation Low voltage QRS Nonspecific ST abnormality Abnormal ECG
--- NOTE | 2017-10-15 22:25 | CP.PCM.CON ---
History of Present Illness - History of Present Illness History of Present Illness: 62 year old male with a history of ESRD on HD, cirrhosis of the liver, anemia, admitted to the ICU with respiratory distress, afib, with thrombocytopenia. I am unable to obtain a history from the patient. Review of his medical records shows he was admitted with a normal platelet count which has nadiried at 79, 000. He has had heparin ordered but currently on hold. There is no evidence of abnormal bleeding or bruising. Past medical, surgical, family, social history cannot be obtained Allergies: NKA Review of systems cannot be obtained. Past Patient History - Infectious Disease Hx of Infectious Diseases: None - Past Medical History & Family History Past Medical History?: Yes Past Family History: Reviewed and not pertinent - Past Social History Smoking Status: Never Smoked Chewing Tobacco Use: No Cigar Use: No - CARDIAC Hx Hypertension: Yes - PULMONARY Other/Comment: sob upon exertion - HEENT Hx HEENT Problems: Yes - RENAL Hx Renal Failure: Yes (ESRD) - ENDOCRINE/METABOLIC Hx Hypothyroidism: Yes - HEMATOLOGICAL/ONCOLOGICAL Hx Blood Disorders: Yes Hx Gum Bleeding: Yes - MUSCULOSKELETAL/RHEUMATOLOGICAL Hx Arthritis: Yes - GASTROINTESTINAL Hx Gastrointestinal Disorders: Yes Hx Gastroesophageal Reflux: Yes Hx Ulcer: Yes (gastric) - PSYCHIATRIC Hx Substance Use: No - SURGICAL HISTORY Hx Surgeries: Yes Other/Comment: exc benign tumor tight knee 1970 - ANESTHESIA Hx Anesthesia: Yes Hx Anesthesia Reactions: No Hx Malignant Hyperthermia: No Meds Allergies/Adverse Reactions: Allergies Allergy/AdvReac Type Severity Reaction Status Date / Time No Known Allergies Allergy Verified 10/16/13 09:00 - Medications Medications: Current Medications Dextrose (Dextrose 50% Inj) 0 ml IV STAT PRN; Protocol PRN Reason: Hypoglycemia Protocol Last Admin: 10/15/17 19:48 Dose: 50 ml Dextrose (Glutose 15) 0 gm PO ONCE PRN; Protocol PRN Reason: Hypoglycemia Protocol Epoetin Naeem (Procrit) 10,000 unit IV TTS [facility] Last Admin: 10/13/17 12:09 Dose: 10,000 unit Glucagon (Glucagen Diagnostic Kit) 0 mg IM STAT PRN; Protocol PRN Reason: Hypoglycemia Protocol Heparin Sodium (Porcine) (Heparin) 5,000 units SC Q12 [facility] Last Admin: 09/20/17 10:26 Dose: Not Given Tigecycline 50 mg/ Sodium (Chloride) 100 mls @ 100 mls/hr IVPB Q12H [facility] PRN Reason: Protocol Last Admin: 10/15/17 21:31 Dose: 100 mls/hr Colistimethate Sodium 80 mg/ (Sodium Chloride) 100 mls @ 200 mls/hr IV TTS [facility] PRN Reason: Protocol Last Admin: 10/13/17 13:33 Dose: 200 mls/hr Dextrose (Dextrose 10% In Water) 1,000 mls @ 40 mls/hr IV .Q24H [facility] Ipratropium [place] (Atrovent) 0.5 mg IH Q4H PRN PRN Reason: Shortness of Breath Midodrine (Proamatine) 10 mg PO TID [facility] Last Admin: 10/15/17 17:37 Dose: 10 mg Nystatin (Nystop Topical Powder) 1 applic TOP TID [facility] Last Admin: 10/15/17 17:45 Dose: 1 applic Ondansetron HCl (Zofran Inj) 4 mg IVP Q6 PRN PRN Reason: Nausea/Vomiting Last Admin: 10/15/17 00:21 Dose: 4 mg Physical Exam - Head Exam Head Exam: ATRAUMATIC - Eye Exam Eye Exam: Normal appearance - ENT Exam ENT Exam: Mucous Membranes Dry - Respiratory Exam Respiratory Exam: Respiratory Distress - Cardiovascular Exam Cardiovascular Exam: +S1, +S2 - GI/Abdominal Exam GI & Abdominal Exam: Normal Bowel Sounds - Extremities Exam Extremities exam: Positive for: pedal edema Results - Vital Signs Recent Vital Signs: Last Vital Signs Temp 97.3 F L 10/15/17 20:00 Pulse 86 10/15/17 22:00 Resp 26 H 10/15/17 22:00 BP 117/79 10/15/17 21:22 Pulse Ox 81 L 10/15/17 22:00 - Labs Result Diagrams: 10/15/17 05:59 10/15/17 05:59 Labs: Laboratory Results - last 24 hr 10/15/17 10/15/17 10/15/17 05:59 05:59 05:59 WBC 10.7 RBC 3.14 L Hgb 9.5 L Hct 29.2 L MCV 92.8 D MCH 30.2 MCHC 32.6 L RDW 17.6 H Plt Count 79 L D MPV 8.8 PT 26.8 H INR 2.4 APTT 50 H Sodium 135 Potassium 3.3 L Chloride 97 L Carbon Dioxide 24 Anion Gap 18 BUN 25 H Creatinine 4.6 H Est GFR ( Amer) 16 Est GFR (Non-Af Amer) 13 POC Glucose (mg/dL) Random Glucose 80 Calcium 7.7 L Phosphorus 3.0 Magnesium 1.7 Total Bilirubin 1.4 H AST 67 H D ALT 19 L D Alkaline Phosphatase 117 Total Protein 4.9 L Albumin 2.1 L Globulin 2.8 Albumin/Globulin Ratio 0.7 L Free T4 TSH 3rd Generation Plasma Cortisol PM 10/15/17 10/15/17 10/15/17 16:39 16:39 19:36 WBC RBC Hgb Hct MCV MCH MCHC RDW Plt Count MPV PT INR APTT Sodium Potassium Chloride Carbon Dioxide Anion Gap BUN Creatinine Est GFR ( Amer) Est GFR (Non-Af Amer) POC Glucose (mg/dL) < 20 L* Random Glucose Calcium Phosphorus Magnesium Total Bilirubin AST ALT Alkaline Phosphatase Total Protein Albumin Globulin Albumin/Globulin Ratio Free T4 0.93 TSH 3rd Generation 5.18 H Plasma Cortisol PM 10/15/17 10/15/17 10/15/17 20:02 20:05 20:24 WBC RBC Hgb Hct MCV MCH MCHC RDW Plt Count MPV PT INR APTT Sodium Potassium Chloride Carbon Dioxide Anion Gap BUN Creatinine Est GFR ( Amer) Est GFR (Non-Af Amer) POC Glucose (mg/dL) < 20 L* < 20 L* 77 Random Glucose Calcium Phosphorus Magnesium Total Bilirubin AST ALT Alkaline Phosphatase Total Protein Albumin Globulin Albumin/Globulin Ratio Free T4 TSH 3rd Generation Plasma Cortisol PM 10/15/17 10/15/17 20:34 21:08 WBC RBC Hgb Hct MCV MCH MCHC RDW Plt Count MPV PT INR APTT Sodium Potassium Chloride Carbon Dioxide Anion Gap BUN Creatinine Est GFR ( Amer) Est GFR (Non-Af Amer) POC Glucose (mg/dL) 202 H Random Glucose Calcium Phosphorus Magnesium Total Bilirubin AST ALT Alkaline Phosphatase Total Protein Albumin Globulin Albumin/Globulin Ratio Free T4 TSH 3rd Generation Plasma Cortisol PM 24.2 H Assessment & Plan (1) Thrombocytopenia Assessment and Plan: ? medication induce ? abx ? heparin will check heparin Ab and serotonin release assay to evaluate for HIT; heparin on hold likely element of sequestration given liver cirrhosis Status: Acute (2) Anemia Assessment and Plan: will check ferritin, retic count, b12, folate to further characterize element of anemia of CKD EPO per renal Thank you for this interesting consult. Status: Acute
[2017-10-16 06:18] LABS: BASO # 0.1 K/uL (0.0-0.2); BASO % 0.5 % (0.0-2.0); EOS % 0.4 % (0.0-4.0); HEMOGLOBIN 9.4 g/dL (12.0-18.0); LYMPH # 1.7 K/uL (1.0-4.3); LYMPH % 15.1 % (20.0-40.0); MEAN CELL VOLUME 93.6 fL (80.0-94.0); MEAN CORPUSCULAR HEMOGLOBIN 29.7 pg (27.0-31.0); MEAN CORPUSCULAR HGB CONC 31.7 g/dL (33.0-37.0); MEAN PLATELET VOLUME 8.2 fL (7.2-11.7); MONO # 0.4 K/uL (0.0-0.8); MONO % 4.1 % (0.0-10.0); NEUT # 8.7 K/uL (1.8-7.0); NEUT % 79.9 % (50.0-75.0); NRBC % 0.4 % (0.0-2.0); RBC 3.16 Mil/uL (4.40-5.90); RED CELL DISTRIBUTION WIDTH 18.1 % (11.5-14.5); WHITE BLOOD COUNT 10.9 K/uL (4.8-10.8)
[2017-10-16 06:27] LABS: INR 2.4; PROTHROMBIN TIME 26.8 SECONDS (9.7-12.2)
[2017-10-16 06:45] LABS: ALB/GLOB RATIO 0.7 (1.0-2.1); CALCIUM 7.9 mg/dl (8.6-10.4)
[2017-10-16] MEDS ORDERED: Dextrose 50% SYRINGE Inj (50 ml) ONE ×2 (07:30→07:56)
[2017-10-16] MEDS: Dextrose 50% SYRINGE Inj (50 ml) IV PRN ×2 (07:35→07:55)
[2017-10-16] MEDS ORDERED: Albumin Human 25% (12.5 gm/50 ml) IV ONE ×2 (10:16→11:55)
[2017-10-16] MEDS ORDERED: Phytonadione 10 mg/ml Inj (Adult) IV STA (10:20)
[2017-10-16] MEDS: Epoetin Alfa 10,000 unit/ml Dialysis IV SCH (10:41)
--- NOTE | 2017-10-16 11:53 | CP.PCM.PN ---
Subjective - Date & Time of Evaluation Date of Evaluation: 10/16/17 Time of Evaluation: 11:52 - Subjective Subjective: seen and examined ongoing hd, low bp bipap mask - unable to obtain ros Objective - Vital Signs/Intake and Output Vital Signs (last 24 hours): Temp Pulse Resp BP Pulse Ox 97.5 F L 111 H 19 109/52 L 97 10/16/17 09:38 10/16/17 11:00 10/16/17 11:00 10/16/17 11:38 10/16/17 11:00 Intake and Output: 10/16/17 10/16/17 06:59 18:59 Intake Total 840 200 Output Total 0 Balance 840 200 - Medications Medications: Current Medications Dextrose (Dextrose 50% Inj) 0 ml IV STAT PRN; Protocol PRN Reason: Hypoglycemia Protocol Last Admin: 10/16/17 07:55 Dose: 50 ml Dextrose (Glutose 15) 0 gm PO ONCE PRN; Protocol PRN Reason: Hypoglycemia Protocol Epoetin Naeem (Procrit) 10,000 unit IV TTS [facility] Last Admin: 10/16/17 10:41 Dose: 10,000 unit Glucagon (Glucagen Diagnostic Kit) 0 mg IM STAT PRN; Protocol PRN Reason: Hypoglycemia Protocol Heparin Sodium (Porcine) (Heparin) 5,000 units SC Q12 [facility] Last Admin: 09/20/17 10:26 Dose: Not Given Tigecycline 50 mg/ Sodium (Chloride) 100 mls @ 100 mls/hr IVPB Q12H [facility] PRN Reason: Protocol Last Admin: 10/15/17 21:31 Dose: 100 mls/hr Colistimethate Sodium 80 mg/ (Sodium Chloride) 100 mls @ 200 mls/hr IV TTS [facility] PRN Reason: Protocol Last Admin: 10/13/17 13:33 Dose: 200 mls/hr Dextrose (Dextrose 10% In Water) 1,000 mls @ 40 mls/hr IV .Q24H [facility] Last Admin: 10/15/17 20:00 Dose: 40 mls/hr Aztreonam 1 gm/ Sodium (Chloride) 100 mls @ 200 mls/hr IVPB DAILY [facility] PRN Reason: Protocol Ipratropium [place] (Atrovent) 0.5 mg IH Q4H PRN PRN Reason: Shortness of Breath Midodrine (Proamatine) 10 mg PO TID [facility] Last Admin: 10/16/17 09:46 Dose: 10 mg Nystatin (Nystop Topical Powder) 1 applic TOP TID [facility] Last Admin: 10/16/17 09:42 Dose: 1 applic Ondansetron HCl (Zofran Inj) 4 mg IVP Q6 PRN PRN Reason: Nausea/Vomiting Last Admin: 10/16/17 07:16 Dose: 4 mg - Labs Labs: 10/16/17 06:05 10/16/17 06:05 PT 26.8 SECONDS (9.7-12.2) H 10/16/17 06:05 INR 2.4 10/16/17 06:05 APTT 57 SECONDS (21-34) H D 10/16/17 06:05 - Constitutional Appears: No Acute Distress, Cachectic, Chronically Ill - Head Exam Head Exam: NORMAL INSPECTION - Eye Exam Eye Exam: Normal appearance - ENT Exam Additional comments: bipap mask - Neck Exam Neck Exam: Normal Inspection - Respiratory Exam Respiratory Exam: Decreased Breath Sounds, NORMAL BREATHING PATTERN - Cardiovascular Exam Cardiovascular Exam: RRR - GI/Abdominal Exam GI & Abdominal Exam: Distended (+ ascites), Soft - Extremities Exam Extremities Exam: Normal Inspection - Neurological Exam Neurological Exam: Alert, Awake, Oriented x3 - Psychiatric Exam Psychiatric exam: Normal Affect, Normal Mood - Skin Skin Exam: Normal Color, Warm Assessment and Plan (1) Anemia Status: Acute (2) Cirrhosis Status: Acute (3) ESRD (end stage renal disease) on dialysis Status: Acute (4) Secondary hyperparathyroidism Status: Acute - Assessment and Plan (Free Text) Assessment: maintain hd tts paracentesis supportive care
[2017-10-16] MEDS: Aztreonam 1 GM in Sodium Chloride 0.9% 100 ML IVPB SCH (12:43)
--- NOTE | 2017-10-16 13:27 | CP.PCM.PN ---
Subjective - Date & Time of Evaluation Date of Evaluation: 10/16/17 Time of Evaluation: 10:40 - Subjective Subjective: clinically same Objective - Vital Signs/Intake and Output Vital Signs (last 24 hours): Temp Pulse Resp BP Pulse Ox 97.5 F L 87 20 111/92 H 100 10/16/17 09:38 10/16/17 13:04 10/16/17 12:39 10/16/17 12:39 10/16/17 12:39 Intake and Output: 10/16/17 10/16/17 06:59 18:59 Intake Total 840 240 Output Total 0 Balance 840 240 - Medications Medications: Current Medications Dextrose (Dextrose 50% Inj) 0 ml IV STAT PRN; Protocol PRN Reason: Hypoglycemia Protocol Last Admin: 10/16/17 07:55 Dose: 50 ml Dextrose (Glutose 15) 0 gm PO ONCE PRN; Protocol PRN Reason: Hypoglycemia Protocol Epoetin Naeem (Procrit) 10,000 unit IV TTS [facility] Last Admin: 10/16/17 10:41 Dose: 10,000 unit Glucagon (Glucagen Diagnostic Kit) 0 mg IM STAT PRN; Protocol PRN Reason: Hypoglycemia Protocol Heparin Sodium (Porcine) (Heparin) 5,000 units SC Q12 [facility] Last Admin: 09/20/17 10:26 Dose: Not Given Tigecycline 50 mg/ Sodium (Chloride) 100 mls @ 100 mls/hr IVPB Q12H [facility] PRN Reason: Protocol Last Admin: 10/16/17 13:11 Dose: 100 mls/hr Colistimethate Sodium 80 mg/ (Sodium Chloride) 100 mls @ 200 mls/hr IV TTS [facility] PRN Reason: Protocol Last Admin: 10/16/17 12:44 Dose: 200 mls/hr Dextrose (Dextrose 10% In Water) 1,000 mls @ 40 mls/hr IV .Q24H [facility] Last Admin: 10/15/17 20:00 Dose: 40 mls/hr Aztreonam 1 gm/ Sodium (Chloride) 100 mls @ 200 mls/hr IVPB DAILY [facility] PRN Reason: Protocol Last Admin: 10/16/17 12:43 Dose: 200 mls/hr Ipratropium [place] (Atrovent) 0.5 mg IH Q4H PRN PRN Reason: Shortness of Breath Midodrine (Proamatine) 10 mg PO TID [facility] Last Admin: 10/16/17 13:10 Dose: 10 mg Nystatin (Nystop Topical Powder) 1 applic TOP TID [facility] Last Admin: 10/16/17 13:11 Dose: 1 applic Ondansetron HCl (Zofran Inj) 4 mg IVP Q6 PRN PRN Reason: Nausea/Vomiting Last Admin: 10/16/17 07:16 Dose: 4 mg - Labs Labs: 10/16/17 06:05 10/16/17 06:05 PT 26.8 SECONDS (9.7-12.2) H 10/16/17 06:05 INR 2.4 10/16/17 06:05 APTT 57 SECONDS (21-34) H D 10/16/17 06:05 - Constitutional Appears: Well - Head Exam Head Exam: ATRAUMATIC, NORMAL INSPECTION, NORMOCEPHALIC - Eye Exam Eye Exam: EOMI, Normal appearance, PERRL Pupil Exam: NORMAL ACCOMODATION, PERRL - ENT Exam ENT Exam: Mucous Membranes Moist, Normal Exam - Neck Exam Neck Exam: Full ROM, Normal Inspection. absent: Lymphadenopathy - Respiratory Exam Respiratory Exam: Decreased Breath Sounds - Cardiovascular Exam Cardiovascular Exam: REGULAR RHYTHM, +S1, +S2 - GI/Abdominal Exam GI & Abdominal Exam: Soft, Diminished Bowel Sounds - Rectal Exam Rectal Exam: Deferred
--- NOTE | 2017-10-16 13:31 | CP.PCM.PN ---
Subjective - Date & Time of Evaluation Date of Evaluation: 10/16/17 Time of Evaluation: 01:30 - Subjective Subjective: Patient seen today was confused said he was restrained denied any pain was hypotensive in icu had dressing on left arm wound site Nurse told me that he had dialysis earlier and due to hypotension he got albumin on dialysisl Objective - Vital Signs/Intake and Output Vital Signs (last 24 hours): Temp Pulse Resp BP Pulse Ox 97.5 F L 87 20 111/92 H 100 10/16/17 09:38 10/16/17 13:04 10/16/17 12:39 10/16/17 12:39 10/16/17 12:39 Intake and Output: 10/16/17 10/16/17 06:59 18:59 Intake Total 840 240 Output Total 0 Balance 840 240 - Medications Medications: Current Medications Dextrose (Dextrose 50% Inj) 0 ml IV STAT PRN; Protocol PRN Reason: Hypoglycemia Protocol Last Admin: 10/16/17 07:55 Dose: 50 ml Dextrose (Glutose 15) 0 gm PO ONCE PRN; Protocol PRN Reason: Hypoglycemia Protocol Epoetin Naeem (Procrit) 10,000 unit IV TTS [facility] Last Admin: 10/16/17 10:41 Dose: 10,000 unit Glucagon (Glucagen Diagnostic Kit) 0 mg IM STAT PRN; Protocol PRN Reason: Hypoglycemia Protocol Heparin Sodium (Porcine) (Heparin) 5,000 units SC Q12 [facility] Last Admin: 09/20/17 10:26 Dose: Not Given Tigecycline 50 mg/ Sodium (Chloride) 100 mls @ 100 mls/hr IVPB Q12H [facility] PRN Reason: Protocol Last Admin: 10/16/17 13:11 Dose: 100 mls/hr Colistimethate Sodium 80 mg/ (Sodium Chloride) 100 mls @ 200 mls/hr IV TTS [facility] PRN Reason: Protocol Last Admin: 10/16/17 12:44 Dose: 200 mls/hr Dextrose (Dextrose 10% In Water) 1,000 mls @ 40 mls/hr IV .Q24H [facility] Last Admin: 10/15/17 20:00 Dose: 40 mls/hr Aztreonam 1 gm/ Sodium (Chloride) 100 mls @ 200 mls/hr IVPB DAILY [facility] PRN Reason: Protocol Last Admin: 10/16/17 12:43 Dose: 200 mls/hr Ipratropium [place] (Atrovent) 0.5 mg IH Q4H PRN PRN Reason: Shortness of Breath Midodrine (Proamatine) 10 mg PO TID [facility] Last Admin: 10/16/17 13:10 Dose: 10 mg Nystatin (Nystop Topical Powder) 1 applic TOP TID [facility] Last Admin: 10/16/17 13:11 Dose: 1 applic Ondansetron HCl (Zofran Inj) 4 mg IVP Q6 PRN PRN Reason: Nausea/Vomiting Last Admin: 10/16/17 07:16 Dose: 4 mg - Labs Labs: 10/16/17 06:05 10/16/17 06:05 PT 26.8 SECONDS (9.7-12.2) H 10/16/17 06:05 INR 2.4 10/16/17 06:05 APTT 57 SECONDS (21-34) H D 10/16/17 06:05 - Constitutional Appears: Confused - Head Exam Head Exam: ATRAUMATIC, NORMOCEPHALIC - Eye Exam Eye Exam: Normal appearance - ENT Exam ENT Exam: Mucous Membranes Moist - Neck Exam Neck Exam: Normal Inspection - Respiratory Exam Respiratory Exam: Decreased Breath Sounds. absent: Accessory Muscle Use, Chest Wall Tenderness, Clear to Ausculation Bilateral, Prolonged Expiratory Phase, Rales, Rhonchi, Wheezes, Respiratory Distress, Stridor, NORMAL BREATHING PATTERN - Cardiovascular Exam Cardiovascular Exam: +S1, +S2 - Extremities Exam Extremities Exam: Pedal Edema - Skin Skin Exam: Dry Assessment and Plan (1) CKD (chronic kidney disease) stage 5, GFR less than 15 ml/min Status: Acute (2) Cirrhosis Status: Acute - Assessment and Plan (Free Text) Assessment: patient had vre in the left arm wound where shunt was removed and is on tygacil and added azactam due to hypotension.
--- NOTE | 2017-10-16 14:48 | CP.CCUPN ---
"<[email or web address] - Last Filed: 10/16/17 15:09> CCU Subjective - Physician Review Subjective (Free Text): Patient seen and examined at bedside.Brother at bedside. No overnight events reported. Patient denies fevers, chills, chest pain, SOB, changes in bowel habits or urinary symptoms. Patient complains of nausea. CCU Objective - Vital Signs / Intake & Output Vital Signs (Last 4 hours): Vital Signs Pulse Resp BP BP Pulse Ox 10/16/17 13:04 87 10/16/17 12:39 20 111/92 H 100 10/16/17 12:23 84 15 100/48 L 10/16/17 12:08 89 14 103/53 L 103/53 L 98 10/16/17 12:00 87 12 100 10/16/17 11:53 87 22 88/38 L 100 10/16/17 11:38 83 14 109/52 L 109/52 L 10/16/17 11:23 91 H 17 111/48 L 85 L 10/16/17 11:08 89 19 95/52 L 95/52 L 99 10/16/17 11:00 111 H 19 97 10/16/17 10:53 84 18 86/56 L 86/53 L 81 L Intake and Output (Last 8hrs): Intake & Output 10/15/17 10/16/17 10/16/17 22:59 06:59 14:59 Intake Total 500 420 240 Output Total 0 Balance 500 420 240 Weight 224 lb 13.944 oz Intake: Intake, IV Amount 400 320 240 right upper arm 400 320 240 Oral 100 100 0 Output: Urine 0 Urine, Voided 0 Other: # Voids Urine, Voided 0 # Bowel Movements 1 0 - Physical Exam Head: Positive for: Atraumatic, Normocephalic Pupils: Positive for: PERRL Extroacular Muscles: Positive for: EOMI Conjunctiva: Positive for: Normal Mouth: Positive for: Moist Mucous Membranes Respiratory/Chest: Positive for: Clear to Auscultation. Negative for: Wheezes, Rales, Rhonchi Cardiovascular: Positive for: Regular Rate and Rhythm Abdomen: Positive for: Distention, Normal Bowel Sounds. Negative for: Tenderness (Asciites with fluid wave shift), Rebound, Guarding Upper Extremity: Negative for: Edema Lower Extremity: Positive for: Edema (+3) Neurological: Positive for: GCS=15 Skin: Positive for: Erythematous (Left arm wound) Psychiatric: Positive for: Alert, Oriented x 3 - Medications Active Medications: Active Medications Generic Name Dose Route Start Last Admin Trade Name Freq PRN Reason Stop Dose Admin Dextrose 0 ml 10/10/17 06:30 10/16/17 07:55 Dextrose 50% Inj IV 50 ml STAT PRN Administration Hypoglycemia Protocol Protocol Dextrose 0 gm 10/10/17 06:30 Glutose 15 PO ONCE PRN Hypoglycemia Protocol Protocol Epoetin Naeem 10,000 unit 10/08/17 11:22 10/16/17 10:41 Procrit IV 10,000 unit TTS ARYA Administration Glucagon 0 mg 10/10/17 06:30 Glucagen Diagnostic Kit IM STAT PRN Hypoglycemia Protocol Protocol Heparin Sodium (Porcine) 5,000 units 09/19/17 22:00 09/20/17 10:26 Heparin SC Not Given Q12 ARYA Tigecycline 50 mg/ Sodium 100 mls @ 100 mls/hr 10/08/17 10:00 10/16/17 13:11 Chloride IVPB 100 mls/hr Q12H ARYA Administration Protocol Colistimethate Sodium 80 mg/ 100 mls @ 200 mls/hr 10/11/17 10:00 10/16/17 12: 44 Sodium Chloride IV 200 mls/hr TTS ARYA Administration Protocol Dextrose 1,000 mls @ 40 mls/hr 10/15/17 20:17 10/15/17 20:00 Dextrose 10% In Water IV 40 mls/hr .Q24H ARYA Administration Aztreonam 1 gm/ Sodium 100 mls @ 200 mls/hr 10/16/17 13:00 10/16/17 12:43 Chloride IVPB 200 mls/hr DAILY ARYA Administration Protocol Ipratropium [place] 0.5 mg 10/14/17 18:55 Atrovent IH Q4H PRN Shortness of Breath Midodrine 10 mg 10/08/17 11:22 10/16/17 13:10 Proamatine PO 10 mg TID ARYA Administration Nystatin 1 applic 10/15/17 10:00 10/16/17 13:11 Nystop Topical Powder TOP 1 applic TID ARYA Administration Ondansetron HCl 4 mg 10/10/17 08:11 10/16/17 07:16 Zofran Inj IVP 4 mg Q6 PRN Administration Nausea/Vomiting - Patient Studies Lab Studies: Microbiology Studies 10/14/17 19:35 MRSA Culture (Admit) - Final Naris MRSA NOT DETECTED Lab Studies 10/16/17 10/16/17 10/16/17 Range/Units 11:21 08:20 07:52 WBC (4.8-10.8) K/uL RBC (4.40-5.90) Mil/uL Hgb (12.0-18.0) g/dL Hct (35.0-51.0) % MCV (80.0-94.0) fL MCH (27.0-31.0) pg MCHC (33.0-37.0) g/dL RDW (11.5-14.5) % Plt Count (130-400) K/uL MPV (7.2-11.7) fL Neut % (Auto) (50.0-75.0) % Lymph % (Auto) (20.0-40.0) % [place] % (Auto) (0.0-10.0) % Eos % (Auto) (0.0-4.0) % Baso % (Auto) (0.0-2.0) % Neut # (Auto) (1.8-7.0) K/uL Lymph # (Auto) (1.0-4.3) K/uL [place] # (Auto) (0.0-0.8) K/uL Eos # (Auto) (0.0-0.7) K/uL Baso # (Auto) (0.0-0.2) K/uL PT (9.7-12.2) SECONDS INR APTT (21-34) SECONDS Sodium (132-148) mmol/L Potassium (3.6-5.2) mmol/L Chloride (98-107) mmol/L Carbon Dioxide (22-30) mmol/L Anion Gap (10-20) BUN (9-20) mg/dL Creatinine (0.8-1.5) mg/dL Est GFR ( Amer) Est GFR (Non-Af Amer) POC Glucose (mg/dL) 98 196 H 38 L* (65-110) mg/dL Random Glucose (75-110) mg/dL Calcium (8.6-10.4) mg/dl Phosphorus (2.5-4.5) mg/dL Magnesium (1.6-2.3) mg/dL Total Bilirubin (0.2-1.3) mg/dL AST (17-59) U/L ALT (21-72) U/L Alkaline Phosphatase (38-126) U/L Total Protein (6.3-8.3) g/dL Albumin (3.5-5.0) g/dL Globulin (2.2-3.9) gm/dL Albumin/Globulin Ratio (1.0-2.1) Free T4 (0.78-2.19) ng/dL TSH 3rd Generation (0.46-4.68) mIU/L Plasma Cortisol PM (1.7-14.1) ug/dL 10/16/17 10/16/17 10/16/17 Range/Units 07:50 07:24 07:22 WBC (4.8-10.8) K/uL RBC (4.40-5.90) Mil/uL Hgb (12.0-18.0) g/dL Hct (35.0-51.0) % MCV (80.0-94.0) fL MCH (27.0-31.0) pg MCHC (33.0-37.0) g/dL RDW (11.5-14.5) % Plt Count (130-400) K/uL MPV (7.2-11.7) fL Neut % (Auto) (50.0-75.0) % Lymph % (Auto) (20.0-40.0) % [place] % (Auto) (0.0-10.0) % Eos % (Auto) (0.0-4.0) % Baso % (Auto) (0.0-2.0) % Neut # (Auto) (1.8-7.0) K/uL Lymph # (Auto) (1.0-4.3) K/uL [place] # (Auto) (0.0-0.8) K/uL Eos # (Auto) (0.0-0.7) K/uL Baso # (Auto) (0.0-0.2) K/uL PT (9.7-12.2) SECONDS INR APTT (21-34) SECONDS Sodium (132-148) mmol/L Potassium (3.6-5.2) mmol/L Chloride (98-107) mmol/L Carbon Dioxide (22-30) mmol/L Anion Gap (10-20) BUN (9-20) mg/dL Creatinine (0.8-1.5) mg/dL Est GFR ( Amer) Est GFR (Non-Af Amer) POC Glucose (mg/dL) 23 L* 62 L 55 L (65-110) mg/dL Random Glucose (75-110) mg/dL Calcium (8.6-10.4) mg/dl Phosphorus (2.5-4.5) mg/dL Magnesium (1.6-2.3) mg/dL Total Bilirubin (0.2-1.3) mg/dL AST (17-59) U/L ALT (21-72) U/L Alkaline Phosphatase (38-126) U/L Total Protein (6.3-8.3) g/dL Albumin (3.5-5.0) g/dL Globulin (2.2-3.9) gm/dL Albumin/Globulin Ratio (1.0-2.1) Free T4 (0.78-2.19) ng/dL TSH 3rd Generation (0.46-4.68) mIU/L Plasma Cortisol PM (1.7-14.1) ug/dL 10/16/17 10/16/17 10/16/17 Range/Units 06:05 06:05 06:05 WBC 10.9 H (4.8-10.8) K/uL RBC 3.16 L (4.40-5.90) Mil/uL Hgb 9.4 L (12.0-18.0) g/dL Hct 29.6 L (35.0-51.0) % MCV 93.6 (80.0-94.0) fL MCH 29.7 (27.0-31.0) pg MCHC 31.7 L (33.0-37.0) g/dL RDW 18.1 H (11.5-14.5) % Plt Count 59 L D (130-400) K/uL MPV 8.2 (7.2-11.7) fL Neut % (Auto) 79.9 H (50.0-75.0) % Lymph % (Auto) 15.1 L (20.0-40.0) % [place] % (Auto) 4.1 (0.0-10.0) % Eos % (Auto) 0.4 (0.0-4.0) % Baso % (Auto) 0.5 (0.0-2.0) % Neut # (Auto) 8.7 H (1.8-7.0) K/uL Lymph # (Auto) 1.7 (1.0-4.3) K/uL [place] # (Auto) 0.4 (0.0-0.8) K/uL Eos # (Auto) 0.0 (0.0-0.7) K/uL Baso # (Auto) 0.1 (0.0-0.2) K/uL PT 26.8 H (9.7-12.2) SECONDS INR 2.4 APTT 57 H D (21-34) SECONDS Sodium 134 (132-148) mmol/L Potassium 3.7 (3.6-5.2) mmol/L Chloride 96 L (98-107) mmol/L Carbon Dioxide 21 L (22-30) mmol/L Anion Gap 20 (10-20) BUN 29 H (9-20) mg/dL Creatinine 5.1 H (0.8-1.5) mg/dL Est GFR ( Amer) 14 Est GFR (Non-Af Amer) 11 POC Glucose (mg/dL) (65-110) mg/dL Random Glucose 89 (75-110) mg/dL Calcium 7.9 L (8.6-10.4) mg/dl Phosphorus 3.1 (2.5-4.5) mg/dL Magnesium 1.8 (1.6-2.3) mg/dL Total Bilirubin 1.4 H (0.2-1.3) mg/dL AST 95 H D (17-59) U/L ALT 23 (21-72) U/L Alkaline Phosphatase 123 (38-126) U/L Total Protein 4.8 L (6.3-8.3) g/dL Albumin 2.0 L (3.5-5.0) g/dL Globulin 2.8 (2.2-3.9) gm/dL Albumin/Globulin Ratio 0.7 L (1.0-2.1) Free T4 (0.78-2.19) ng/dL TSH 3rd Generation (0.46-4.68) mIU/L Plasma Cortisol PM (1.7-14.1) ug/dL 10/15/17 10/15/17 10/15/17 Range/Units 21:08 20:34 20:24 WBC (4.8-10.8) K/uL RBC (4.40-5.90) Mil/uL Hgb (12.0-18.0) g/dL Hct (35.0-51.0) % MCV (80.0-94.0) fL MCH (27.0-31.0) pg MCHC (33.0-37.0) g/dL RDW (11.5-14.5) % Plt Count (130-400) K/uL MPV (7.2-11.7) fL Neut % (Auto) (50.0-75.0) % Lymph % (Auto) (20.0-40.0) % [place] % (Auto) (0.0-10.0) % Eos % (Auto) (0.0-4.0) % Baso % (Auto) (0.0-2.0) % Neut # (Auto) (1.8-7.0) K/uL Lymph # (Auto) (1.0-4.3) K/uL [place] # (Auto) (0.0-0.8) K/uL Eos # (Auto) (0.0-0.7) K/uL Baso # (Auto) (0.0-0.2) K/uL PT (9.7-12.2) SECONDS INR APTT (21-34) SECONDS Sodium (132-148) mmol/L Potassium (3.6-5.2) mmol/L Chloride (98-107) mmol/L Carbon Dioxide (22-30) mmol/L Anion Gap (10-20) BUN (9-20) mg/dL Creatinine (0.8-1.5) mg/dL Est GFR ( Amer) Est GFR (Non-Af Amer) POC Glucose (mg/dL) 202 H 77 (65-110) mg/dL Random Glucose (75-110) mg/dL Calcium (8.6-10.4) mg/dl Phosphorus (2.5-4.5) mg/dL Magnesium (1.6-2.3) mg/dL Total Bilirubin (0.2-1.3) mg/dL AST (17-59) U/L ALT (21-72) U/L Alkaline Phosphatase (38-126) U/L Total Protein (6.3-8.3) g/dL Albumin (3.5-5.0) g/dL Globulin (2.2-3.9) gm/dL Albumin/Globulin Ratio (1.0-2.1) Free T4 (0.78-2.19) ng/dL TSH 3rd Generation (0.46-4.68) mIU/L Plasma Cortisol PM 24.2 H (1.7-14.1) ug/dL 10/15/17 10/15/17 10/15/17 Range/Units 20:05 20:02 19:36 WBC (4.8-10.8) K/uL RBC (4.40-5.90) Mil/uL Hgb (12.0-18.0) g/dL Hct (35.0-51.0) % MCV (80.0-94.0) fL MCH (27.0-31.0) pg MCHC (33.0-37.0) g/dL RDW (11.5-14.5) % Plt Count (130-400) K/uL MPV (7.2-11.7) fL Neut % (Auto) (50.0-75.0) % Lymph % (Auto) (20.0-40.0) % [place] % (Auto) (0.0-10.0) % Eos % (Auto) (0.0-4.0) % Baso % (Auto) (0.0-2.0) % Neut # (Auto) (1.8-7.0) K/uL Lymph # (Auto) (1.0-4.3) K/uL [place] # (Auto) (0.0-0.8) K/uL Eos # (Auto) (0.0-0.7) K/uL Baso # (Auto) (0.0-0.2) K/uL PT (9.7-12.2) SECONDS INR APTT (21-34) SECONDS Sodium (132-148) mmol/L Potassium (3.6-5.2) mmol/L Chloride (98-107) mmol/L Carbon Dioxide (22-30) mmol/L Anion Gap (10-20) BUN (9-20) mg/dL Creatinine (0.8-1.5) mg/dL Est GFR ( Amer) Est GFR (Non-Af Amer) POC Glucose (mg/dL) < 20 L* < 20 L* < 20 L* (65-110) mg/dL Random Glucose (75-110) mg/dL Calcium (8.6-10.4) mg/dl Phosphorus (2.5-4.5) mg/dL Magnesium (1.6-2.3) mg/dL Total Bilirubin (0.2-1.3) mg/dL AST (17-59) U/L ALT (21-72) U/L Alkaline Phosphatase (38-126) U/L Total Protein (6.3-8.3) g/dL Albumin (3.5-5.0) g/dL Globulin (2.2-3.9) gm/dL Albumin/Globulin Ratio (1.0-2.1) Free T4 (0.78-2.19) ng/dL TSH 3rd Generation (0.46-4.68) mIU/L Plasma Cortisol PM (1.7-14.1) ug/dL 10/15/17 10/15/17 Range/Units 16:39 16:39 WBC (4.8-10.8) K/uL RBC (4.40-5.90) Mil/uL Hgb (12.0-18.0) g/dL Hct (35.0-51.0) % MCV (80.0-94.0) fL MCH (27.0-31.0) pg MCHC (33.0-37.0) g/dL RDW (11.5-14.5) % Plt Count (130-400) K/uL MPV (7.2-11.7) fL Neut % (Auto) (50.0-75.0) % Lymph % (Auto) (20.0-40.0) % [place] % (Auto) (0.0-10.0) % Eos % (Auto) (0.0-4.0) % Baso % (Auto) (0.0-2.0) % Neut # (Auto) (1.8-7.0) K/uL Lymph # (Auto) (1.0-4.3) K/uL [place] # (Auto) (0.0-0.8) K/uL Eos # (Auto) (0.0-0.7) K/uL Baso # (Auto) (0.0-0.2) K/uL PT (9.7-12.2) SECONDS INR APTT (21-34) SECONDS Sodium (132-148) mmol/L Potassium (3.6-5.2) mmol/L Chloride (98-107) mmol/L Carbon Dioxide (22-30) mmol/L Anion Gap (10-20) BUN (9-20) mg/dL Creatinine (0.8-1.5) mg/dL Est GFR ( Amer) Est GFR (Non-Af Amer) POC Glucose (mg/dL) (65-110) mg/dL Random Glucose (75-110) mg/dL Calcium (8.6-10.4) mg/dl Phosphorus (2.5-4.5) mg/dL Magnesium (1.6-2.3) mg/dL Total Bilirubin (0.2-1.3) mg/dL AST (17-59) U/L ALT (21-72) U/L Alkaline Phosphatase (38-126) U/L Total Protein (6.3-8.3) g/dL Albumin (3.5-5.0) g/dL Globulin (2.2-3.9) gm/dL Albumin/Globulin Ratio (1.0-2.1) Free T4 0.93 (0.78-2.19) ng/dL TSH 3rd Generation 5.18 H (0.46-4.68) mIU/L Plasma Cortisol PM (1.7-14.1) ug/dL Laboratory Results - last 24 hr 10/15/17 10/15/17 10/15/17 16:39 16:39 19:36 WBC RBC Hgb Hct MCV MCH MCHC RDW Plt Count MPV Neut % (Auto) Lymph % (Auto) [place] % (Auto) Eos % (Auto) Baso % (Auto) Neut # (Auto) Lymph # (Auto) [place] # (Auto) Eos # (Auto) Baso # (Auto) PT INR APTT Sodium Potassium Chloride Carbon Dioxide Anion Gap BUN Creatinine Est GFR ( Amer) Est GFR (Non-Af Amer) POC Glucose (mg/dL) < 20 L* Random Glucose Calcium Phosphorus Magnesium Total Bilirubin AST ALT Alkaline Phosphatase Total Protein Albumin Globulin Albumin/Globulin Ratio Free T4 0.93 TSH 3rd Generation 5.18 H Plasma Cortisol PM 10/15/17 10/15/17 10/15/17 20:02 20:05 20:24 WBC RBC Hgb Hct MCV MCH MCHC RDW Plt Count MPV Neut % (Auto) Lymph % (Auto) [place] % (Auto) Eos % (Auto) Baso % (Auto) Neut # (Auto) Lymph # (Auto) [place] # (Auto) Eos # (Auto) Baso # (Auto) PT INR APTT Sodium Potassium Chloride Carbon Dioxide Anion Gap BUN Creatinine Est GFR ( Amer) Est GFR (Non-Af Amer) POC Glucose (mg/dL) < 20 L* < 20 L* 77 Random Glucose Calcium Phosphorus Magnesium Total Bilirubin AST ALT Alkaline Phosphatase Total Protein Albumin Globulin Albumin/Globulin Ratio Free T4 TSH 3rd Generation Plasma Cortisol PM 10/15/17 10/15/17 10/16/17 20:34 21:08 06:05 WBC 10.9 H RBC 3.16 L Hgb 9.4 L Hct 29.6 L MCV 93.6 MCH 29.7 MCHC 31.7 L RDW 18.1 H Plt Count 59 L D MPV 8.2 Neut % (Auto) 79.9 H Lymph % (Auto) 15.1 L [place] % (Auto) 4.1 Eos % (Auto) 0.4 Baso % (Auto) 0.5 Neut # (Auto) 8.7 H Lymph # (Auto) 1.7 [place] # (Auto) 0.4 Eos # (Auto) 0.0 Baso # (Auto) 0.1 PT INR APTT Sodium Potassium Chloride Carbon Dioxide Anion Gap BUN Creatinine Est GFR ( Amer) Est GFR (Non-Af Amer) POC Glucose (mg/dL) 202 H Random Glucose Calcium Phosphorus Magnesium Total Bilirubin AST ALT Alkaline Phosphatase Total Protein Albumin Globulin Albumin/Globulin Ratio Free T4 TSH 3rd Generation Plasma Cortisol PM 24.2 H 10/16/17 10/16/17 10/16/17 06:05 06:05 07:22 WBC RBC Hgb Hct MCV MCH MCHC RDW Plt Count MPV Neut % (Auto) Lymph % (Auto) [place] % (Auto) Eos % (Auto) Baso % (Auto) Neut # (Auto) Lymph # (Auto) [place] # (Auto) Eos # (Auto) Baso # (Auto) PT 26.8 H INR 2.4 APTT 57 H D Sodium 134 Potassium 3.7 Chloride 96 L Carbon Dioxide 21 L Anion Gap 20 BUN 29 H Creatinine 5.1 H Est GFR ( Amer) 14 Est GFR (Non-Af Amer) 11 POC Glucose (mg/dL) 55 L Random Glucose 89 Calcium 7.9 L Phosphorus 3.1 Magnesium 1.8 Total Bilirubin 1.4 H AST 95 H D ALT 23 Alkaline Phosphatase 123 Total Protein 4.8 L Albumin 2.0 L Globulin 2.8 Albumin/Globulin Ratio 0.7 L Free T4 TSH 3rd Generation Plasma Cortisol PM 10/16/17 10/16/17 10/16/17 07:24 07:50 07:52 WBC RBC Hgb Hct MCV MCH MCHC RDW Plt Count MPV Neut % (Auto) Lymph % (Auto) [place] % (Auto) Eos % (Auto) Baso % (Auto) Neut # (Auto) Lymph # (Auto) [place] # (Auto) Eos # (Auto) Baso # (Auto) PT INR APTT Sodium Potassium Chloride Carbon Dioxide Anion Gap BUN Creatinine Est GFR ( Amer) Est GFR (Non-Af Amer) POC Glucose (mg/dL) 62 L 23 L* 38 L* Random Glucose Calcium Phosphorus Magnesium Total Bilirubin AST ALT Alkaline Phosphatase Total Protein Albumin Globulin Albumin/Globulin Ratio Free T4 TSH 3rd Generation Plasma Cortisol PM 10/16/17 10/16/17 08:20 11:21 WBC RBC Hgb Hct MCV MCH MCHC RDW Plt Count MPV Neut % (Auto) Lymph % (Auto) [place] % (Auto) Eos % (Auto) Baso % (Auto) Neut # (Auto) Lymph # (Auto) [place] # (Auto) Eos # (Auto) Baso # (Auto) PT INR APTT Sodium Potassium Chloride Carbon Dioxide Anion Gap BUN Creatinine Est GFR ( Amer) Est GFR (Non-Af Amer) POC Glucose (mg/dL) 196 H 98 Random Glucose Calcium Phosphorus Magnesium Total Bilirubin AST ALT Alkaline Phosphatase Total Protein Albumin Globulin Albumin/Globulin Ratio Free T4 TSH 3rd Generation Plasma Cortisol PM Fingerstick Blood Sugar Results: 82 Review of Systems - Constitutional Constitutional: absent: Fever, Chills - EENT Eyes: UNREMARKABLE Ears: UNREMARKABLE - Cardiovascular Cardiovascular: Dyspnea (Improved). absent: Chest Pain - Respiratory Respiratory: UNREMARKABLE. absent: Cough, Wheezing - Gastrointestinal Gastrointestinal: absent: Abdominal Pain, Nausea - Genitourinary Genitourinary: absent: Dysuria, Hematuria - Neurological Neurological: UNREMARKABLE - Psychiatric Psychiatric: UNREMARKABLE - Endocrine Endocrine: UNREMARKABLE Critical Care Progress Note - Nutrition Nutrition: Nutrition Category Date Time Status Renal Diet [DIET] Diets 10/04/17 Dinner Active Assessment/Plan - Assessment and Plan (Free Text) Assessment: 62year old male with past medical history of ESRD on HD // started in september 2017, Cirrhosis,ascites with paracentesis of 6L of fluid on 09/24/17 ,anemia, hypothyroidism admitted to ICU due dyspnea 2/2 to Ascites. Plan: Neuro: Head CT (Admission): No Acute Findings. Sedation: N/A Cardio A: A-fib w/ Variable Rate| Hypotension Midodrine 10 TID Cardiology Consulted (Dr. Duran, Recs Appreciated) EKG (10/15): Shows 1st degree block. Pulm A: dyspnea 2/2 to Ascities vs Afib CXR (10/14): Right central venous catheter with tip extending into the right atrium. Moderate venous congestion. Patchy bibasilar airspace opacities with small right pleural effusion. More superimposed consolidative changes in the right suprahilar region. Cardiomegaly with enlarged ectatic aorta. Degenerative changes in the spine. Atrovent 0.5mg IH Q4H PRN GI A: Cirrhosis, Asicites likley 2/2 EtOH abuse. LFT's Elevated (Worsening AST) Hepatitis Panel - NEGATIVE GI Consulted, Recs Appreciated Parecentesis cancelled yesterday due to elevated INR. 10mg IV Vitamin K Given Plan to give FFP before Parecentesis. F/U with IR regarding parecentesis. Zofran PRN for Nausea Monitor LFT's Endo A: Hypothyrodism, Secondary Hyperparathyroidism. Hypoglycemia Treatment Protocol Patient on Levothyroxine but does not know the dose. TSH and Free T4 Within Normal Limits Nephro/electrolytes A: ESRD (T, TH, S) Replenish electrolytes as needed ProCrit ID Wound Culture POSITIVE for VRE/Coagulase Negative Staph on left Arm Wound ID Consulted (Dr. Barajas) Recs, Appreciated Cont. Colistimethate /Tigecycline Heme/Onc A: Anemia likely 2/2 to ESRD, Low Plts, Low INR HgB 9.4 Today. Cont. to Monitor. On ProCrit Heme/Onc Consulted (Dr. Dale) 10mg Vitamin K Given today FFB before Paracentesis MS[facility] Physical Therapy Prophylaxis Heparin Q12H (Held due to thrombocytopenia) Dispo: (10/15): Palliative Care consulted. Discussed with brother regarding NH vs LTC. Goals of care could not be discussed at the time. Likely can be transferred to Telemetry post parecentesis. Patient discussed with ICU Attending Ayala Liriano, PGY-1 <Param Gomez - Last Filed: 10/16/17 17:44> CCU Objective - Vital Signs / Intake & Output Vital Signs (Last 4 hours): Vital Signs Temp Pulse Resp BP Pulse Ox 10/16/17 16:19 91 H 24 103/51 L 10/16/17 16:00 97.3 F L 92 H 34 H 81 L 10/16/17 15:19 91 H 15 106/58 L 100 10/16/17 15:00 94 H 18 100 10/16/17 14:19 92 H 15 104/58 L 10/16/17 14:00 88 19 Intake and Output (Last 8hrs): Intake & Output 10/16/17 10/16/17 10/16/17 06:59 14:59 22:59 Intake Total 420 520 220 Output Total 0 0 Balance 420 520 220 Weight 224 lb 13.944 oz Intake: Intake, IV Amount 320 520 220 Right upper arm - Distal 200 100 Port right upper arm 320 320 120 Oral 100 0 0 Output: Urine 0 0 Urine, Voided 0 0 Other: # Bowel Movements 0 0 - Medications Active Medications: Active Medications Generic Name Dose Route Start Last Admin Trade Name Freq PRN Reason Stop Dose Admin Dextrose 0 ml 10/10/17 06:30 10/16/17 07:55 Dextrose 50% Inj IV 50 ml STAT PRN Administration Hypoglycemia Protocol Protocol Dextrose 0 gm 10/10/17 06:30 Glutose 15 PO ONCE PRN Hypoglycemia Protocol Protocol Epoetin Naeem 10,000 unit 10/08/17 11:22 10/16/17 10:41 Procrit IV 10,000 unit TTS ARYA Administration Glucagon 0 mg 10/10/17 06:30 Glucagen Diagnostic Kit IM STAT PRN Hypoglycemia Protocol Protocol Heparin Sodium (Porcine) 5,000 units 09/19/17 22:00 09/20/17 10:26 Heparin SC Not Given Q12 ARYA Tigecycline 50 mg/ Sodium 100 mls @ 100 mls/hr 10/08/17 10:00 10/16/17 13:11 Chloride IVPB 100 mls/hr Q12H ARYA Administration Protocol Colistimethate Sodium 80 mg/ 100 mls @ 200 mls/hr 10/11/17 10:00 10/16/17 12: 44 Sodium Chloride IV 200 mls/hr TTS ARYA Administration Protocol Dextrose 1,000 mls @ 40 mls/hr 10/15/17 20:17 10/15/17 20:00 Dextrose 10% In Water IV 40 mls/hr .Q24H ARYA Administration Aztreonam 1 gm/ Sodium 100 mls @ 200 mls/hr 10/16/17 13:00 10/16/17 12:43 Chloride IVPB 200 mls/hr DAILY ARYA Administration Protocol Ipratropium [place] 0.5 mg 10/14/17 18:55 Atrovent IH Q4H PRN Shortness of Breath Midodrine 10 mg 10/08/17 11:22 10/16/17 17:09 Proamatine PO 10 mg TID ARYA Administration Nystatin 1 applic 10/15/17 10:00 10/16/17 17:10 Nystop Topical Powder TOP 1 applic TID ARYA Administration Ondansetron HCl 4 mg 10/10/17 08:11 10/16/17 07:16 Zofran Inj IVP 4 mg Q6 PRN Administration Nausea/Vomiting - Patient Studies Lab Studies: Microbiology Studies 10/14/17 19:35 MRSA Culture (Admit) - Final [place]aris MRSA NOT DETECTED Lab Studies 10/16/17 10/16/17 10/16/17 Range/Units 16:10 11:21 08:20 WBC (4.8-10.8) K/uL RBC (4.40-5.90) Mil/uL Hgb (12.0-18.0) g/dL Hct (35.0-51.0) % MCV (80.0-94.0) fL MCH (27.0-31.0) pg MCHC (33.0-37.0) g/dL RDW (11.5-14.5) % Plt Count (130-400) K/uL MPV (7.2-11.7) fL Neut % (Auto) (50.0-75.0) % Lymph % (Auto) (20.0-40.0) % [place] % (Auto) (0.0-10.0) % Eos % (Auto) (0.0-4.0) % Baso % (Auto) (0.0-2.0) % Neut # (Auto) (1.8-7.0) K/uL Lymph # (Auto) (1.0-4.3) K/uL [place] # (Auto) (0.0-0.8) K/uL Eos # (Auto) (0.0-0.7) K/uL Baso # (Auto) (0.0-0.2) K/uL PT (9.7-12.2) SECONDS INR APTT (21-34) SECONDS Sodium (132-148) mmol/L Potassium (3.6-5.2) mmol/L Chloride (98-107) mmol/L Carbon Dioxide (22-30) mmol/L Anion Gap (10-20) BUN (9-20) mg/dL Creatinine (0.8-1.5) mg/dL Est GFR ( Amer) Est GFR (Non-Af Amer) POC Glucose (mg/dL) 94 98 196 H (65-110) mg/dL Random Glucose (75-110) mg/dL Calcium (8.6-10.4) mg/dl Phosphorus (2.5-4.5) mg/dL Magnesium (1.6-2.3) mg/dL Total Bilirubin (0.2-1.3) mg/dL AST (17-59) U/L ALT (21-72) U/L Alkaline Phosphatase (38-126) U/L Total Protein (6.3-8.3) g/dL Albumin (3.5-5.0) g/dL Globulin (2.2-3.9) gm/dL Albumin/Globulin Ratio (1.0-2.1) Free T4 (0.78-2.19) ng/dL TSH 3rd Generation (0.46-4.68) mIU/L Plasma Cortisol PM (1.7-14.1) ug/dL 10/16/17 10/16/17 10/16/17 Range/Units 07:52 07:50 07:24 WBC (4.8-10.8) K/uL RBC (4.40-5.90) Mil/uL Hgb (12.0-18.0) g/dL Hct (35.0-51.0) % MCV (80.0-94.0) fL MCH (27.0-31.0) pg MCHC (33.0-37.0) g/dL RDW (11.5-14.5) % Plt Count (130-400) K/uL MPV (7.2-11.7) fL Neut % (Auto) (50.0-75.0) % Lymph % (Auto) (20.0-40.0) % [place] % (Auto) (0.0-10.0) % Eos % (Auto) (0.0-4.0) % Baso % (Auto) (0.0-2.0) % Neut # (Auto) (1.8-7.0) K/uL Lymph # (Auto) (1.0-4.3) K/uL [place] # (Auto) (0.0-0.8) K/uL Eos # (Auto) (0.0-0.7) K/uL Baso # (Auto) (0.0-0.2) K/uL PT (9.7-12.2) SECONDS INR APTT (21-34) SECONDS Sodium (132-148) mmol/L Potassium (3.6-5.2) mmol/L Chloride (98-107) mmol/L Carbon Dioxide (22-30) mmol/L Anion Gap (10-20) BUN (9-20) mg/dL Creatinine (0.8-1.5) mg/dL Est GFR ( Amer) Est GFR (Non-Af Amer) POC Glucose (mg/dL) 38 L* 23 L* 62 L (65-110) mg/dL Random Glucose (75-110) mg/dL Calcium (8.6-10.4) mg/dl Phosphorus (2.5-4.5) mg/dL Magnesium (1.6-2.3) mg/dL Total Bilirubin (0.2-1.3) mg/dL AST (17-59) U/L ALT (21-72) U/L Alkaline Phosphatase (38-126) U/L Total Protein (6.3-8.3) g/dL Albumin (3.5-5.0) g/dL Globulin (2.2-3.9) gm/dL Albumin/Globulin Ratio (1.0-2.1) Free T4 (0.78-2.19) ng/dL TSH 3rd Generation (0.46-4.68) mIU/L Plasma Cortisol PM (1.7-14.1) ug/dL 10/16/17 10/16/17 10/16/17 Range/Units 07:22 06:05 06:05 WBC (4.8-10.8) K/uL RBC (4.40-5.90) Mil/uL Hgb (12.0-18.0) g/dL Hct (35.0-51.0) % MCV (80.0-94.0) fL MCH (27.0-31.0) pg MCHC (33.0-37.0) g/dL RDW (11.5-14.5) % Plt Count (130-400) K/uL MPV (7.2-11.7) fL Neut % (Auto) (50.0-75.0) % Lymph % (Auto) (20.0-40.0) % [place] % (Auto) (0.0-10.0) % Eos % (Auto) (0.0-4.0) % Baso % (Auto) (0.0-2.0) % Neut # (Auto) (1.8-7.0) K/uL Lymph # (Auto) (1.0-4.3) K/uL [place] # (Auto) (0.0-0.8) K/uL Eos # (Auto) (0.0-0.7) K/uL Baso # (Auto) (0.0-0.2) K/uL PT 26.8 H (9.7-12.2) SECONDS INR 2.4 APTT 57 H D (21-34) SECONDS Sodium 134 (132-148) mmol/L Potassium 3.7 (3.6-5.2) mmol/L Chloride 96 L (98-107) mmol/L Carbon Dioxide 21 L (22-30) mmol/L Anion Gap 20 (10-20) BUN 29 H (9-20) mg/dL Creatinine 5.1 H (0.8-1.5) mg/dL Est GFR ( Amer) 14 Est GFR (Non-Af Amer) 11 POC Glucose (mg/dL) 55 L (65-110) mg/dL Random Glucose 89 (75-110) mg/dL Calcium 7.9 L (8.6-10.4) mg/dl Phosphorus 3.1 (2.5-4.5) mg/dL Magnesium 1.8 (1.6-2.3) mg/dL Total Bilirubin 1.4 H (0.2-1.3) mg/dL AST 95 H D (17-59) U/L ALT 23 (21-72) U/L Alkaline Phosphatase 123 (38-126) U/L Total Protein 4.8 L (6.3-8.3) g/dL Albumin 2.0 L (3.5-5.0) g/dL Globulin 2.8 (2.2-3.9) gm/dL Albumin/Globulin Ratio 0.7 L (1.0-2.1) Free T4 (0.78-2.19) ng/dL TSH 3rd Generation (0.46-4.68) mIU/L Plasma Cortisol PM (1.7-14.1) ug/dL 10/16/17 10/15/17 10/15/17 Range/Units 06:05 21:08 20:34 WBC 10.9 H (4.8-10.8) K/uL RBC 3.16 L (4.40-5.90) Mil/uL Hgb 9.4 L (12.0-18.0) g/dL Hct 29.6 L (35.0-51.0) % MCV 93.6 (80.0-94.0) fL MCH 29.7 (27.0-31.0) pg MCHC 31.7 L (33.0-37.0) g/dL RDW 18.1 H (11.5-14.5) % Plt Count 59 L D (130-400) K/uL MPV 8.2 (7.2-11.7) fL Neut % (Auto) 79.9 H (50.0-75.0) % Lymph % (Auto) 15.1 L (20.0-40.0) % [place] % (Auto) 4.1 (0.0-10.0) % Eos % (Auto) 0.4 (0.0-4.0) % Baso % (Auto) 0.5 (0.0-2.0) % Neut # (Auto) 8.7 H (1.8-7.0) K/uL Lymph # (Auto) 1.7 (1.0-4.3) K/uL [place] # (Auto) 0.4 (0.0-0.8) K/uL Eos # (Auto) 0.0 (0.0-0.7) K/uL Baso # (Auto) 0.1 (0.0-0.2) K/uL PT (9.7-12.2) SECONDS INR APTT (21-34) SECONDS Sodium (132-148) mmol/L Potassium (3.6-5.2) mmol/L Chloride (98-107) mmol/L Carbon Dioxide (22-30) mmol/L Anion Gap (10-20) BUN (9-20) mg/dL Creatinine (0.8-1.5) mg/dL Est GFR ( Amer) Est GFR (Non-Af Amer) POC Glucose (mg/dL) 202 H (65-110) mg/dL Random Glucose (75-110) mg/dL Calcium (8.6-10.4) mg/dl Phosphorus (2.5-4.5) mg/dL Magnesium (1.6-2.3) mg/dL Total Bilirubin (0.2-1.3) mg/dL AST (17-59) U/L ALT (21-72) U/L Alkaline Phosphatase (38-126) U/L Total Protein (6.3-8.3) g/dL Albumin (3.5-5.0) g/dL Globulin (2.2-3.9) gm/dL Albumin/Globulin Ratio (1.0-2.1) Free T4 (0.78-2.19) ng/dL TSH 3rd Generation (0.46-4.68) mIU/L Plasma Cortisol PM 24.2 H (1.7-14.1) ug/dL 10/15/17 10/15/17 10/15/17 Range/Units 20:24 20:05 20:02 WBC (4.8-10.8) K/uL RBC (4.40-5.90) Mil/uL Hgb (12.0-18.0) g/dL Hct (35.0-51.0) % MCV (80.0-94.0) fL MCH (27.0-31.0) pg MCHC (33.0-37.0) g/dL RDW (11.5-14.5) % Plt Count (130-400) K/uL MPV (7.2-11.7) fL Neut % (Auto) (50.0-75.0) % Lymph % (Auto) (20.0-40.0) % U[place] % (Auto) (0.0-10.0) % Eos % (Auto) (0.0-4.0) % Baso % (Auto) (0.0-2.0) % Neut # (Auto) (1.8-7.0) K/uL Lymph # (Auto) (1.0-4.3) K/uL [place] # (Auto) (0.0-0.8) K/uL Eos # (Auto) (0.0-0.7) K/uL Baso # (Auto) (0.0-0.2) K/uL PT (9.7-12.2) SECONDS INR APTT (21-34) SECONDS Sodium (132-148) mmol/L Potassium (3.6-5.2) mmol/L Chloride (98-107) mmol/L Carbon Dioxide (22-30) mmol/L Anion Gap (10-20) BUN (9-20) mg/dL Creatinine (0.8-1.5) mg/dL Est GFR ( Amer) Est GFR (Non-Af Amer) POC Glucose (mg/dL) 77 < 20 L* < 20 L* (65-110) mg/dL Random Glucose (75-110) mg/dL Calcium (8.6-10.4) mg/dl Phosphorus (2.5-4.5) mg/dL Magnesium (1.6-2.3) mg/dL Total Bilirubin (0.2-1.3) mg/dL AST (17-59) U/L ALT (21-72) U/L Alkaline Phosphatase (38-126) U/L Total Protein (6.3-8.3) g/dL Albumin (3.5-5.0) g/dL Globulin (2.2-3.9) gm/dL Albumin/Globulin Ratio (1.0-2.1) Free T4 (0.78-2.19) ng/dL TSH 3rd Generation (0.46-4.68) mIU/L Plasma Cortisol PM (1.7-14.1) ug/dL 10/15/17 10/15/17 10/15/17 Range/Units 19:36 16:39 16:39 WBC (4.8-10.8) K/uL RBC (4.40-5.90) Mil/uL Hgb (12.0-18.0) g/dL Hct (35.0-51.0) % MCV (80.0-94.0) fL MCH (27.0-31.0) pg MCHC (33.0-37.0) g/dL RDW (11.5-14.5) % Plt Count (130-400) K/uL MPV (7.2-11.7) fL Neut % (Auto) (50.0-75.0) % Lymph % (Auto) (20.0-40.0) % [place] % (Auto) (0.0-10.0) % Eos % (Auto) (0.0-4.0) % Baso % (Auto) (0.0-2.0) % Neut # (Auto) (1.8-7.0) K/uL Lymph # (Auto) (1.0-4.3) K/uL [place] # (Auto) (0.0-0.8) K/uL Eos # (Auto) (0.0-0.7) K/uL Baso # (Auto) (0.0-0.2) K/uL PT (9.7-12.2) SECONDS INR APTT (21-34) SECONDS Sodium (132-148) mmol/L Potassium (3.6-5.2) mmol/L Chloride (98-107) mmol/L Carbon Dioxide (22-30) mmol/L Anion Gap (10-20) BUN (9-20) mg/dL Creatinine (0.8-1.5) mg/dL Est GFR ( Amer) Est GFR (Non-Af Amer) POC Glucose (mg/dL) < 20 L* (65-110) mg/dL Random Glucose (75-110) mg/dL Calcium (8.6-10.4) mg/dl Phosphorus (2.5-4.5) mg/dL Magnesium (1.6-2.3) mg/dL Total Bilirubin (0.2-1.3) mg/dL AST (17-59) U/L ALT (21-72) U/L Alkaline Phosphatase (38-126) U/L Total Protein (6.3-8.3) g/dL Albumin (3.5-5.0) g/dL Globulin (2.2-3.9) gm/dL Albumin/Globulin Ratio (1.0-2.1) Free T4 0.93 (0.78-2.19) ng/dL TSH 3rd Generation 5.18 H (0.46-4.68) mIU/L Plasma Cortisol PM (1.7-14.1) ug/dL Laboratory Results - last 24 hr 10/15/17 10/15/17 10/15/17 16:39 16:39 19:36 WBC RBC Hgb Hct MCV MCH MCHC RDW Plt Count MPV Neut % (Auto) Lymph % (Auto) [place] % (Auto) Eos % (Auto) Baso % (Auto) Neut # (Auto) Lymph # (Auto) [place] # (Auto) Eos # (Auto) Baso # (Auto) PT INR APTT Sodium Potassium Chloride Carbon Dioxide Anion Gap BUN Creatinine Est GFR ( Amer) Est GFR (Non-Af Amer) POC Glucose (mg/dL) < 20 L* Random Glucose Calcium Phosphorus Magnesium Total Bilirubin AST ALT Alkaline Phosphatase Total Protein Albumin Globulin Albumin/Globulin Ratio Free T4 0.93 TSH 3rd Generation 5.18 H Plasma Cortisol PM 10/15/17 10/15/17 10/15/17 20:02 20:05 20:24 WBC RBC Hgb Hct MCV MCH MCHC RDW Plt Count MPV Neut % (Auto) Lymph % (Auto) [place] % (Auto) Eos % (Auto) Baso % (Auto) Neut # (Auto) Lymph # (Auto) [place] # (Auto) Eos # (Auto) Baso # (Auto) PT INR APTT Sodium Potassium Chloride Carbon Dioxide Anion Gap BUN Creatinine Est GFR ( Amer) Est GFR (Non-Af Amer) POC Glucose (mg/dL) < 20 L* < 20 L* 77 Random Glucose Calcium Phosphorus Magnesium Total Bilirubin AST ALT Alkaline Phosphatase Total Protein Albumin Globulin Albumin/Globulin Ratio Free T4 TSH 3rd Generation Plasma Cortisol PM 10/15/17 10/15/17 10/16/17 20:34 21:08 06:05 WBC 10.9 H RBC 3.16 L Hgb 9.4 L Hct 29.6 L MCV 93.6 MCH 29.7 MCHC 31.7 L RDW 18.1 H Plt Count 59 L D MPV 8.2 Neut % (Auto) 79.9 H Lymph % (Auto) 15.1 L [place] % (Auto) 4.1 Eos % (Auto) 0.4 Baso % (Auto) 0.5 Neut # (Auto) 8.7 H Lymph # (Auto) 1.7 [place] # (Auto) 0.4 Eos # (Auto) 0.0 Baso # (Auto) 0.1 PT INR APTT Sodium Potassium Chloride Carbon Dioxide Anion Gap BUN Creatinine Est GFR ( Amer) Est GFR (Non-Af Amer) POC Glucose (mg/dL) 202 H Random Glucose Calcium Phosphorus Magnesium Total Bilirubin AST ALT Alkaline Phosphatase Total Protein Albumin Globulin Albumin/Globulin Ratio Free T4 TSH 3rd Generation Plasma Cortisol PM 24.2 H 10/16/17 10/16/17 10/16/17 06:05 06:05 07:22 WBC RBC Hgb Hct MCV MCH MCHC RDW Plt Count MPV Neut % (Auto) Lymph % (Auto) [place] % (Auto) Eos % (Auto) Baso % (Auto) Neut # (Auto) Lymph # (Auto) [place] # (Auto) Eos # (Auto) Baso # (Auto) PT 26.8 H INR 2.4 APTT 57 H D Sodium 134 Potassium 3.7 Chloride 96 L Carbon Dioxide 21 L Anion Gap 20 BUN 29 H Creatinine 5.1 H Est GFR ( Amer) 14 Est GFR (Non-Af Amer) 11 POC Glucose (mg/dL) 55 L Random Glucose 89 Calcium 7.9 L Phosphorus 3.1 Magnesium 1.8 Total Bilirubin 1.4 H AST 95 H D ALT 23 Alkaline Phosphatase 123 Total Protein 4.8 L Albumin 2.0 L Globulin 2.8 Albumin/Globulin Ratio 0.7 L Free T4 TSH 3rd Generation Plasma Cortisol PM 10/16/17 10/16/17 10/16/17 07:24 07:50 07:52 WBC RBC Hgb Hct MCV MCH MCHC RDW Plt Count MPV Neut % (Auto) Lymph % (Auto) [place] % (Auto) Eos % (Auto) Baso % (Auto) Neut # (Auto) Lymph # (Auto) [place] # (Auto) Eos # (Auto) Baso # (Auto) PT INR APTT Sodium Potassium Chloride Carbon Dioxide Anion Gap BUN Creatinine Est GFR ( Amer) Est GFR (Non-Af Amer) POC Glucose (mg/dL) 62 L 23 L* 38 L* Random Glucose Calcium Phosphorus Magnesium Total Bilirubin AST ALT Alkaline Phosphatase Total Protein Albumin Globulin Albumin/Globulin Ratio Free T4 TSH 3rd Generation Plasma Cortisol PM 10/16/17 10/16/17 10/16/17 08:20 11:21 16:10 WBC RBC Hgb Hct MCV MCH MCHC RDW Plt Count MPV Neut % (Auto) Lymph % (Auto) [place] % (Auto) Eos % (Auto) Baso % (Auto) Neut # (Auto) Lymph # (Auto) [place] # (Auto) Eos # (Auto) Baso # (Auto) PT INR APTT Sodium Potassium Chloride Carbon Dioxide Anion Gap BUN Creatinine Est GFR ( Amer) Est GFR (Non-Af Amer) POC Glucose (mg/dL) 196 H 98 94 Random Glucose Calcium Phosphorus Magnesium Total Bilirubin AST ALT Alkaline Phosphatase Total Protein Albumin Globulin Albumin/Globulin Ratio Free T4 TSH 3rd Generation Plasma Cortisol PM Critical Care Progress Note - Nutrition Nutrition: Nutrition Category Date Time Status Renal Diet [DIET] Diets 10/04/17 Dinner Active Attending/Attestation - Attestation I have personally seen and examined this patient.: Yes I have fully participated in the care of the patient.: Yes I have reviewed all pertinent clinical information: Yes Notes (Text): 10/16/17 17:38 patient seen and examined in the intensive care unit. Paracentesis considered for elevated INR Vitamin K IV FFP before paracentesis Agree as above with resident note"
--- NOTE | 2017-10-16 15:34 | CP.PCM.CON ---
History of Present Illness - History of Present Illness History of Present Illness: dictated Past Patient History - Infectious Disease Hx of Infectious Diseases: None - Past Medical History & Family History Past Medical History?: Yes Past Family History: Reviewed and not pertinent - Past Social History Smoking Status: Never Smoked Chewing Tobacco Use: No Cigar Use: No - CARDIAC Hx Hypertension: Yes - PULMONARY Other/Comment: sob upon exertion - HEENT Hx HEENT Problems: Yes - RENAL Hx Renal Failure: Yes (ESRD) - ENDOCRINE/METABOLIC Hx Hypothyroidism: Yes - HEMATOLOGICAL/ONCOLOGICAL Hx Blood Disorders: Yes Hx Gum Bleeding: Yes - MUSCULOSKELETAL/RHEUMATOLOGICAL Hx Arthritis: Yes - GASTROINTESTINAL Hx Gastrointestinal Disorders: Yes Hx Gastroesophageal Reflux: Yes Hx Ulcer: Yes (gastric) - PSYCHIATRIC Hx Substance Use: No - SURGICAL HISTORY Hx Surgeries: Yes Other/Comment: exc benign tumor tight knee 1969 - ANESTHESIA Hx Anesthesia: Yes Hx Anesthesia Reactions: No Hx Malignant Hyperthermia: No Meds Allergies/Adverse Reactions: Allergies Allergy/AdvReac Type Severity Reaction Status Date / Time No Known Allergies Allergy Verified 10/16/13 09:00 - Medications Medications: Current Medications Dextrose (Dextrose 50% Inj) 0 ml IV STAT PRN; Protocol PRN Reason: Hypoglycemia Protocol Last Admin: 10/16/17 07:55 Dose: 50 ml Dextrose (Glutose 15) 0 gm PO ONCE PRN; Protocol PRN Reason: Hypoglycemia Protocol Epoetin Naeem (Procrit) 10,000 unit IV TTS [facility]YA Last Admin: 10/16/17 10:41 Dose: 10,000 unit Glucagon (Glucagen Diagnostic Kit) 0 mg IM STAT PRN; Protocol PRN Reason: Hypoglycemia Protocol Heparin Sodium (Porcine) (Heparin) 5,000 units SC Q12 [facility] Last Admin: 09/20/17 10:26 Dose: Not Given Tigecycline 50 mg/ Sodium (Chloride) 100 mls @ 100 mls/hr IVPB Q12H ARYA PRN Reason: Protocol Last Admin: 10/16/17 13:11 Dose: 100 mls/hr Colistimethate Sodium 80 mg/ (Sodium Chloride) 100 mls @ 200 mls/hr IV TTS ARYA PRN Reason: Protocol Last Admin: 10/16/17 12:44 Dose: 200 mls/hr Dextrose (Dextrose 10% In Water) 1,000 mls @ 40 mls/hr IV .Q24H [facility] Last Admin: 10/15/17 20:00 Dose: 40 mls/hr Aztreonam 1 gm/ Sodium (Chloride) 100 mls @ 200 mls/hr IVPB DAILY ARYA PRN Reason: Protocol Last Admin: 10/16/17 12:43 Dose: 200 mls/hr Ipratropium [place] (Atrovent) 0.5 mg IH Q4H PRN PRN Reason: Shortness of Breath Midodrine (Proamatine) 10 mg PO TID [facility] Last Admin: 10/16/17 13:10 Dose: 10 mg Nystatin (Nystop Topical Powder) 1 applic TOP TID [facility] Last Admin: 10/16/17 13:11 Dose: 1 applic Ondansetron HCl (Zofran Inj) 4 mg IVP Q6 PRN PRN Reason: Nausea/Vomiting Last Admin: 10/16/17 07:16 Dose: 4 mg Results - Vital Signs Recent Vital Signs: Last Vital Signs Temp 97.5 F L 10/16/17 09:38 Pulse 87 10/16/17 13:04 Resp 20 10/16/17 12:39 BP 111/92 H 10/16/17 12:39 Pulse Ox 100 10/16/17 12:39 - Labs Result Diagrams: 10/16/17 06:05 10/16/17 06:05 Labs: Laboratory Results - last 24 hr 10/15/17 10/15/17 10/15/17 16:39 16:39 19:36 WBC RBC Hgb Hct MCV MCH MCHC RDW Plt Count MPV Neut % (Auto) Lymph % (Auto) Nash % (Auto) Eos % (Auto) Baso % (Auto) Neut # (Auto) Lymph # (Auto) Nash # (Auto) Eos # (Auto) Baso # (Auto) PT INR APTT Sodium Potassium Chloride Carbon Dioxide Anion Gap BUN Creatinine Est GFR ( Amer) Est GFR (Non-Af Amer) POC Glucose (mg/dL) < 20 L* Random Glucose Calcium Phosphorus Magnesium Total Bilirubin AST ALT Alkaline Phosphatase Total Protein Albumin Globulin Albumin/Globulin Ratio Free T4 0.93 TSH 3rd Generation 5.18 H Plasma Cortisol PM 10/15/17 10/15/17 10/15/17 20:02 20:05 20:24 WBC RBC Hgb Hct MCV MCH MCHC RDW Plt Count MPV Neut % (Auto) Lymph % (Auto) [place] % (Auto) Eos % (Auto) Baso % (Auto) Neut # (Auto) Lymph # (Auto) Nash # (Auto) Eos # (Auto) Baso # (Auto) PT INR APTT Sodium Potassium Chloride Carbon Dioxide Anion Gap BUN Creatinine Est GFR ( Amer) Est GFR (Non-Af Amer) POC Glucose (mg/dL) < 20 L* < 20 L* 77 Random Glucose Calcium Phosphorus Magnesium Total Bilirubin AST ALT Alkaline Phosphatase Total Protein Albumin Globulin Albumin/Globulin Ratio Free T4 TSH 3rd Generation Plasma Cortisol PM 10/15/17 10/15/17 10/16/17 20:34 21:08 06:05 WBC 10.9 H RBC 3.16 L Hgb 9.4 L Hct 29.6 L MCV 93.6 MCH 29.7 MCHC 31.7 L RDW 18.1 H Plt Count 59 L D MPV 8.2 Neut % (Auto) 79.9 H Lymph % (Auto) 15.1 L Nash % (Auto) 4.1 Eos % (Auto) 0.4 Baso % (Auto) 0.5 Neut # (Auto) 8.7 H Lymph # (Auto) 1.7 Nash # (Auto) 0.4 Eos # (Auto) 0.0 Baso # (Auto) 0.1 PT INR APTT Sodium Potassium Chloride Carbon Dioxide Anion Gap BUN Creatinine Est GFR ( Amer) Est GFR (Non-Af Amer) POC Glucose (mg/dL) 202 H Random Glucose Calcium Phosphorus Magnesium Total Bilirubin AST ALT Alkaline Phosphatase Total Protein Albumin Globulin Albumin/Globulin Ratio Free T4 TSH 3rd Generation Plasma Cortisol PM 24.2 H 10/16/17 10/16/17 10/16/17 06:05 06:05 07:22 WBC RBC Hgb Hct MCV MCH MCHC RDW Plt Count MPV Neut % (Auto) Lymph % (Auto) Nash % (Auto) Eos % (Auto) Baso % (Auto) Neut # (Auto) Lymph # (Auto) Nash # (Auto) Eos # (Auto) Baso # (Auto) PT 26.8 H INR 2.4 APTT 57 H D Sodium 134 Potassium 3.7 Chloride 96 L Carbon Dioxide 21 L Anion Gap 20 BUN 29 H Creatinine 5.1 H Est GFR ( Amer) 14 Est GFR (Non-Af Amer) 11 POC Glucose (mg/dL) 55 L Random Glucose 89 Calcium 7.9 L Phosphorus 3.1 Magnesium 1.8 Total Bilirubin 1.4 H AST 95 H D ALT 23 Alkaline Phosphatase 123 Total Protein 4.8 L Albumin 2.0 L Globulin 2.8 Albumin/Globulin Ratio 0.7 L Free T4 TSH 3rd Generation Plasma Cortisol PM 10/16/17 10/16/17 10/16/17 07:24 07:50 07:52 WBC RBC Hgb Hct MCV MCH MCHC RDW Plt Count MPV Neut % (Auto) Lymph % (Auto) Nash % (Auto) Eos % (Auto) Baso % (Auto) Neut # (Auto) Lymph # (Auto) Nash # (Auto) Eos # (Auto) Baso # (Auto) PT INR APTT Sodium Potassium Chloride Carbon Dioxide Anion Gap BUN Creatinine Est GFR ( Amer) Est GFR (Non-Af Amer) POC Glucose (mg/dL) 62 L 23 L* 38 L* Random Glucose Calcium Phosphorus Magnesium Total Bilirubin AST ALT Alkaline Phosphatase Total Protein Albumin Globulin Albumin/Globulin Ratio Free T4 TSH 3rd Generation Plasma Cortisol PM 10/16/17 10/16/17 08:20 11:21 WBC RBC Hgb Hct MCV MCH MCHC RDW Plt Count MPV Neut % (Auto) Lymph % (Auto) Nash % (Auto) Eos % (Auto) Baso % (Auto) Neut # (Auto) Lymph # (Auto) Nash # (Auto) Eos # (Auto) Baso # (Auto) PT INR APTT Sodium Potassium Chloride Carbon Dioxide Anion Gap BUN Creatinine Est GFR ( Amer) Est GFR (Non-Af Amer) POC Glucose (mg/dL) 196 H 98 Random Glucose Calcium Phosphorus Magnesium Total Bilirubin AST ALT Alkaline Phosphatase Total Protein Albumin Globulin Albumin/Globulin Ratio Free T4 TSH 3rd Generation Plasma Cortisol PM
--- NOTE | 2017-10-16 16:30 | CP.PCM.PN ---
Subjective - Date & Time of Evaluation Date of Evaluation: 10/16/17 Time of Evaluation: 16:30 Objective - Vital Signs/Intake and Output Vital Signs (last 24 hours): Temp Pulse Resp BP Pulse Ox 97.5 F L 87 20 111/92 H 100 10/16/17 09:38 10/16/17 13:04 10/16/17 12:39 10/16/17 12:39 10/16/17 12:39 Intake and Output: 10/16/17 10/16/17 06:59 18:59 Intake Total 840 240 Output Total 0 Balance 840 240 - Medications Medications: Current Medications Dextrose (Dextrose 50% Inj) 0 ml IV STAT PRN; Protocol PRN Reason: Hypoglycemia Protocol Last Admin: 10/16/17 07:55 Dose: 50 ml Dextrose (Glutose 15) 0 gm PO ONCE PRN; Protocol PRN Reason: Hypoglycemia Protocol Epoetin Naeem (Procrit) 10,000 unit IV TTS [facility] Last Admin: 10/16/17 10:41 Dose: 10,000 unit Glucagon (Glucagen Diagnostic Kit) 0 mg IM STAT PRN; Protocol PRN Reason: Hypoglycemia Protocol Heparin Sodium (Porcine) (Heparin) 5,000 units SC Q12 [facility] Last Admin: 09/20/17 10:26 Dose: Not Given Tigecycline 50 mg/ Sodium (Chloride) 100 mls @ 100 mls/hr IVPB Q12H [facility]YA PRN Reason: Protocol Last Admin: 10/16/17 13:11 Dose: 100 mls/hr Colistimethate Sodium 80 mg/ (Sodium Chloride) 100 mls @ 200 mls/hr IV TTS ARYA PRN Reason: Protocol Last Admin: 10/16/17 12:44 Dose: 200 mls/hr Dextrose (Dextrose 10% In Water) 1,000 mls @ 40 mls/hr IV .Q24H [facility] Last Admin: 10/15/17 20:00 Dose: 40 mls/hr Aztreonam 1 gm/ Sodium (Chloride) 100 mls @ 200 mls/hr IVPB DAILY ARYA PRN Reason: Protocol Last Admin: 10/16/17 12:43 Dose: 200 mls/hr Ipratropium [place] (Atrovent) 0.5 mg IH Q4H PRN PRN Reason: Shortness of Breath Midodrine (Proamatine) 10 mg PO TID [facility] Last Admin: 10/16/17 13:10 Dose: 10 mg Nystatin (Nystop Topical Powder) 1 applic TOP TID [facility] Last Admin: 10/16/17 13:11 Dose: 1 applic Ondansetron HCl (Zofran Inj) 4 mg IVP Q6 PRN PRN Reason: Nausea/Vomiting Last Admin: 10/16/17 07:16 Dose: 4 mg - Labs Labs: 10/16/17 06:05 10/16/17 06:05 PT 26.8 SECONDS (9.7-12.2) H 10/16/17 06:05 INR 2.4 10/16/17 06:05 APTT 57 SECONDS (21-34) H D 10/16/17 06:05
[2017-10-16] MEDS: Albumin Human 25% (12.5 gm/50 ml) IV SCH ×2 (22:05→23:13)
--- NOTE | 2017-10-16 22:38 | PCM.PROC ---
Procedures Attestation:: I certify that I have explained the specified Operation(s) or Procedure(s), risks, benefits and reasonable alternatives to the Patient and/or other person responsible. The opportunity was given to ask questions and all questions answered - Intubation Time Out Performed: No (Emergent) Sedative: None Laryngoscope: Imelda (4) Assist Device Used: Other (none) ET Tube Size: 7.5 ET Tube Uncuffed: No ET Tube Secured at Depth: 23 ET Tube Secured Locarion: Lips ET Tube Placement Confirmation: Visualized Passing Through Cords, Breath Sounds Equal Bilaterally, No Breath Sounds Over Epigastrum, Confirmation w/Capnometry Patient Tolerated Procedure: Well Procedure Immediate Complications: None Additional comments: Confirmed on cxr about 5cm above jeff, rotated film suspect atelectesis on right. D/w mother and brother understand patient is actively declining, didn't want him to suffer, may decide about DNR tomorrow, once mother comes to hospital tomorrow. IV bolus of 500ml saline, 25 gm albumin ordered, levophed will be started as needed.
[2017-10-17 06:01] LABS: ABG ALLEN TEST POS; ARTERIAL BLOOD GAS HCO3 20.4 mmol/L (21-28); ARTERIAL BLOOD GAS HEMOGLOBIN 8.2 g/dL (11.7-17.4); ARTERIAL BLOOD GAS O2 SAT 99.9 % (95-98); ARTERIAL BLOOD GAS PCO2 24 mm/Hg (35-45); ARTERIAL BLOOD GAS PH 7.46 (7.35-7.45); ARTERIAL BLOOD GAS PO2 163 mm/Hg (80-100); ARTERIAL BLOOD GAS TCO2 17.8 mmol/L (22-28)
[2017-10-17 06:49] LABS: BASO # 0.2 K/uL (0.0-0.2); EOS % 0.3 % (0.0-4.0); HEMOGLOBIN 8.5 g/dL (12.0-18.0); LYMPH # 1.4 K/uL (1.0-4.3); LYMPH % 12.6 % (20.0-40.0); MEAN CELL VOLUME 93.7 fL (80.0-94.0); MEAN CORPUSCULAR HEMOGLOBIN 30.1 pg (27.0-31.0); MEAN CORPUSCULAR HGB CONC 32.1 g/dL (33.0-37.0); MEAN PLATELET VOLUME 8.2 fL (7.2-11.7); MONO # 0.3 K/uL (0.0-0.8); MONO % 2.6 % (0.0-10.0); NEUT # 9.3 K/uL (1.8-7.0); NEUT % 82.5 % (50.0-75.0); NRBC % 0.4 % (0.0-2.0); RBC 2.82 Mil/uL (4.40-5.90); RED CELL DISTRIBUTION WIDTH 18.5 % (11.5-14.5); WHITE BLOOD COUNT 11.2 K/uL (4.8-10.8)
[2017-10-17 06:53] LABS: ALB/GLOB RATIO 0.9 (1.0-2.1); ALBUMIN 2.3 g/dL (3.5-5.0); CALCIUM 7.9 mg/dl (8.6-10.4)
--- NOTE | 2017-10-17 08:53 | CP.PCM.PN ---
Subjective - Date & Time of Evaluation Date of Evaluation: 10/17/17 Time of Evaluation: 08:50 - Subjective Subjective: intubated overnight for respiratory distress on pressors HD yesterday unable to obtain ROS due to clinical status Objective - Vital Signs/Intake and Output Vital Signs (last 24 hours): Temp Pulse Resp BP Pulse Ox 97.5 F L 116 H 13 92/54 L 98 10/17/17 04:00 10/17/17 06:19 10/17/17 06:19 10/17/17 06:19 10/17/17 06:19 Intake and Output: 10/17/17 10/17/17 06:59 18:59 Intake Total 705.3 49.4 Output Total 0 200 Balance 705.3 -150.6 - Medications Medications: Current Medications Dextrose (Dextrose 50% Inj) 0 ml IV STAT PRN; Protocol PRN Reason: Hypoglycemia Protocol Last Admin: 10/16/17 07:55 Dose: 50 ml Dextrose (Glutose 15) 0 gm PO ONCE PRN; Protocol PRN Reason: Hypoglycemia Protocol Epoetin Naeem (Procrit) 10,000 unit IV TTS [facility] Last Admin: 10/16/17 10:41 Dose: 10,000 unit Glucagon (Glucagen Diagnostic Kit) 0 mg IM STAT PRN; Protocol PRN Reason: Hypoglycemia Protocol Heparin Sodium (Porcine) (Heparin) 5,000 units SC Q12 [facility] Last Admin: 09/20/17 10:26 Dose: Not Given Colistimethate Sodium 80 mg/ (Sodium Chloride) 100 mls @ 200 mls/hr IV TTS ARYA PRN Reason: Protocol Last Admin: 10/16/17 12:44 Dose: 200 mls/hr Dextrose (Dextrose 10% In Water) 1,000 mls @ 40 mls/hr IV .Q24H [facility] Last Admin: 10/16/17 20:17 Dose: Not Given Aztreonam 1 gm/ Sodium (Chloride) 100 mls @ 200 mls/hr IVPB DAILY ARYA PRN Reason: Protocol Last Admin: 10/16/17 12:43 Dose: 200 mls/hr Tigecycline 50 mg/ Sodium (Chloride) 100 mls @ 100 mls/hr IVPB Q12H [facility] PRN Reason: Protocol Last Admin: 10/16/17 21:58 Dose: 100 mls/hr Norepinephrine Bitartrate 8 mg (/ Dextrose) 258 mls @ 7.74 mls/hr IV .Q24H PRN ; Protocol; 4 MCG/MIN PRN Reason: TITRATE PER MD ORDER Last Titration: 10/17/17 01:00 Dose: 5 mcg/min, 9.67 mls/hr Ipratropium [place] (Atrovent) 0.5 mg IH Q4H PRN PRN Reason: Shortness of Breath Midodrine (Proamatine) 10 mg PO TID [facility] Last Admin: 10/16/17 17:09 Dose: 10 mg Nystatin (Nystop Topical Powder) 1 applic TOP TID [facility] Last Admin: 10/16/17 17:10 Dose: 1 applic Octreotide Acetate (Sandostatin) 100 mcg SC Q8H [facility] Last Admin: 10/17/17 05:47 Dose: 100 mcg Ondansetron HCl (Zofran Inj) 4 mg IVP Q6 PRN PRN Reason: Nausea/Vomiting Last Admin: 10/16/17 07:16 Dose: 4 mg - Labs Labs: 10/17/17 06:22 10/17/17 06:22 PT 26.8 SECONDS (9.7-12.2) H 10/16/17 06:05 INR 2.4 10/16/17 06:05 APTT 57 SECONDS (21-34) H D 10/16/17 06:05 - Constitutional Appears: In Acute Distress - Eye Exam Eye Exam: EOMI - ENT Exam ENT Exam: Mucous Membranes Moist - Neck Exam Neck Exam: absent: Lymphadenopathy - Respiratory Exam Respiratory Exam: Decreased Breath Sounds. 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
--- NOTE | 2017-10-17 09:06 | RAD ---
HISTORY: post intubation COMPARISON: Chest radiograph dated 10/14/2017. FINDINGS: LUNGS: Pulmonary vascular congestion. Limited evaluation of the right hemithorax. PLEURA: Limited evaluation of the right hemithorax. No significant pleural effusion identified, no pneumothorax apparent. CARDIOVASCULAR: Normal. OSSEOUS STRUCTURES: No significant abnormalities. VISUALIZED UPPER ABDOMEN: Normal. OTHER FINDINGS: New endotracheal tube with tip at the level of the clavicular heads. Enteric tube with tip in the stomach. Right internal jugular access tunneled hemodialysis catheter, unchanged. IMPRESSION: Markedly limited examination due to patient rotation. Questionable small right pleural effusion. Satisfactory placement of endotracheal and enteric tubes.
--- NOTE | 2017-10-17 09:20 | RAD ---
HISTORY: ff.up,pt.intubated COMPARISON: Chest radiograph dated 10/16/2017. FINDINGS: LUNGS: Pulmonary vascular congestion. PLEURA: Questionable small right pleural effusion. No pneumothorax apparent. CARDIOVASCULAR: Normal. OSSEOUS STRUCTURES: No significant abnormalities. VISUALIZED UPPER ABDOMEN: Normal. OTHER FINDINGS: Endotracheal, enteric tubes, unchanged. Right internal jugular access tunneled hemodialysis catheter, unchanged. . IMPRESSION: No significant interval change. Questionable small right pleural effusion.
[2017-10-17] MEDS ORDERED: Albumin Human 25% (12.5 gm/50 ml) IV ONE (09:28)
[2017-10-17 09:59] LABS: INR 2.6; PROTHROMBIN TIME 28.9 SECONDS (9.7-12.2)
[2017-10-17] MEDS: Aztreonam 1 GM in Sodium Chloride 0.9% 100 ML IVPB SCH (10:30)
--- NOTE | 2017-10-17 11:48 | CP.CCUPN ---
"<JosephdoAayla - Last Filed: 10/17/17 11:46> CCU Subjective - Physician Review Events Since Last Encounter (Free Text): Patient became lethargic, decrease 02 sat, hypotensive, and more confused. Patient was intubated last night and started on Levophed drip Subjective (Free Text): Patient seen and examined at bedside.Brother at bedside. Patient currently intubated. TV450, 02 50%, RR-12, CCU Objective - Vital Signs / Intake & Output Vital Signs (Last 4 hours): Vital Signs Temp Pulse Resp BP Pulse Ox 10/17/17 09:19 103 H 20 88/49 L 98 10/17/17 09:00 95 H 14 97 10/17/17 08:20 111 H 12 90/50 L 93 L 10/17/17 08:00 97.5 F L 125 H 16 88 L Intake and Output (Last 8hrs): Intake & Output 10/16/17 10/17/17 10/17/17 22:59 06:59 14:59 Intake Total 522 445.3 197.6 Output Total 0 0 200 Balance 522 445.3 -2.4 Weight 223 lb 0.36 oz Intake: IV 10.8 Intake, IV Amount 520 434.5 197.6 Right upper arm - Distal 200 154.5 37.6 Port right upper arm 320 280 160 Oral 2 0 0 Tube Feeding 0 Output: Gastric Amount 200 Left Nares 200 Urine 0 0 0 Urine, Voided 0 0 0 Stool 0 Emesis 0 Other: # Voids Urine, Voided 0 # Bowel Movements 1 0 0 - Physical Exam Physical Exam Limitations: Positive for: Altered Mental Status Head: Positive for: Atraumatic, Normocephalic Pupils: Positive for: PERRL Extroacular Muscles: Positive for: EOMI Conjunctiva: Positive for: Normal Mouth: Positive for: Moist Mucous Membranes Respiratory/Chest: Positive for: Clear to Auscultation. Negative for: Wheezes, Rales, Rhonchi Cardiovascular: Positive for: Regular Rate and Rhythm Abdomen: Positive for: Distention, Normal Bowel Sounds. Negative for: Tenderness (Asciites with fluid wave shift), Rebound, Guarding Upper Extremity: Negative for: Edema Lower Extremity: Positive for: Edema (+3) Neurological: Positive for: GCS=15 Skin: Positive for: Erythematous (Left arm wound) Psychiatric: Positive for: Alert, Oriented x 3 - Medications Active Medications: Active Medications Generic Name Dose Route Start Last Admin Trade Name Freq PRN Reason Stop Dose Admin Dextrose 0 ml 10/10/17 06:30 10/16/17 07:55 Dextrose 50% Inj IV 50 ml STAT PRN Administration Hypoglycemia Protocol Protocol Dextrose 0 gm 10/10/17 06:30 Glutose 15 PO ONCE PRN Hypoglycemia Protocol Protocol Epoetin Naeem 10,000 unit 10/08/17 11:22 10/16/17 10:41 Procrit IV 10,000 unit TTS ARYA Administration Glucagon 0 mg 10/10/17 06:30 Glucagen Diagnostic Kit IM STAT PRN Hypoglycemia Protocol Protocol Heparin Sodium (Porcine) 5,000 units 09/19/17 22:00 09/20/17 10:26 Heparin SC Not Given Q12 ARYA Colistimethate Sodium 80 mg/ 100 mls @ 200 mls/hr 10/11/17 10:00 10/16/17 12: 44 Sodium Chloride IV 200 mls/hr TTS ARYA Administration Protocol Dextrose 1,000 mls @ 40 mls/hr 10/15/17 20:17 10/17/17 08:57 Dextrose 10% In Water IV 40 mls/hr .Q24H ARYA Administration Aztreonam 1 gm/ Sodium 100 mls @ 200 mls/hr 10/16/17 13:00 10/16/17 12:43 Chloride IVPB 200 mls/hr DAILY ARYA Administration Protocol Tigecycline 50 mg/ Sodium 100 mls @ 100 mls/hr 10/16/17 22:00 10/17/17 10:30 Chloride IVPB 100 mls/hr Q12H ARYA Administration Protocol Norepinephrine Bitartrate 8 mg 258 mls @ 7.74 mls/hr 10/16/17 22:38 10/17/17 01:00 / Dextrose IV 5 mcg/min .Q24H PRN 9.67 mls/hr TITRATE PER MD ORDER Titration Protocol 4 MCG/MIN Ipratropium Monroe 0.5 mg 10/14/17 18:55 Atrovent IH Q4H PRN Shortness of Breath Midodrine 10 mg 10/08/17 11:22 10/17/17 11:10 Proamatine PO 10 mg TID ARYA Administration Nystatin 1 applic 10/15/17 10:00 10/17/17 11:10 Nystop Topical Powder TOP 1 applic TID ARYA Administration Octreotide Acetate 100 mcg 10/16/17 22:45 10/17/17 05:47 Sandostatin SC 100 mcg Q8H ARYA Administration Ondansetron HCl 4 mg 10/10/17 08:11 10/16/17 07:16 Zofran Inj IVP 4 mg Q6 PRN Administration Nausea/Vomiting - Patient Studies Lab Studies: Microbiology Studies 10/14/17 19:35 MRSA Culture (Admit) - Final Naris MRSA NOT DETECTED Lab Studies 10/17/17 10/17/17 10/17/17 Range/Units 09:40 06:22 06:22 WBC 11.2 H (4.8-10.8) K/uL RBC 2.82 L (4.40-5.90) Mil/uL Hgb 8.5 L (12.0-18.0) g/dL Hct 26.4 L (35.0-51.0) % MCV 93.7 (80.0-94.0) fL MCH 30.1 (27.0-31.0) pg MCHC 32.1 L (33.0-37.0) g/dL RDW 18.5 H (11.5-14.5) % Plt Count 58 L (130-400) K/uL MPV 8.2 (7.2-11.7) fL Neut % (Auto) 82.5 H (50.0-75.0) % Lymph % (Auto) 12.6 L (20.0-40.0) % Franklin % (Auto) 2.6 (0.0-10.0) % Eos % (Auto) 0.3 (0.0-4.0) % Baso % (Auto) 2.0 (0.0-2.0) % Neut # (Auto) 9.3 H (1.8-7.0) K/uL Lymph # (Auto) 1.4 (1.0-4.3) K/uL Franklin # (Auto) 0.3 (0.0-0.8) K/uL Eos # (Auto) 0.0 (0.0-0.7) K/uL Baso # (Auto) 0.2 (0.0-0.2) K/uL PT 28.9 H (9.7-12.2) SECONDS INR 2.6 APTT 70 H D (21-34) SECONDS Puncture Site pCO2 (35-45) mm/Hg pO2 (80-100) mm/Hg HCO3 (21-28) mmol/L ABG pH (7.35-7.45) ABG Total CO2 (22-28) mmol/L ABG O2 Saturation (95-98) % ABG Base Excess (-2.0-3.0) mmol/L ABG Hemoglobin (11.7-17.4) g/dL ABG Carboxyhemoglobin (0.5-1.5) % POC ABG HHb (Measured) (0.0-5.0) % ABG Methemoglobin (0.0-3.0) % José Test A-a O2 Difference mm/Hg Respiratory Index Hgb O2 Saturation (95.0-98.0) % Vent Mode Mechanical Rate FiO2 % Tidal Volume PEEP Sodium 141 (132-148) mmol/L Potassium 3.7 (3.6-5.2) mmol/L Chloride 101 (98-107) mmol/L Carbon Dioxide 22 (22-30) mmol/L Anion Gap 22 H (10-20) BUN 20 (9-20) mg/dL Creatinine 3.8 H (0.8-1.5) mg/dL Est GFR ( Amer) 20 Est GFR (Non-Af Amer) 16 POC Glucose (mg/dL) (65-110) mg/dL Random Glucose 72 L (75-110) mg/dL Calcium 7.9 L (8.6-10.4) mg/dl Phosphorus 2.6 (2.5-4.5) mg/dL Magnesium 1.8 (1.6-2.3) mg/dL Total Bilirubin 2.4 H (0.2-1.3) mg/dL AST 85 H (17-59) U/L ALT 21 (21-72) U/L Alkaline Phosphatase 113 (38-126) U/L Total Protein 4.9 L (6.3-8.3) g/dL Albumin 2.3 L (3.5-5.0) g/dL Globulin 2.6 (2.2-3.9) gm/dL Albumin/Globulin Ratio 0.9 L (1.0-2.1) 10/17/17 10/17/17 10/17/17 Range/Units 06:00 05:58 05:57 WBC (4.8-10.8) K/uL RBC (4.40-5.90) Mil/uL Hgb (12.0-18.0) g/dL Hct (35.0-51.0) % MCV (80.0-94.0) fL MCH (27.0-31.0) pg MCHC (33.0-37.0) g/dL RDW (11.5-14.5) % Plt Count (130-400) K/uL MPV (7.2-11.7) fL Neut % (Auto) (50.0-75.0) % Lymph % (Auto) (20.0-40.0) % Franklin % (Auto) (0.0-10.0) % Eos % (Auto) (0.0-4.0) % Baso % (Auto) (0.0-2.0) % Neut # (Auto) (1.8-7.0) K/uL Lymph # (Auto) (1.0-4.3) K/uL Franklin # (Auto) (0.0-0.8) K/uL Eos # (Auto) (0.0-0.7) K/uL Baso # (Auto) (0.0-0.2) K/uL PT (9.7-12.2) SECONDS INR APTT (21-34) SECONDS Puncture Site pCO2 (35-45) mm/Hg pO2 (80-100) mm/Hg HCO3 (21-28) mmol/L ABG pH (7.35-7.45) ABG Total CO2 (22-28) mmol/L ABG O2 Saturation (95-98) % ABG Base Excess (-2.0-3.0) mmol/L ABG Hemoglobin (11.7-17.4) g/dL ABG Carboxyhemoglobin (0.5-1.5) % POC ABG HHb (Measured) (0.0-5.0) % ABG Methemoglobin (0.0-3.0) % José Test A-a O2 Difference mm/Hg Respiratory Index Hgb O2 Saturation (95.0-98.0) % Vent Mode Mechanical Rate FiO2 % Tidal Volume PEEP Sodium (132-148) mmol/L Potassium (3.6-5.2) mmol/L Chloride (98-107) mmol/L Carbon Dioxide (22-30) mmol/L Anion Gap (10-20) BUN (9-20) mg/dL Creatinine (0.8-1.5) mg/dL Est GFR ( Amer) Est GFR (Non-Af Amer) POC Glucose (mg/dL) 75 < 20 L* 65 (65-110) mg/dL Random Glucose (75-110) mg/dL Calcium (8.6-10.4) mg/dl Phosphorus (2.5-4.5) mg/dL Magnesium (1.6-2.3) mg/dL Total Bilirubin (0.2-1.3) mg/dL AST (17-59) U/L ALT (21-72) U/L Alkaline Phosphatase (38-126) U/L Total Protein (6.3-8.3) g/dL Albumin (3.5-5.0) g/dL Globulin (2.2-3.9) gm/dL Albumin/Globulin Ratio (1.0-2.1) 10/17/17 10/16/17 10/16/17 Range/Units 05:26 21:32 21:29 WBC (4.8-10.8) K/uL RBC (4.40-5.90) Mil/uL Hgb (12.0-18.0) g/dL Hct (35.0-51.0) % MCV (80.0-94.0) fL MCH (27.0-31.0) pg MCHC (33.0-37.0) g/dL RDW (11.5-14.5) % Plt Count (130-400) K/uL MPV (7.2-11.7) fL Neut % (Auto) (50.0-75.0) % Lymph % (Auto) (20.0-40.0) % Franklin % (Auto) (0.0-10.0) % Eos % (Auto) (0.0-4.0) % Baso % (Auto) (0.0-2.0) % Neut # (Auto) (1.8-7.0) K/uL Lymph # (Auto) (1.0-4.3) K/uL Franklin # (Auto) (0.0-0.8) K/uL Eos # (Auto) (0.0-0.7) K/uL Baso # (Auto) (0.0-0.2) K/uL PT (9.7-12.2) SECONDS INR APTT (21-34) SECONDS Puncture Site R rad pCO2 24 L (35-45) mm/Hg pO2 163 H (80-100) mm/Hg HCO3 20.4 L (21-28) mmol/L ABG pH 7.46 H (7.35-7.45) ABG Total CO2 17.8 L (22-28) mmol/L ABG O2 Saturation 99.9 H (95-98) % ABG Base Excess -5.8 L (-2.0-3.0) mmol/L ABG Hemoglobin 8.2 L (11.7-17.4) g/dL ABG Carboxyhemoglobin 1.8 H (0.5-1.5) % POC ABG HHb (Measured) 0.1 (0.0-5.0) % ABG Methemoglobin 1.2 (0.0-3.0) % José Test Pos A-a O2 Difference 164.0 mm/Hg Respiratory Index 1.0 Hgb O2 Saturation 96.9 (95.0-98.0) % Vent Mode Prvc Mechanical Rate 12 FiO2 50.0 % Tidal Volume 450 PEEP 5 Sodium (132-148) mmol/L Potassium (3.6-5.2) mmol/L Chloride (98-107) mmol/L Carbon Dioxide (22-30) mmol/L Anion Gap (10-20) BUN (9-20) mg/dL Creatinine (0.8-1.5) mg/dL Est GFR ( Amer) Est GFR (Non-Af Amer) POC Glucose (mg/dL) 89 > 500 H* (65-110) mg/dL Random Glucose (75-110) mg/dL Calcium (8.6-10.4) mg/dl Phosphorus (2.5-4.5) mg/dL Magnesium (1.6-2.3) mg/dL Total Bilirubin (0.2-1.3) mg/dL AST (17-59) U/L ALT (21-72) U/L Alkaline Phosphatase (38-126) U/L Total Protein (6.3-8.3) g/dL Albumin (3.5-5.0) g/dL Globulin (2.2-3.9) gm/dL Albumin/Globulin Ratio (1.0-2.1) /01/26 Range/Units 16:10 WBC (4.8-10.8) K/uL RBC (4.40-5.90) Mil/uL Hgb (12.0-18.0) g/dL Hct (35.0-51.0) % MCV (80.0-94.0) fL MCH (27.0-31.0) pg MCHC (33.0-37.0) g/dL RDW (11.5-14.5) % Plt Count (130-400) K/uL MPV (7.2-11.7) fL Neut % (Auto) (50.0-75.0) % Lymph % (Auto) (20.0-40.0) % Franklin % (Auto) (0.0-10.0) % Eos % (Auto) (0.0-4.0) % Baso % (Auto) (0.0-2.0) % Neut # (Auto) (1.8-7.0) K/uL Lymph # (Auto) (1.0-4.3) K/uL Franklin # (Auto) (0.0-0.8) K/uL Eos # (Auto) (0.0-0.7) K/uL Baso # (Auto) (0.0-0.2) K/uL PT (9.7-12.2) SECONDS INR APTT (21-34) SECONDS Puncture Site pCO2 (35-45) mm/Hg pO2 (80-100) mm/Hg HCO3 (21-28) mmol/L ABG pH (7.35-7.45) ABG Total CO2 (22-28) mmol/L ABG O2 Saturation (95-98) % ABG Base Excess (-2.0-3.0) mmol/L ABG Hemoglobin (11.7-17.4) g/dL ABG Carboxyhemoglobin (0.5-1.5) % POC ABG HHb (Measured) (0.0-5.0) % ABG Methemoglobin (0.0-3.0) % José Test A-a O2 Difference mm/Hg Respiratory Index Hgb O2 Saturation (95.0-98.0) % Vent Mode Mechanical Rate FiO2 % Tidal Volume PEEP Sodium (132-148) mmol/L Potassium (3.6-5.2) mmol/L Chloride (98-107) mmol/L Carbon Dioxide (22-30) mmol/L Anion Gap (10-20) BUN (9-20) mg/dL Creatinine (0.8-1.5) mg/dL Est GFR ( Amer) Est GFR (Non-Af Amer) POC Glucose (mg/dL) 94 (65-110) mg/dL Random Glucose (75-110) mg/dL Calcium (8.6-10.4) mg/dl Phosphorus (2.5-4.5) mg/dL Magnesium (1.6-2.3) mg/dL Total Bilirubin (0.2-1.3) mg/dL AST (17-59) U/L ALT (21-72) U/L Alkaline Phosphatase (38-126) U/L Total Protein (6.3-8.3) g/dL Albumin (3.5-5.0) g/dL Globulin (2.2-3.9) gm/dL Albumin/Globulin Ratio (1.0-2.1) Laboratory Results - last 24 hr 10/16/17 10/16/17 10/16/17 16:10 21:29 21:32 WBC RBC Hgb Hct MCV MCH MCHC RDW Plt Count MPV Neut % (Auto) Lymph % (Auto) Franklin % (Auto) Eos % (Auto) Baso % (Auto) Neut # (Auto) Lymph # (Auto) Franklin # (Auto) Eos # (Auto) Baso # (Auto) PT INR APTT Puncture Site pCO2 pO2 HCO3 ABG pH ABG Total CO2 ABG O2 Saturation ABG Base Excess ABG Hemoglobin ABG Carboxyhemoglobin POC ABG HHb (Measured) ABG Methemoglobin José Test A-a O2 Difference Respiratory Index Hgb O2 Saturation Vent Mode Mechanical Rate FiO2 Tidal Volume PEEP Sodium Potassium Chloride Carbon Dioxide Anion Gap BUN Creatinine Est GFR ( Amer) Est GFR (Non-Af Amer) POC Glucose (mg/dL) 94 > 500 H* 89 Random Glucose Calcium Phosphorus Magnesium Total Bilirubin AST ALT Alkaline Phosphatase Total Protein Albumin Globulin Albumin/Globulin Ratio 10/17/17 10/17/17 10/17/17 05:26 05:57 05:58 WBC RBC Hgb Hct MCV MCH MCHC RDW Plt Count MPV Neut % (Auto) Lymph % (Auto) Franklin % (Auto) Eos % (Auto) Baso % (Auto) Neut # (Auto) Lymph # (Auto) Franklin # (Auto) Eos # (Auto) Baso # (Auto) PT INR APTT Puncture Site R rad pCO2 24 L pO2 163 H HCO3 20.4 L ABG pH 7.46 H ABG Total CO2 17.8 L ABG O2 Saturation 99.9 H ABG Base Excess -5.8 L ABG Hemoglobin 8.2 L ABG Carboxyhemoglobin 1.8 H POC ABG HHb (Measured) 0.1 ABG Methemoglobin 1.2 José Test Pos A-a O2 Difference 164.0 Respiratory Index 1.0 Hgb O2 Saturation 96.9 Vent Mode Prvc Mechanical Rate 12 FiO2 50.0 Tidal Volume 450 PEEP 5 Sodium Potassium Chloride Carbon Dioxide Anion Gap BUN Creatinine Est GFR ( Amer) Est GFR (Non-Af Amer) POC Glucose (mg/dL) 65 < 20 L* Random Glucose Calcium Phosphorus Magnesium Total Bilirubin AST ALT Alkaline Phosphatase Total Protein Albumin Globulin Albumin/Globulin Ratio 10/17/17 10/17/17 10/17/17 06:00 06:22 06:22 WBC 11.2 H RBC 2.82 L Hgb 8.5 L Hct 26.4 L MCV 93.7 MCH 30.1 MCHC 32.1 L RDW 18.5 H Plt Count 58 L MPV 8.2 Neut % (Auto) 82.5 H Lymph % (Auto) 12.6 L Franklin % (Auto) 2.6 Eos % (Auto) 0.3 Baso % (Auto) 2.0 Neut # (Auto) 9.3 H Lymph # (Auto) 1.4 Franklin # (Auto) 0.3 Eos # (Auto) 0.0 Baso # (Auto) 0.2 PT INR APTT Puncture Site pCO2 pO2 HCO3 ABG pH ABG Total CO2 ABG O2 Saturation ABG Base Excess ABG Hemoglobin ABG Carboxyhemoglobin POC ABG HHb (Measured) ABG Methemoglobin José Test A-a O2 Difference Respiratory Index Hgb O2 Saturation Vent Mode Mechanical Rate FiO2 Tidal Volume PEEP Sodium 141 Potassium 3.7 Chloride 101 Carbon Dioxide 22 Anion Gap 22 H BUN 20 Creatinine 3.8 H Est GFR ( Amer) 20 Est GFR (Non-Af Amer) 16 POC Glucose (mg/dL) 75 Random Glucose 72 L Calcium 7.9 L Phosphorus 2.6 Magnesium 1.8 Total Bilirubin 2.4 H AST 85 H ALT 21 Alkaline Phosphatase 113 Total Protein 4.9 L Albumin 2.3 L Globulin 2.6 Albumin/Globulin Ratio 0.9 L 10/17/17 09:40 WBC RBC Hgb Hct MCV MCH MCHC RDW Plt Count MPV Neut % (Auto) Lymph % (Auto) Franklin % (Auto) Eos % (Auto) Baso % (Auto) Neut # (Auto) Lymph # (Auto) Franklin # (Auto) Eos # (Auto) Baso # (Auto) PT 28.9 H INR 2.6 APTT 70 H D Puncture Site pCO2 pO2 HCO3 ABG pH ABG Total CO2 ABG O2 Saturation ABG Base Excess ABG Hemoglobin ABG Carboxyhemoglobin POC ABG HHb (Measured) ABG Methemoglobin José Test A-a O2 Difference Respiratory Index Hgb O2 Saturation Vent Mode Mechanical Rate FiO2 Tidal Volume PEEP Sodium Potassium Chloride Carbon Dioxide Anion Gap BUN Creatinine Est GFR ( Amer) Est GFR (Non-Af Amer) POC Glucose (mg/dL) Random Glucose Calcium Phosphorus Magnesium Total Bilirubin AST ALT Alkaline Phosphatase Total Protein Albumin Globulin Albumin/Globulin Ratio Fingerstick Blood Sugar Results: 82 Review of Systems - Review of Systems Systems not reviewed;Unavailable: Altered Mental Status Critical Care Progress Note - Nutrition Nutrition: Nutrition Category Date Time Status Renal Diet [DIET] Diets 10/04/17 Dinner Active Assessment/Plan - Assessment and Plan (Free Text) Assessment: 62 year old male with past medical history of ESRD on HD T/ started in september 2017, Cirrhosis,ascites with paracentesis of 6L of fluid on 09/24/17 , anemia,hypothyroidism admitted to ICU due dyspnea 2/2 to Ascites. Plan: Neuro: Head CT (Admission): No Acute Findings. Sedation: N/A Cardio A: A-fib w/ Variable Rate| Hypotension Midodrine 10 TID Cardiology Consulted (Dr. Duran, Recs Appreciated) EKG (10/15): Shows 1st degree block. On Levophed Drip Albumin 12.5 Given once today. Pulm A: dyspnea 2/2 to Ascities vs Afib CXR (10/14): Right central venous catheter with tip extending into the right atrium. Moderate venous congestion. Patchy bibasilar airspace opacities with small right pleural effusion. More superimposed consolidative changes in the right suprahilar region. Cardiomegaly with enlarged ectatic aorta. Degenerative changes in the spine. CXR (10/17): No interval change, possible small right pleural effusion. Atrovent 0.5mg IH Q4H PRN Intubated: 50%/ GI A: Cirrhosis, Asicites likley 2/2 EtOH abuse. LFT's Elevated (Worsening AST) Hepatitis Panel - NEGATIVE GI Consulted, Recs Appreciated Parecentesis cancelled on 10/15 due to elevated INR. 10mg IV Vitamin K Given Plan to give FFP before Parecentesis. F/U with IR regarding parecentesis. Zofran PRN for Nausea Monitor LFT's Endo A: Hypothyrodism, Secondary Hyperparathyroidism. Hypoglycemia Treatment Protocol Patient on Levothyroxine but does not know the dose. TSH and Free T4 Within Normal Limits Nephro/electrolytes A: ESRD (T, TH, S) Replenish electrolytes as needed ProCrit ID Wound Culture POSITIVE for VRE/Coagulase Negative Staph on left Arm Wound ID Consulted (Dr. Barajas) Recs, Appreciated Cont. Colistimethate /Tigecycline Heme/Onc A: Anemia likely 2/2 to ESRD, Low Plts (Worsening), Elevated INR (Worsening) HgB 8.4 today, Cont. to monitor. Transfuse for HgB below 7. Consider transfusion for HgB below 8. On ProCrit Heme/Onc Consulted (Dr. Dale) Consider Vitamin K FFB before Paracentesis [facility] Physical Therapy Prophylaxis Heparin Q12H (Held due to thrombocytopenia) Dispo: (10/15): Palliative Care consulted. Discussion of hospice started. Will follow up with Palliative Care. Patient discussed with ICU Attending Ayala Liriano, PGY-1 <Param Gomez S - Last Filed: 10/17/17 16:28> CCU Objective - Vital Signs / Intake & Output Vital Signs (Last 4 hours): Vital Signs Pulse Resp BP Pulse Ox 10/17/17 15:19 96 H 23 90/48 L 99 10/17/17 15:00 92 H 17 95 10/17/17 14:19 96 H 21 90/47 L 95 10/17/17 14:00 94 H 16 96 10/17/17 13:19 95 H 14 95/53 L 95 10/17/17 13:00 97 H 12 94 L Intake and Output (Last 8hrs): Intake & Output 10/17/17 10/17/17 10/17/17 06:59 14:59 22:59 Intake Total 445.3 595.2 49.4 Output Total 0 200 0 Balance 445.3 395.2 49.4 Weight 223 lb 0.36 oz Intake: IV 10.8 Intake, IV Amount 434.5 595.2 49.4 RIGHT ARM 200 Right upper arm - Distal 154.5 75.2 9.4 Port right upper arm 280 320 40 Oral 0 0 Tube Feeding 0 0 Output: Gastric Amount 200 Left Nares 200 Urine 0 0 Urine, Voided 0 0 Stool 0 Emesis 0 0 Other: # Voids Urine, Voided 0 0 # Bowel Movements 0 0 0 - Medications Active Medications: Active Medications Generic Name Dose Route Start Last Admin Trade Name Freq PRN Reason Stop Dose Admin Dextrose 0 ml 10/10/17 06:30 10/16/17 07:55 Dextrose 50% Inj IV 50 ml STAT PRN Administration Hypoglycemia Protocol Protocol Dextrose 0 gm 10/10/17 06:30 Glutose 15 PO ONCE PRN Hypoglycemia Protocol Protocol Epoetin Naeem 10,000 unit 10/08/17 11:22 10/16/17 10:41 Procrit IV 10,000 unit TTS ARYA Administration Glucagon 0 mg 10/10/17 06:30 Glucagen Diagnostic Kit IM STAT PRN Hypoglycemia Protocol Protocol Heparin Sodium (Porcine) 5,000 units 09/19/17 22:00 09/20/17 10:26 Heparin SC Not Given Q12 ARYA Colistimethate Sodium 80 mg/ 100 mls @ 200 mls/hr 10/11/17 10:00 10/16/17 12: 44 Sodium Chloride IV 200 mls/hr TTS ARYA Administration Protocol Dextrose 1,000 mls @ 40 mls/hr 10/15/17 20:17 10/17/17 08:57 Dextrose 10% In Water IV 40 mls/hr .Q24H ARYA Administration Aztreonam 1 gm/ Sodium 100 mls @ 200 mls/hr 10/16/17 13:00 10/17/17 10:30 Chloride IVPB 200 mls/hr DAILY ARYA Administration Protocol Tigecycline 50 mg/ Sodium 100 mls @ 100 mls/hr 10/16/17 22:00 10/17/17 10:30 Chloride IVPB 100 mls/hr Q12H ARYA Administration Protocol Norepinephrine Bitartrate 8 mg 258 mls @ 7.74 mls/hr 10/16/17 22:38 10/17/17 01:00 / Dextrose IV 5 mcg/min .Q24H PRN 9.67 mls/hr TITRATE PER MD ORDER Titration Protocol 4 MCG/MIN Ipratropium Monroe 0.5 mg 10/14/17 18:55 Atrovent IH Q4H PRN Shortness of Breath Midodrine 10 mg 10/08/17 11:22 10/17/17 14:31 Proamatine PO 10 mg TID ARYA Administration Nystatin 1 applic 10/15/17 10:00 10/17/17 13:02 Nystop Topical Powder TOP 1 applic TID ARYA Administration Octreotide Acetate 100 mcg 10/16/17 22:45 10/17/17 14:47 Sandostatin SC 100 mcg Q8H ARYA Administration Ondansetron HCl 4 mg 10/10/17 08:11 10/16/17 07:16 Zofran Inj IVP 4 mg Q6 PRN Administration Nausea/Vomiting - Patient Studies Lab Studies: Lab Studies 10/17/17 10/17/17 10/17/17 Range/Units 12:54 12:50 12:02 WBC (4.8-10.8) K/uL RBC (4.40-5.90) Mil/uL Hgb (12.0-18.0) g/dL Hct (35.0-51.0) % MCV (80.0-94.0) fL MCH (27.0-31.0) pg MCHC (33.0-37.0) g/dL RDW (11.5-14.5) % Plt Count (130-400) K/uL MPV (7.2-11.7) fL Neut % (Auto) (50.0-75.0) % Lymph % (Auto) (20.0-40.0) % Franklin % (Auto) (0.0-10.0) % Eos % (Auto) (0.0-4.0) % Baso % (Auto) (0.0-2.0) % Neut # (Auto) (1.8-7.0) K/uL Lymph # (Auto) (1.0-4.3) K/uL Franklin # (Auto) (0.0-0.8) K/uL Eos # (Auto) (0.0-0.7) K/uL Baso # (Auto) (0.0-0.2) K/uL PT (9.7-12.2) SECONDS INR APTT (21-34) SECONDS Puncture Site pCO2 (35-45) mm/Hg pO2 (80-100) mm/Hg HCO3 (21-28) mmol/L ABG pH (7.35-7.45) ABG Total CO2 (22-28) mmol/L ABG O2 Saturation (95-98) % ABG Base Excess (-2.0-3.0) mmol/L ABG Hemoglobin (11.7-17.4) g/dL ABG Carboxyhemoglobin (0.5-1.5) % POC ABG HHb (Measured) (0.0-5.0) % ABG Methemoglobin (0.0-3.0) % José Test A-a O2 Difference mm/Hg Respiratory Index Hgb O2 Saturation (95.0-98.0) % Vent Mode Mechanical Rate FiO2 % Tidal Volume PEEP Sodium (132-148) mmol/L Potassium (3.6-5.2) mmol/L Chloride (98-107) mmol/L Carbon Dioxide (22-30) mmol/L Anion Gap (10-20) BUN (9-20) mg/dL Creatinine (0.8-1.5) mg/dL Est GFR ( Amer) Est GFR (Non-Af Amer) POC Glucose (mg/dL) 152 H > 500 H* 58 L (65-110) mg/dL Random Glucose (75-110) mg/dL Calcium (8.6-10.4) mg/dl Phosphorus (2.5-4.5) mg/dL Magnesium (1.6-2.3) mg/dL Total Bilirubin (0.2-1.3) mg/dL AST (17-59) U/L ALT (21-72) U/L Alkaline Phosphatase (38-126) U/L Total Protein (6.3-8.3) g/dL Albumin (3.5-5.0) g/dL Globulin (2.2-3.9) gm/dL Albumin/Globulin Ratio (1.0-2.1) 10/17/17 10/17/17 10/17/17 Range/Units 11:57 11:54 09:40 WBC (4.8-10.8) K/uL RBC (4.40-5.90) Mil/uL Hgb (12.0-18.0) g/dL Hct (35.0-51.0) % MCV (80.0-94.0) fL MCH (27.0-31.0) pg MCHC (33.0-37.0) g/dL RDW (11.5-14.5) % Plt Count (130-400) K/uL MPV (7.2-11.7) fL Neut % (Auto) (50.0-75.0) % Lymph % (Auto) (20.0-40.0) % Franklin % (Auto) (0.0-10.0) % Eos % (Auto) (0.0-4.0) % Baso % (Auto) (0.0-2.0) % Neut # (Auto) (1.8-7.0) K/uL Lymph # (Auto) (1.0-4.3) K/uL Franklin # (Auto) (0.0-0.8) K/uL Eos # (Auto) (0.0-0.7) K/uL Baso # (Auto) (0.0-0.2) K/uL PT 28.9 H (9.7-12.2) SECONDS INR 2.6 APTT 70 H D (21-34) SECONDS Puncture Site pCO2 (35-45) mm/Hg pO2 (80-100) mm/Hg HCO3 (21-28) mmol/L ABG pH (7.35-7.45) ABG Total CO2 (22-28) mmol/L ABG O2 Saturation (95-98) % ABG Base Excess (-2.0-3.0) mmol/L ABG Hemoglobin (11.7-17.4) g/dL ABG Carboxyhemoglobin (0.5-1.5) % POC ABG HHb (Measured) (0.0-5.0) % ABG Methemoglobin (0.0-3.0) % José Test A-a O2 Difference mm/Hg Respiratory Index Hgb O2 Saturation (95.0-98.0) % Vent Mode Mechanical Rate FiO2 % Tidal Volume PEEP Sodium (132-148) mmol/L Potassium (3.6-5.2) mmol/L Chloride (98-107) mmol/L Carbon Dioxide (22-30) mmol/L Anion Gap (10-20) BUN (9-20) mg/dL Creatinine (0.8-1.5) mg/dL Est GFR ( Amer) Est GFR (Non-Af Amer) POC Glucose (mg/dL) 20 L* < 20 L* (65-110) mg/dL Random Glucose (75-110) mg/dL Calcium (8.6-10.4) mg/dl Phosphorus (2.5-4.5) mg/dL Magnesium (1.6-2.3) mg/dL Total Bilirubin (0.2-1.3) mg/dL AST (17-59) U/L ALT (21-72) U/L Alkaline Phosphatase (38-126) U/L Total Protein (6.3-8.3) g/dL Albumin (3.5-5.0) g/dL Globulin (2.2-3.9) gm/dL Albumin/Globulin Ratio (1.0-2.1) 10/17/17 10/17/17 10/17/17 Range/Units 06:22 06:22 06:00 WBC 11.2 H (4.8-10.8) K/uL RBC 2.82 L (4.40-5.90) Mil/uL Hgb 8.5 L (12.0-18.0) g/dL Hct 26.4 L (35.0-51.0) % MCV 93.7 (80.0-94.0) fL MCH 30.1 (27.0-31.0) pg MCHC 32.1 L (33.0-37.0) g/dL RDW 18.5 H (11.5-14.5) % Plt Count 58 L (130-400) K/uL MPV 8.2 (7.2-11.7) fL Neut % (Auto) 82.5 H (50.0-75.0) % Lymph % (Auto) 12.6 L (20.0-40.0) % Franklin % (Auto) 2.6 (0.0-10.0) % Eos % (Auto) 0.3 (0.0-4.0) % Baso % (Auto) 2.0 (0.0-2.0) % Neut # (Auto) 9.3 H (1.8-7.0) K/uL Lymph # (Auto) 1.4 (1.0-4.3) K/uL Franklin # (Auto) 0.3 (0.0-0.8) K/uL Eos # (Auto) 0.0 (0.0-0.7) K/uL Baso # (Auto) 0.2 (0.0-0.2) K/uL PT (9.7-12.2) SECONDS INR APTT (21-34) SECONDS Puncture Site pCO2 (35-45) mm/Hg pO2 (80-100) mm/Hg HCO3 (21-28) mmol/L ABG pH (7.35-7.45) ABG Total CO2 (22-28) mmol/L ABG O2 Saturation (95-98) % ABG Base Excess (-2.0-3.0) mmol/L ABG Hemoglobin (11.7-17.4) g/dL ABG Carboxyhemoglobin (0.5-1.5) % POC ABG HHb (Measured) (0.0-5.0) % ABG Methemoglobin (0.0-3.0) % José Test A-a O2 Difference mm/Hg Respiratory Index Hgb O2 Saturation (95.0-98.0) % Vent Mode Mechanical Rate FiO2 % Tidal Volume PEEP Sodium 141 (132-148) mmol/L Potassium 3.7 (3.6-5.2) mmol/L Chloride 101 (98-107) mmol/L Carbon Dioxide 22 (22-30) mmol/L Anion Gap 22 H (10-20) BUN 20 (9-20) mg/dL Creatinine 3.8 H (0.8-1.5) mg/dL Est GFR ( Amer) 20 Est GFR (Non-Af Amer) 16 POC Glucose (mg/dL) 75 (65-110) mg/dL Random Glucose 72 L (75-110) mg/dL Calcium 7.9 L (8.6-10.4) mg/dl Phosphorus 2.6 (2.5-4.5) mg/dL Magnesium 1.8 (1.6-2.3) mg/dL Total Bilirubin 2.4 H (0.2-1.3) mg/dL AST 85 H (17-59) U/L ALT 21 (21-72) U/L Alkaline Phosphatase 113 (38-126) U/L Total Protein 4.9 L (6.3-8.3) g/dL Albumin 2.3 L (3.5-5.0) g/dL Globulin 2.6 (2.2-3.9) gm/dL Albumin/Globulin Ratio 0.9 L (1.0-2.1) 10/17/17 10/17/17 10/17/17 Range/Units 05:58 05:57 05:26 WBC (4.8-10.8) K/uL RBC (4.40-5.90) Mil/uL Hgb (12.0-18.0) g/dL Hct (35.0-51.0) % MCV (80.0-94.0) fL MCH (27.0-31.0) pg MCHC (33.0-37.0) g/dL RDW (11.5-14.5) % Plt Count (130-400) K/uL MPV (7.2-11.7) fL Neut % (Auto) (50.0-75.0) % Lymph % (Auto) (20.0-40.0) % [place] % (Auto) (0.0-10.0) % Eos % (Auto) (0.0-4.0) % Baso % (Auto) (0.0-2.0) % Neut # (Auto) (1.8-7.0) K/uL Lymph # (Auto) (1.0-4.3) K/uL Franklin # (Auto) (0.0-0.8) K/uL Eos # (Auto) (0.0-0.7) K/uL Baso # (Auto) (0.0-0.2) K/uL PT (9.7-12.2) SECONDS INR APTT (21-34) SECONDS Puncture Site R rad pCO2 24 L (35-45) mm/Hg pO2 163 H (80-100) mm/Hg HCO3 20.4 L (21-28) mmol/L ABG pH 7.46 H (7.35-7.45) ABG Total CO2 17.8 L (22-28) mmol/L ABG O2 Saturation 99.9 H (95-98) % ABG Base Excess -5.8 L (-2.0-3.0) mmol/L ABG Hemoglobin 8.2 L (11.7-17.4) g/dL ABG Carboxyhemoglobin 1.8 H (0.5-1.5) % POC ABG HHb (Measured) 0.1 (0.0-5.0) % ABG Methemoglobin 1.2 (0.0-3.0) % José Test Pos A-a O2 Difference 164.0 mm/Hg Respiratory Index 1.0 Hgb O2 Saturation 96.9 (95.0-98.0) % Vent Mode Prvc Mechanical Rate 12 FiO2 50.0 % Tidal Volume 450 PEEP 5 Sodium (132-148) mmol/L Potassium (3.6-5.2) mmol/L Chloride (98-107) mmol/L Carbon Dioxide (22-30) mmol/L Anion Gap (10-20) BUN (9-20) mg/dL Creatinine (0.8-1.5) mg/dL Est GFR ( Amer) Est GFR (Non-Af Amer) POC Glucose (mg/dL) < 20 L* 65 (65-110) mg/dL Random Glucose (75-110) mg/dL Calcium (8.6-10.4) mg/dl Phosphorus (2.5-4.5) mg/dL Magnesium (1.6-2.3) mg/dL Total Bilirubin (0.2-1.3) mg/dL AST (17-59) U/L ALT (21-72) U/L Alkaline Phosphatase (38-126) U/L Total Protein (6.3-8.3) g/dL Albumin (3.5-5.0) g/dL Globulin (2.2-3.9) gm/dL Albumin/Globulin Ratio (1.0-2.1) 10/16/17 10/16/17 Range/Units 21:32 21:29 WBC (4.8-10.8) K/uL RBC (4.40-5.90) Mil/uL Hgb (12.0-18.0) g/dL Hct (35.0-51.0) % MCV (80.0-94.0) fL MCH (27.0-31.0) pg MCHC (33.0-37.0) g/dL RDW (11.5-14.5) % Plt Count (130-400) K/uL MPV (7.2-11.7) fL Neut % (Auto) (50.0-75.0) % Lymph % (Auto) (20.0-40.0) % [place] % (Auto) (0.0-10.0) % Eos % (Auto) (0.0-4.0) % Baso % (Auto) (0.0-2.0) % Neut # (Auto) (1.8-7.0) K/uL Lymph # (Auto) (1.0-4.3) K/uL [place] # (Auto) (0.0-0.8) K/uL Eos # (Auto) (0.0-0.7) K/uL Baso # (Auto) (0.0-0.2) K/uL PT (9.7-12.2) SECONDS INR APTT (21-34) SECONDS Puncture Site pCO2 (35-45) mm/Hg pO2 (80-100) mm/Hg HCO3 (21-28) mmol/L ABG pH (7.35-7.45) ABG Total CO2 (22-28) mmol/L ABG O2 Saturation (95-98) % ABG Base Excess (-2.0-3.0) mmol/L ABG Hemoglobin (11.7-17.4) g/dL ABG Carboxyhemoglobin (0.5-1.5) % POC ABG HHb (Measured) (0.0-5.0) % ABG Methemoglobin (0.0-3.0) % José Test A-a O2 Difference mm/Hg Respiratory Index Hgb O2 Saturation (95.0-98.0) % Vent Mode Mechanical Rate FiO2 % Tidal Volume PEEP Sodium (132-148) mmol/L Potassium (3.6-5.2) mmol/L Chloride (98-107) mmol/L Carbon Dioxide (22-30) mmol/L Anion Gap (10-20) BUN (9-20) mg/dL Creatinine (0.8-1.5) mg/dL Est GFR ( Amer) Est GFR (Non-Af Amer) POC Glucose (mg/dL) 89 > 500 H* (65-110) mg/dL Random Glucose (75-110) mg/dL Calcium (8.6-10.4) mg/dl Phosphorus (2.5-4.5) mg/dL Magnesium (1.6-2.3) mg/dL Total Bilirubin (0.2-1.3) mg/dL AST (17-59) U/L ALT (21-72) U/L Alkaline Phosphatase (38-126) U/L Total Protein (6.3-8.3) g/dL Albumin (3.5-5.0) g/dL Globulin (2.2-3.9) gm/dL Albumin/Globulin Ratio (1.0-2.1) Laboratory Results - last 24 hr 10/16/17 10/16/17 10/17/17 21:29 21:32 05:26 WBC RBC Hgb Hct MCV MCH MCHC RDW Plt Count MPV Neut % (Auto) Lymph % (Auto) [place] % (Auto) Eos % (Auto) Baso % (Auto) Neut # (Auto) Lymph # (Auto) [place] # (Auto) Eos # (Auto) Baso # (Auto) PT INR APTT Puncture Site R rad pCO2 24 L pO2 163 H HCO3 20.4 L ABG pH 7.46 H ABG Total CO2 17.8 L ABG O2 Saturation 99.9 H ABG Base Excess -5.8 L ABG Hemoglobin 8.2 L ABG Carboxyhemoglobin 1.8 H POC ABG HHb (Measured) 0.1 ABG Methemoglobin 1.2 José Test Pos A-a O2 Difference 164.0 Respiratory Index 1.0 Hgb O2 Saturation 96.9 Vent Mode Prvc Mechanical Rate 12 FiO2 50.0 Tidal Volume 450 PEEP 5 Sodium Potassium Chloride Carbon Dioxide Anion Gap BUN Creatinine Est GFR ( Amer) Est GFR (Non-Af Amer) POC Glucose (mg/dL) > 500 H* 89 Random Glucose Calcium Phosphorus Magnesium Total Bilirubin AST ALT Alkaline Phosphatase Total Protein Albumin Globulin Albumin/Globulin Ratio 10/17/17 10/17/17 10/17/17 05:57 05:58 06:00 WBC RBC Hgb Hct MCV MCH MCHC RDW Plt Count MPV Neut % (Auto) Lymph % (Auto) [place] % (Auto) Eos % (Auto) Baso % (Auto) Neut # (Auto) Lymph # (Auto) [place] # (Auto) Eos # (Auto) Baso # (Auto) PT INR APTT Puncture Site pCO2 pO2 HCO3 ABG pH ABG Total CO2 ABG O2 Saturation ABG Base Excess ABG Hemoglobin ABG Carboxyhemoglobin POC ABG HHb (Measured) ABG Methemoglobin José Test A-a O2 Difference Respiratory Index Hgb O2 Saturation Vent Mode Mechanical Rate FiO2 Tidal Volume PEEP Sodium Potassium Chloride Carbon Dioxide Anion Gap BUN Creatinine Est GFR ( Amer) Est GFR (Non-Af Amer) POC Glucose (mg/dL) 65 < 20 L* 75 Random Glucose Calcium Phosphorus Magnesium Total Bilirubin AST ALT Alkaline Phosphatase Total Protein Albumin Globulin Albumin/Globulin Ratio 10/17/17 10/17/17 10/17/17 06:22 06:22 09:40 WBC 11.2 H RBC 2.82 L Hgb 8.5 L Hct 26.4 L MCV 93.7 MCH 30.1 MCHC 32.1 L RDW 18.5 H Plt Count 58 L MPV 8.2 Neut % (Auto) 82.5 H Lymph % (Auto) 12.6 L [place] % (Auto) 2.6 Eos % (Auto) 0.3 Baso % (Auto) 2.0 Neut # (Auto) 9.3 H Lymph # (Auto) 1.4 [place] # (Auto) 0.3 Eos # (Auto) 0.0 Baso # (Auto) 0.2 PT 28.9 H INR 2.6 APTT 70 H D Puncture Site pCO2 pO2 HCO3 ABG pH ABG Total CO2 ABG O2 Saturation ABG Base Excess ABG Hemoglobin ABG Carboxyhemoglobin POC ABG HHb (Measured) ABG Methemoglobin José Test A-a O2 Difference Respiratory Index Hgb O2 Saturation Vent Mode Mechanical Rate FiO2 Tidal Volume PEEP Sodium 141 Potassium 3.7 Chloride 101 Carbon Dioxide 22 Anion Gap 22 H BUN 20 Creatinine 3.8 H Est GFR ( Amer) 20 Est GFR (Non-Af Amer) 16 POC Glucose (mg/dL) Random Glucose 72 L Calcium 7.9 L Phosphorus 2.6 Magnesium 1.8 Total Bilirubin 2.4 H AST 85 H ALT 21 Alkaline Phosphatase 113 Total Protein 4.9 L Albumin 2.3 L Globulin 2.6 Albumin/Globulin Ratio 0.9 L 10/17/17 10/17/17 10/17/17 11:54 11:57 12:02 WBC RBC Hgb Hct MCV MCH MCHC RDW Plt Count MPV Neut % (Auto) Lymph % (Auto) [place] % (Auto) Eos % (Auto) Baso % (Auto) Neut # (Auto) Lymph # (Auto) [place] # (Auto) Eos # (Auto) Baso # (Auto) PT INR APTT Puncture Site pCO2 pO2 HCO3 ABG pH ABG Total CO2 ABG O2 Saturation ABG Base Excess ABG Hemoglobin ABG Carboxyhemoglobin POC ABG HHb (Measured) ABG Methemoglobin José Test A-a O2 Difference Respiratory Index Hgb O2 Saturation Vent Mode Mechanical Rate FiO2 Tidal Volume PEEP Sodium Potassium Chloride Carbon Dioxide Anion Gap BUN Creatinine Est GFR ( Amer) Est GFR (Non-Af Amer) POC Glucose (mg/dL) < 20 L* 20 L* 58 L Random Glucose Calcium Phosphorus Magnesium Total Bilirubin AST ALT Alkaline Phosphatase Total Protein Albumin Globulin Albumin/Globulin Ratio 10/17/17 10/17/17 12:50 12:54 WBC RBC Hgb Hct MCV MCH MCHC RDW Plt Count MPV Neut % (Auto) Lymph % (Auto) Franklin % (Auto) Eos % (Auto) Baso % (Auto) Neut # (Auto) Lymph # (Auto) [place] # (Auto) Eos # (Auto) Baso # (Auto) PT INR APTT Puncture Site pCO2 pO2 HCO3 ABG pH ABG Total CO2 ABG O2 Saturation ABG Base Excess ABG Hemoglobin ABG Carboxyhemoglobin POC ABG HHb (Measured) ABG Methemoglobin José Test A-a O2 Difference Respiratory Index Hgb O2 Saturation Vent Mode Mechanical Rate FiO2 Tidal Volume PEEP Sodium Potassium Chloride Carbon Dioxide Anion Gap BUN Creatinine Est GFR ( Amer) Est GFR (Non-Af Amer) POC Glucose (mg/dL) > 500 H* 152 H Random Glucose Calcium Phosphorus Magnesium Total Bilirubin AST ALT Alkaline Phosphatase Total Protein Albumin Globulin Albumin/Globulin Ratio Critical Care Progress Note - Nutrition Nutrition: Nutrition Category Date Time Status Renal Diet [DIET] Diets 10/04/17 Dinner Active Attending/Attestation - Attestation I have personally seen and examined this patient.: Yes I have fully participated in the care of the patient.: Yes I have reviewed all pertinent clinical information: Yes Notes (Text): 10/17/17 16:27 Patient seen and examined in the intensive care unit. Remains intubated on ventilatory support Started on leviphed overnight for hypotension PT/INR remains elevated Awaiting family decision Prognosis poor"
[2017-10-17] MEDS ORDERED: Dextrose 50% SYRINGE Inj (50 ml) ONE (12:08)
--- NOTE | 2017-10-17 12:34 | CP.PCM.PN ---
Subjective - Date & Time of Evaluation Date of Evaluation: 10/16/17 Time of Evaluation: 14:00 - Subjective Subjective: Fatigued appears weak. Objective - Vital Signs/Intake and Output Vital Signs (last 24 hours): Temp Pulse Resp BP Pulse Ox 97.5 F L 103 H 20 88/49 L 98 10/17/17 08:00 10/17/17 09:19 10/17/17 09:19 10/17/17 09:19 10/17/17 09:19 Intake and Output: 10/17/17 10/17/17 06:59 18:59 Intake Total 705.3 197.6 Output Total 0 200 Balance 705.3 -2.4 - Medications Medications: Current Medications Dextrose (Dextrose 50% Inj) 0 ml IV STAT PRN; Protocol PRN Reason: Hypoglycemia Protocol Last Admin: 10/16/17 07:55 Dose: 50 ml Dextrose (Glutose 15) 0 gm PO ONCE PRN; Protocol PRN Reason: Hypoglycemia Protocol Epoetin Naeem (Procrit) 10,000 unit IV TTS [facility] Last Admin: 10/16/17 10:41 Dose: 10,000 unit Glucagon (Glucagen Diagnostic Kit) 0 mg IM STAT PRN; Protocol PRN Reason: Hypoglycemia Protocol Heparin Sodium (Porcine) (Heparin) 5,000 units SC Q12 [facility] Last Admin: 09/20/17 10:26 Dose: Not Given Colistimethate Sodium 80 mg/ (Sodium Chloride) 100 mls @ 200 mls/hr IV TTS [facility] PRN Reason: Protocol Last Admin: 10/16/17 12:44 Dose: 200 mls/hr Dextrose (Dextrose 10% In Water) 1,000 mls @ 40 mls/hr IV .Q24H [facility] Last Admin: 10/17/17 08:57 Dose: 40 mls/hr Aztreonam 1 gm/ Sodium (Chloride) 100 mls @ 200 mls/hr IVPB DAILY [facility] PRN Reason: Protocol Last Admin: 10/16/17 12:43 Dose: 200 mls/hr Tigecycline 50 mg/ Sodium (Chloride) 100 mls @ 100 mls/hr IVPB Q12H [facility] PRN Reason: Protocol Last Admin: 10/17/17 10:30 Dose: 100 mls/hr Norepinephrine Bitartrate 8 mg (/ Dextrose) 258 mls @ 7.74 mls/hr IV .Q24H PRN ; Protocol; 4 MCG/MIN PRN Reason: TITRATE PER MD ORDER Last Titration: 10/17/17 01:00 Dose: 5 mcg/min, 9.67 mls/hr Ipratropium [place] (Atrovent) 0.5 mg IH Q4H PRN PRN Reason: Shortness of Breath Midodrine (Proamatine) 10 mg PO TID [facility] Last Admin: 10/17/17 11:10 Dose: 10 mg Nystatin (Nystop Topical Powder) 1 applic TOP TID [facility] Last Admin: 10/17/17 11:10 Dose: 1 applic Octreotide Acetate (Sandostatin) 100 mcg SC Q8H [facility] Last Admin: 10/17/17 05:47 Dose: 100 mcg Ondansetron HCl (Zofran Inj) 4 mg IVP Q6 PRN PRN Reason: Nausea/Vomiting Last Admin: 10/16/17 07:16 Dose: 4 mg - Labs Labs: 10/17/17 06:22 10/17/17 06:22 PT 28.9 SECONDS (9.7-12.2) H 10/17/17 09:40 INR 2.6 10/17/17 09:40 APTT 70 SECONDS (21-34) H D 10/17/17 09:40 - Head Exam Head Exam: ATRAUMATIC - Eye Exam Eye Exam: Normal appearance - ENT Exam ENT Exam: Mucous Membranes Dry - Respiratory Exam Respiratory Exam: NORMAL BREATHING PATTERN - Cardiovascular Exam Cardiovascular Exam: +S1, +S2 - GI/Abdominal Exam GI & Abdominal Exam: Normal Bowel Sounds Assessment and Plan (1) Thrombocytopenia Assessment & Plan: ? medication induce ? abx ? heparin f/u heparin Ab and serotonin release assay to evaluate for HIT; heparin on hold likely element of sequestration given liver cirrhosisl Status: Acute (2) Anemia Assessment & Plan: f/u ferritin, retic count, b12, folate to further characterize element of anemia of CKD EPO per gisela Status: Acute
--- NOTE | 2017-10-17 12:35 | CP.PCM.PN ---
Subjective - Date & Time of Evaluation Date of Evaluation: 10/17/17 Time of Evaluation: 12:00 - Subjective Subjective: Vented, intubated overnight Objective - Vital Signs/Intake and Output Vital Signs (last 24 hours): Temp Pulse Resp BP Pulse Ox 97.5 F L 103 H 20 88/49 L 98 10/17/17 08:00 10/17/17 09:19 10/17/17 09:19 10/17/17 09:19 10/17/17 09:19 Intake and Output: 10/17/17 10/17/17 06:59 18:59 Intake Total 705.3 197.6 Output Total 0 200 Balance 705.3 -2.4 - Medications Medications: Current Medications Dextrose (Dextrose 50% Inj) 0 ml IV STAT PRN; Protocol PRN Reason: Hypoglycemia Protocol Last Admin: 10/16/17 07:55 Dose: 50 ml Dextrose (Glutose 15) 0 gm PO ONCE PRN; Protocol PRN Reason: Hypoglycemia Protocol Epoetin Naeem (Procrit) 10,000 unit IV TTS [facility] Last Admin: 10/16/17 10:41 Dose: 10,000 unit Glucagon (Glucagen Diagnostic Kit) 0 mg IM STAT PRN; Protocol PRN Reason: Hypoglycemia Protocol Heparin Sodium (Porcine) (Heparin) 5,000 units SC Q12 [facility] Last Admin: 09/20/17 10:26 Dose: Not Given Colistimethate Sodium 80 mg/ (Sodium Chloride) 100 mls @ 200 mls/hr IV TTS [facility] PRN Reason: Protocol Last Admin: 10/16/17 12:44 Dose: 200 mls/hr Dextrose (Dextrose 10% In Water) 1,000 mls @ 40 mls/hr IV .Q24H [facility] Last Admin: 10/17/17 08:57 Dose: 40 mls/hr Aztreonam 1 gm/ Sodium (Chloride) 100 mls @ 200 mls/hr IVPB DAILY [facility] PRN Reason: Protocol Last Admin: 10/16/17 12:43 Dose: 200 mls/hr Tigecycline 50 mg/ Sodium (Chloride) 100 mls @ 100 mls/hr IVPB Q12H [facility] PRN Reason: Protocol Last Admin: 10/17/17 10:30 Dose: 100 mls/hr Norepinephrine Bitartrate 8 mg (/ Dextrose) 258 mls @ 7.74 mls/hr IV .Q24H PRN ; Protocol; 4 MCG/MIN PRN Reason: TITRATE PER MD ORDER Last Titration: 10/17/17 01:00 Dose: 5 mcg/min, 9.67 mls/hr Ipratropium [place] (Atrovent) 0.5 mg IH Q4H PRN PRN Reason: Shortness of Breath Midodrine (Proamatine) 10 mg PO TID [facility] Last Admin: 10/17/17 11:10 Dose: 10 mg Nystatin (Nystop Topical Powder) 1 applic TOP TID [facility] Last Admin: 10/17/17 11:10 Dose: 1 applic Octreotide Acetate (Sandostatin) 100 mcg SC Q8H [facility] Last Admin: 10/17/17 05:47 Dose: 100 mcg Ondansetron HCl (Zofran Inj) 4 mg IVP Q6 PRN PRN Reason: Nausea/Vomiting Last Admin: 10/16/17 07:16 Dose: 4 mg - Labs Labs: 10/17/17 06:22 10/17/17 06:22 PT 28.9 SECONDS (9.7-12.2) H 10/17/17 09:40 INR 2.6 10/17/17 09:40 APTT 70 SECONDS (21-34) H D 10/17/17 09:40 - Head Exam Head Exam: ATRAUMATIC - Eye Exam Eye Exam: Normal appearance - ENT Exam ENT Exam: Mucous Membranes Dry - Respiratory Exam Respiratory Exam: NORMAL BREATHING PATTERN - Cardiovascular Exam Cardiovascular Exam: +S1, +S2 - GI/Abdominal Exam GI & Abdominal Exam: Normal Bowel Sounds Assessment and Plan (1) Thrombocytopenia Assessment & Plan: ? medication induce ? abx ? heparin f/u heparin Ab and serotonin release assay to evaluate for HIT; heparin on hold likely element of sequestration given liver cirrhosisl Status: Acute (2) Anemia Assessment & Plan: f/u ferritin, retic count, b12, folate to further characterize element of anemia of CKD EPO per renal Status: Acute
--- NOTE | 2017-10-17 13:16 | CP.PCM.PN ---
Subjective - Date & Time of Evaluation Date of Evaluation: 10/17/17 Time of Evaluation: 10:00 - Subjective Subjective: clinically same Objective - Vital Signs/Intake and Output Vital Signs (last 24 hours): Temp Pulse Resp BP Pulse Ox 97.5 F L 103 H 20 88/49 L 98 10/17/17 08:00 10/17/17 09:19 10/17/17 09:19 10/17/17 09:19 10/17/17 09:19 Intake and Output: 10/17/17 10/17/17 06:59 18:59 Intake Total 705.3 197.6 Output Total 0 200 Balance 705.3 -2.4 - Medications Medications: Current Medications Dextrose (Dextrose 50% Inj) 0 ml IV STAT PRN; Protocol PRN Reason: Hypoglycemia Protocol Last Admin: 10/16/17 07:55 Dose: 50 ml Dextrose (Glutose 15) 0 gm PO ONCE PRN; Protocol PRN Reason: Hypoglycemia Protocol Epoetin Naeem (Procrit) 10,000 unit IV TTS [facility] Last Admin: 10/16/17 10:41 Dose: 10,000 unit Glucagon (Glucagen Diagnostic Kit) 0 mg IM STAT PRN; Protocol PRN Reason: Hypoglycemia Protocol Heparin Sodium (Porcine) (Heparin) 5,000 units SC Q12 [facility] Last Admin: 09/20/17 10:26 Dose: Not Given Colistimethate Sodium 80 mg/ (Sodium Chloride) 100 mls @ 200 mls/hr IV TTS [facility] PRN Reason: Protocol Last Admin: 10/16/17 12:44 Dose: 200 mls/hr Dextrose (Dextrose 10% In Water) 1,000 mls @ 40 mls/hr IV .Q24H [facility] Last Admin: 10/17/17 08:57 Dose: 40 mls/hr Aztreonam 1 gm/ Sodium (Chloride) 100 mls @ 200 mls/hr IVPB DAILY [facility] PRN Reason: Protocol Last Admin: 10/17/17 10:30 Dose: 200 mls/hr Tigecycline 50 mg/ Sodium (Chloride) 100 mls @ 100 mls/hr IVPB Q12H [facility] PRN Reason: Protocol Last Admin: 10/17/17 10:30 Dose: 100 mls/hr Norepinephrine Bitartrate 8 mg (/ Dextrose) 258 mls @ 7.74 mls/hr IV .Q24H PRN ; Protocol; 4 MCG/MIN PRN Reason: TITRATE PER MD ORDER Last Titration: 10/17/17 01:00 Dose: 5 mcg/min, 9.67 mls/hr Ipratropium [place] (Atrovent) 0.5 mg IH Q4H PRN PRN Reason: Shortness of Breath Midodrine (Proamatine) 10 mg PO TID [facility] Last Admin: 10/17/17 11:10 Dose: 10 mg Nystatin (Nystop Topical Powder) 1 applic TOP TID [facility] Last Admin: 10/17/17 13:02 Dose: 1 applic Octreotide Acetate (Sandostatin) 100 mcg SC Q8H [facility] Last Admin: 10/17/17 05:47 Dose: 100 mcg Ondansetron HCl (Zofran Inj) 4 mg IVP Q6 PRN PRN Reason: Nausea/Vomiting Last Admin: 10/16/17 07:16 Dose: 4 mg - Labs Labs: 10/17/17 06:22 10/17/17 06:22 PT 28.9 SECONDS (9.7-12.2) H 10/17/17 09:40 INR 2.6 10/17/17 09:40 APTT 70 SECONDS (21-34) H D 10/17/17 09:40 - Constitutional Appears: Well - Head Exam Head Exam: ATRAUMATIC, NORMAL INSPECTION, NORMOCEPHALIC - Eye Exam Eye Exam: EOMI, Normal appearance, PERRL Pupil Exam: NORMAL ACCOMODATION, PERRL - ENT Exam ENT Exam: Mucous Membranes Moist, Normal Exam - Neck Exam Neck Exam: Full ROM, Normal Inspection. absent: Lymphadenopathy - Respiratory Exam Respiratory Exam: Decreased Breath Sounds - Cardiovascular Exam Cardiovascular Exam: REGULAR RHYTHM, +S1, +S2 - GI/Abdominal Exam GI & Abdominal Exam: Soft, Diminished Bowel Sounds - Rectal Exam Rectal Exam: Deferred
--- NOTE | 2017-10-17 18:35 | CP.PCM.PN ---
Subjective - Date & Time of Evaluation Date of Evaluation: 10/17/17 Time of Evaluation: 06:00 - Subjective Subjective: dictated Objective - Vital Signs/Intake and Output Vital Signs (last 24 hours): Temp Pulse Resp BP Pulse Ox 98.3 F 110 H 30 H 81/52 L 95 10/17/17 16:00 10/17/17 18:00 10/17/17 18:00 10/17/17 18:00 10/17/17 18:00 Intake and Output: 10/17/17 10/17/17 06:59 18:59 Intake Total 705.3 792.8 Output Total 0 200 Balance 705.3 592.8 - Medications Medications: Current Medications Dextrose (Dextrose 50% Inj) 0 ml IV STAT PRN; Protocol PRN Reason: Hypoglycemia Protocol Last Admin: 10/16/17 07:55 Dose: 50 ml Dextrose (Glutose 15) 0 gm PO ONCE PRN; Protocol PRN Reason: Hypoglycemia Protocol Epoetin Naeem (Procrit) 10,000 unit IV TTS [facility] Last Admin: 10/16/17 10:41 Dose: 10,000 unit Glucagon (Glucagen Diagnostic Kit) 0 mg IM STAT PRN; Protocol PRN Reason: Hypoglycemia Protocol Heparin Sodium (Porcine) (Heparin) 5,000 units SC Q12 [facility] Last Admin: 09/20/17 10:26 Dose: Not Given Colistimethate Sodium 80 mg/ (Sodium Chloride) 100 mls @ 200 mls/hr IV TTS [facility] PRN Reason: Protocol Last Admin: 10/16/17 12:44 Dose: 200 mls/hr Dextrose (Dextrose 10% In Water) 1,000 mls @ 40 mls/hr IV .Q24H [facility] Last Admin: 10/17/17 08:57 Dose: 40 mls/hr Tigecycline 50 mg/ Sodium (Chloride) 100 mls @ 100 mls/hr IVPB Q12H [facility] PRN Reason: Protocol Last Admin: 10/17/17 10:30 Dose: 100 mls/hr Norepinephrine Bitartrate 8 mg (/ Dextrose) 258 mls @ 7.74 mls/hr IV .Q24H PRN ; Protocol; 4 MCG/MIN PRN Reason: TITRATE PER MD ORDER Last Titration: 10/17/17 01:00 Dose: 5 mcg/min, 9.67 mls/hr Meropenem 500 mg/ Sodium (Chloride) 100 mls @ 100 mls/hr IVPB Q12H [facility] PRN Reason: Protocol Ipratropium [place] (Atrovent) 0.5 mg IH Q4H PRN PRN Reason: Shortness of Breath Midodrine (Proamatine) 10 mg PO TID [facility] Last Admin: 10/17/17 17:54 Dose: 10 mg Nystatin (Nystop Topical Powder) 1 applic TOP TID [facility] Last Admin: 10/17/17 17:55 Dose: 1 applic Octreotide Acetate (Sandostatin) 100 mcg SC Q8H [facility] Last Admin: 10/17/17 14:47 Dose: 100 mcg Ondansetron HCl (Zofran Inj) 4 mg IVP Q6 PRN PRN Reason: Nausea/Vomiting Last Admin: 10/16/17 07:16 Dose: 4 mg - Labs Labs: 10/17/17 06:22 10/17/17 06:22 PT 28.9 SECONDS (9.7-12.2) H 10/17/17 09:40 INR 2.6 10/17/17 09:40 APTT 70 SECONDS (21-34) H D 10/17/17 09:40
[2017-10-17] MEDS: Meropenem 500 MG in Sodium Chloride 0.9% 100 ML IVPB SCH (19:41)
[2017-10-17] MEDS ORDERED: Dextrose 50% SYRINGE Inj (50 ml) IV STA (23:40)
--- NOTE | 2017-10-18 02:05 | PN ---
DATE: Events noted. SUBJECTIVE: The patient was intubated. He was hypoxic last night. He is intubated and sedated. He is on vent at this time. He is also on Levophed. PHYSICAL EXAMINATION: VITAL SIGNS: T-Max is 97.4, heart rate of 106, blood pressure 87/34, remains still low, respirations are on the vent. HEENT: Head is atraumatic and normocephalic. NECK: Supple. LUNGS: Bilateral rhonchi at this time. HEART: S1 and S2, tachy. ABDOMEN: Remains flabby with ascites and his INR is elevated, hence cannot be drained. EXTREMITIES: Remain with ankle edema. LABORATORY DATA: Labs are noted. Labs show white count is 11.2, hemoglobin 8.5, hematocrit 26.4, platelets are 58. INR is 2.6. His ABG was done, pH 7.46, bicarbonate 20.6, O2 was 163 and saturation was 99.9. BUN is 22, creatinine is 3.8. He is a dialysis patient. He has a catheter on the right side, left arm. He has a dressing over the area where the shunt was removed. 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 His last chest x-ray on 10/17/2017 shows the catheter in the right chest wall is new. He has no significant interval change, questionable small right pleural effusion. 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 Prognosis remains guarded. Melina Barajas MD
[2017-10-18] MEDS: Dextrose 50% SYRINGE Inj (50 ml) IV PRN (05:48)
[2017-10-18] MEDS ORDERED: Dextrose 50% SYRINGE Inj (50 ml) ONE (05:49)
[2017-10-18] MEDS ORDERED: Dextrose 50% SYRINGE Inj (50 ml) IV STA (05:50)
[2017-10-18 06:10] LABS: ABG ALLEN TEST POS; ARTERIAL BLOOD GAS HCO3 16.3 mmol/L (21-28); ARTERIAL BLOOD GAS HEMOGLOBIN 7.5 g/dL (11.7-17.4); ARTERIAL BLOOD GAS O2 SAT 98.2 % (95-98); ARTERIAL BLOOD GAS PCO2 27 mm/Hg (35-45); ARTERIAL BLOOD GAS PH 7.32 (7.35-7.45); ARTERIAL BLOOD GAS PO2 82 mm/Hg (80-100); ARTERIAL BLOOD GAS TCO2 14.7 mmol/L (22-28)
[2017-10-18 06:34] LABS: BASO # 0.1 K/uL (0.0-0.2); BASO % 0.8 % (0.0-2.0); EOS # 0.1 K/uL (0.0-0.7); EOS % 0.3 % (0.0-4.0); LYMPH % 11.8 % (20.0-40.0); MEAN CELL VOLUME 96.2 fL (80.0-94.0); MEAN CORPUSCULAR HEMOGLOBIN 29.7 pg (27.0-31.0); MEAN CORPUSCULAR HGB CONC 30.9 g/dL (33.0-37.0); MEAN PLATELET VOLUME 8.4 fL (7.2-11.7); MONO # 0.4 K/uL (0.0-0.8); MONO % 2.5 % (0.0-10.0); NEUT # 14.4 K/uL (1.8-7.0); NEUT % 84.6 % (50.0-75.0); NRBC % 0.5 % (0.0-2.0); RBC 2.71 Mil/uL (4.40-5.90); WHITE BLOOD COUNT 17.1 K/uL (4.8-10.8)
[2017-10-18] MEDS: Meropenem 500 MG in Sodium Chloride 0.9% 100 ML IVPB SCH (06:40)
[2017-10-18 06:55] LABS: ALB/GLOB RATIO 0.9 (1.0-2.1); ALBUMIN 2.3 g/dL (3.5-5.0); ALT/SGPT 32 U/L (21-72); AST/SGOT 171 U/L (17-59); BLOOD UREA NITROGEN 21 mg/dL (9-20); CALCIUM 8.3 mg/dl (8.6-10.4); GFR AFRICAN-AMERICAN 16; GFR NON-AFRICAN AMERICAN 14
[2017-10-18 07:50] LABS: FOLATE 2.8 ng/mL
--- NOTE | 2017-10-18 09:17 | CP.PCM.PN ---
Subjective - Date & Time of Evaluation Date of Evaluation: 10/18/17 Time of Evaluation: 09:15 - Subjective Subjective: now on vent, not responsive due for HD now on levo 7 mcg/min cannot obtain ROS Objective - Vital Signs/Intake and Output Vital Signs (last 24 hours): Temp Pulse Resp BP Pulse Ox 98.2 F 99 H 21 117/39 L 97 10/18/17 08:00 10/18/17 08:19 10/18/17 08:19 10/18/17 08:19 10/18/17 08:19 Intake and Output: 10/18/17 10/18/17 06:59 18:59 Intake Total 1156.4 227.0 Output Total 0 0 Balance 1156.4 227.0 - Medications Medications: Current Medications Dextrose (Dextrose 50% Inj) 0 ml IV STAT PRN; Protocol PRN Reason: Hypoglycemia Protocol Last Admin: 10/18/17 05:48 Dose: 50 ml Dextrose (Glutose 15) 0 gm PO ONCE PRN; Protocol PRN Reason: Hypoglycemia Protocol Epoetin Naeem (Procrit) 10,000 unit IV TTS COUNT INCLUDES THE [facility] Last Admin: 10/16/17 10:41 Dose: 10,000 unit Glucagon (Glucagen Diagnostic Kit) 0 mg IM STAT PRN; Protocol PRN Reason: Hypoglycemia Protocol Heparin Sodium (Porcine) (Heparin) 5,000 units SC Q12 COUNT INCLUDES THE [facility] Last Admin: 09/20/17 10:26 Dose: Not Given Colistimethate Sodium 80 mg/ (Sodium Chloride) 100 mls @ 200 mls/hr IV TTS ARYA PRN Reason: Protocol Last Admin: 10/16/17 12:44 Dose: 200 mls/hr Tigecycline 50 mg/ Sodium (Chloride) 100 mls @ 100 mls/hr IVPB Q12H ARYA PRN Reason: Protocol Last Admin: 10/17/17 21:32 Dose: 100 mls/hr Norepinephrine Bitartrate 8 mg (/ Dextrose) 258 mls @ 7.74 mls/hr IV .Q24H PRN ; Protocol; 4 MCG/MIN PRN Reason: TITRATE PER MD ORDER Last Admin: 10/18/17 05:55 Dose: 7 mcg/min, 13.54 mls/hr Meropenem 500 mg/ Sodium (Chloride) 100 mls @ 100 mls/hr IVPB Q12H ARYA PRN Reason: Protocol Last Admin: 10/18/17 06:40 Dose: 100 mls/hr Dextrose (Dextrose 10% In Water) 1,000 mls @ 60 mls/hr IV .[id number] COUNT INCLUDES THE [facility] Last Admin: 10/18/17 06:53 Dose: 60 mls/hr Ipratropium [place] (Atrovent) 0.5 mg IH Q4H PRN PRN Reason: Shortness of Breath Midodrine (Proamatine) 10 mg PO TID COUNT INCLUDES THE [facility] Last Admin: 10/17/17 17:54 Dose: 10 mg Nystatin (Nystop Topical Powder) 1 applic TOP TID COUNT INCLUDES THE [facility] Last Admin: 10/17/17 17:55 Dose: 1 applic Octreotide Acetate (Sandostatin) 100 mcg SC Q8H COUNT INCLUDES THE [facility] Last Admin: 10/18/17 05:54 Dose: 100 mcg Ondansetron HCl (Zofran Inj) 4 mg IVP Q6 PRN PRN Reason: Nausea/Vomiting Last Admin: 10/16/17 07:16 Dose: 4 mg - Labs Labs: 10/18/17 06:27 10/18/17 06:27 PT 28.9 SECONDS (9.7-12.2) H 10/17/17 09:40 INR 2.6 10/17/17 09:40 APTT 70 SECONDS (21-34) H D 10/17/17 09:40 - Constitutional Appears: Older Than Stated Age, Chronically Ill - Head Exam Head Exam: ATRAUMATIC, NORMAL INSPECTION - Neck Exam Neck Exam: Normal Inspection. absent: Tenderness - Respiratory Exam Respiratory Exam: Rhonchi, Respiratory Distress - Cardiovascular Exam Cardiovascular Exam: Tachycardia, REGULAR RHYTHM - GI/Abdominal Exam GI & Abdominal Exam: Distended, Soft. absent: Tenderness - Extremities Exam Extremities Exam: Normal Inspection. absent: Pedal Edema - Neurological Exam Neurological Exam: Altered - Skin Skin Exam: Dry, Warm Assessment and Plan (1) CKD stage 5 secondary to hypertension Status: Acute (2) Secondary hyperparathyroidism Status: Acute (3) Hypothyroidism Status: Acute (4) Uremia Status: Acute (5) Cirrhosis Status: Acute (6) ESRD (end stage renal disease) on dialysis Status: Acute - Assessment and Plan (Free Text) Plan: dialysis now , TTS supportive care pressors as needed px guarded
[2017-10-18] MEDS ORDERED: Atropine Sulfate 1 mg/ml Vial (1 ml) IVP ONE (10:22)
[2017-10-18] MEDS: Epoetin Alfa 10,000 unit/ml Dialysis IV SCH (10:55)
[2017-10-18 11:14] VITALS: TEMP 98.1; O2SAT 96
[2017-10-18 11:25] VITALS: RESP 17
[2017-10-18 11:33] VITALS: BP 117/39; PULSE 105
--- NOTE | 2017-10-18 12:49 | CP.CCUPN ---
CCU Subjective - Physician Review Subjective (Free Text): Patient seen and examined at bedside.Brother at bedside. Patient currently intubated. TV450, 02 50%, RR-12, CCU Objective - Vital Signs / Intake & Output Vital Signs (Last 4 hours): Vital Signs Temp Pulse Pulse Resp BP BP Pulse Ox 10/18/17 10:30 98.1 F 42 L 17 85/18 L 96 10/18/17 10:20 79 134/35 L 10/18/17 10:05 105 H 123/39 L 10/18/17 09:50 98.1 F 105 H 13 117/30 L 96 10/18/17 09:15 98.1 F 105 H 13 117/39 L Intake and Output (Last 8hrs): Intake & Output 10/17/17 10/18/17 10/18/17 22:59 06:59 14:59 Intake Total 595.2 758.8 227.0 Output Total 0 0 Balance 595.2 758.8 227.0 Weight 227 lb 1.218 oz Intake: IV 247.2 Intake, IV Amount 595.2 511.6 227.0 RIGHT ARM 320 420 200 Right upper arm - Distal 75.2 91.6 27.0 Port right upper arm 200 Tube Feeding 0 Output: Emesis 0 0 Other: # Voids Urine, Voided 0 0 0 # Bowel Movements 0 0 - Physical Exam Head: Positive for: Atraumatic, Normocephalic Pupils: Positive for: PERRL Extroacular Muscles: Positive for: EOMI Conjunctiva: Positive for: Normal Mouth: Positive for: Moist Mucous Membranes Respiratory/Chest: Positive for: Clear to Auscultation. Negative for: Wheezes, Rales, Rhonchi Cardiovascular: Positive for: Regular Rate and Rhythm Abdomen: Positive for: Distention, Normal Bowel Sounds. Negative for: Tenderness (Asciites with fluid wave shift), Rebound, Guarding Upper Extremity: Negative for: Edema Lower Extremity: Positive for: Edema (+3) Neurological: Positive for: GCS=15 Skin: Positive for: Erythematous (Left arm wound) Psychiatric: Positive for: Alert, Oriented x 3 - Medications Active Medications: Active Medications Generic Name Dose Route Start Last Admin Trade Name Freq PRN Reason Stop Dose Admin Dextrose 0 ml 10/10/17 06:30 10/18/17 05:48 Dextrose 50% Inj IV 50 ml STAT PRN Administration Hypoglycemia Protocol Protocol Dextrose 0 gm 10/10/17 06:30 Glutose 15 PO ONCE PRN Hypoglycemia Protocol Protocol Epoetin Naeem 10,000 unit 10/08/17 11:22 10/18/17 10:55 Procrit IV 10,000 unit TTS ARYA Administration Glucagon 0 mg 10/10/17 06:30 Glucagen Diagnostic Kit IM STAT PRN Hypoglycemia Protocol Protocol Heparin Sodium (Porcine) 5,000 units 09/19/17 22:00 09/20/17 10:26 Heparin SC Not Given Q12 ARYA Colistimethate Sodium 80 mg/ 100 mls @ 200 mls/hr 10/11/17 10:00 10/16/17 12: 44 Sodium Chloride IV 200 mls/hr TTS ARYA Administration Protocol Tigecycline 50 mg/ Sodium 100 mls @ 100 mls/hr 10/16/17 22:00 10/18/17 10:00 Chloride IVPB Not Given Q12H ARYA Protocol Norepinephrine Bitartrate 8 mg 258 mls @ 7.74 mls/hr 10/16/17 22:38 10/18/17 05:55 / Dextrose IV 7 mcg/min .Q24H PRN 13.54 mls/hr TITRATE PER MD ORDER Administration Protocol 4 MCG/MIN Meropenem 500 mg/ Sodium 100 mls @ 100 mls/hr 10/17/17 19:00 10/18/17 06:40 Chloride IVPB 100 mls/hr Q12H ARYA Administration Protocol Dextrose 1,000 mls @ 60 mls/hr 10/18/17 07:00 10/18/17 06:53 Dextrose 10% In Water IV 60 mls/hr .[id number] ARYA Administration Morphine Sulfate 250 mg/ 250 mls @ 7 mls/hr 10/18/17 11:03 10/18/17 12:02 Sodium Chloride IV 10/19/17 11:02 7 mg/hr .Q24H ONE 7 mls/hr Protocol Administration Ipratropium [place] 0.5 mg 10/14/17 18:55 Atrovent IH Q4H PRN Shortness of Breath Midodrine 10 mg 10/08/17 11:22 10/18/17 12:13 Proamatine PO Not Given TID ARYA Nystatin 1 applic 10/15/17 10:00 10/18/17 10:00 Nystop Topical Powder TOP 1 applic TID ARYA Administration Octreotide Acetate 100 mcg 10/16/17 22:45 10/18/17 05:54 Sandostatin SC 100 mcg Q8H ARYA Administration Ondansetron HCl 4 mg 10/10/17 08:11 10/16/17 07:16 Zofran Inj IVP 4 mg Q6 PRN Administration Nausea/Vomiting - Patient Studies Lab Studies: Microbiology Studies 10/18/17 09:00 Gram Stain - Final Trachasp Lab Studies 10/18/17 10/18/17 10/18/17 Range/Units 06:39 06:27 06:27 WBC 17.1 H D (4.8-10.8) K/uL RBC 2.71 L (4.40-5.90) Mil/uL Hgb 8.0 L (12.0-18.0) g/dL Hct 26.0 L (35.0-51.0) % MCV 96.2 H D (80.0-94.0) fL MCH 29.7 (27.0-31.0) pg MCHC 30.9 L (33.0-37.0) g/dL RDW 19.0 H (11.5-14.5) % Plt Count 50 L (130-400) K/uL MPV 8.4 (7.2-11.7) fL Neut % (Auto) 84.6 H (50.0-75.0) % Lymph % (Auto) 11.8 L (20.0-40.0) % [place] % (Auto) 2.5 (0.0-10.0) % Eos % (Auto) 0.3 (0.0-4.0) % Baso % (Auto) 0.8 (0.0-2.0) % Neut # (Auto) 14.4 H (1.8-7.0) K/uL Lymph # (Auto) 2.0 (1.0-4.3) K/uL [place] # (Auto) 0.4 (0.0-0.8) K/uL Eos # (Auto) 0.1 (0.0-0.7) K/uL Baso # (Auto) 0.1 (0.0-0.2) K/uL Retic Count 1.9 H (0.5-1.5) % Puncture Site pCO2 (35-45) mm/Hg pO2 (80-100) mm/Hg HCO3 (21-28) mmol/L ABG pH (7.35-7.45) ABG Total CO2 (22-28) mmol/L ABG O2 Saturation (95-98) % ABG Base Excess (-2.0-3.0) mmol/L ABG Hemoglobin (11.7-17.4) g/dL ABG Carboxyhemoglobin (0.5-1.5) % POC ABG HHb (Measured) (0.0-5.0) % ABG Methemoglobin (0.0-3.0) % José Test A-a O2 Difference mm/Hg Respiratory Index Hgb O2 Saturation (95.0-98.0) % Vent Mode Mechanical Rate FiO2 % Tidal Volume PEEP Sodium 140 (132-148) mmol/L Potassium 3.8 (3.6-5.2) mmol/L Chloride 100 (98-107) mmol/L Carbon Dioxide 17 L (22-30) mmol/L Anion Gap 27 H (10-20) BUN 21 H (9-20) mg/dL Creatinine 4.4 H (0.8-1.5) mg/dL Est GFR ( Amer) 16 Est GFR (Non-Af Amer) 14 POC Glucose (mg/dL) 113 H (65-110) mg/dL Random Glucose 52 L (75-110) mg/dL Calcium 8.3 L (8.6-10.4) mg/dl Phosphorus 3.0 (2.5-4.5) mg/dL Magnesium 1.8 (1.6-2.3) mg/dL Ferritin 1610.0 ng/mL Total Bilirubin 2.9 H (0.2-1.3) mg/dL AST 171 H D (17-59) U/L ALT 32 (21-72) U/L Alkaline Phosphatase 114 (38-126) U/L Total Protein 4.9 L (6.3-8.3) g/dL Albumin 2.3 L (3.5-5.0) g/dL Globulin 2.5 (2.2-3.9) gm/dL Albumin/Globulin Ratio 0.9 L (1.0-2.1) Vitamin B12 > 1000 H (239-931) pg/mL Folate 2.8 ng/mL 10/18/17 10/18/17 10/18/17 Range/Units 05:42 05:40 05:37 WBC (4.8-10.8) K/uL RBC (4.40-5.90) Mil/uL Hgb (12.0-18.0) g/dL Hct (35.0-51.0) % MCV (80.0-94.0) fL MCH (27.0-31.0) pg MCHC (33.0-37.0) g/dL RDW (11.5-14.5) % Plt Count (130-400) K/uL MPV (7.2-11.7) fL Neut % (Auto) (50.0-75.0) % Lymph % (Auto) (20.0-40.0) % [place] % (Auto) (0.0-10.0) % Eos % (Auto) (0.0-4.0) % Baso % (Auto) (0.0-2.0) % Neut # (Auto) (1.8-7.0) K/uL Lymph # (Auto) (1.0-4.3) K/uL [place] # (Auto) (0.0-0.8) K/uL Eos # (Auto) (0.0-0.7) K/uL Baso # (Auto) (0.0-0.2) K/uL Retic Count (0.5-1.5) % Puncture Site pCO2 (35-45) mm/Hg pO2 (80-100) mm/Hg HCO3 (21-28) mmol/L ABG pH (7.35-7.45) ABG Total CO2 (22-28) mmol/L ABG O2 Saturation (95-98) % ABG Base Excess (-2.0-3.0) mmol/L ABG Hemoglobin (11.7-17.4) g/dL ABG Carboxyhemoglobin (0.5-1.5) % POC ABG HHb (Measured) (0.0-5.0) % ABG Methemoglobin (0.0-3.0) % José Test A-a O2 Difference mm/Hg Respiratory Index Hgb O2 Saturation (95.0-98.0) % Vent Mode Mechanical Rate FiO2 % Tidal Volume PEEP Sodium (132-148) mmol/L Potassium (3.6-5.2) mmol/L Chloride (98-107) mmol/L Carbon Dioxide (22-30) mmol/L Anion Gap (10-20) BUN (9-20) mg/dL Creatinine (0.8-1.5) mg/dL Est GFR ( Amer) Est GFR (Non-Af Amer) POC Glucose (mg/dL) 59 L < 20 L* 51 L (65-110) mg/dL Random Glucose (75-110) mg/dL Calcium (8.6-10.4) mg/dl Phosphorus (2.5-4.5) mg/dL Magnesium (1.6-2.3) mg/dL Ferritin ng/mL Total Bilirubin (0.2-1.3) mg/dL AST (17-59) U/L ALT (21-72) U/L Alkaline Phosphatase (38-126) U/L Total Protein (6.3-8.3) g/dL Albumin (3.5-5.0) g/dL Globulin (2.2-3.9) gm/dL Albumin/Globulin Ratio (1.0-2.1) Vitamin B12 (239-931) pg/mL Folate ng/mL 10/18/17 10/18/17 10/17/17 Range/Units 05:23 00:10 23:35 WBC (4.8-10.8) K/uL RBC (4.40-5.90) Mil/uL Hgb (12.0-18.0) g/dL Hct (35.0-51.0) % MCV (80.0-94.0) fL MCH (27.0-31.0) pg MCHC (33.0-37.0) g/dL RDW (11.5-14.5) % Plt Count (130-400) K/uL MPV (7.2-11.7) fL Neut % (Auto) (50.0-75.0) % Lymph % (Auto) (20.0-40.0) % [place] % (Auto) (0.0-10.0) % Eos % (Auto) (0.0-4.0) % Baso % (Auto) (0.0-2.0) % Neut # (Auto) (1.8-7.0) K/uL Lymph # (Auto) (1.0-4.3) K/uL [place] # (Auto) (0.0-0.8) K/uL Eos # (Auto) (0.0-0.7) K/uL Baso # (Auto) (0.0-0.2) K/uL Retic Count (0.5-1.5) % Puncture Site Rr pCO2 27 L (35-45) mm/Hg pO2 82 (80-100) mm/Hg HCO3 16.3 L (21-28) mmol/L ABG pH 7.32 L (7.35-7.45) ABG Total CO2 14.7 L (22-28) mmol/L ABG O2 Saturation 98.2 H (95-98) % ABG Base Excess -11.1 L (-2.0-3.0) mmol/L ABG Hemoglobin 7.5 L (11.7-17.4) g/dL ABG Carboxyhemoglobin 1.5 (0.5-1.5) % POC ABG HHb (Measured) 1.8 (0.0-5.0) % ABG Methemoglobin 1.0 (0.0-3.0) % José Test Pos A-a O2 Difference 241.0 mm/Hg Respiratory Index 2.9 Hgb O2 Saturation 95.6 (95.0-98.0) % Vent Mode Prvc Mechanical Rate 12 FiO2 50.0 % Tidal Volume 450 PEEP 5 Sodium (132-148) mmol/L Potassium (3.6-5.2) mmol/L Chloride (98-107) mmol/L Carbon Dioxide (22-30) mmol/L Anion Gap (10-20) BUN (9-20) mg/dL Creatinine (0.8-1.5) mg/dL Est GFR ( Amer) Est GFR (Non-Af Amer) POC Glucose (mg/dL) 147 H 23 L* (65-110) mg/dL Random Glucose (75-110) mg/dL Calcium (8.6-10.4) mg/dl Phosphorus (2.5-4.5) mg/dL Magnesium (1.6-2.3) mg/dL Ferritin ng/mL Total Bilirubin (0.2-1.3) mg/dL AST (17-59) U/L ALT (21-72) U/L Alkaline Phosphatase (38-126) U/L Total Protein (6.3-8.3) g/dL Albumin (3.5-5.0) g/dL Globulin (2.2-3.9) gm/dL Albumin/Globulin Ratio (1.0-2.1) Vitamin B12 (239-931) pg/mL Folate ng/mL 10/17/17 10/17/17 10/17/17 Range/Units 23:31 18:01 17:58 WBC (4.8-10.8) K/uL RBC (4.40-5.90) Mil/uL Hgb (12.0-18.0) g/dL Hct (35.0-51.0) % MCV (80.0-94.0) fL MCH (27.0-31.0) pg MCHC (33.0-37.0) g/dL RDW (11.5-14.5) % Plt Count (130-400) K/uL MPV (7.2-11.7) fL Neut % (Auto) (50.0-75.0) % Lymph % (Auto) (20.0-40.0) % [place] % (Auto) (0.0-10.0) % Eos % (Auto) (0.0-4.0) % Baso % (Auto) (0.0-2.0) % Neut # (Auto) (1.8-7.0) K/uL Lymph # (Auto) (1.0-4.3) K/uL [place] # (Auto) (0.0-0.8) K/uL Eos # (Auto) (0.0-0.7) K/uL Baso # (Auto) (0.0-0.2) K/uL Retic Count (0.5-1.5) % Puncture Site pCO2 (35-45) mm/Hg pO2 (80-100) mm/Hg HCO3 (21-28) mmol/L ABG pH (7.35-7.45) ABG Total CO2 (22-28) mmol/L ABG O2 Saturation (95-98) % ABG Base Excess (-2.0-3.0) mmol/L ABG Hemoglobin (11.7-17.4) g/dL ABG Carboxyhemoglobin (0.5-1.5) % POC ABG HHb (Measured) (0.0-5.0) % ABG Methemoglobin (0.0-3.0) % José Test A-a O2 Difference mm/Hg Respiratory Index Hgb O2 Saturation (95.0-98.0) % Vent Mode Mechanical Rate FiO2 % Tidal Volume PEEP Sodium (132-148) mmol/L Potassium (3.6-5.2) mmol/L Chloride (98-107) mmol/L Carbon Dioxide (22-30) mmol/L Anion Gap (10-20) BUN (9-20) mg/dL Creatinine (0.8-1.5) mg/dL Est GFR ( Amer) Est GFR (Non-Af Amer) POC Glucose (mg/dL) 51 L 187 H 57 L (65-110) mg/dL Random Glucose (75-110) mg/dL Calcium (8.6-10.4) mg/dl Phosphorus (2.5-4.5) mg/dL Magnesium (1.6-2.3) mg/dL Ferritin ng/mL Total Bilirubin (0.2-1.3) mg/dL AST (17-59) U/L ALT (21-72) U/L Alkaline Phosphatase (38-126) U/L Total Protein (6.3-8.3) g/dL Albumin (3.5-5.0) g/dL Globulin (2.2-3.9) gm/dL Albumin/Globulin Ratio (1.0-2.1) Vitamin B12 (239-931) pg/mL Folate ng/mL 10/17/17 10/17/17 10/17/17 Range/Units 12:54 12:50 12:02 WBC (4.8-10.8) K/uL RBC (4.40-5.90) Mil/uL Hgb (12.0-18.0) g/dL Hct (35.0-51.0) % MCV (80.0-94.0) fL MCH (27.0-31.0) pg MCHC (33.0-37.0) g/dL RDW (11.5-14.5) % Plt Count (130-400) K/uL MPV (7.2-11.7) fL Neut % (Auto) (50.0-75.0) % Lymph % (Auto) (20.0-40.0) % [place] % (Auto) (0.0-10.0) % Eos % (Auto) (0.0-4.0) % Baso % (Auto) (0.0-2.0) % Neut # (Auto) (1.8-7.0) K/uL Lymph # (Auto) (1.0-4.3) K/uL [place] # (Auto) (0.0-0.8) K/uL Eos # (Auto) (0.0-0.7) K/uL Baso # (Auto) (0.0-0.2) K/uL Retic Count (0.5-1.5) % Puncture Site pCO2 (35-45) mm/Hg pO2 (80-100) mm/Hg HCO3 (21-28) mmol/L ABG pH (7.35-7.45) ABG Total CO2 (22-28) mmol/L ABG O2 Saturation (95-98) % ABG Base Excess (-2.0-3.0) mmol/L ABG Hemoglobin (11.7-17.4) g/dL ABG Carboxyhemoglobin (0.5-1.5) % POC ABG HHb (Measured) (0.0-5.0) % ABG Methemoglobin (0.0-3.0) % José Test A-a O2 Difference mm/Hg Respiratory Index Hgb O2 Saturation (95.0-98.0) % Vent Mode Mechanical Rate FiO2 % Tidal Volume PEEP Sodium (132-148) mmol/L Potassium (3.6-5.2) mmol/L Chloride (98-107) mmol/L Carbon Dioxide (22-30) mmol/L Anion Gap (10-20) BUN (9-20) mg/dL Creatinine (0.8-1.5) mg/dL Est GFR ( Amer) Est GFR (Non-Af Amer) POC Glucose (mg/dL) 152 H > 500 H* 58 L (65-110) mg/dL Random Glucose (75-110) mg/dL Calcium (8.6-10.4) mg/dl Phosphorus (2.5-4.5) mg/dL Magnesium (1.6-2.3) mg/dL Ferritin ng/mL Total Bilirubin (0.2-1.3) mg/dL AST (17-59) U/L ALT (21-72) U/L Alkaline Phosphatase (38-126) U/L Total Protein (6.3-8.3) g/dL Albumin (3.5-5.0) g/dL Globulin (2.2-3.9) gm/dL Albumin/Globulin Ratio (1.0-2.1) Vitamin B12 (239-931) pg/mL Folate ng/mL 10/17/17 10/17/17 Range/Units 11:57 11:54 WBC (4.8-10.8) K/uL RBC (4.40-5.90) Mil/uL Hgb (12.0-18.0) g/dL Hct (35.0-51.0) % MCV (80.0-94.0) fL MCH (27.0-31.0) pg MCHC (33.0-37.0) g/dL RDW (11.5-14.5) % Plt Count (130-400) K/uL MPV (7.2-11.7) fL Neut % (Auto) (50.0-75.0) % Lymph % (Auto) (20.0-40.0) % [place] % (Auto) (0.0-10.0) % Eos % (Auto) (0.0-4.0) % Baso % (Auto) (0.0-2.0) % Neut # (Auto) (1.8-7.0) K/uL Lymph # (Auto) (1.0-4.3) K/uL [place] # (Auto) (0.0-0.8) K/uL Eos # (Auto) (0.0-0.7) K/uL Baso # (Auto) (0.0-0.2) K/uL Retic Count (0.5-1.5) % Puncture Site pCO2 (35-45) mm/Hg pO2 (80-100) mm/Hg HCO3 (21-28) mmol/L ABG pH (7.35-7.45) ABG Total CO2 (22-28) mmol/L ABG O2 Saturation (95-98) % ABG Base Excess (-2.0-3.0) mmol/L ABG Hemoglobin (11.7-17.4) g/dL ABG Carboxyhemoglobin (0.5-1.5) % POC ABG HHb (Measured) (0.0-5.0) % ABG Methemoglobin (0.0-3.0) % José Test A-a O2 Difference mm/Hg Respiratory Index Hgb O2 Saturation (95.0-98.0) % Vent Mode Mechanical Rate FiO2 % Tidal Volume PEEP Sodium (132-148) mmol/L Potassium (3.6-5.2) mmol/L Chloride (98-107) mmol/L Carbon Dioxide (22-30) mmol/L Anion Gap (10-20) BUN (9-20) mg/dL Creatinine (0.8-1.5) mg/dL Est GFR ( Amer) Est GFR (Non-Af Amer) POC Glucose (mg/dL) 20 L* < 20 L* (65-110) mg/dL Random Glucose (75-110) mg/dL Calcium (8.6-10.4) mg/dl Phosphorus (2.5-4.5) mg/dL Magnesium (1.6-2.3) mg/dL Ferritin ng/mL Total Bilirubin (0.2-1.3) mg/dL AST (17-59) U/L ALT (21-72) U/L Alkaline Phosphatase (38-126) U/L Total Protein (6.3-8.3) g/dL Albumin (3.5-5.0) g/dL Globulin (2.2-3.9) gm/dL Albumin/Globulin Ratio (1.0-2.1) Vitamin B12 (239-931) pg/mL Folate ng/mL Laboratory Results - last 24 hr 10/17/17 10/17/17 10/17/17 11:54 11:57 12:02 WBC RBC Hgb Hct MCV MCH MCHC RDW Plt Count MPV Neut % (Auto) Lymph % (Auto) [place] % (Auto) Eos % (Auto) Baso % (Auto) Neut # (Auto) Lymph # (Auto) [place] # (Auto) Eos # (Auto) Baso # (Auto) Retic Count Puncture Site pCO2 pO2 HCO3 ABG pH ABG Total CO2 ABG O2 Saturation ABG Base Excess ABG Hemoglobin ABG Carboxyhemoglobin POC ABG HHb (Measured) ABG Methemoglobin José Test A-a O2 Difference Respiratory Index Hgb O2 Saturation Vent Mode Mechanical Rate FiO2 Tidal Volume PEEP Sodium Potassium Chloride Carbon Dioxide Anion Gap BUN Creatinine Est GFR ( Amer) Est GFR (Non-Af Amer) POC Glucose (mg/dL) < 20 L* 20 L* 58 L Random Glucose Calcium Phosphorus Magnesium Ferritin Total Bilirubin AST ALT Alkaline Phosphatase Total Protein Albumin Globulin Albumin/Globulin Ratio Vitamin B12 Folate 10/17/17 10/17/17 10/17/17 12:50 12:54 17:58 WBC RBC Hgb Hct MCV MCH MCHC RDW Plt Count MPV Neut % (Auto) Lymph % (Auto) [place] % (Auto) Eos % (Auto) Baso % (Auto) Neut # (Auto) Lymph # (Auto) [place] # (Auto) Eos # (Auto) Baso # (Auto) Retic Count Puncture Site pCO2 pO2 HCO3 ABG pH ABG Total CO2 ABG O2 Saturation ABG Base Excess ABG Hemoglobin ABG Carboxyhemoglobin POC ABG HHb (Measured) ABG Methemoglobin José Test A-a O2 Difference Respiratory Index Hgb O2 Saturation Vent Mode Mechanical Rate FiO2 Tidal Volume PEEP Sodium Potassium Chloride Carbon Dioxide Anion Gap BUN Creatinine Est GFR ( Amer) Est GFR (Non-Af Amer) POC Glucose (mg/dL) > 500 H* 152 H 57 L Random Glucose Calcium Phosphorus Magnesium Ferritin Total Bilirubin AST ALT Alkaline Phosphatase Total Protein Albumin Globulin Albumin/Globulin Ratio Vitamin B12 Folate 10/17/17 10/17/17 10/17/17 18:01 23:31 23:35 WBC RBC Hgb Hct MCV MCH MCHC RDW Plt Count MPV Neut % (Auto) Lymph % (Auto) [place] % (Auto) Eos % (Auto) Baso % (Auto) Neut # (Auto) Lymph # (Auto) [place] # (Auto) Eos # (Auto) Baso # (Auto) Retic Count Puncture Site pCO2 pO2 HCO3 ABG pH ABG Total CO2 ABG O2 Saturation ABG Base Excess ABG Hemoglobin ABG Carboxyhemoglobin POC ABG HHb (Measured) ABG Methemoglobin José Test A-a O2 Difference Respiratory Index Hgb O2 Saturation Vent Mode Mechanical Rate FiO2 Tidal Volume PEEP Sodium Potassium Chloride Carbon Dioxide Anion Gap BUN Creatinine Est GFR ( Amer) Est GFR (Non-Af Amer) POC Glucose (mg/dL) 187 H 51 L 23 L* Random Glucose Calcium Phosphorus Magnesium Ferritin Total Bilirubin AST ALT Alkaline Phosphatase Total Protein Albumin Globulin Albumin/Globulin Ratio Vitamin B12 Folate 10/18/17 10/18/17 10/18/17 00:10 05:23 05:37 WBC RBC Hgb Hct MCV MCH MCHC RDW Plt Count MPV Neut % (Auto) Lymph % (Auto) [place] % (Auto) Eos % (Auto) Baso % (Auto) Neut # (Auto) Lymph # (Auto) [place] # (Auto) Eos # (Auto) Baso # (Auto) Retic Count Puncture Site Rr pCO2 27 L pO2 82 HCO3 16.3 L ABG pH 7.32 L ABG Total CO2 14.7 L ABG O2 Saturation 98.2 H ABG Base Excess -11.1 L ABG Hemoglobin 7.5 L ABG Carboxyhemoglobin 1.5 POC ABG HHb (Measured) 1.8 ABG Methemoglobin 1.0 José Test Pos A-a O2 Difference 241.0 Respiratory Index 2.9 Hgb O2 Saturation 95.6 Vent Mode Prvc Mechanical Rate 12 FiO2 50.0 Tidal Volume 450 PEEP 5 Sodium Potassium Chloride Carbon Dioxide Anion Gap BUN Creatinine Est GFR ( Amer) Est GFR (Non-Af Amer) POC Glucose (mg/dL) 147 H 51 L Random Glucose Calcium Phosphorus Magnesium Ferritin Total Bilirubin AST ALT Alkaline Phosphatase Total Protein Albumin Globulin Albumin/Globulin Ratio Vitamin B12 Folate 10/18/17 10/18/17 10/18/17 05:40 05:42 06:27 WBC 17.1 H D RBC 2.71 L Hgb 8.0 L Hct 26.0 L MCV 96.2 H D MCH 29.7 MCHC 30.9 L RDW 19.0 H Plt Count 50 L MPV 8.4 Neut % (Auto) 84.6 H Lymph % (Auto) 11.8 L [place] % (Auto) 2.5 Eos % (Auto) 0.3 Baso % (Auto) 0.8 Neut # (Auto) 14.4 H Lymph # (Auto) 2.0 [place] # (Auto) 0.4 Eos # (Auto) 0.1 Baso # (Auto) 0.1 Retic Count 1.9 H Puncture Site pCO2 pO2 HCO3 ABG pH ABG Total CO2 ABG O2 Saturation ABG Base Excess ABG Hemoglobin ABG Carboxyhemoglobin POC ABG HHb (Measured) ABG Methemoglobin José Test A-a O2 Difference Respiratory Index Hgb O2 Saturation Vent Mode Mechanical Rate FiO2 Tidal Volume PEEP Sodium Potassium Chloride Carbon Dioxide Anion Gap BUN Creatinine Est GFR ( Amer) Est GFR (Non-Af Amer) POC Glucose (mg/dL) < 20 L* 59 L Random Glucose Calcium Phosphorus Magnesium Ferritin Total Bilirubin AST ALT Alkaline Phosphatase Total Protein Albumin Globulin Albumin/Globulin Ratio Vitamin B12 Folate 10/18/17 10/18/17 06:27 06:39 WBC RBC Hgb Hct MCV MCH MCHC RDW Plt Count MPV Neut % (Auto) Lymph % (Auto) [place] % (Auto) Eos % (Auto) Baso % (Auto) Neut # (Auto) Lymph # (Auto) [place] # (Auto) Eos # (Auto) Baso # (Auto) Retic Count Puncture Site pCO2 pO2 HCO3 ABG pH ABG Total CO2 ABG O2 Saturation ABG Base Excess ABG Hemoglobin ABG Carboxyhemoglobin POC ABG HHb (Measured) ABG Methemoglobin José Test A-a O2 Difference Respiratory Index Hgb O2 Saturation Vent Mode Mechanical Rate FiO2 Tidal Volume PEEP Sodium 140 Potassium 3.8 Chloride 100 Carbon Dioxide 17 L Anion Gap 27 H BUN 21 H Creatinine 4.4 H Est GFR ( Amer) 16 Est GFR (Non-Af Amer) 14 POC Glucose (mg/dL) 113 H Random Glucose 52 L Calcium 8.3 L Phosphorus 3.0 Magnesium 1.8 Ferritin 1610.0 Total Bilirubin 2.9 H AST 171 H D ALT 32 Alkaline Phosphatase 114 Total Protein 4.9 L Albumin 2.3 L Globulin 2.5 Albumin/Globulin Ratio 0.9 L Vitamin B12 > 1000 H Folate 2.8 Fingerstick Blood Sugar Results: 82 Critical Care Progress Note - Nutrition Nutrition: Nutrition Category Date Time Status Renal Diet [DIET] Diets 10/04/17 Dinner Active
[2017-10-18 12:58] LABS: INR 2.1
--- NOTE | 2017-10-18 13:31 | CP.PCM.PN ---
Subjective - Date & Time of Evaluation Date of Evaluation: 10/18/17 Time of Evaluation: 13:00 - Subjective Subjective: Vented. Objective - Vital Signs/Intake and Output Vital Signs (last 24 hours): Temp Pulse Resp BP Pulse Ox 98.1 F 42 L 17 85/18 L 96 10/18/17 10:30 10/18/17 10:30 10/18/17 10:30 10/18/17 10:30 10/18/17 10:30 Intake and Output: 10/18/17 10/18/17 06:59 18:59 Intake Total 1156.4 227.0 Output Total 0 0 Balance 1156.4 227.0 - Medications Medications: Current Medications Dextrose (Dextrose 50% Inj) 0 ml IV STAT PRN; Protocol PRN Reason: Hypoglycemia Protocol Last Admin: 10/18/17 05:48 Dose: 50 ml Dextrose (Glutose 15) 0 gm PO ONCE PRN; Protocol PRN Reason: Hypoglycemia Protocol Epoetin Naeem (Procrit) 10,000 unit IV TTS ARYA Last Admin: 10/18/17 10:55 Dose: 10,000 unit Glucagon (Glucagen Diagnostic Kit) 0 mg IM STAT PRN; Protocol PRN Reason: Hypoglycemia Protocol Heparin Sodium (Porcine) (Heparin) 5,000 units SC Q12 ARYA Last Admin: 09/20/17 10:26 Dose: Not Given Colistimethate Sodium 80 mg/ (Sodium Chloride) 100 mls @ 200 mls/hr IV TTS ARYA PRN Reason: Protocol Last Admin: 10/16/17 12:44 Dose: 200 mls/hr Tigecycline 50 mg/ Sodium (Chloride) 100 mls @ 100 mls/hr IVPB Q12H ARYA PRN Reason: Protocol Last Admin: 10/18/17 10:00 Dose: Not Given Norepinephrine Bitartrate 8 mg (/ Dextrose) 258 mls @ 7.74 mls/hr IV .Q24H PRN ; Protocol; 4 MCG/MIN PRN Reason: TITRATE PER MD ORDER Last Admin: 10/18/17 05:55 Dose: 7 mcg/min, 13.54 mls/hr Meropenem 500 mg/ Sodium (Chloride) 100 mls @ 100 mls/hr IVPB Q12H ARYA PRN Reason: Protocol Last Admin: 10/18/17 06:40 Dose: 100 mls/hr Dextrose (Dextrose 10% In Water) 1,000 mls @ 60 mls/hr IV .[id number] [facility] Last Admin: 10/18/17 06:53 Dose: 60 mls/hr Morphine Sulfate 250 mg/ (Sodium Chloride) 250 mls @ 7 mls/hr IV .Q24H ONE PRN Reason: Protocol Stop: 10/19/17 11:02 Last Admin: 10/18/17 12:02 Dose: 7 mg/hr, 7 mls/hr Ipratropium [place] (Atrovent) 0.5 mg IH Q4H PRN PRN Reason: Shortness of Breath Midodrine (Proamatine) 10 mg PO TID [facility] Last Admin: 10/18/17 12:13 Dose: Not Given Nystatin (Nystop Topical Powder) 1 applic TOP TID [facility] Last Admin: 10/18/17 10:00 Dose: 1 applic Octreotide Acetate (Sandostatin) 100 mcg SC Q8H [facility] Last Admin: 10/18/17 05:54 Dose: 100 mcg Ondansetron HCl (Zofran Inj) 4 mg IVP Q6 PRN PRN Reason: Nausea/Vomiting Last Admin: 10/16/17 07:16 Dose: 4 mg - Labs Labs: 10/18/17 06:27 10/18/17 06:27 PT 23.0 SECONDS (9.7-12.2) H D 10/18/17 12:41 INR 2.1 D 10/18/17 12:41 APTT 66 SECONDS (21-34) H 10/18/17 12:41 - Head Exam Head Exam: ATRAUMATIC - Eye Exam Eye Exam: Normal appearance - ENT Exam ENT Exam: Mucous Membranes Dry - Respiratory Exam Respiratory Exam: NORMAL BREATHING PATTERN - Cardiovascular Exam Cardiovascular Exam: +S1, +S2 - GI/Abdominal Exam GI & Abdominal Exam: Normal Bowel Sounds Assessment and Plan (1) Thrombocytopenia Assessment & Plan: ? medication induce ? abx ? heparin f/u heparin Ab and serotonin release assay to evaluate for HIT; heparin on hold likely element of sequestration given liver cirrhosis Status: Acute (2) Anemia Assessment & Plan: Anemia of chronic disease and anemia of CKD EPO per renal Status: Acute
--- NOTE | 2017-10-18 13:58 | CP.PCM.PRO ---
Pronouncement of Note - Clinical Findings Physical Exam: No Response Verbal/Painful Stimuli, Absent Peripheral Pulses{ Carotid & Femoral}, Absent Heart & Breath Sounds, No Pupillary Light Reflex, No Corneal Reflex, Pupils Fixed & Dilated, Absence of Vital Signs - Pronouncement Time Time of Pronouncement of : 13:37 - Notifications Pronouncement Notifications: Family Notified, Atending Notified Social Studies Department Chair Notified: No - Autopsy Autopsy Requested: No
--- NOTE | 2017-10-18 14:18 | CP.PCM.PN ---
Subjective - Date & Time of Evaluation Date of Evaluation: 10/18/17 Time of Evaluation: 10:00 - Subjective Subjective: Intubated, unresponsive, no complaints Objective - Vital Signs/Intake and Output Vital Signs (last 24 hours): Temp Pulse Resp BP Pulse Ox 98.1 F 42 L 17 85/18 L 96 10/18/17 10:30 10/18/17 10:30 10/18/17 10:30 10/18/17 10:30 10/18/17 10:30 Intake and Output: 10/18/17 10/18/17 06:59 18:59 Intake Total 1156.4 227.0 Output Total 0 0 Balance 1156.4 227.0 - Medications Medications: Current Medications Dextrose (Dextrose 50% Inj) 0 ml IV STAT PRN; Protocol PRN Reason: Hypoglycemia Protocol Last Admin: 10/18/17 05:48 Dose: 50 ml Dextrose (Glutose 15) 0 gm PO ONCE PRN; Protocol PRN Reason: Hypoglycemia Protocol Epoetin Naeem (Procrit) 10,000 unit IV TTS [facility] Last Admin: 10/18/17 10:55 Dose: 10,000 unit Glucagon (Glucagen Diagnostic Kit) 0 mg IM STAT PRN; Protocol PRN Reason: Hypoglycemia Protocol Heparin Sodium (Porcine) (Heparin) 5,000 units SC Q12 [facility] Last Admin: 09/20/17 10:26 Dose: Not Given Colistimethate Sodium 80 mg/ (Sodium Chloride) 100 mls @ 200 mls/hr IV TTS ARYA PRN Reason: Protocol Last Admin: 10/16/17 12:44 Dose: 200 mls/hr Tigecycline 50 mg/ Sodium (Chloride) 100 mls @ 100 mls/hr IVPB Q12H ARYA PRN Reason: Protocol Last Admin: 10/18/17 10:00 Dose: Not Given Norepinephrine Bitartrate 8 mg (/ Dextrose) 258 mls @ 7.74 mls/hr IV .Q24H PRN ; Protocol; 4 MCG/MIN PRN Reason: TITRATE PER MD ORDER Last Admin: 10/18/17 05:55 Dose: 7 mcg/min, 13.54 mls/hr Meropenem 500 mg/ Sodium (Chloride) 100 mls @ 100 mls/hr IVPB Q12H [facility]YA PRN Reason: Protocol Last Admin: 10/18/17 06:40 Dose: 100 mls/hr Dextrose (Dextrose 10% In Water) 1,000 mls @ 60 mls/hr IV .[id number] [facility] Last Admin: 10/18/17 06:53 Dose: 60 mls/hr Morphine Sulfate 250 mg/ (Sodium Chloride) 250 mls @ 7 mls/hr IV .Q24H ONE PRN Reason: Protocol Stop: 10/19/17 11:02 Last Admin: 10/18/17 12:02 Dose: 7 mg/hr, 7 mls/hr Ipratropium [place] (Atrovent) 0.5 mg IH Q4H PRN PRN Reason: Shortness of Breath Midodrine (Proamatine) 10 mg PO TID [facility] Last Admin: 10/18/17 12:13 Dose: Not Given Nystatin (Nystop Topical Powder) 1 applic TOP TID [facility] Last Admin: 10/18/17 10:00 Dose: 1 applic Octreotide Acetate (Sandostatin) 100 mcg SC Q8H [facility] Last Admin: 10/18/17 05:54 Dose: 100 mcg Ondansetron HCl (Zofran Inj) 4 mg IVP Q6 PRN PRN Reason: Nausea/Vomiting Last Admin: 10/16/17 07:16 Dose: 4 mg - Labs Labs: 10/18/17 06:27 10/18/17 06:27 PT 23.0 SECONDS (9.7-12.2) H D 10/18/17 12:41 INR 2.1 D 10/18/17 12:41 APTT 66 SECONDS (21-34) H 10/18/17 12:41 - Constitutional Appears: In Acute Distress, Chronically Ill - Head Exam Head Exam: ATRAUMATIC, NORMAL INSPECTION, NORMOCEPHALIC - Eye Exam Eye Exam: Normal appearance Pupil Exam: NORMAL ACCOMODATION, PERRL - ENT Exam ENT Exam: Mucous Membranes Dry Additional comments: ETT tube - Neck Exam Neck Exam: Normal Inspection - Respiratory Exam Respiratory Exam: Decreased Breath Sounds Additional comments: On MV support - Cardiovascular Exam Cardiovascular Exam: Tachycardia - GI/Abdominal Exam GI & Abdominal Exam: Distended, Firm - Rectal Exam Rectal Exam: Deferred - Extremities Exam Extremities Exam: Pedal Edema - Back Exam Back Exam: NORMAL INSPECTION - Neurological Exam Neurological Exam: Motor Sensory Deficit Neuro motor strength exam: Left Upper Extremity: 0, Right Upper Extremity: 0, Left Lower Extremity: 0, Right Lower Extremity: 0 - Psychiatric Exam Psychiatric exam: Flat Affect - Skin Skin Exam: Pallor Assessment and Plan - Assessment and Plan (Free Text) Assessment: Patient seen and examined in bed, intubated, on MV support, unresponsive to stimuli. GCS 3. Patient looks acutely ill. BP is dangerously dropping. Levophed IV on board. Abdomen greatly distended, hard to touch. Patient is not expected to be able to be weaned off the vent and his overall clinical condition is not allowing any further surgical interventions. I met with patient's brother Wayne and mother Tamera this morning. They already came prepared to talk end of life care as they admitted seeing rapid decline in patient's condition. I reviewed clinical condition of a patient once again. The brother and the mother feeling as they " allowed all things" to happen against patient's wishes. I asked them to clarify and they both agreed that if patient could talk he would never wanted to be kept alive in this way. I discussed removing life support interventions and promotion of natural . Brother cried heavily and talked to his brother for a long time, saying he loved him and he will never forget him. I allowed enough time for family with patient and invited [employer] for Spiritual support. In further discussion about end of life care, patient's mother was very clear that she would not want her son to suffer any more. I offered more information about removal of life support and they both agreed with it. This was shared with ICU team and process was carried out. [employer] stayed with family for support. Patient peacefully this afternoon. Family was at bed side. Nursing team offered all support available. Impression * Terminally ill patient * Severely interrupted quality of life * Family supports comfort and promotion of natural Suggestion * DNR/DNI * Agree with removal of life support
== END 2017-10-18 13:37 | DRG 673 ==
LOC: C.ER 13:52 → C.9E 15:46 → C.6T 16:33 → C.9I 10-14 19:59
PROVIDERS: ADMIT Internal Medicine Nephrology; ATTEND Internal Medicine Nephrology
PROC: 0JH63XZ Insertion of Tunneled Vascular Access Device into Chest Subcutaneous Tissue and Fascia, Percutaneous Approach (ICD-10-PCS; 2017-09-20)
PROC: 02HV33Z Insertion of Infusion Device into Superior Vena Cava, Percutaneous Approach (ICD-10-PCS; 2017-09-20)
PROC: B548ZZA Ultrasonography of Superior Vena Cava, Guidance (ICD-10-PCS; 2017-09-20)
PROC: 5A1D70Z Performance of Urinary Filtration, Intermittent, Less than 6 Hours Per Day (ICD-10-PCS; 2017-09-22)
PROC: 5A1D70Z Performance of Urinary Filtration, Intermittent, Less than 6 Hours Per Day (ICD-10-PCS; 2017-09-25)
PROC: 0W9G3ZZ Drainage of Peritoneal Cavity, Percutaneous Approach (ICD-10-PCS; 2017-09-26)
PROC: 03180ZD Bypass Left Brachial Artery to Upper Arm Vein, Open Approach (ICD-10-PCS; principal; 2017-09-26 13:30)
PROC: 5A1D70Z Performance of Urinary Filtration, Intermittent, Less than 6 Hours Per Day (ICD-10-PCS; 2017-09-29)
PROC: 5A1D70Z Performance of Urinary Filtration, Intermittent, Less than 6 Hours Per Day (ICD-10-PCS; 2017-10-02)
PROC: 0JH63XZ Insertion of Tunneled Vascular Access Device into Chest Subcutaneous Tissue and Fascia, Percutaneous Approach (ICD-10-PCS; 2017-10-04)
PROC: 02HV33Z Insertion of Infusion Device into Superior Vena Cava, Percutaneous Approach (ICD-10-PCS; 2017-10-04)
PROC: B518ZZA Fluoroscopy of Superior Vena Cava, Guidance (ICD-10-PCS; 2017-10-04)
PROC: 5A1D70Z Performance of Urinary Filtration, Intermittent, Less than 6 Hours Per Day (ICD-10-PCS; 2017-10-06)
PROC: 5A1D70Z Performance of Urinary Filtration, Intermittent, Less than 6 Hours Per Day (ICD-10-PCS; 2017-10-09)
PROC: 5A1D70Z Performance of Urinary Filtration, Intermittent, Less than 6 Hours Per Day (ICD-10-PCS; 2017-10-11)
PROC: 5A1D70Z Performance of Urinary Filtration, Intermittent, Less than 6 Hours Per Day (ICD-10-PCS; 2017-10-13)
PROC: 0BH17EZ Insertion of Endotracheal Airway into Trachea, Via Natural or Artificial Opening (ICD-10-PCS; 2017-10-16)
PROC: 5A1945Z Respiratory Ventilation, 24-96 Consecutive Hours (ICD-10-PCS; 2017-10-16)
PROC: 5A1D70Z Performance of Urinary Filtration, Intermittent, Less than 6 Hours Per Day (ICD-10-PCS; 2017-10-18)
DX: N17.9 Acute kidney failure, unspecified (principal); N18.6 End stage renal disease; I12.0 Hypertensive chronic kidney disease with stage 5 chronic kidney disease or end stage renal disease; J96.01 Acute respiratory failure with hypoxia; I47.2 Ventricular tachycardia; T82.898A Other specified complication of vascular prosthetic devices, implants and grafts, initial encounter; D69.59 Other secondary thrombocytopenia; D63.1 Anemia in chronic kidney disease; H91.90 Unspecified hearing loss, unspecified ear; F10.10 Alcohol abuse, uncomplicated; E87.6 Hypokalemia; E16.2 Hypoglycemia, unspecified; E03.9 Hypothyroidism, unspecified; I15.2 Hypertension secondary to endocrine disorders; L03.119 Cellulitis of unspecified part of limb; I48.91 Unspecified atrial fibrillation; I51.7 Cardiomegaly; I77.819 Aortic ectasia, unspecified site; I95.89 Other hypotension; K21.9 Gastro-esophageal reflux disease without esophagitis; K70.31 Alcoholic cirrhosis of liver with ascites; N25.81 Secondary hyperparathyroidism of renal origin; R79.1 Abnormal coagulation profile; Z51.5 Encounter for palliative care; Z66 Do not resuscitate; Z87.442 Personal history of urinary calculi; Z91.81 History of falling